=== PATIENT | female | born 1940 | race Caucasian/White ===

== ENCOUNTER 2017-06-08 12:29 | Outpatient (RCR) | payer MEDICARE, OTHER, SELFPAY ==
[2017-06-08 14:36] LABS: International Normalized Ratio 2.4; Prothrombin Time (Protime)PT. 25.3 SECONDS (11.7-14.9)
== END 2017-06-08 12:45 | disposition home or self-care (01) ==
LOC: LAB 12:29
PROVIDERS: Family Provider Family Medicine; PCP Family Medicine; Visit Provider Internal Medicine Cardiovascular Disease
DX: I48.2 Chronic atrial fibrillation (principal)
CPT/HCPCS: 36415; 85610

== ENCOUNTER 2017-07-06 13:35 | Outpatient (RCR) | payer MEDICARE, OTHER, SELFPAY ==
[2017-07-06 15:28] LABS: International Normalized Ratio 2.3; Prothrombin Time (Protime)PT. 24.5 SECONDS (11.7-14.9)
== END 2017-07-06 15:00 | disposition home or self-care (01) ==
LOC: LAB 13:35
PROVIDERS: Family Provider Family Medicine; PCP Family Medicine; Visit Provider Internal Medicine Cardiovascular Disease
DX: I48.2 Chronic atrial fibrillation (principal)
CPT/HCPCS: 36415; 85610

== ENCOUNTER → 2017-07-26 10:51 | Outpatient (CLI) | payer MEDICARE, OTHER, SELFPAY ==
[2017-07-26 12:02] LABS: AST(SGOT) 23 U/L (15-37); Alanine Aminotransfer ALT/SGPT 17 U/L (13-56); Albumin, Serum 3.1 g/dL (3.2-5.0); Alkaline Phosphatase 48 U/L (45-117); Bilirubin, Direct 0.17 mg/dL (0.00-0.30); Cholesterol 115 mg/dL (200); Globulin 3.9 g/dL (2.2-4.2); High Density Lipoprotein 52 mg/dL; Triglycerides 51 mg/dL; Very Low Density Lipoprotein 10 mg/dL (5-40)
== END ==
PROVIDERS: Family Provider Family Medicine; PCP Family Medicine; Visit Provider Nurse Practitioner Family
DX: E78.5 Hyperlipidemia, unspecified (principal); Z79.899 Other long term (current) drug therapy
CPT/HCPCS: 36415; 80061; 80076

== ENCOUNTER 2017-08-07 13:25 | Outpatient (RCR) | payer MEDICARE, OTHER, SELFPAY ==
[2017-08-07 15:07] LABS: International Normalized Ratio 2.9; Prothrombin Time (Protime)PT. 30.6 SECONDS (11.7-14.9)
== END 2017-08-07 14:00 | disposition home or self-care (01) ==
LOC: LAB 13:25
PROVIDERS: Family Provider Family Medicine; PCP Family Medicine; Visit Provider Internal Medicine Cardiovascular Disease
DX: I48.2 Chronic atrial fibrillation (principal)
CPT/HCPCS: 36415; 85610

== ENCOUNTER → 2017-08-15 11:08 | Outpatient (CLI) | payer MEDICARE, OTHER, SELFPAY ==
[2017-08-15 14:49] LABS: Absolute Lymphocyte Count 0.94 X10^3/ul (0.83-4.51); Basophil# 0.01 X10^3/uL; Basophil% 0.1 % (0-1); Eosinophil# 0.02 X10^3/uL; Eosinophils% 0.2 % (0-5); Hematocrit 32.4 % (37-47); Hemoglobin 10.7 g/dl (12.0-15.0); Lymphocyte # 0.94 X10^3/ul (4.0); Lymphocyte % 9.4 % (19-41); Mean Corpuscular Hgb 32.8 pg (27.0-32.0); Mean Corpuscular Volume 99.4 fL (81-99); Mean Platelet Vol. 10.3 fl (6.2-12.0); Monocyte# 1.03 X10^3/uL; Monocyte% 10.3 % (0-10); Neutrophil # 7.98 X10^3/uL (2.7-7.7); Neutrophil % 79.9 % (47-70); Platelet Count 462 K/mm3 (150-450); RBC Distribution Width CV 13.8 % (11.6-14.6); RBC Distribution Width SD 49.2 fl (35.1-43.9); Red Blood Count 3.26 M/mm3 (4.2-5.4)
[2017-08-15 14:50] LABS: POSITIVE COUNT NO; POSITIVE DIFFERENTIAL NO; POSITIVE MORPHOLOGY NO
[2017-08-15 14:59] LABS: ALB/GLOB Ratio 0.6 RATIO (0.9-2.4); AST(SGOT) 16 U/L (15-37); Alanine Aminotransfer ALT/SGPT 16 U/L (13-56); Albumin, Serum 2.6 g/dL (3.2-5.0); Alkaline Phosphatase 53 U/L (45-117); Anion Gap 7 (5-15); BUN 18 mg/dL (7-18); BUN/Creat Ratio 22.1 RATIO (10-20); Calcium,Total 9.5 mg/dL (8.5-10.1); Chloride 102 mmol/L (98-107); Creatinine, Serum 0.81 mg/dL (0.55-1.02); EST Glomerular Filtration Rate 72 mL/min (>60); Est Glom Filt Rate - Afr Amer 87 mL/min (>60); Globulin 4.3 g/dL (2.2-4.2); Glucose 87 mg/dL (74-106); Protein, Total 6.9 g/dL (6.4-8.2); Sodium Level 136 mmol/L (136-145)
== END ==
PROVIDERS: Family Provider Family Medicine; PCP Family Medicine; Visit Provider Internal Medicine Rheumatology
DX: M06.4 Inflammatory polyarthropathy (principal); Z79.899 Other long term (current) drug therapy; M72.2 Plantar fascial fibromatosis; K21.9 Gastro-esophageal reflux disease without esophagitis; I10 Essential (primary) hypertension; I48.2 Chronic atrial fibrillation; I25.10 Atherosclerotic heart disease of native coronary artery without angina pectoris; K57.90 Diverticulosis of intestine, part unspecified, without perforation or abscess without bleeding
CPT/HCPCS: 36415; 80053; 85025

== ENCOUNTER 2017-09-12 11:05 | Outpatient (RCR) | payer MEDICARE, OTHER, SELFPAY ==
[2017-09-12 12:24] LABS: International Normalized Ratio 2.2; Prothrombin Time (Protime)PT. 24.8 SECONDS (11.7-14.9)
== END 2017-09-12 12:00 | disposition home or self-care (01) ==
LOC: LAB 11:05
PROVIDERS: Family Provider Family Medicine; PCP Family Medicine; Visit Provider Internal Medicine Cardiovascular Disease
DX: I48.2 Chronic atrial fibrillation (principal)
CPT/HCPCS: 36415; 85610

== ENCOUNTER → 2017-10-17 15:07 | Outpatient (CLI) | payer MEDICARE, OTHER, SELFPAY ==
--- NOTE | 2017-10-17 15:07 | DT_ITS ---
This patient was seen during an EMR downtime October 15, 2017 - October 22, 2017. This patient may have a combination of paper and electronic documentation or all paper documentation. All documentation is viewable within the e-chart portion of [employer] for each patient visit.
[2017-10-20 10:48] LABS: Prothrombin Time (Protime)PT. 22.5 SECONDS (11.7-14.9)
== END ==
PROVIDERS: Family Provider Family Medicine; PCP Family Medicine; Visit Provider Internal Medicine Cardiovascular Disease
DX: I48.91 Unspecified atrial fibrillation (principal)
CPT/HCPCS: 85610

== ENCOUNTER → 2017-11-01 13:06 | Outpatient (CLI) | payer MEDICARE, OTHER, SELFPAY ==
[2017-11-01 14:37] LABS: Absolute Lymphocyte Count 1.06 X10^3/ul (0.83-4.51); Absolute Neutrophil Count 4.3 X10^3/uL (2.0-7.7); Basophil# 0.02 X10^3/uL; Basophil% 0.3 % (0-1); Eosinophil# 0.07 X10^3/uL; Eosinophils% 1.2 % (0-5); Hematocrit 36.8 % (37-47); Hemoglobin 12.4 g/dl (12.0-15.0); Lymphocyte # 1.06 X10^3/ul (4.0); Mean Corp Hgb Conc 33.7 g/gl (32-36); Mean Corpuscular Volume 100.8 fL (81-99); Mean Platelet Vol. 10.8 fl (6.2-12.0); Monocyte# 0.43 X10^3/uL; Monocyte% 7.3 % (0-10); Neutrophil # 4.31 X10^3/uL (2.7-7.7); Platelet Count 269 K/mm3 (150-450); RBC Distribution Width CV 13.9 % (11.6-14.6); RBC Distribution Width SD 49.6 fl (35.1-43.9); Red Blood Count 3.65 M/mm3 (4.2-5.4); White Blood Count 5.9 K/mm3 (4.4-11.0)
[2017-11-01 14:40] LABS: POSITIVE COUNT NO; POSITIVE DIFFERENTIAL NO; POSITIVE MORPHOLOGY NO
[2017-11-01 14:42] LABS: AST(SGOT) 21 U/L (15-37); Alanine Aminotransfer ALT/SGPT 22 U/L (13-56); Albumin, Serum 3.4 g/dL (3.2-5.0); Alkaline Phosphatase 54 U/L (45-117); Anion Gap 8 (5-15); BUN 18 mg/dL (7-18); BUN/Creat Ratio 22.4 RATIO (10-20); Calcium,Total 9.1 mg/dL (8.5-10.1); Chloride 106 mmol/L (98-107); EST Glomerular Filtration Rate 73 mL/min (>60); Est Glom Filt Rate - Afr Amer 89 mL/min (>60); Globulin 3.5 g/dL (2.2-4.2); Glucose 92 mg/dL (74-106); Protein, Total 6.9 g/dL (6.4-8.2); Sodium Level 140 mmol/L (136-145)
== END ==
PROVIDERS: Family Provider Family Medicine; PCP Family Medicine; Visit Provider Internal Medicine Rheumatology
DX: M06.4 Inflammatory polyarthropathy (principal); Z79.899 Other long term (current) drug therapy; M72.2 Plantar fascial fibromatosis; K21.9 Gastro-esophageal reflux disease without esophagitis; I10 Essential (primary) hypertension; I48.2 Chronic atrial fibrillation; I25.10 Atherosclerotic heart disease of native coronary artery without angina pectoris; K57.90 Diverticulosis of intestine, part unspecified, without perforation or abscess without bleeding
CPT/HCPCS: 36415; 80053; 85025

== ENCOUNTER 2017-12-04 13:38 | Outpatient (RCR) | payer MEDICARE, OTHER, SELFPAY ==
[2017-12-04 16:18] LABS: International Normalized Ratio 2.2; Prothrombin Time (Protime)PT. 24.1 SECONDS (11.7-14.9)
== END 2017-12-04 15:00 | disposition home or self-care (01) ==
LOC: LAB 13:38
PROVIDERS: Family Provider Family Medicine; PCP Family Medicine; Visit Provider Internal Medicine Cardiovascular Disease
DX: I48.2 Chronic atrial fibrillation (principal)
CPT/HCPCS: 36415; 85610

== ENCOUNTER 2018-01-04 12:27 | Outpatient (RCR) | payer MEDICARE, OTHER, SELFPAY ==
[2018-01-04 13:22] LABS: International Normalized Ratio 2.4; Prothrombin Time (Protime)PT. 25.9 SECONDS (11.7-14.9)
== END 2018-01-04 14:00 | disposition home or self-care (01) ==
LOC: LAB 12:27
PROVIDERS: Family Provider Family Medicine; PCP Family Medicine; Visit Provider Internal Medicine Cardiovascular Disease
DX: I48.2 Chronic atrial fibrillation (principal)
CPT/HCPCS: 36415; 85610

== ENCOUNTER → 2018-01-29 13:48 | Outpatient (CLI) | payer MEDICARE, OTHER, SELFPAY ==
[2018-01-29 15:27] LABS: Absolute Lymphocyte Count 1.44 X10^3/ul (0.83-4.51); Absolute Neutrophil Count 3.2 X10^3/uL (2.0-7.7); Basophil# 0.02 X10^3/uL; Basophil% 0.4 % (0-1); Eosinophil# 0.09 X10^3/uL; Eosinophils% 1.7 % (0-5); Hematocrit 37.4 % (37-47); Hemoglobin 12.4 g/dl (12.0-15.0); Lymphocyte # 1.44 X10^3/ul (4.0); Lymphocyte % 27.7 % (19-41); Mean Corp Hgb Conc 33.2 g/gl (32-36); Mean Corpuscular Hgb 33.2 pg (27.0-32.0); Mean Corpuscular Volume 100.3 fL (81-99); Mean Platelet Vol. 10.8 fl (6.2-12.0); Monocyte# 0.41 X10^3/uL; Monocyte% 7.9 % (0-10); Neutrophil # 3.23 X10^3/uL (2.7-7.7); Neutrophil % 62.1 % (47-70); Platelet Count 261 K/mm3 (150-450); RBC Distribution Width CV 13.8 % (11.6-14.6); RBC Distribution Width SD 49.5 fl (35.1-43.9); Red Blood Count 3.73 M/mm3 (4.2-5.4); White Blood Count 5.2 K/mm3 (4.4-11.0)
[2018-01-29 15:36] LABS: POSITIVE COUNT NO; POSITIVE DIFFERENTIAL NO; POSITIVE MORPHOLOGY NO
[2018-01-29 15:38] LABS: AST(SGOT) 17 U/L (15-37); Alanine Aminotransfer ALT/SGPT 20 U/L (13-56); Albumin, Serum 3.4 g/dL (3.2-5.0); Alkaline Phosphatase 65 U/L (45-117); Anion Gap 9 (5-15); BUN 20 mg/dL (7-18); BUN/Creat Ratio 25.7 RATIO (10-20); Calcium,Total 9.5 mg/dL (8.5-10.1); Chloride 108 mmol/L (98-107); Creatinine, Serum 0.78 mg/dL (0.55-1.02); EST Glomerular Filtration Rate 76 mL/min (>60); Est Glom Filt Rate - Afr Amer 92 mL/min (>60); Globulin 3.4 g/dL (2.2-4.2); Glucose 98 mg/dL (74-106); Potassium 3.9 mmol/L (3.5-5.1); Protein, Total 6.8 g/dL (6.4-8.2); Sodium Level 142 mmol/L (136-145)
[2018-01-29 15:53] LABS: International Normalized Ratio 2.1; Prothrombin Time (Protime)PT. 23.2 SECONDS (11.7-14.9)
== END ==
PROVIDERS: Internal Medicine Cardiovascular Disease; Family Provider Family Medicine; PCP Family Medicine; Visit Provider Internal Medicine Rheumatology
DX: M06.4 Inflammatory polyarthropathy (principal); Z79.899 Other long term (current) drug therapy; M72.2 Plantar fascial fibromatosis; K21.9 Gastro-esophageal reflux disease without esophagitis; I10 Essential (primary) hypertension; I48.2 Chronic atrial fibrillation; I25.10 Atherosclerotic heart disease of native coronary artery without angina pectoris; K57.90 Diverticulosis of intestine, part unspecified, without perforation or abscess without bleeding
CPT/HCPCS: 36415; 80053; 85025; 85610

== ENCOUNTER 2018-04-03 11:02 | Outpatient (RCR) | payer MEDICARE, OTHER, SELFPAY ==
[2018-03-14 15:15] LABS: International Normalized Ratio 1.8; Prothrombin Time (Protime)PT. 20.5 SECONDS (11.7-14.9)
[2018-04-03 12:18] LABS: International Normalized Ratio 2.1; Prothrombin Time (Protime)PT. 23.6 SECONDS (11.7-14.9)
== END 2018-04-12 12:29 | disposition home or self-care (01) ==
LOC: LAB 11:02
PROVIDERS: Internal Medicine Cardiovascular Disease; Family Provider Family Medicine; PCP Family Medicine; Visit Provider Internal Medicine Cardiovascular Disease
DX: I48.2 Chronic atrial fibrillation (principal); Z79.01 Long term (current) use of anticoagulants
CPT/HCPCS: 36415; 85610

== ENCOUNTER → 2018-04-17 11:04 | Outpatient (CLI) | payer MEDICARE, OTHER, SELFPAY ==
[2018-04-17 11:59] LABS: Absolute Lymphocyte Count 0.95 X10^3/ul (0.83-4.51); Absolute Neutrophil Count 2.9 X10^3/uL (2.0-7.7); Basophil# 0.04 X10^3/uL; Basophil% 0.9 % (0-1); Eosinophil# 0.06 X10^3/uL; Eosinophils% 1.3 % (0-5); Hematocrit 38.5 % (37-47); Hemoglobin 12.8 g/dl (12.0-15.0); Lymphocyte # 0.95 X10^3/ul (4.0); Lymphocyte % 21.3 % (19-41); Mean Corp Hgb Conc 33.2 g/gl (32-36); Mean Corpuscular Hgb 34.3 pg (27.0-32.0); Mean Corpuscular Volume 103.2 fL (81-99); Monocyte# 0.56 X10^3/uL; Monocyte% 12.6 % (0-10); Neutrophil # 2.85 X10^3/uL (2.7-7.7); Neutrophil % 63.9 % (47-70); Platelet Count 258 K/mm3 (150-450); RBC Distribution Width CV 13.1 % (11.6-14.6); RBC Distribution Width SD 47.4 fl (35.1-43.9); Red Blood Count 3.73 M/mm3 (4.2-5.4); White Blood Count 4.5 K/mm3 (4.4-11.0)
[2018-04-17 12:00] LABS: POSITIVE COUNT NO; POSITIVE DIFFERENTIAL NO; POSITIVE MORPHOLOGY NO
[2018-04-17 12:37] LABS: AST(SGOT) 19 U/L (15-37); Alanine Aminotransfer ALT/SGPT 18 U/L (13-56); Albumin, Serum 3.5 g/dL (3.2-5.0); Alkaline Phosphatase 66 U/L (45-117); Anion Gap 6 (5-15); BUN 15 mg/dL (7-18); BUN/Creat Ratio 16.3 RATIO (10-20); Calcium,Total 9.6 mg/dL (8.5-10.1); Chloride 107 mmol/L (98-107); Creatinine, Serum 0.92 mg/dL (0.55-1.02); EST Glomerular Filtration Rate 63 mL/min (>60); Est Glom Filt Rate - Afr Amer 76 mL/min (>60); Globulin 3.6 g/dL (2.2-4.2); Glucose 79 mg/dL (74-106); Potassium 3.8 mmol/L (3.5-5.1); Protein, Total 7.1 g/dL (6.4-8.2); Sodium Level 140 mmol/L (136-145)
== END ==
PROVIDERS: Family Provider Family Medicine; PCP Family Medicine; Referring Provider Internal Medicine Rheumatology; Visit Provider Internal Medicine Rheumatology
DX: M06.4 Inflammatory polyarthropathy (principal); Z79.899 Other long term (current) drug therapy; M72.2 Plantar fascial fibromatosis; K21.9 Gastro-esophageal reflux disease without esophagitis; I10 Essential (primary) hypertension; I48.2 Chronic atrial fibrillation; I25.10 Atherosclerotic heart disease of native coronary artery without angina pectoris; K57.90 Diverticulosis of intestine, part unspecified, without perforation or abscess without bleeding
CPT/HCPCS: 36415; 80053; 85025

== ENCOUNTER → 2018-04-25 14:20 | Outpatient (CLI) | payer MEDICARE, OTHER, SELFPAY ==
[2018-03-14 14:46] VITALS: BMI 26.3
--- NOTE | 2018-04-25 14:20 | ASPSI_PTH ---
PATIENT: ANGELINA SONI LOC: [facility] U#:[id number] AGE/SX: 84/F ROOM: RE04/25/[address]: Dr. Pato Urbina MD : 1940 BED: DIS: SPEC #: [id number] RECD: 04/25/18 16:19 STATUS: KARSTEN REZeny #: [id number] KRYSTEN: 04/25/18 14:[address]: Pato Urbina DEPT: CYTOLOGY RECD BY: Bradford Bradford ENTERED: 04/26/18 10:10 SP TYPE: ASP ELISSA STEVENSON DR: Dr. 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 Acute inflammation. Fibrinoid material. See Comment. AM:kellie 04/29/18 COMMENT The specimen primarily consists of proteinaceous debris and acute inflammatory cells. Scattered degenerative atypical squamoid cells are present. An atypical squamous lesion or a higher grade lesion cannot be ruled out. Salivary gland tissue is not identified. Clinical correlation and excision of lesion is recommended if indicated. Case has been reviewed in consultation with Dr. Ch who concurs with the above diagnosis. IDC:SJ CYTOLOGY STUDY Slides are reviewed. CYTOLOGY GROSS Received is 60 ml of pink cloudy fluid labeled with the patient's name and and designated per the requisition as left parotid/neck. Submitted for cytology preparation including cell block. 04/26/18 TC:? CPT: 64506, 01970
--- OUTSIDE RECORDS SUMMARY | 2018-06-11 20:57 | XMS RPT_ITS ---
:1940 Author Organization [facility] Support Name Relationship Address Phone ZAIN SHETH Unavailable [address] + [place] [address] R Unavailable Unavailable Unavailable WELTMER, BEYN Unavailable [address] + [place] [address] ZAIN SHETH Unavailable [address] + [place] [address] R Unavailable Unavailable Unavailable WELTMER, BENY Unavailable [address] + [place] [address] MERYLDANIKA GOLDMANA Unavailable [address] + [place] [address] R Unavailable Unavailable Unavailable WELTMER, BENY Unavailable [address] + [place] [address] MERYLDANIKA GOLDMANA Unavailable [address] + [place] [address] R Unavailable Unavailable Unavailable WELTMER, BENY Unavailable [address] + [place] [address] MERYLDANIKA GOLDMANA Unavailable [address] + [place] [address] R Unavailable Unavailable Unavailable WELTMER, BENY Unavailable [address] + [place] [address] MERYLDANIKA GOLDMANA Unavailable [address] + [place] [address] R Unavailable Unavailable Unavailable WELTMER, BENY Unavailable [address] + [place] [address] MERYLDANIKAA Unavailable [address] + [place] [address] R Unavailable Unavailable Unavailable WELTMER, BENY Unavailable [address] + [place] [address] MERYL, ZAIN Unavailable [address] + [place] [address] R Unavailable Unavailable Unavailable WELTMER, BENY Unavailable [address] + [place] [address] MERYL, ZAIN Unavailable [address] + [place] [address] R Unavailable Unavailable Unavailable WELTMER, BENY Unavailable [address] + [place] [address] MERYL, ZAIN Unavailable [address] + [place] [address] R Unavailable Unavailable Unavailable WELTMER, BENY Unavailable [address] + [place] [address] MERYL, ZAIN Unavailable [address] + [place] [address] R Unavailable Unavailable Unavailable WELTMER, BENY Unavailable [address] + [place] [address] MERYL, ZAIN Unavailable [address] + [place] [address] R Unavailable Unavailable Unavailable WELTMER, BENY Unavailable [address] + [place] [address] MERYL, ZAIN Unavailable [address] + [place] [address] R Unavailable Unavailable Unavailable WELTMER, BENY Unavailable [address] + [place] [address] MERYL, ZAIN Unavailable [address] + [place] [address] R Unavailable Unavailable Unavailable WELTMER, BENY Unavailable [address] + [place] [address] MREYL, ZAIN Unavailable [address] + [place] [address] R Unavailable Unavailable Unavailable WELTMER, BENY Unavailable [address] + [place] [address] MERYL, ZAIN Unavailable [address] + [place] [address] R Unavailable Unavailable Unavailable WELTMER, BENY Unavailable [address] + [place] [address] MERYL ZAIN Unavailable [address] + [place] [address] R Unavailable Unavailable Unavailable WELTMER, BENY Unavailable [address] + [place] [address] MERYL, ZAIN Unavailable [address] + [place] [address] R Unavailable Unavailable Unavailable WELTMER, BENY Unavailable [address] + [place] [address] MERYL, ZAIN Unavailable [address] + [place] [address] R Unavailable Unavailable Unavailable WELTMER, BENY Unavailable [address] + [place] [address] MERYLDANIKA GOLDMANA Unavailable [address] + [place] [address] R Unavailable Unavailable Unavailable WELTMER, BENY Unavailable [address] + [place] [address] DANIKA SHETHA Unavailable [address] + [place] [address] R Unavailable Unavailable Unavailable WELTMER, BENY Unavailable [address] + [place] [address] MERYL, ZAIN Unavailable [address] + [place] [address] R Unavailable Unavailable Unavailable WELTMER, BENY Unavailable [address] + [place] [address] Care Team Providers Name Role Phone JOSEPH [...] Unavailable Pari, Joseph Primary Care Unavailable Isis, [place] Consulting Unavailable Vellanki, Iona Consulting Unavailable Urbina, Pato Attending Unavailable Pari, Joseph Primary Care Unavailable Urbina, Pato Attending Unavailable Urbina, Pato Referring Unavailable Pari, Joseph Primary Care Unavailable Urbina, Pato Admitting Unavailable Aldair Abdul Attending Unavailable Pari, Joseph Primary Care Unavailable Isis, [place] Consulting Unavailable GERMAINE ABDUL Referring Unavailable Vellanki, [place] Consulting Unavailable Aldair Abdul Attending Unavailable Aldair Abdul Referring Unavailable Pari, Joseph Primary Care Unavailable Isis, [place] Consulting Unavailable Vellanki, [place] Consulting Unavailable Aldair Abdul Attending Unavailable Aldair Abdul Referring Unavailable Pari, Joseph Primary Care Unavailable Isis, [place] Consulting Unavailable Vellanki, [place] Consulting Unavailable Sammy [...] Consulting Unavailable Vellanki, [place] Consulting Unavailable Isis, [place] Attending Unavailable Pari, Joseph Primary Care Unavailable [...] Unknown 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, 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 / D11.0(ICD-10) Hospital Repository 05/13/2018 Unknown I48.2 - Chronic Aldair Abdul Active [facility] atrial fibrillation / Community I48.2(ICD-10) Hospital Repository 04/09/2018 Active Localized swelling, NA Active [facility] mass and lump, neck / Clinic Main R22.1(ICD-10) [facility] Repository 04/17/2018 Unknown Z79.899 - Other long Vellanki, Iona Active [facility] term (current) drug Community therapy / Hospital Z79.899(ICD-10) Repository 04/17/2018 Unknown M06.4 - Inflammatory Vellanki, 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 / Community M06.4(ICD-10) Hospital Repository 04/17/2018 Unknown 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, 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 Community / M72.2(ICD-10) Hospital Repository 04/17/2018 Unknown K21.9 - Vellanki, Iona Active [facility] Gastro-esophageal Community reflux disease Hospital without esophagitis / Repository K21.9(ICD-10) 04/17/2018 Unknown I10 - Essential Vellanki, Iona Active [facility] (primary) Community hypertension / Hospital I10(ICD-10) Repository 04/17/2018 Unknown I25.10 - Vellanki, Iona Active [facility] 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 without angina pectoris / I25.10(ICD-10) 04/17/2018 Unknown K57.90 - [place]ona Eid Active [facility] Diverticulosis of Community intestine, part Hospital unspecified, without Repository perforation or abscess without bleeding / K57.90(ICD-10) 04/15/2018 Unknown 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 [facility] (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) use of Community anticoagulants / Hospital Z79.01(ICD-10) Repository 03/14/2018 Unknown I25.119 - Isis, Connor Active [facility] Atherosclerotic heart Community disease of [place] [facility] coronary artery with Repository unspecified angina pectoris / I25.119(ICD-10) 03/14/2018 Unknown Z72.0 - Tobacco use / Isis, [place] Active [facility] Z72.0(ICD-10) [facility] Hospital Repository 03/14/2018 Unknown E78.00 - Pure Isis, Connor Active [facility] hypercholesterolemia, Community unspecified / Hospital E78.00(ICD-10) Repository 11/07/2017 Unknown I48.91 - Unspecified Isis, [place] Active [facility] atrial fibrillation / Community I48.91(ICD-10) Hospital Repository 08/13/2017 Unknown I48.0 - Paroxysmal Aldair Abdul Active [facility] atrial fibrillation / Community I48.0(ICD-10) Hospital Repository 07/26/2017 Unknown E78.5 - Sammy Bellamy Active [facility] Hyperlipidemia, Community unspecified / Hospital E78.5(ICD-10) Repository 06/14/2017 Active Other snf NA Active [facility] (current) drug Clinic Main therapy / [place] Z79.899(ICD-10) Repository 02/29/2016 Active Gastro-esophageal NA Active [place] reflux disease Clinic Main without esophagitis / [facility] K21.9(ICD-10) Repository 08/30/2015 Active Essential (primary) NA Active [place] hypertension / Clinic Main I10(ICD-10) [facility] Repository 03/06/2015 Active Mixed hyperlipidemia NA Active [facility] / E78.2(ICD-10) Clinic Main [facility] Repository PROCEDURES PROCEDURES No Procedure Records FoundRESULTS RESULTS DISCHARGE INSTRUCTION Observed: 05/25/2018 Status: F Source: [place] 10:15 AM [facility] REPOSITORY [facility] Medical Records Department [address] [place] [address] [place] [address] Instructions for Home/Discharge Instructions 05/25/18 1014 MR#: [id number] Acct: [id number] Name: MARY CARLTON Rep #: [id number] : 1940 77 From: Pato Urbina MD [...] TIME W/INR Collected: 05/24/2018 Status: F Source: [place] 7:54 AM [facility] REPOSITORY Order Comment: Result obtained is for confirmation testing of Fingerstick PT/INR Specimen #[id number] . 05/24/18 0800 SSTERNER THIS CONFIRMATION SPECIMEN RESULT IS FROM VENOUS BLOOD. TYPE CODE TESTS RESULT OUT OF RANGE REFERENCE UNITS LAB L300.4150 11.7-14.9 SECONDS High PROTIME 23.3 LAB L300.4200 Normal INR 2.1 Performed By: #### L300.3900 #### [facility] [address] [place], [address] PROTIME W/INR Collected: 05/24/2018 Status: F Source: [place] FING[place] 7:48 AM [facility] REPOSITORY TYPE CODE TESTS RESULT OUT OF REFERENCE UNITS RANGE LAB L9200.1001 11.9-14.4 SEC High PROTIME ISTAT 24.3 Result Comment: Reference Range 11.9 - 14.4 LAB L9200.2000 Normal INR ISTAT 2.10 Result Comment: Critical Value > 3.5 Performed By: #### L9200.0000 #### [facility] Point of Care [address] [place] [address] PAROTID GLAND BIOPSY Observed: 05/24/2018 Status: F Source: [place] 12:00 AM [facility] REPOSITORY Patient: MARY CARLTON : 1940 (77/F) Acct Num: [id number] Phys: Pato Urbina MD Unit Num: [id number] Loc: MS3 EU278-4 Specimen: [id number] Received: 05/24/181137 Spec Type: PAROTID [...] and has a similar appearance and consistency. Cable Strander sections from the nodules are submitted for frozen section consultation in two blocks as follows: 1 - larger lesion, 2 - smaller lesion. The remainder of the larger nodule is submitted in its entirety for permanent sections in cassettes 3 AND 4. The remainder of the smaller nodule is submitted in its entirety in cassette 5. Cable Strander sections of the uninvolved parotid parenchyma adjacent to and away from nodules are submitted in cassettes 6-10. 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 MICROSCOPIC DIAGNOSIS Left parotid gland, parotidectomy: Warthin's tumors. See comment. AM:kellie 05/28/18 Signed Pavan Terry, 05/28/18 <signature on file> Performed By: #### PPAR #### [facility] [address] [place], [address] CHEST WITH CONTRAST Observed: 05/10/2018 Status: F Source: [place] 2:48 PM [facility] REPOSITORY [facility] Imaging Services [address] [place] [address] Chest WITH Contrast MR#: [id number] Acct: [id number] Name: MARY CARLTON Rep #: [id number] : 1940 F 77 From: William Jacobs MD PCP: Joseph Yañez MD Status: REG CLI Study: Chest WITH Contrast Date of Exam: 05/10/18 Exam# [id number] Ordering Dr: Pato Urbina MD STUDY: CT [...] William Jacobs MD at 11:49 EST Tel [phone], Service support , CC: Pato Urbina MD; Joseph Yañez MD Weapons Electrical Engineering Officer: Signed PROTHROMBIN TIME W/INR Collected: 05/10/2018 Status: F Source: [place] 12:37 PM [facility] REPOSITORY TYPE CODE TESTS RESULT OUT OF RANGE REFERENCE UNITS LAB L300.4150 11.7-14.9 SECONDS High PROTIME 25.1 LAB L300.4200 Normal INR 2.3 Performed By: #### L300.3900 #### [facility] [address] [place], [address] PROGRESS Observed: 05/03/2018 Status: COMPLETED Source: [place] 9:07 AM [facility] REPOSITORY O ID: [id number] Author: Yaneth Gaitan Service: (none) Author Type: [...] decomp right - COLONOSCOP W/ OR W/O [facility] SPEC 05/11/1995 Colonoscopy - COLONOSCOP W/ OR W/O [facility] SPEC 08/17/2005 few diverticula - COLONOSCOP W/ OR W/O [facility] SPEC 11/29/10 normal, repeat 10 yrs - CYSTOURETH W/FULG 0.5-2CM 02/25/14 stent right ureter for hematuria - EGD W/O [facility] SPECIMEN W/BX 11/29/10 gastritis - EGD W/O [...] DPM PROGRESS Observed: 05/03/2018 Status: COMPLETED Source: [place] 8:58 AM [facility] [place] REPOSITORY [facility] ID: [id number] Author: Negra Garcia RN Service: (none) Author [...] RN CNOV Observed: 05/03/2018 Status: COMPLETED Source: [place] 8:40 AM [facility] REPOSITORY Office Visit (PODIWS) ZACHARIAHMARY ([id number]) 1940 F NFR Date Time Provider Department [...] decomp right - COLONOSCOP W/ OR W/O [facility] SPEC 05/11/1995 Colonoscopy - COLONOSCOP W/ OR W/O [facility] SPEC 08/17/2005 few diverticula - COLONOSCOP W/ OR W/O [facility] SPEC 11/29/10 normal, repeat 10 yrs - CYSTOURETH W/FULG 0.5-2CM 02/25/14 stent right ureter for hematuria - EGD W/O [facility] SPECIMEN W/BX 11/29/10 gastritis - EGD W/O [...] RADIOLOGY (FLUID) Observed: 05/02/2018 Status: F Source: [place] 2:24 PM [facility] REPOSITORY Patient: MARY CARLTON : 1940 (77/F) Acct Num: [id number] Phys: Pato Urbina MD Unit Num: [id number] Loc: LABSPEC Specimen: [id number] Received: 05/03/18 - 1208 Spec Type: ASP OUT TISSUES 1 TISSUES: Parotid gland, NOS COMMENT Correlation with clinical findings and appropriate follow up are necessary. Please make reference to previous specimen ([id number]) fine needle aspiration, left parotid/neck mass with diagnosis of atypical squamoid cells present, acute inflammation and fibroid material. CYTOLOGY GROSS Received is 40 ml of slightly cloudy fluid labeled with the patient's name and and designated per the requisition as right parotid gland. Submitted for cytology preparation including cell block. / 05/03/18 TC:1 CPT: 50861 , 79905 CYTOLOGY STUDY Slides are reviewed. DIAGNOSIS CYTOLOGY Right parotid gland, FNA (cytospin and cell block): Consistent with Warthin's tumor. See comment. SJ:kellie 05/06/18 HEADER OPERATION: FNA right parotid gland PRE-OP DIAGNOSIS: Benign neoplasm right parotid gland TISSUE SUBMITTED: FNA right parotid gland Signed Artemio Ch MD 05/06/18 <signature on file> Performed By: #### PASPIG #### [facility] [place], [address] ASP SEND IN Observed: 04/25/2018 Status: F Source: [place] 2:20 PM [facility] REPOSITORY Patient: MARY CARLTON : 1940 (77/F) Acct Num: [id number] Phys: Pato Urbina MD Unit Num: [id number] Loc: LABSPEC Specimen: [id number] Received: 04/25/18 - [...] including cell block. / 04/26/18 TC:? CPT: 43389, 18675 CYTOLOGY STUDY Slides are reviewed. DIAGNOSIS CYTOLOGY Fine needle aspiration, left parotid/neck mass (cytospin and cell block): Atypical squamoid cells present. Acute inflammation. Fibrinoid material. See Comment. 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, [address] PROTHROMBIN TIME W/INR Collected: 04/23/2018 Status: F Source: [place] 2:16 PM [facility] REPOSITORY TYPE CODE TESTS RESULT OUT OF RANGE REFERENCE UNITS LAB L300.4150 11.7-14.9 SECONDS High PROTIME 24.6 LAB L300.4200 Normal INR 2.2 Performed By: #### L300.3900 #### [facility] [address] [place], [address] CT NECK SOFT TISSUE Observed: 04/22/2018 Status: F Source: [facility] IVCON 2:12 PM [facility] REPOSITORY * * *Final Report* * * DATE OF EXAM: Apr 22 2018 2:12PM [facility] 0013 - CT NECK SOFT TISSUE W [...] Negative for cervical lymphadenopathy by size criteria. Weapons Electrical Engineering Officer: PSCB Transcribe Date/Time: Apr 22 2018 2:26P Dictated by : ALDAIR ZULUAGA MD This examination was interpreted and the report reviewed and electronically signed by: ROCIO MOSCOSO MD on Apr 22 2018 3:52PM EST [id number] PROGRESS Observed: 04/22/2018 Status: COMPLETED Source: [place] 2:09 PM [facility] REPOSITORY HNO ID: [id number] Author: Tanvi Ascencio Ct Service: (none) Author [...] 04/17/2018 Status: F Source: [place] 11:11 AM [facility] REPOSITORY TYPE CODE TESTS RESULT OUT OF [...] Lymph 0.95 Performed By: #### L100.0100 #### [facility] [address] [place], [address] COMPREHENSIVE METABOLIC Collected: 04/17/2018 Status: F Source: [place] 11:11 AM [facility] REPOSITORY TYPE CODE TESTS RESULT OUT OF [...] GAP 6 Performed By: #### L500.4050 #### [facility] [address] [place], [address] CREATININE Collected: 04/09/2018 Status: F Source: [place] 3:22 PM [facility] REPOSITORY TYPE [...] GFR. PROGRESS Observed: 04/09/2018 Status: COMPLETED Source: [place] 2:20 PM [facility] REPOSITORY [facility] ID: [id number] Author: Joseph Yañez Service: (none) Author Type: [...] decomp right - COLONOSCOP W/ OR W/O [facility] SPEC 05/11/1995 Colonoscopy - COLONOSCOP W/ OR W/O [facility] SPEC 08/17/2005 few diverticula - COLONOSCOP W/ OR W/O [facility] SPEC 11/29/10 normal, repeat 10 yrs - CYSTOURETH W/FULG 0.5-2CM 02/25/14 stent right ureter for hematuria - EGD W/O [facility] SPECIMEN W/BX 11/29/10 gastritis - EGD W/O [...] of Onset - Coronary Artery Disease Mother [place] - Coronary Artery Disease Father [place] - Stroke Father - Diabetes Brother - [...] old female who presents here today for [facility]. Patient with Hx of CAD, [...] of Onset - Coronary Artery Disease Mother [place] - Coronary Artery Disease Father [place] - Stroke Father - Diabetes Brother - [...] MD CNOV Observed: 04/09/2018 Status: COMPLETED Source: [place] 2:00 PM [facility] REPOSITORY Office Visit (FAMPWS) MARY CARLTON ([id number]) 1940 F NFR Date Time Provider Department 04/09/18 2:00 PM JOSEPH YAÑEZ FAMPWS During your visit today, we recorded the following information about you: Pulse Respiration Blood pressure Weight 76/minute 16/minute 134/62 56.7 kg Height 1.441 m Ce Henry Ma 04/09/2018 7:56 PM Signed 77 year old female here for INACTIVATED INFLUENZA VACCINE. 4259-1881 Season Patient is identified by name and date of : Yes [] CONTRAINDICATIONS color enhanced section Age less than 6 months? No Allergy to eggs, chicken, chicken feathers, or chicken dander? No Allergy to thimerosal (a preservative) or formaldehyde, gelatin? No History of severe reaction to any vaccine component or a previous dose of influenza vaccination? No History of Guillain-[place] Syndrome within 6 weeks after a previous [...] sheet given? Yes See immunization activity in [facility] for details of immunizations adminstered today. Patient age: [age] year old For The 8003-9858 Flu Season 6-35 months old: Fluzone 0.25 [...] of Onset - Coronary Artery Disease Mother [place] - Coronary Artery Disease Father [place] - Stroke Father - Diabetes Brother - [...] old female who presents here today for [facility]. Patient with Hx of CAD, HTN, Hyperlipidemia, Arthritis, A. Fib as well as those reviewed and addressed below. Has been doing ok. Still seeing Dr. eHnry for her Arthritis and seeing Dr. Campos [...] decomp right - COLONOSCOP W/ OR W/O [facility] SPEC 05/11/1995 Colonoscopy - COLONOSCOP W/ OR W/O [facility] SPEC 08/17/2005 few diverticula - COLONOSCOP W/ OR W/O [facility] SPEC 11/29/10 normal, repeat 10 yrs - [...] of Onset - Coronary Artery Disease Mother [place] - Coronary Artery Disease Father [place] - Stroke Father - Diabetes Brother - [...] to next visit. Referring Provider: JOSEPH YAÑEZ [[id number]] Allergies As of Date: 04/09/2018 Noted Allergy [...] [Z79.899] Order(s):INFLUENZA SEASONAL HIGH DOSE AGE 65+ [[id number]] Order #: [id number] CT NECK SOFT TISSUE W IVCON [[id number]] Order #: [id number] FUTURE iv contrast (will be provided with [...] Rfl: COMP METABOLIC PANEL [SQCMP] Order #: [id number] FUTURE LIPID PANEL, NONFASTING [SQLIPNF] Order #: [id number] FUTURE MAGNESIUM BLD [SQMG1] Order #: [id number] FUTURE URINALYSIS WITH MICROSCOPIC [SQUAWMIC] Order #: [id number] FUTURE [place]ARY[place] CREATININE [SQWCRET] Order #: [id number] FUTURE Prescriptions as of 04/09/2018 Sig: METHOTREXATE [...] 04/09/18 PROGRESS Observed: 04/09/2018 Status: COMPLETED Source: [place] 1:55 PM [facility] REPOSITORY O ID: [id number] Author: Ce Henry Ma Service: (none) Author Type: (none) Type: Progress Notes Filed: 04/09/2018 7:56 PM Note Text: 77 year old female here for INACTIVATED INFLUENZA VACCINE. 2020-0848 Season Patient is identified by name and date of : Yes [] CONTRAINDICATIONS color enhanced section Age less than 6 months? No Allergy to eggs, chicken, chicken feathers, or chicken dander? No Allergy to thimerosal (a preservative) or formaldehyde, gelatin? No History of severe reaction to any vaccine component or a previous dose of influenza vaccination? No History of Guillain-[place]mar[place] Syndrome within 6 weeks after a previous [...] sheet given? Yes See immunization activity in [facility] for details of immunizations adminstered today. Patient age: [age] year old For The 7516-1101 Flu Season 6-35 months old: Fluzone 0.25 [...] TIME W/INR Collected: 04/03/2018 Status: F Source: [place] 11:03 AM [facility] REPOSITORY TYPE CODE TESTS RESULT OUT OF RANGE REFERENCE UNITS LAB L300.4150 11.7-14.9 SECONDS High PROTIME 23.6 LAB L300.4200 Normal INR 2.1 Performed By: #### L300.3900 #### [facility] [address] [place], [address] CARDIOLOGY VISIT Observed: 03/14/2018 Status: F Source: [place] REPORT 3:10 PM [facility] REPOSITORY [facility] [address] [place] [address] OFFICE VISIT Date of Service: 03/14/18 MR#: [id number] Acct: [id number] Name: MARY CARLTON Rep #: [id number] : 1940 Provider: Connor Marinelli MD Age/Sex: 77/F Location: [place] Status: Signed [facility] Chief Complaint: Follow-up visit. 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 Essential hypertension I10 Hypertension type: essential hypertension Chronic atrial fibrillation I48.2 Tobacco abuse Z72.0 Pure hypercholesterolemia E78.00 Hyperlipidemia type: pure hypercholesterolemia Coding Level of Care Code Off vis,est,level 3 Diagnoses Atherosclerotic heart disease [place] coronary artery w/angina pectoris I25.119 Essential hypertension I10 Hypertension type: essential hypertension Chronic atrial fibrillation I48.2 Tobacco abuse Z72.0 Pure hypercholesterolemia E78.00 Hyperlipidemia type: pure hypercholesterolemia 03/14/18 1510 <Electronically signed by Connor Marinelli MD> Date Connor Marinelli MD Cosigner Signature: Date (if applicable) CC: Joseph Yañez MD PROTHROMBIN TIME W/INR Collected: 03/14/2018 Status: F Source: [place] 2:29 PM [facility] REPOSITORY TYPE CODE TESTS RESULT OUT OF RANGE REFERENCE UNITS LAB L300.4150 11.7-14.9 SECONDS High PROTIME 20.5 LAB L300.4200 Normal INR 1.8 Performed By: #### L300.3900 #### [facility] [address] [place], [place], [address] PROGRESS Observed: 03/04/2018 Status: COMPLETED Source: [place] 12:54 PM [facility] REPOSITORY HNO ID: [id number] Author: Yaneth Gaitan Service: (none) Author Type: [...] decomp right - COLONOSCOP W/ OR W/O [facility] SPEC 05/11/1995 Colonoscopy - COLONOSCOP W/ OR W/O [facility] SPEC 08/17/2005 few diverticula - COLONOSCOP W/ OR W/O [facility] SPEC 11/29/10 normal, repeat 10 yrs - CYSTOURETH W/FULG 0.5-2CM 02/25/14 stent right ureter for hematuria - EGD W/O [facility] SPECIMEN W/BX 11/29/10 gastritis - EGD W/O [...] DPM PROGRESS Observed: 03/04/2018 Status: COMPLETED Source: [place] 12:36 PM [facility] REPOSITORY HNO ID: [id number] Author: Marichuy Sams Ma Service: (none) Author [...] Ma CNOV Observed: 03/04/2018 Status: COMPLETED Source: [place] 12:25 PM [facility] REPOSITORY Office Visit (PODIWS) MARY CARLTON ([id number]) 1940 F NFR Date Time Provider Department [...] 05/11/1995 Colonoscopy - COLONOSCOP W/ OR W/O [facility] SPEC 08/17/2005 few diverticula - COLONOSCOP W/ OR W/O [facility] SPEC 11/29/10 normal, repeat 10 yrs - CYSTOURETH W/FULG 0.5-2CM 02/25/14 stent right ureter for hematuria - EGD W/O [facility] SPECIMEN W/BX 11/29/10 gastritis - EGD W/O [...] Yaneth Gaitan DPM Referring Provider: YANETH GAITAN [[id number]] Allergies As of Date: 03/04/2018 Noted Allergy [...] [M79.674] Order(s):XR FOOT GENERAL 3V AP/LAT/OBL RT [[id number]] Order #: [id number] FUTURE Prescriptions as of 03/04/2018 Sig: PANTOPRAZOLE [...] 03/04/18 PROGRESS Observed: 02/21/2018 Status: COMPLETED Source: [place] 8:47 AM [facility] REPOSITORY HNO ID: [id number] Author: Yaneth Gaitan Service: (none) Author Type: [...] decomp right - COLONOSCOP W/ OR W/O [facility] SPEC 05/11/1995 Colonoscopy - COLONOSCOP W/ OR W/O [facility] SPEC 08/17/2005 few diverticula - COLONOSCOP W/ OR W/O [facility] SPEC 11/29/10 normal, repeat 10 yrs - CYSTOURETH W/FULG 0.5-2CM 02/25/14 stent right ureter for hematuria - EGD W/O [facility] SPECIMEN W/BX 11/29/10 gastritis - EGD W/O [...] DPM PROGRESS Observed: 02/21/2018 Status: COMPLETED Source: [place] 8:42 AM [facility] REPOSITORY HNO ID: [id number] Author: Marichuy Sams Ma Service: (none) Author [...] Ma CNOV Observed: 02/21/2018 Status: COMPLETED Source: [place] 8:25 AM [facility] REPOSITORY Office Visit (PODIWS) FRANCISCO JAVIERMARY SARMIENTO ([id number]) 1940 F NFR Date Time Provider Department [...] decomp right - COLONOSCOP W/ OR W/O [facility] SPEC 05/11/1995 Colonoscopy - COLONOSCOP W/ OR W/O [facility] SPEC 08/17/2005 few diverticula - COLONOSCOP W/ OR W/O [facility] SPEC 11/29/10 normal, repeat 10 yrs - CYSTOURETH W/FULG 0.5-2CM 02/25/14 stent right ureter for hematuria - EGD W/O [facility] SPECIMEN W/BX 11/29/10 gastritis - EGD W/O [...] [M79.674] Order(s):PVR ANK PRESS [facility] [[id number]] Order #: [id number] FUTURE doxycycline monohydrate (MONODOX) 100 mg capsuleTake 1 capsule by mouth twice daily for 7 days.Disp: 14 capsuleRfl: 0 CONSULT TO DERMATOLOGY [9006] Order #: [id number]: 1 Prescriptions as of 02/21/2018 Sig: DOXYCYCLINE [...] TIME W/INR Collected: 01/29/2018 Status: F Source: [place] 1:57 PM [facility] REPOSITORY TYPE CODE TESTS RESULT OUT OF RANGE REFERENCE UNITS LAB L300.4150 11.7-14.9 SECONDS High PROTIME 23.2 LAB L300.4200 Normal INR 2.1 Performed By: #### L300.3900 #### [facility] [address] [place], [address] CBC W/DIFF, AUTOMATED Collected: 01/29/2018 Status: F Source: [place] 1:55 PM [facility] REPOSITORY TYPE CODE TESTS RESULT OUT OF [...] Lymph 1.44 Performed By: #### L100.0100 #### [facility] [address] [place] [address]. [place], [address] COMPREHENSIVE METABOLIC Collected: 01/29/2018 Status: F Source: [facility] 1:55 PM [facility] REPOSITORY TYPE CODE TESTS RESULT OUT OF [...] GAP 9 Performed By: #### L500.4050 #### [facility] [address] [place], [place], [address] PROTHROMBIN TIME W/INR Collected: 01/04/2018 Status: F Source: [place] 12:33 PM [facility] REPOSITORY TYPE CODE TESTS RESULT OUT OF RANGE REFERENCE UNITS LAB L300.4150 11.7-14.9 SECONDS High PROTIME 25.9 LAB L300.4200 Normal INR 2.4 Performed By: #### L300.3900 #### [facility] [address] [place], [place], [address] PROTHROMBIN TIME W/INR Collected: 12/04/2017 Status: F Source: [place] 1:43 PM [facility] REPOSITORY TYPE CODE TESTS RESULT OUT OF RANGE REFERENCE UNITS LAB L300.4150 11.7-14.9 SECONDS High PROTIME 24.1 LAB L300.4200 Normal INR 2.2 Performed By: #### L300.3900 #### [facility] [address] [place], [address] DOWNTIME REPORT Observed: 11/01/2017 Status: F Source: [place] 1:19 PM [facility] REPOSITORY [facility] Medical Records Department [address] [place] [address] Downtime Report MR#: [id number] Acct: [id number] Name: MARY CARLTON Rep #: [id number] : 1940 76 From: Soham Pearson PCP: Joseph Yañez MD Status: REG CLI This patient was seen during an EMR downtime October 15, 2017 - October 22, 2017. This patient may have a combination of paper and electronic documentation or all paper documentation. All documentation is viewable within the e-chart portion of [employer] for each patient visit. CBC W/DIFF, AUTOMATED Collected: 11/01/2017 Status: F Source: [place] 1:10 PM [facility] REPOSITORY TYPE CODE TESTS RESULT OUT OF [...] Lymph 1.06 Performed By: #### L100.0100 #### [facility] [address] [place], [place], [address] COMPREHENSIVE METABOLIC Collected: 11/01/2017 Status: F Source: [facility] 1:10 PM [facility] REPOSITORY TYPE CODE TESTS RESULT OUT OF [...] GAP 8 Performed By: #### L500.4050 #### [facility] [address] [place], [place], [address] PROTHROMBIN TIME W/INR Collected: 10/17/2017 Status: F Source: [place] 3:25 PM [facility] REPOSITORY Order Comment: RESULT(S) PREVIOUSLY REPORTED ON MANUAL REQUISITION DURING DOWNTIME. TYPE CODE TESTS RESULT OUT OF RANGE REFERENCE UNITS LAB L300.4150 11.7-14.9 SECONDS High PROTIME 22.5 LAB L300.4200 Normal INR 2.0 Performed By: #### L300.3900 #### [facility] [address] [place], [address] PROTHROMBIN TIME W/INR Collected: 09/12/2017 Status: F Source: [place] 11:09 AM [facility] REPOSITORY TYPE CODE TESTS RESULT OUT OF RANGE REFERENCE UNITS LAB L300.4150 11.7-14.9 SECONDS High PROTIME 24.8 LAB L300.4200 Normal INR 2.2 Performed By: #### L300.3900 #### [facility] [address] [place], [address] CBC W/DIFF, AUTOMATED Collected: 08/15/2017 Status: F Source: [place] 11:12 AM [facility] REPOSITORY TYPE CODE TESTS RESULT OUT OF [...] Lymph 0.94 Performed By: #### L100.0100 #### [facility] [address] [place] [address]. [place], [address] COMPREHENSIVE METABOLIC Collected: 08/15/2017 Status: F Source: [facility] 11:12 AM [facility] REPOSITORY TYPE CODE TESTS RESULT OUT OF [...] GAP 7 Performed By: #### L500.4050 #### [facility] [address] [place], [place], [address] CARDIOLOGY VISIT Observed: 08/07/2017 Status: F Source: [place] RE[place] 2:49 PM [facility] REPOSITORY [facility] 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 Assessment AND Plan 1. Atherosclerosis of [place] coronary artery of [place] heart without angina pectoris I25.10 Plan - [...] prior to saving. 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 transplanted heart: [place] heart Essential hypertension I10 Hypertension type: essential hypertension Chronic atrial fibrillation I48.2 Pure hypercholesterolemia E78.00; E78.0 Hyperlipidemia type: pure hypercholesterolemia Coding Level of Care Code Off vis,est,level 4 Diagnoses Atherosclerosis of [place] coronary artery of [place] heart without angina pectoris I25.10 [place] vs. transplanted heart: [place] heart Essential hypertension I10 Hypertension type: essential hypertension Chronic atrial fibrillation I48.2 Pure hypercholesterolemia E78.00; E78.0 Hyperlipidemia type: pure hypercholesterolemia 08/07/17 1424 <Electronically signed by Crystal Dejesus PA> Date Crystal RIOS 08/07/17 1449<Electronically signed by Connor Marinelli MD> Cosigner Signature: Date (if applicable) Connor Marinelli MD CC: Joseph Yañez MD PROTHROMBIN TIME W/INR Collected: 08/07/2017 Status: F Source: [place] 1:28 PM [facility] REPOSITORY TYPE CODE TESTS RESULT OUT OF RANGE REFERENCE UNITS LAB L300.4150 11.7-14.9 SECONDS High PROTIME 30.6 LAB L300.4200 Normal INR 2.9 Performed By: #### L300.3900 #### [facility] [address] [place], [address] HOSP Observed: 08/07/2017 Status: COMPLETED Source: [place] 12:00 AM [facility] REPOSITORY Patient Update (FAMPWS) MARY CARLTON ([id number]) 1940 F NFR Date Time Provider Department [...] 07/26/2017 Status: F Source: [place] 10:56 AM [facility] REPOSITORY Order Comment: Order Date: 01/18/17 Order Info: 0788-1 - *Hepatic Function Panel Order Info: [id number] - *Lipid Profile CC PCP Comments: 12 [...] BILI 0.17 Performed By: #### L500.3400 #### [facility] [address] [place], [place], [address] LIPID PROFILE Collected: 07/26/2017 Status: F Source: [place] 10:56 AM [facility] REPOSITORY Order Comment: Order Date: 01/18/17 Order Info: 0788-1 - *Hepatic Function Panel Order Info: [id number] - *Lipid Profile CC PCP Comments: 12 [...] VLDL 10 Performed By: #### L500.4100 #### [facility] [address] [place], [address] PROTHROMBIN TIME W/INR Collected: 07/06/2017 Status: F Source: [place] 1:38 PM [facility] REPOSITORY TYPE CODE TESTS RESULT OUT OF RANGE REFERENCE UNITS LAB L300.4150 11.7-14.9 SECONDS High PROTIME 24.5 LAB L300.4200 Normal INR 2.3 Performed By: #### L300.3900 #### [facility] [address] [place], [address] MAGNESIUM Collected: 06/27/2017 Status: F Source: [place] 11:21 AM [facility] REPOSITORY TYPE CODE TESTS RESULT OUT OF REFERENCE UNITS RANGE LAB MG 1.7-2.3 mg/dL Magnesium 1.9 Performed By: #### MG1 #### [facility] [address] [place], [place] [address] COMP METABOLIC PANEL Collected: 06/27/2017 Status: F Source: [place] 11:20 AM [facility] REPOSITORY TYPE CODE TESTS RESULT OUT OF REFERENCE UNITS RANGE LAB TP 6.3-8.0 g/dL Protein, Total 6.8 LAB ALB 3.9-4.9 g/dL Low Albumin 3.7 LAB CA 8.5-10.2 mg/dL Calcium, Total 10.1 LAB TBIL 0.2-1.3 mg/dL Bilirubin, Total 0.6 LAB ALKP 32-117 U/L Alkaline Phosphatase 43 LAB AST 13-35 U/L AST 18 LAB GLU 74-99 mg/dL Glucose 82 Result Comment: The [place] Diabetes Association (ADA) provides guidance for cutoff [...] Standards of Medical Care in Diabetes 2016, [place] Diabetes Association. Diabetes Care. 2016.39(Suppl 1). LAB [...] GFR. Performed By: #### CMP, LIPB #### [facility] [address] [place], [place] [address] LIPID PANEL, BASIC Collected: 06/27/2017 Status: F Source: [place] 11:20 AM [facility] REPOSITORY TYPE CODE TESTS RESULT OUT [...] Desk Reference: National Heart, Lung, and Blood [place]. National Institutes of Health. 2001: NIH Publication No. 01-3305. 2. An International Atherosclerosis Society position paper: global recommendations for the management of dyslipidemia: executive summary, Atherosclerosis. 2014: 232(2):410-413. Performed By: #### CMP, LIPB #### [facility] [email or web address] [address] [place], [place] [address] URINALYSIS WITH Collected: 06/27/2017 Status: F Source: [facility] 11:10 AM [facility] REPOSITORY TYPE CODE TESTS RESULT OUT OF RANGE REFERENCE UNITS LAB UCOL Yellow Color Yellow LAB [facility] Clear Clarity Clear LAB UGLUC Negative mg/dL Glucose, Urine Negative LAB UBIL Negative Bilirubin, Urine Negative LAB UKET Negative Ketones, Urine Negative LAB USPG 1.005-1.[address], Ur 1.013 LAB UHGB Negative Hemoglobin/Blood, Negative [...] Epithelial Cells Performed By: #### UAWMIC #### [facility] [email or web address] [address] [place], [place] [address] PROGRESS Observed: 06/14/2017 Status: COMPLETED Source: [place] 1:51 PM [facility] REPOSITORY HNO ID: [id number] Author: Joseph Yañez Service: (none) Author Type: [...] decomp right - COLONOSCOP W/ OR W/O [facility] SPEC 05/11/1995 Colonoscopy - COLONOSCOP W/ OR W/O [facility] SPEC 08/17/2005 few diverticula - COLONOSCOP W/ OR W/O [facility] SPEC 11/29/10 normal, repeat 10 yrs - CYSTOURETH W/FULG 0.5-2CM 02/25/14 stent right ureter for hematuria - EGD W/O [facility] SPECIMEN W/BX 11/29/10 gastritis - EGD W/O OR W/BRUSH/WASH 08/17/2005 gastritis - FECAL OCCULT BLOOD TEST 04/12/2016 neg - HEART CATHETERIZATION 12/03/2013 Angioplasty, drug eluding stent to LAD in 2 stents RCA - LIGATE FALLOPIAN TUBE Tubal ligation - STRESS TEST 08/13/2015 NL Family History FAMILY HISTORY Problem Relation Age of Onset - Diabetes Brother - Coronary Artery Disease Mother [place] - Cancer Brother lung - Hypertension Sister - Hypertension Brother - Diabetes Sister - Diabetes Sister - Diabetes Sister - Coronary Artery Disease Father [place] - Coronary Artery Disease Brother - Stroke [...] TIME W/INR Collected: 06/08/2017 Status: F Source: [place] 12:44 PM [facility] REPOSITORY TYPE CODE TESTS RESULT OUT OF RANGE REFERENCE UNITS LAB L300.4150 11.7-14.9 SECONDS High PROTIME 25.3 LAB L300.4200 Normal INR 2.4 Performed By: #### L300.3900 #### [facility] [address] [facility] [place], [place], [address] ALLERGIES ALLERGIES DATE TYPE / CODE NAME / CODE REACTION SEVERITY SOURCE Drug ranitidine Unknown Unknown [place] 9 Allergy/662551718( HCl/A950941256(RX Community SNOMED CT) NORM) Hospital Repository Drug ursodiol/C2776133 Unknown Unknown [place] 9 Allergy/939883277( 12(RXNORM) [facility] SNOM[facility]) Hospital Repository Drug phenobarbital/F00 Unknown Unknown [place] 9 Allergy/514886415( 7246609(RXNORM) [facility] SNOMED [facility]) Hospital Repository Drug belladonna Unknown Unknown [place] 9 Allergy/480853191( alkaloids/K243743 Community SNOMED CT) 714(RXNORM) Hospital Repository Drug formaldehyde/F006 Rash Unknown [place] 9 Allergy/887462931( 824121(RXNORM) [facility] SNOMED CT) Hospital Repository Drug latex/V717285712( Itching Unknown [place] 9 Allergy/070138885( RXNORM) [facility] SNOMED CT) Hospital Repository DRUG URSODIOL HIVES [facility] [place] [facility] INGREDI/588778649( Clinic Main SNOMED CT) [place] [facility] DRUG FORMALDEHYDE RASH [facility] [place] [facility] INGREDI/654292616( [facility] SNOMED CT) [place] [facility] DRUG FORMALDEHYDE RASH [place] [facility] INGREDI/441484226( [facility] SNOMED CT) [place] [facility] DRUG LATEX ITCHING [facility] [place] [facility] INGREDI/986944889( [facility] SNOMED CT) [place] [facility]/07[facility]119( [facility] SNOMED CT) [place] [facility] DRUG/864317105(SNO PHENOBARB-BELLADO UNKNOWN [place] [address]) NNA ALKALOIDS Clinic Main [place] [facility] DRUG LATEX ITCHING [place] [facility] INGREDI/309849092( [facility] SNOMED CT) [place] [facility] DRUG/747852716(SNO PHENOBARB-BELLADO [place] [address]) NNA ALKALOIDS [facility] Main [place] [facility] Miscellaneous OTHER RASH [place] 6 Allergy/767435424( [facility] SNOMED CT) [place] [facility] ENCOUNTERS ENCOUNTERS ADMIT/DISCHARGE ACCOUNT ADMITTING ENCOUNTER LOCATION SOURCE NUMBER CLASS 05/24/2018/05/25/19 [id number] Pato Urbina [address] ing:XB4Yzzm: Repository RD723Sku: 1 05/17/2018 [id number] [facility] ing:LAB.FUTUR Repository E 05/14/2018 [id number] [facility] ing:LAB Repository 05/10/2018 [id number] [facility] ing:CT Repository 05/10/2018/05/10/[id number] ing:LAB Repository 05/03/2018/05/06/20 [id number] [facility] Main [place] Rep[facility] 05/02/2018 [id number] [facility] Repository 04/25/2018 [id number] [facility] [place] [facility] ing:LABSPEC Repository 04/22/2018/04/23/20 [id number] Ambulatory [address] Main [place] Repository 04/17/2018 [id number] [facility] ing:MTLAB Repository 04/09/2018/04/09/20 [id number] Ambulatory [address] Main [place] Repository 04/09/2018/04/10/20 [id number] Ambulatory [address] [place] Rep[facility] 04/03/2018/04/12/20 [id number] Ambulatory [place] [facility] ing:LAB Repository 03/14/2018/03/14/20 [id number] Ambulatory BMSBuilding:B [place] 18 [facility] Repository 03/04/2018/03/04/20 [id number] Ambulatory [address] Main [place] Repository 02/28/2018/02/29/20 [id number] Ambulatory [address] [place] Repository 02/21/2018/02/23/20 [id number] Ambulatory [address] [place] Rep[place] 01/29/2018 [id number] [facility] ing:MTLAB Repository 01/04/2018/01/05/20 [id number] Ambulatory Daryl [place] 18 [facility] ing:LAB Repository 12/04/2017/12/05/19 [id number] Ambulatory Daryl [facility] 18 [facility] ing:LAB Repository 11/01/2017 [id number] [facility] [place] [facility] ing:MTLAB Repository 10/17/2017 [id number] Ambulatory [place] Daryl [facility] ing:LAB Repository 09/12/2017/09/13/19 [id number] Ambulatory Daryl Daryl [facility] ing:LAB Repository 08/15/2017 [id number] [facility] ing:MTLAB Repository 08/07/2017/08/08/19 [id number] Ambulatory BMSBuilding:B [place] 18 [facility] Repository 08/07/2017/08/08/19 [id number] Ambulatory [place] [facility] ing:LAB Repository 07/26/2017 [id number] Ambulatory Daryl [place] [facility] ing:LAB Repository 07/06/2017/07/06/19 [id number] Ambulatory Daryl [place] 18 [facility] ing:LAB Repository 06/27/2017/06/27/19 [id number] Ambulatory [address] Repository 06/14/2017/06/14/19 [id number] Ambulatory [address] Repository 06/08/2017/06/08/19 [id number] Ambulatory Daryl [place] [facility] ing:LAB Repository PAYERS PAYERS ENCOUNTER GUARANTOR PAYER SUBSCRIBER SOURCE 05/24/2018 MARY L Primary MARY L Daryl [id number] N Insurance:MEDICARE WELTMERDOB: [facility] PART A [facility] [id number] Number: Repository , [place] [address]Uoy: [id number] Date:2018-05-17 () 05/24/2018 Secondary BENY E [place] [facility] WELERDOB: [facility] Number: [id number] Hospital [id number] Repository Date:7252-59-[address] [place] [address]NP: 05/24/2018 Tertiary NOT GIVENUNK [place] Insurance:SELF PAY [facility] Number: Effective Repository Date:2018-05-17 05/17/2018 MARY L Primary NOT GIVENUNK [place] [id number] N Insurance:SELF PAY [facility] Number: Effective Repository , [place] [address]Ydd: Date:2018-05-17 () 05/14/2018 MARY L Primary MARY L Daryl [id number] N Insurance:MEDICARE WELERDOB: [facility] [id number] Number: Repository , [place] [address]Pui: [id number] Date:2017-06-19 () 05/14/2018 Secondary MARY L Daryl Insurance:CIGNAPolicy WELTMERDOB: Community Number: [id number] Hospital [id number] Repository Date:2651[address]10-[address] [address]ZS: 05/14/2018 Tertiary NOT GIVENUNK [place] Insurance:SELF PAY [facility] Number: Effective Repository Date:2018-05-13 05/10/2018 MARY L Primary MARY L Daryl [id number] N Insurance:MEDICARE WELTMERDOB: Community MILL PART A [facility] [id number] [facility] Med[facility] Number: Repository , [place] [address]Bea: [id number] Date:2018-05-03 () 05/10/2018 Secondary MARY L Daryl Insurance:CIGNAPolicy WELTMERDOB: Community Number: [id number] Hospital [id number] Repository Date:3452-56-[address] [address]LR: 05/10/2018 Tertiary NOT GIVENUNK Daryl Insurance:SELF PAY [facility] Number: Effective Repository Date:2018-05-03 05/10/2018 MARY L Primary MARY L Daryl [id number] N Insurance:MEDICARE WELTMERDOB: Community MILL PART A [facility] [id number] [facility] Med[facility] Number: Repository , [place] [address]Mzn: [id number] Date:2017-06-19 () 05/10/2018 Secondary MARY L Daryl Insurance:CIGNAPolicy WELTMERDOB: Community Number: [id number] Hospital [id number] Repository Date:0305-66-[address], [place] [address]IW: 05/10/2018 Tertiary NOT GIVENUNK Daryl Insurance:SELF PAY [facility] Number: Effective Repository Date:2018-04-15 05/02/2018 MARY L Primary MARY L Daryl [id number] N Insurance:MEDICARE WELTMERDOB: Community MILL PART A [facility] [id number] Number: Repository , [place] [address]Yav: [id number] Date:2018-05-02 () 05/02/2018 Secondary MARY L Daryl Insurance:CIGNAPolicy WELTMERDOB: Community Number: [id number] Hospital [id number] Repository Date:4738-57-18QK [address]TUJZGSZAAGV, [place] [address]NF: 05/02/2018 Tertiary NOT GIVENUNK [place] Insurance:SELF PAY [facility] Number: Effective Repository Date:2018-05-02 04/25/2018 MARY L Primary MARY L Daryl [id number] N Insurance:MEDICARE WELTMERDOB: Community MILL PART A [facility] [id number] Number: Repository , [place] [address]Ohe: [id number] Date:2018-04-25 () 04/25/2018 Secondary MARY L [place] Insurance:CIGNAPolicy WELTMERDOB: Community Number: [id number] Hospital [id number] Repository Date:8879-92-08XG [address]QCIKYCBUOMB, [place] [address]PD: 04/25/2018 Tertiary NOT GIVENUNK [place] Insurance:SELF PAY [facility] Number: Effective Repository Date:2018-04-25 04/17/2018 MARY L Primary MARY L Daryl [id number] N Insurance:MEDICARE WELTMERDOB: Community MILL PART A [facility] [id number] Regional MedCenter Number: Repository , [place] [address]Ntr: [id number] Date:2018-04-17 () 04/17/2018 Secondary MARY L [place] Insurance:CIGNAPolicy WELTMERDOB: Community Number: [id number] Hospital [id number] Repository Date:7802-65-77QW [address]XDWJJUHKCSC, [place] [address]BG: 04/17/2018 Tertiary NOT GIVENUNK [place] Insurance:SELF PAY [facility] Number: Effective Repository Date:2018-04-17 04/03/2018 MARY L Primary MARY L [place] [id number] N Insurance:MEDICARE WELTMERDOB: Community MILL PART A [facility] [id number] Regional MedCenter [facility] [place] [address]Kpz: [id number] Date:2017-06-19 () 04/03/2018 Secondary MARY L [place] Insurance:CIGNAPolicy WELTMERDOB: Community Number: [id number] Hospital [id number] Repository Date:6077-38-86GO [facility] [address]1605RADYFMRSMNC [place] [address]NK: 04/03/2018 Tertiary NOT GIVENUNK [place] Insurance:SELF PAY [facility] Number: Effective Repository Date:2018-01-15 03/14/2018 MARY L Primary MARY L Daryl [id number] N Insurance:MEDICARE WELTMERDOB: Community MILL PART A [facility] [id number] Regional MedCenter Number: Repository , [place] [address]Qgo: [id number] Date:2017-08-07 () 03/14/2018 Secondary MARY L Daryl Insurance:CIGNAPolicy WELTMERDOB: Community Number: [id number] Hospital [id number] Repository Date:7384-77-85NM [address]DRPGFUHLIDP, [place] [address]TI: 03/14/2018 Tertiary NOT GIVENUNK [place] Insurance:SELF PAY [facility] Number: Effective Repository Date:2018-03-14 01/29/2018 MARY L Primary MARY L [place] [id number] N Insurance:MEDICARE WELTMERDOB: Community MILL PART A [facility] [id number] Regional MedCenter Number: Repository , [place] [address]Inx: [id number] Date:2018-01-29 () 01/29/2018 Secondary MARY L Daryl Insurance:CIGNAPolicy WELTMERDOB: Community Number: [id number] Hospital [id number] Repository Date:8841-52-72KV [address]YRHFJIOGCVA, [place] [address]DE: 01/29/2018 Tertiary NOT GIVENUNK [place] Insurance:SELF PAY [facility] Number: Effective Repository Date:2018-01-29 01/04/2018 MARY L Primary MARY L [place] [id number] N Insurance:MEDICARE WELTMERDOB: [facility] MILL PART A [facility] [id number] Regional MedCenter Number: Repository , [place] [address]Onu: [id number] Date:2017-06-19 () 01/04/2018 Secondary MARY L [place] Insurance:CIGNAPolicy WELTMERDOB: Community Number: [id number] Hospital [id number] Repository Date:7196-31-49QF [address]WBTGVGLVRIF, [place] [address]YB: 01/04/2018 Tertiary NOT GIVENUNK [place] Insurance:SELF PAY [facility] Number: Effective Repository Date:2017-12-13 12/04/2017 MARY L Primary MARY L Daryl [id number] N Insurance:MEDICARE WELTMERDOB: [facility] MILL PART A [facility] [id number] Regional MedCenter Number: Repository , [place] [address]Pwy: [id number] Date:2017-06-19 () 12/04/2017 Secondary MARY L [place] Insurance:CIGNAPolicy WELTMERDOB: Community Number: [id number] Hospital [id number] Repository Date:7930-46-02MO [address]RWBCLIXCQKY, [place] [address]RM: 12/04/2017 Tertiary NOT GIVENUNK [place] Insurance:SELF PAY [facility] Number: Effective Repository Date:2017-10-11 11/01/2017 MARY L Primary MARY L [place] [id number] N Insurance:MEDICARE WELERDOB: [facility] MILL PART A [facility] [id number] Regional MedCenter Number: Repository , [place] [address]Lnr: [id number] Date:2017-11-01 () 11/01/2017 Secondary MARY L [place] Insurance:CIGNAPolicy WELTMERDOB: [facility] Number: [id number] Hospital [id number] Repository Date:7886-11-18YI [address]WYMTRSVMZHJ, [place] [address]EQ: 11/01/2017 Tertiary NOT GIVENUNK D[place] Insurance:SELF PAY [facility] Number: Effective Repository Date:2017-11-01 10/17/2017 MARY L Primary MARY L [place] [id number] N Insurance:MEDICARE WELTMERDOB: [facility] MILL PART A [facility] [id number] Regional MedCenter Number: Repository , [place] [address]Wax: [id number] Date:2017-10-17 () 10/17/2017 Secondary MARY L Daryl Insurance:CIGNAPolicy WELTMERDOB: Community Number: [id number] Hospital [id number] Repository Date:2824-04-01WM [address]TAYXDMRMCBXJUNCTION [place], [place] [address]YJ: 10/17/2017 Tertiary NOT GIVENUNK [place] Insurance:SELF PAY [facility] Number: Effective Repository Date:2017-10-17 09/12/2017 MARY L Primary MARY L [place] [id number] N Insurance:MEDICARE WELERDOB: [facility] MILL PART A [facility] [id number] Regional MedCenter Number: Repository , [place] [address]Pig: [id number] Date:2017-06-19 () 09/12/2017 Secondary MARY L Daryl Insurance:CIGNAPolicy WELTMERDOB: Community Number: [id number] Hospital [id number] Repository Date:2632-95-96VB [address]NWIYTUYLCFZ, [place] [address]SI: 09/12/2017 Tertiary NOT GIVENUNK D[place] Insurance:SELF PAY [facility] Number: Effective Repository Date:2017-08-13 08/15/2017 MARY L Primary MARY L Daryl [id number] N Insurance:MEDICARE WELTMERDOB: Community MILL PART A [facility] [id number] Regional MedCenter Number: Repository , [place] [address]Mmz: [id number] Date:2017-08-15 () 08/15/2017 Secondary MARY L [place] Insurance:CIGNAPolicy WELTMERDOB: Community Number: [id number] Hospital [id number] Repository Date:4303-44-68HT [address]VHPXLMKEHNP, [place] [address]SV: 08/15/2017 Tertiary NOT GIVENUNK [place] Insurance:SELF PAY [facility] Number: Effective Repository Date:2017-08-15 08/07/2017 MARY L Primary MARY L Daryl [id number] N Insurance:MEDICARE WELTMERDOB: Community MILL PART A [facility] [id number] Regional MedCenter Number: Repository , [place] [address]Gyk: [id number] Date:2017-04-23 () 08/07/2017 Secondary MARY L Daryl Insurance:CIGNAPolicy WELTMERDOB: Community Number: [id number] Hospital [id number] Repository Date:2092-72-55WO [address]YBZMLIDLBEB, [place] [address]GW: 08/07/2017 Tertiary NOT GIVENUNK [place] Insurance:SELF PAY [facility] Number: Effective Repository Date:2017-08-07 08/07/2017 Mary L Primary Mary L Daryl [id number] N Insurance:MEDICARE WeltmerDOB: Community Mill PART A [facility] [id number] [facility] Number: Repository , [place] [address]Mci: [id number] Date:2017-06-19 () 08/07/2017 Secondary Mary L [place] Insurance:CIGNAPolicy WeltmerDOB: Community Number: [id number] Hospital [id number] Repository Date:4065-11-98RQ [address]QVIVLXRLNTD, [place] [address]GK: 08/07/2017 Tertiary NOT GIVENUNK [place] Insurance:SELF PAY [facility] Number: Effective Repository Date:2017-07-13 07/26/2017 Mary L Primary Mary L [place] [id number] N Insurance:MEDICARE WeltmerDOB: [facility] PART A [facility] [id number] [facility] Rehabilitation [facility] Number: Repository , [place] [address]Lvx: [id number] Date:2017-07-26 () 07/26/2017 Secondary Mary L Daryl Insurance:CIGNAPolicy WeltmerDOB: [facility] Number: [id number] Hospital [id number] Repository Date:1935-94-19OB [address]XZFCWTNDBAQ, [place] [address]TY: 07/26/2017 Tertiary NOT GIVENUNK [place] Insurance:SELF PAY [facility] Number: Effective Repository Date:2017-07-26 07/06/2017 Mary L Primary Mary L Daryl [id number] N Insurance:MEDICARE WeltmerDOB: [facility] Mill PART A [facility] [id number] [facility] Rehabilitation Hospital Number: Repository , [place] [address]Hpl: [id number] [phone] Date:2017-06-19 () 07/06/2017 Secondary Mary L [place] Insurance:CIGNAPolicy WeltmerDOB: Community Number: [id number] Hospital [id number] Repository Date:2987-72-56DR [address]UNIHDIQHDYG, [place] [address]XT: 07/06/2017 Tertiary NOT GIVENUNK [place] Insurance:SELF PAY [facility] Number: Effective Repository Date:2017-06-19 06/08/2017 Mary L Primary Mary L [place] [id number] N Insurance:MEDICARE [facility] PART A BPolicy [id number] [facility] Rehabilitation [facility] Number: Repository , [place] [address]Lrj: [id number] [phone] Date:2003-12-13 () 06/08/2017 Secondary Mary L Daryl Insurance:[facility]IGNAPolicy [facility] Number: [id number] Hospital [id number] Repository Date:6535-79-45IU [address]HPRTLGFVGPX, [place] [address]VZ: 06/08/2017 Tertiary NOT GIVENUNK Daryl Insurance:SELF PAY [facility] Number: Effective Repository Date:2017-05-14
== END ==
PROVIDERS: Family Provider Family Medicine; PCP Family Medicine; Referring Provider Otolaryngology; Visit Provider Otolaryngology
DX: D11.0 Benign neoplasm of parotid gland (principal)
CPT/HCPCS: 88108; 88161; 88305

== ENCOUNTER → 2018-05-02 06:30 | Outpatient (CLI) | payer MEDICARE, OTHER, SELFPAY ==
--- NOTE | 2018-05-02 14:24 | ASPIG_PTH ---
PATIENT: ANGELINA SONI LOC: [facility] U#:[id number] AGE/SX: 84/F ROOM: RE05/02/[address]: Dr. Pato Urbina MD : 1940 BED: DIS: SPEC #: [id number] RECD: 05/03/18 12:08 STATUS: KARSTEN REZeny #: [id number] KRYSTEN: 05/02/18 14:[address]: Pato Urbina DEPT: CYTOLOGY RECD BY: Bradford Bradford ENTERED: 05/03/18 12:09 SP TYPE: ASP OUT OTHR DR: Dr. Paul Mccullough MD Tissues: Parotid gland, NOS Procedures: FNA Specimen Adequacy Special Stain Group II Surgery Specimen Level IV Cytology Other HEADER OPERATION: FNA right parotid gland PRE-OP DIAGNOSIS: Benign neoplasm right parotid gland TISSUE SUBMITTED: FNA right parotid gland DIAGNOSIS CYTOLOGY Right parotid gland, FNA (cytospin and cell block): Consistent with Warthin's tumor. See comment. SJ:rg 05/06/18 COMMENT Correlation with clinical findings and appropriate follow up are necessary. Please make reference to previous specimen ([id number]) fine needle aspiration, left parotid/neck mass with diagnosis of atypical squamoid cells present, acute inflammation and fibroid material. CYTOLOGY STUDY Slides are reviewed. CYTOLOGY GROSS Received is 40 ml of slightly cloudy fluid labeled with the patient's name and and designated per the requisition as right parotid gland. Submitted for cytology preparation including cell block. 05/03/18 TC:1 CPT: 53962 , 51037
== END ==
PROVIDERS: Family Provider Family Medicine; PCP Family Medicine; Referring Provider Otolaryngology; Visit Provider Otolaryngology
DX: D11.0 Benign neoplasm of parotid gland (principal)
CPT/HCPCS: 88161; 88172; 88305; 88313

== ENCOUNTER 2018-05-10 12:25 | Outpatient (RCR) | payer MEDICARE, OTHER, SELFPAY ==
[2018-03-14 14:46] VITALS: BMI 26.3
[2018-04-23 15:17] LABS: International Normalized Ratio 2.2; Prothrombin Time (Protime)PT. 24.6 SECONDS (11.7-14.9)
[2018-05-10 14:46] LABS: International Normalized Ratio 2.3; Prothrombin Time (Protime)PT. 25.1 SECONDS (11.7-14.9)
--- OUTSIDE RECORDS SUMMARY | 2018-06-09 19:03 | XMS RPT_ITS ---
:1940 Author Organization [facility] Support Name Relationship Address Phone ZAIN SHETH Unavailable [address] + [place] [address] R Unavailable Unavailable Unavailable WELTMER, BENY Unavailable [address] + [place] [address] ZAIN SHETH Unavailable [address] + [place] [address] R Unavailable Unavailable Unavailable WELTMER, BENY Unavailable [address] + [place] [address] MERYLDANIKA GOLDMANA Unavailable [address] + [place] [address] R Unavailable Unavailable Unavailable WELTMER, BENY Unavailable [address] + [place] [address] MERYLDANIKA GOLDMANA Unavailable [address] + [place] [address] R Unavailable Unavailable Unavailable WELTMER, BENY Unavailable [address] + [place] [address] MERYLDANIKA GOLDMANA Unavailable [address] + [place] [address] R Unavailable Unavailable Unavailable WELTMER, BENY Unavailable [address] + [place] [address] MERYLDANIKA GOLDMANA Unavailable [address] + [place] [address] R Unavailable Unavailable Unavailable WELTMER, BENY Unavailable [address] + [place] [address] MERYLDANIKAA Unavailable [address] + [place] [address] R Unavailable Unavailable Unavailable WELTMER, BENY Unavailable [address] + [place] [address] MERYL, ZAIN Unavailable [address] + [place] [address] R Unavailable Unavailable Unavailable WELTMER, BENY Unavailable [address] + [place] [address] MERYL, ZAIN Unavailable [address] + [place] [address] R Unavailable Unavailable Unavailable WELTMER, BENY Unavailable [address] + [place] [address] MERYL, ZAIN Unavailable [address] + [place] [address] R Unavailable Unavailable Unavailable WELTMER, BENY Unavailable [address] + [place] [address] MERYL, ZAIN Unavailable [address] + [place] [address] R Unavailable Unavailable Unavailable WELTMER, BENY Unavailable [address] + [place] [address] MERYL, ZAIN Unavailable [address] + [place] [address] R Unavailable Unavailable Unavailable WELTMER, BENY Unavailable [address] + [place] [address] MERYL, ZAIN Unavailable [address] + [place] [address] R Unavailable Unavailable Unavailable WELTMER, BENY Unavailable [address] + [place] [address] MERYL, ZAIN Unavailable [address] + [place] [address] R Unavailable Unavailable Unavailable WELTMER, BENY Unavailable [address] + [place] [address] MERYL, ZAIN Unavailable [address] + [place] [address] R Unavailable Unavailable Unavailable WELTMER, BENY Unavailable [address] + [place] [address] MERYL, ZAIN Unavailable [address] + [place] [address] R Unavailable Unavailable Unavailable WELTMER, BENY Unavailable [address] + [place] [address] MERYL ZAIN Unavailable [address] + [place] [address] R Unavailable Unavailable Unavailable WELTMER, BENY Unavailable [address] + [place] [address] MERYL, ZAIN Unavailable [address] + [place] [address] R Unavailable Unavailable Unavailable WELTMER, BENY Unavailable [address] + [place] [address] MERYL, ZAIN Unavailable [address] + [place] [address] R Unavailable Unavailable Unavailable WELTMER, BENY Unavailable [address] + [place] [address] MERYLDANIKA GOLDMANA Unavailable [address] + [place] [address] R Unavailable Unavailable Unavailable WELTMER, BENY Unavailable [address] + [place] [address] DANIKA SHETHA Unavailable [address] + [place] [address] R Unavailable Unavailable Unavailable WELTMER, BENY Unavailable [address] + [place] [address] MERYL, ZAIN Unavailable [address] + [place] [address] R Unavailable Unavailable Unavailable WELTMER, BENY Unavailable [address] + [place] [address] Care Team Providers Name Role Phone JOSEPH YAÑEZ Attending Unavailable UNIQUE SERVIN Referring Unavailable JOSEPH YAÑEZ Referring Unavailable YANETH GAITAN Attending Unavailable YANETH GAITAN Referring Unavailable YANETH GAITAN Attending Unavailable TESTYANETH NEAL Referring Unavailable PARI, JOSEPH A Attending Unavailable PARI, JOSEPH A Referring Unavailable PARI, JOSEPH A Referring Unavailable PARI, JOSEPH A Referring Unavailable YANETH GAITAN Attending Unavailable Urbina, Pato Attending Unavailable Urbina, Pato Referring Unavailable Pari, Joseph Primary Care Unavailable Urbina, Pato Attending Unavailable Urbina, Pato Referring Unavailable Pari, Joseph Primary Care Unavailable Urbina, Pato Attending Unavailable Urbina, Pato Referring Unavailable Pari, Joseph Primary Care Unavailable Aldair Abdul Attending Unavailable Aldair Abdul Referring Unavailable Pari, Joseph Primary Care Unavailable Isis, Scalf Consulting Unavailable Vellanki, Iona Consulting Unavailable Urbina, Pato Attending Unavailable Pari, Joseph Primary Care Unavailable Urbina, Pato Attending Unavailable Urbina, Pato Referring Unavailable Pari, Joseph Primary Care Unavailable Urbina, Pato Admitting Unavailable Aldair Abdul Attending Unavailable Pari, Joseph Primary Care Unavailable Isis, Scalf Consulting Unavailable GERMAINE ABDUL Referring Unavailable Vellanki, Ioan Consulting Unavailable Aldair Abdul Attending Unavailable Aldair Abdul Referring Unavailable Pari, Joseph Primary Care Unavailable Isis, Scalf Consulting Unavailable Vellanki, Iona Consulting Unavailable Aldair Abdul Attending Unavailable Aldair Abdul Referring Unavailable Pari, Joseph Primary Care Unavailable Isis, Scalf Consulting Unavailable Vellanki, Iona Consulting Unavailable Sammy Bellamy Attending Unavailable Sammy Bellamy Referring Unavailable Pari, Joseph Primary Care Unavailable Crystal Dejesus Attending Unavailable Pari, Joseph Referring Unavailable Pari, Joseph Primary Care Unavailable Aldair Abdul Attending Unavailable Aldair Abdul Referring Unavailable Pari, Joseph Primary Care Unavailable Isis, Connor Consulting Unavailable Vellanki, Iona Consulting Unavailable Vellanki, Iona Attending Unavailable Pari, Joseph Primary Care Unavailable Isis, Connor Consulting Unavailable Aldair Abdul Attending Unavailable Aldair Abdul Referring Unavailable Pari, Joseph Primary Care Unavailable Isis, Connor Consulting Unavailable Vellanki, Iona Consulting Unavailable Isis, Scalf Attending Unavailable Pari, Joseph Primary Care Unavailable Vellanki, Iona Attending Unavailable Vellanki, Iona Referring Unavailable Pari, Joseph Primary Care Unavailable Adlair Abdul Attending Unavailable Aldair Abdul Referring Unavailable Pari, Joseph Primary Care Unavailable Isis, Connor Consulting Unavailable Vellanki, Iona Consulting Unavailable Aldair Abdul Attending Unavailable Abdul, Aldair Referring Unavailable Joseph Yañez Primary Care Unavailable Isis, Connor Consulting Unavailable Vellanki, Iona Consulting Unavailable Vellanki, Iona Attending Unavailable Vellanki, Iona Referring Unavailable Joseph Yañez Primary Care Unavailable Abdul, Aldair Consulting Unavailable Isis, Connor Attending Unavailable Joseph Yañez Referring Unavailable Abdul, Aldair Attending Unavailable Abdul, Aldair Referring Unavailable PariJoseph Primary Care Unavailable Isis, Connor Consulting Unavailable Vellanki, Iona Consulting Unavailable Vellanki, Iona Attending Unavailable Vellanki, Iona Referring Unavailable Joseph Yañez Primary Care Unavailable PROBLEMS PROBLEMS DATE TYPE CONDITION / CODE ATTENDING STATUS SOURCE 05/27/2018 Unknown 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, 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 / D11.0(ICD-10) Hospital Repository 05/13/2018 Unknown I48.2 - Chronic Aldair Abdul Active [facility] atrial fibrillation / Community I48.2(ICD-10) Hospital Repository 04/09/2018 Active Localized swelling, NA Active [facility] mass and lump, neck / Clinic Main R22.1(ICD-10) [facility] Repository 04/17/2018 Unknown Z79.899 - Other long Vellanki, Iona Active [facility] term (current) drug Community therapy / Hospital Z79.899(ICD-10) Repository 04/17/2018 Unknown M06.4 - Inflammatory Vellanki, 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 / Community M06.4(ICD-10) Hospital Repository 04/17/2018 Unknown 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, 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 / M72.2(ICD-10) Hospital Repository 04/17/2018 Unknown K21.9 - Vellanki, Iona Active [facility] Gastro-esophageal Community reflux disease Hospital without esophagitis / Repository K21.9(ICD-10) 04/17/2018 Unknown I10 - Essential Vellanki, Iona Active [facility] (primary) Community hypertension / Hospital I10(ICD-10) Repository 04/17/2018 Unknown I25.10 - Vellanki, Iona Active [facility] Atherosclerotic heart Community disease of [facility] coronary artery Repository without angina pectoris / I25.10(ICD-10) 04/17/2018 Unknown K57.90 - Iona Eid Active [facility] Diverticulosis of Community intestine, part Hospital unspecified, without Repository perforation or abscess without bleeding / K57.90(ICD-10) 04/15/2018 Unknown 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 Abdul Active [facility] (current) use of Community anticoagulants / Hospital Z79.01(ICD-10) Repository 03/14/2018 Unknown I25.119 - Isis, Connor Active [facility] Atherosclerotic heart Community disease of [facility] coronary artery with Repository unspecified angina pectoris / I25.119(ICD-10) 03/14/2018 Unknown Z72.0 - Tobacco use / Isis, Scalf Active [facility] Z72.0(ICD-10) [facility] Repository 03/14/2018 Unknown E78.00 - Pure Isis, Connor Active [facility] hypercholesterolemia, Community unspecified / Hospital E78.00(ICD-10) Repository 11/07/2017 Unknown I48.91 - Unspecified Isis, Scalf Active [facility] atrial fibrillation / Community I48.91(ICD-10) Hospital Repository 08/13/2017 Unknown I48.0 - Paroxysmal Aldair Abdul Active [facility] atrial fibrillation / Community I48.0(ICD-10) Hospital Repository 07/26/2017 Unknown E78.5 - Sammy Bellamy Active [facility] Hyperlipidemia, Community unspecified / Hospital E78.5(ICD-10) Repository 06/14/2017 Active Other [facility] NA Active [facility] (current) drug Clinic Main therapy / [facility] Z79.899(ICD-10) Repository 02/29/2016 Active Gastro-esophageal NA Active [facility] reflux disease Clinic Main without esophagitis / [facility] K21.9(ICD-10) Repository 08/30/2015 Active Essential (primary) NA Active [facility] hypertension / Clinic Main I10(ICD-10) [facility] Repository 03/06/2015 Active Mixed hyperlipidemia NA Active [facility] / E78.2(ICD-10) Clinic Main [facility] Repository PROCEDURES PROCEDURES No Procedure Records FoundRESULTS RESULTS DISCHARGE INSTRUCTION Observed: 05/25/2018 Status: F Source: DARY[place] 10:15 AM [facility] REPOSITORY [facility] Medical Records Department [address] [place] [address] [place] [address] Instructions for Home/Discharge Instructions 05/25/18 1014 MR#: [id number] Acct: [id number] Name: MARY CARLTON Rep #: [id number] : 1940 77 From: Pato Urbina MD PCP: Joseph Yañez MD Status: ADM YADIRA - Discharge Diagnoses Current Active Problems: Current Active and Chronic Problems (Last Reviewed 03/14/18 @ 15:06 by Connor Marinelli MD) Benign neoplasm of parotid gland (Chronic) You will use the following diet at home:: No restrictions, Regular Discharge Activity: Return to Normal Activity Call your doctor if your incision/area has: Increased Pain/ Swelling, Increased Redness, Foul Smelling Discharge, Swelling at the incision site Call your doctor if you observe: Fever of 101 or Higher, Uncontrolled pain Allergies/Adverse Reactions: Allergies latex Allergy (Verified 05/24/18 07:57) Itching ursodiol Allergy (Verified 05/24/18 07:57) Unknown belladonna alkaloids [Belladonna Alkaloids] Adverse Reaction (Verified 05/24/18 07:57) Unknown formaldehyde Adverse Reaction (Verified 05/24/18 07:57) Rash phenobarbital Adverse Reaction (Verified 05/24/18 07:57) Unknown ranitidine HCl [From Zantac] Adverse Reaction (Verified 05/24/18 07:57) Unknown Medications to take at Discharge RX: Aspirin [Aspirin, Baby] 81 mg PO DAILY@0800 02/24/14 Cholecalciferol (VIT D3) [Vitamin D] 1,000 unit PO DAILY 05/28/15 Polyethylene Glycol 3350 [Miralax] 17 gm PO PRN PRN 05/28/15 methotrexate sodium 2.5 mg tablet See Rx Instructions PO QWEEK tab 08/06/17 simvastatin 20 mg tablet 20 mg PO QHS #30 tab 08/07/17 metoprolol succinate ER 50 mg tablet,extended release 24 hr 50 mg PO DAILY #30 tab 11/26/17 isosorbide mononitrate ER 30 mg tablet,extended release 24 hr 30 mg PO QAM #30 tab 01/29/18 warfarin 3 mg tablet 3 mg PO .COMPLEX #30 tab 01/29/18 lisinopril 10 mg tablet 10 mg PO DAILY #30 tab 02/25/18 folic acid 1 mg tablet 1 mg PO DAILY 03/14/18 pantoprazole 40 mg tablet,delayed release 40 mg PO DAILY #90 tab 04/01/18 warfarin 2 mg tablet 2 mg PO .COMPLEX #30 tab 05/06/18 Primary Care Physician: Joseph Yañez MD [Primary Care Provider] - Test Results: Test results from this visit will be discussed in further detail at your follow-up appointment, if applicable. Please Follow Up With: Pato Urbina MD When: 1 week 05/25/18 1015 <Electronically signed by Pato Urbina MD> Date Pato Urbina MD CC: Joseph Yañez MD Signed PROTHROMBIN TIME W/INR Collected: 05/24/2018 Status: F Source: [place] 7:54 AM [facility] REPOSITORY Order Comment: Result obtained is for confirmation testing of Fingerstick PT/INR Specimen #[id number] . 05/24/18 0800 SSTERNER THIS CONFIRMATION SPECIMEN RESULT IS FROM VENOUS BLOOD. TYPE CODE TESTS RESULT OUT OF RANGE REFERENCE UNITS LAB L300.4150 11.7-14.9 SECONDS High PROTIME 23.3 LAB L300.4200 Normal INR 2.1 Performed By: #### L300.3900 #### [facility] [address] [place], [address] PROTIME W/INR Collected: 05/24/2018 Status: F Source: [place] FINGERSTICK 7:48 AM [facility] REPOSITORY TYPE CODE TESTS RESULT OUT OF REFERENCE UNITS RANGE LAB L9200.1001 11.9-14.4 SEC High PROTIME ISTAT 24.3 Result Comment: Reference Range 11.9 - 14.4 LAB L9200.2000 Normal INR ISTAT 2.10 Result Comment: Critical Value > 3.5 Performed By: #### L9200.0000 #### [facility] Point of Care [address] 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 The larger nodule measures 2.5 cm in greatest dimension and the smaller nodule measures 1.5 cm in greatest dimension. Both nodules appear to have been completely excised in the planes examined. Case has been reviewed in consultation with Dr. Ch who concurs with the above diagnosis. IDC:CHARLIE FROZEN SECTION DIAGNOSIS Left parotidectomy: Two separate foci of Warthin's tumor. AM:kellie 05/24/18 Case has been reviewed in consultation with Dr. Ch who concurs with the above diagnosis. IDC:SJ GROSS DESCRIPTION Received fresh for frozen section consultation labeled with the patient's name is a specimen designated left parotid gland. The specimen consists of parotid gland tissue measuring 8 x 4.5 x 1.7 cm and weighing 24.6 gm. The specimen is differentially inked as follows: inferior - yellow, posterior - black, superior - blue, inferior - green, medial - red and lateral - orange. Serial sections reveal two craig lesions. One lesion measures 2.5 x 1.5 x 1.5 cm and is located 0.2 cm from its closest (inferior) margin of resection. A second elongated nodule measuring 1.5 x 0.6 x 0.6 cm is present adjacent to this larger nodule and has a similar appearance and consistency. Tear Down Man sections from the nodules are submitted for frozen section consultation in two blocks as follows: 1 - larger lesion, 2 - smaller lesion. The remainder of the larger nodule is submitted in its entirety for permanent sections in cassettes 3 AND 4. The remainder of the smaller nodule is submitted in its entirety in cassette 5. Tear Down Man sections of the uninvolved parotid parenchyma adjacent to and away from nodules are submitted in cassettes 6-10. / AM:kellie 05/27/18 TC:1 CPT: 89554 HEADER OPERATION: Left parotidectomy with nerve monitoring, frozen section PRE-OP DIAGNOSIS: Benign neoplasm of parotid gland TISSUE SUBMITTED: Left parotid gland for FS at 1131, double long suture - superior, short suture - anterior MICROSCOPIC DESCRIPTION Slides are reviewed. MICROSCOPIC DIAGNOSIS Left parotid gland, parotidectomy: Warthin's tumors. See comment. AM:kellie 05/28/18 Signed Pavan Terry, 05/28/18 <signature on file> Performed By: #### PPAR #### [facility] [address] [place], [address] CHEST WITH CONTRAST Observed: 05/10/2018 Status: F Source: [place] 2:48 PM [facility] REPOSITORY [facility] Imaging Services [address] [place] [address] Chest WITH Contrast MR#: [id number] Acct: [id number] Name: MARY CARLTON Rep #: [id number] : 1940 F 77 From: William Jacobs MD PCP: Joseph Yañez MD Status: REG CLI Study: Chest WITH Contrast Date of Exam: 05/10/18 Exam# [id number] Ordering Dr: Pato Urbina MD STUDY: CT CHEST WITH CONTRAST REASON FOR EXAM: Female, 77 years old. History of lymphadenopathy. RADIATION DOSAGE (If Supplied By Facility): CTDIvol = ( 10.15 ) mGy, DLP = ( 259.36 ) mGycm TECHNIQUE: Transaxial imaging was performed following intravenous administration of 80 ml of Isovue 300 contrast material. Multiplanar coronal and sagittal images were reformatted. Individualized dose optimization techniques were used for this CT. COMPARISON: Comparison is made with prior chest radiograph dated February 11, 2016. FINDINGS: There are small bilateral axillary lymph nodes. Hyperinflation. There is no demonstrated pleural abnormality. Mild degree of posterior pericardial thickening. There are calcifications of the coronary arteries. Normal mediastinum. Normal hilar regions. Normal enhanced pulmonary arteries. There is atherosclerotic calcification of the aortic arch with tortuosity and elongation of the aortic arch and descending thoracic aorta. There are multi-level degenerative changes of the thoracic spine. There is no demonstrated abnormality of the visualized upper abdomen. CT/Chest WITH Contrast IMPRESSION: Hyperinflation. No acute abnormality is seen. Electronically Signed: William Jacobs MD at 11:49 EST Tel [phone], Service support , CC: Pato Urbina MD; Joseph Yañez MD [place]alker: Signed PROTHROMBIN TIME W/INR Collected: 05/10/2018 Status: F Source: [place] 12:37 PM [facility] REPOSITORY TYPE CODE TESTS RESULT OUT OF RANGE REFERENCE UNITS LAB L300.4150 11.7-14.9 SECONDS High PROTIME 25.1 LAB L300.4200 Normal INR 2.3 Performed By: #### L300.3900 #### [facility] [address] [place], [address] PROGRESS Observed: 05/03/2018 Status: COMPLETED Source: [place] 9:07 AM [facility] REPOSITORY O ID: [id number] Author: Yaneth Gaitan Service: (none) Author Type: Physician Type: Progress Notes Filed: 05/03/2018 11:58 AM Note Text: Follow up podiatric office visit for: Chief Complaint: This 77 year old who presents for follow up:right 5th toenail Patient continues to complain of pain to right 5th toenail. She had this filed down in February which did help for a little while. She has been using wider shoes which does help. She is considering removal of the toenail. She did get pvr but did not get the xrays. PAIN EVALUATION 05/03/2018 Pain Score: 0 when she bumps it goes to 5 Pain Location: Toe right great Description: Aching;Sharp Duration Units: Unknown Frequency: Intermittent Intervention: Relaxation No results found for: HBA1C PCP: Joseph Yañez MD PAST MEDICAL HISTORY Diagnosis Date - Atrial fibrillation (HCC) - CAD (coronary artery disease) - DDD (degenerative disc disease), cervical diffuse severe DDD - Diverticulitis 2008 - Gallbladder sludge - Gastritis - Generalized osteoarthrosis, unspecified site - Hyperlipidemia - Hypertension - Osteopenia - Psoriasis 04/09/[address] Campos - Unspecified constipation Current Outpatient Prescriptions: ASPIRIN 81 MG TAB Take one(1) tablet daily. CALCIUM CARBONATE/VITAMIN D3 (VITAMIN D-3 ORAL) Take 1 capsule by mouth once daily. folic acid 1 mg tablet Take 2 mg by mouth once daily. isosorbide mononitrate ER (IMDUR) 30 mg 24 hr tablet Take 1 tablet by mouth once daily. lisinopril (ZESTRIL, PRINIVIL) 10 mg tablet Take 2 tablets by mouth once daily. Dr. Marinelli methotrexate 2.5 mg tablet Take 7 tablets by mouth every Sunday. Per Dr. Henry metoprolol succinate XL, long acting, (TOPROL XL) 50 mg 24 hr tablet Take 50 mg by mouth once daily. pantoprazole DR (PROTONIX) 40 mg tablet Take 1 tablet by mouth once daily. polyethylene glycol 3350 (MIRALAX) 17 gram ORAL packet Take 17 g by mouth as needed. simvastatin (ZOCOR) 20 mg tablet Take 20 mg by mouth daily at bedtime. warfarin (COUMADIN) 2 mg tablet 1.5 tablet MTWTF; 1 tablet SS No current facility-administered medications for this visit. ALLERGIES Allergen Reactions - Formaldehyde Rash - Latex Itching States that makes her itch can't blow up balloons without lips itching/swelling. - Ursodiol Hives - Xantac [Other] Rash Pt states allergy is to Zantac. - Phenobarb-Belladonn* Unknown PAST SURGICAL HISTORY Procedure Laterality Date - CARDIAC CATH 02/18/2016 Dr. Marinelli - CARPAL TUNNEL 7-13 left - CARPAL TUNNEL 03/28/13 Carpal tunnel decomp right - COLONOSCOP W/ OR W/O [facility] SPEC 05/11/1995 Colonoscopy - COLONOSCOP W/ OR W/O [facility] SPEC 08/17/2005 few diverticula - COLONOSCOP W/ OR W/O [facility] SPEC 11/29/10 normal, repeat 10 yrs - CYSTOURETH W/FULG 0.5-2CM 02/25/14 stent right ureter for hematuria - EGD W/O [facility] SPECIMEN W/BX 11/29/10 gastritis - EGD W/O OR W/BRUSH/WASH 08/17/2005 gastritis - FECAL OCCULT BLOOD TEST 04/12/2016 neg - HEART CATHETERIZATION 12/03/2013 Angioplasty, drug eluding stent to LAD in 2 stents RCA - LIGATE FALLOPIAN TUBE Tubal ligation - STRESS TEST 08/13/2015 NL Physical Exam: Constitutional: Pt is a well developed 77 year old female who is alert, oriented, cooperative and in no apparent distress. OBJECTIVE: Vascular: dp and PT pulses are palpable. pvr demonstrates adequate perfusion to b/l lower extremity Dermatological: Nails 1-5 b/l are thick, discolored, painful. Webspaces clean and dry 1-4 b/l. Skin appears well hydrated and supple. good color, texture, turgor. No open lesions present. No callosities present. Musculoskeletal/Orthopaedic: Patient has pain to palpation of right 5th toe ASSESSMENT: (B35.1) Onychomycosis (primary encounter diagnosis) (M79.674) Pain in toe of right foot (M79.675) Pain in toe of left foot PLAN: 1. History and physical examination completed today. 2. Discussed painful 5th toenail of right foot. There is severe thickening. Today, debridement of 1-5 b/l was performed. 3. Discussed removal of toenail via matrixectomy. She may consider. She does have adequate perfusion based on pvr. Informed patient she can expect slower healing due to smoking. 4. Patient to schedule an appointment if she desires matrixectomy. 5. F/u prn. Yaneth Gaitan DPM PROGRESS Observed: 05/03/2018 Status: COMPLETED Source: [place] 8:58 AM [facility] [place] REPOSITORY [facility] ID: [id number] Author: Negra Garcia RN Service: (none) Author Type: (none) Type: Progress Notes Filed: 05/03/2018 11:58 AM Note Text: AMB ROOMING INTAKE FLOWSHEET DATA Risk Screening Do you have concerns about personal safety or safety in the home?: No Pain Pain Score: 0/10 (when she bumps it goes to 5) Pain Location: Toe (right 5th toe) Description: Aching, Sharp Duration Units: Unknown Frequency: Intermittent Intervention: Relaxation Wearing wider shoes AND has helped some, but not a whole lot. Pain mostly when pressure is applied to the right 5th toe. Even putting a sock on it causes pain. Taking shoe off AND elevate helps. Negra Garcia RN CNOV Observed: 05/03/2018 Status: COMPLETED Source: [place] 8:40 AM [facility] [place] REPOSITORY Office Visit (PODIWS) ZACHARIAHMARY ([id number]) 1940 F NFR Date Time Provider Department 05/03/18 8:40 AM YANETH GAITAN PODIWKamala During your visit today, we recorded the following information about you: Negra Garcia RN 05/03/2018 11:58 AM Signed AMB ROOMING INTAKE FLOWSHEET DATA Risk Screening Do you have concerns about personal safety or safety in the home?: No Pain Pain Score: 0/10 (when she bumps it goes to 5) Pain Location: Toe (right 5th toe) Description: Aching, Sharp Duration Units: Unknown Frequency: Intermittent Intervention: Relaxation Wearing wider shoes AND has helped some, but not a whole lot. Pain mostly when pressure is applied to the right 5th toe. Even putting a sock on it causes pain. Taking shoe off AND elevate helps. Negra Gaitan DPM 05/03/2018 11:58 AM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 ICD10: R22.1: NEW ISSUE - Check CT of neck 9. Localized swelling, mass or lump of neck - ICD9: 784.2, ICD10: R22.1 - CT NECK SOFT TISSUE W IVCON 10. Smoker - ICD9: 305.1, ICD10: F17.200 - Cessation encouraged. - Counseling was given focusing on the harmful effects of this addiction especially given the patient's medical condition(s) which will be worsened because of the chemicals in tobacco. 11. Psoriasis - ICD9: 696.1, ICD10: L40.9 - Cont f/u with Dr. Campos 12. Need for vaccination - ICD9: V05.9, ICD10: Z23 - INFLUENZA SEASONAL HIGH DOSE AGE 65+ F/u 6 months routine check CMP, FLP, UA and Mg prior. MD Joseph Hubbard MD 04/09/2018 2:47 PM Signed Please get fasting labs and urine test on or after 09/27/2018 prior to next visit. Referring Provider: JOSEPH YAÑEZ [[id number]] Allergies As of Date: 04/09/2018 Noted Allergy Reaction FORMALDEHYDE 02/06/2013 2 - Rash LATEX 07/27/2005 9 - Itching Comments: States that makes her itch can't blow up balloons without lips itching/swelling. URSODIOL 01/13/2014 4 - Hives xantac [Other] 07/27/2005 2 - Rash Comments: Pt states allergy is to Zantac. PHENOBARB-BELLADONNA ALKALOIDS 07/27/2005 16 - Unknown Date Reviewed: 04/09/2018 Reviewed by: Joseph Yañez - Fully Assessed Reason for Visit: Physical [83] Cmt: 6 months Imm/Inj [58] Cmt: Flu Vaccine Reason For Visit History Recorded Primary Visit Diagnosis:Medicare annual wellness visit, subsequent [Z00.00] Comment:medicare B: 12/13/2003, last done 04/09/2018 Other Visit Diagnoses:Essential hypertension with goal blood pressure less than 140/90 [I10] Mixed hyperlipidemia [E78.2] GERD without esophagitis [K21.9] CAD S/P percutaneous coronary angioplasty [I25.10, Z98.61] Chronic atrial fibrillation (HCC) [I48.2] Osteoarthritis of spine with radiculopathy, lumbar region [M47.26] Localized swelling, mass and lump, neck [R22.1] Comment:left side below ear at the angle of the mandable Localized swelling, mass or lump of neck [R22.1] Smoker [F17.200] Psoriasis [L40.9] Need for vaccination [Z23] Current use of proton pump inhibitor [Z79.899] Order(s):INFLUENZA SEASONAL HIGH DOSE AGE 65+ [28479FMT] Order #: [id number] CT NECK SOFT TISSUE W IVCON [0997634] Order #: [id number] FUTURE iv contrast (will be provided with radiology test)Inject 1 Each intravenously one time only for [address] Neck W IVCON No IV access, insert saline lock prior to the sedation, infusion, injection for imaging exam. Discontinue saline lock post exam. If Pt. has a central line or IVAD, may access for administration according to line specific nursing protocol. Once exam is complete flush line and de-access according to line specific nursing protocol in the CT contrast administration guidelines link.Disp: 1 EachRfl: 0 methotrexate 2.5 mg tabletTake 7 tablets by mouth every Sunday. Per Dr. Chew: Rfl: COMP METABOLIC PANEL [SQCMP] Order #: [id number] FUTURE LIPID PANEL, NONFASTING [SQLIPNF] Order #: [id number] FUTURE MAGNESIUM BLD [SQMG1] Order #: [id number] FUTURE URINALYSIS WITH MICROSCOPIC [SQUAWMIC] Order #: [id number] FUTURE DARYL CREATININE [SQWCRET] Order #: [id number] FUTURE Prescriptions as of 04/09/2018 Sig: METHOTREXATE SODIUM 2.5 MG TA* Take 7 tablets by mouth every* PANTOPRAZOLE 40 MG TABLET,DEL* Take 1 tablet by mouth once d* LISINOPRIL 10 MG TABLET Take 2 tablets by mouth once * ISOSORBIDE MONONITRATE ER 30 * Take 1 tablet by mouth once d* FOLIC ACID 1 MG TABLET Take 2 mg by mouth once daily. SIMVASTATIN 20 MG TABLET Take 20 mg by mouth daily at * WARFARIN 2 MG TABLET 1.5 tablet MTWTF; 1 tablet SS METOPROLOL SUCCINATE ER 50 MG* Take 50 mg by mouth once benoit* VITAMIN D-3 ORAL Take 1 capsule by mouth once * POLYETHYLENE GLYCOL 3350 17 G* Take 17 g by mouth once daily. ASPIRIN 81 MG TABLET Take one(1) tablet daily. IV CONTRAST (RADIOLOGY PROCED* Inject 1 Each intravenously o* Problem List As Of Date 04/09/2018 Noted Resolved Obesity, unspecified [E66.9] INVALID FOR*07/16/2014 Osteopenia [M85.80] INVALID FOR* Priority: M Brachial neuritis or radiculitis NOS [M54.12] INVALID FOR* Priority: M Gastritis [K29.70] INVALID FOR* Priority: B More... Abdominal pain, unspecified site [R10.9] INVALID FOR*07/16/2014 Acute gastritis without mention of hemorrhage [*INVALID FOR*07/16/2014 Carpal tunnel syndrome, left [G56.02] INVALID FOR*07/16/2014 Carpal tunnel syndrome, right [G56.01] INVALID FOR*07/16/2014 CAD S/P percutaneous coronary angioplasty [I25.*INVALID FOR* Priority: A Gallbladder sludge [K82.8] INVALID FOR* Priority: C Atrial fibrillation (HCC) [I48.91] INVALID FOR* Priority: A More... DDD (degenerative disc disease), cervical [M50.* Priority: M More... Mixed hyperlipidemia [E78.2] INVALID FOR* Priority: A Primary generalized (osteo)arthritis [M15.0] Priority: M Constipation [K59.00] Priority: C Smoker [F17.200] INVALID FOR* Priority: C More... Diverticulosis [K57.90] INVALID FOR* Priority: C Well adult exam [Z00.00] INVALID FOR* Priority: E More... 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 Bilateral low back pain with bilateral sciatica*INVALID FOR* Priority: M Current use of proton pump inhibitor [Z79.899] INVALID FOR* Psoriasis [L40.9] INVALID FOR* Priority: D More... Medicare annual wellness visit, subsequent [Z00*INVALID FOR* Priority: E More... Localized swelling, mass and lump, neck [R22.1] INVALID FOR* More... Other instructions from your clinician: Please get fasting labs and urine test on or after 09/27/2018 prior to next visit. Prescriptions ordered this encounter Disp Refills Start End IV CONTRAST (RADIOLOGY PROCEDURE) 1 Ea* 0 04/09/2018 04/09/2018 Class: In Office Route: INTRAVENOUS Sig: Inject 1 Each intravenously one time only for [address] Neck W IVCON No IV access, insert saline lock prior to the sedation, infusion, injection for imaging exam. Discontinue saline lock post exam. If Pt. has a central line or IVAD, may access for administration according to line specific nursing protocol. Once exam is complete flush line and de-access according to line specific nursing protocol in the CT contrast administration guidelines link. METHOTREXATE SODIUM 2.5 MG TABLET 04/09/2018 Class: Med Update Route: ORAL Sig: Take 7 tablets by mouth every Sunday. Per Dr. Henry Medications Discontinued During This Encounter methotrexate 2.5 mg tablet 04/09/2018 Class: Historical Med Route: ORAL Sig: Take 2.5 mg by mouth every Sunday. Disc: Adjust Sig - Block E-Cancel Disposition: Return in about 6 months (around 10/07/2018) for routine. Follow-up and Disposition History Recorded Encounter Status:Closed by JOSEPH YAÑEZ on 04/09/18 PROGRESS Observed: 04/09/2018 Status: COMPLETED Source: [place] 1:55 PM [facility] REPOSITORY O ID: [id number] Author: Ce Henry Ma Service: (none) Author Type: (none) Type: Progress Notes Filed: 04/09/2018 7:56 PM Note Text: 77 year old female here for INACTIVATED INFLUENZA VACCINE. 5307-6732 Season Patient is identified by name and date of : Yes [] CONTRAINDICATIONS color enhanced section Age less than 6 months? No Allergy to eggs, chicken, chicken feathers, or chicken dander? No Allergy to thimerosal (a preservative) or formaldehyde, gelatin? No History of severe reaction to any vaccine component or a previous dose of influenza vaccination? No History of Guillain-North Syndrome within 6 weeks after a previous influenza vaccine? No Patient is not moderately or severely ill? No Current temperature greater or equal to 100.4F? No History of Bone Marrow Transplant prior 6 months or solid organ transplant in the past 3 months ? No History of fainting after a prior injection or medical procedure? No- ? If patient has fainted in the past, the CDC recommends sitting or lying down for 15 minutes after the vaccination. [] VERIFICATION color enhanced section Was the answer Yes for any of the above contraindications? No contraindications present. Acceptable to proceed with vaccine. Patient/guardian agrees the above answers are true to the best of their knowledge? Yes Flu vaccine information sheet given? Yes See immunization activity in [facility] for details of immunizations adminstered today. Patient age: [age] year old For The 4278-6100 Flu Season 6-35 months old: Fluzone 0.25 ml - IM (Preservative Free) 3 years of age: Fluzone 0.5 ml - IM (Preservative Free) 3 years and older: Fluzone 0.5 ml- IM-(with Preservatives) 65+ years old: 2-49 years old Fluzone High-Dose 0.5 ml - IM (Preservative Free) FLUMIST- intranasal REMEMBER: If patient is less than 9 years of age and this is the first vaccine of Influenza to be received in any flu season, they should receive a second dose in one months time. PROTHROMBIN TIME W/INR Collected: 04/03/2018 Status: F Source: [place] 11:03 AM [facility] REPOSITORY TYPE CODE TESTS RESULT OUT OF RANGE REFERENCE UNITS LAB L300.4150 11.7-14.9 SECONDS High PROTIME 23.6 LAB L300.4200 Normal INR 2.1 Performed By: #### L300.3900 #### [facility] [address] [place], [address] CARDIOLOGY VISIT Observed: 03/14/2018 Status: F Source: [place] REPORT 3:10 PM [facility] REPOSITORY [facility] [address] [place] [address] OFFICE VISIT Date of Service: 03/14/18 MR#: [id number] Acct: [id number] Name: MARY CARLTON Rep #: [id number] : 1940 Provider: Connor Marinelli MD Age/Sex: 77/F Location: [facility] [place] Status: Signed [facility] Chief Complaint: Follow-up visit. Details: MARY CARLTON, is a 77 F who presents to the office today for a cardiovascular follow-up. She has a history of coronary artery disease with stenting to her LAD and RCA. She also has a history of atrial fibrillation, hypertension and hyperlipidemia. From a cardiac standpoint, patient is doing well. She does not have any chest discomfort/heaviness/tightness. Her exercise tolerance is stable for her age. She does not have any worsening symptoms of shortness of breath. She does not have any orthopnea. She denies paroxysmal nocturnal dyspnea . She does not have any symptoms of congestive heart failure. She does not have any palpitations that she is aware of. She does not have any near-syncope or syncope. She does not have any lower extremity edema. She does not have any symptoms of claudication. She has been compliant with her medications. Her physical exam today demonstrates clear lung gutierrez regular rate and rhythm and no pedal edema. Intake Vital Signs03/14/18 Height 4 ft 10 in 03/14/18 Weight: 126 lb 03/14/18 Body Mass Index (BMI) 26.3 03/14/18 Blood Pressure 132/84 H 03/14/18 Blood Pressure Location Lt brachial Intake Visit Reasons: 6 M FU Manager Metrology Required: No Accompanied by: None Is patient in pain?: No Allergies ursodiol Allergy (Verified 03/14/18 14:47) Unknown belladonna alkaloids [Belladonna Alkaloids] Adverse Reaction (Verified 03/14/18 14:47) Unknown formaldehyde Adverse Reaction (Verified 03/14/18 14:47) Rash latex Adverse Reaction (Verified 03/14/18 14:47) Itching phenobarbital Adverse Reaction (Verified 03/14/18 14:47) Unknown ranitidine HCl [From Zantac] Adverse Reaction (Verified 03/14/18 14:47) Unknown Medications Aspirin [Aspirin, Baby] 81 mg PO DAILY@0800 02/24/14 [History Confirmed 03/14/18] Pantoprazole Sodium [Protonix] 40 mg PO DAILY 02/24/14 [History Confirmed 03/14/18] Cholecalciferol (VIT D3) [Vitamin D] 1,000 unit PO DAILY 05/28/15 [History Confirmed 08/07/17] Polyethylene Glycol 3350 [Miralax] 17 gm PO PRN PRN 05/28/15 [History Confirmed 03/14/18] warfarin 2 mg tablet 2 mg PO .COMPLEX #30 tab 04/30/17 [Rx Confirmed 03/14/18] methotrexate sodium 2.5 mg tablet See Rx Instructions PO QWEEK tab 08/06/17 [History Confirmed 03/14/18] simvastatin 20 mg tablet 20 mg PO QHS #30 tab 08/07/17 [Rx Confirmed 03/14/18] metoprolol succinate ER 50 mg tablet,extended release 24 hr 50 mg PO DAILY #30 tab 11/26/17 [Rx Confirmed 03/14/18] isosorbide mononitrate ER 30 mg tablet,extended release 24 hr 30 mg PO QAM #30 tab 01/29/18 [Rx Confirmed 03/14/18] warfarin 3 mg tablet 3 mg PO .COMPLEX #30 tab 01/29/18 [Rx Confirmed 03/14/18] lisinopril 10 mg tablet 10 mg PO DAILY #30 tab 02/25/18 [Rx Confirmed 03/14/18] folic acid 1 mg tablet 1 mg PO DAILY 03/14/18 [History Confirmed 03/14/18] [facility] Medical History Hyperlipidemia (Chronic) Atherosclerotic heart disease of [place] coronary artery without angina pectoris (Chronic) 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) Tobacco abuse (Chronic) Hypertension (Chronic) Chronic atrial fibrillation (Chronic) Surgical History History of coronary artery stent placement (Chronic) Family History Father CAD (coronary artery disease) CVA (cerebral vascular accident) Mother CAD (coronary artery disease) Myocardial infarction Social History Smoking Status: Current every day smoker tobacco type: cigarettes ROS Const Const: Negative for fatigue, weakness, night sweats, excessive sweating, frequent falls, headache(s) or daytime sleepiness Eyes Eyes: Negative for loss of peripheral vision, transient loss of vision, blind spots, double vision or blurry vision ENT ENT: Negative for headache(s), dizziness, balance problems, Nosebleed/epistaxis, tongue swelling or lip swelling Cardio Chest Pain: No Palpitations: No Edema: None Muscle aches with walking: None Resp Respiratory: Negative for SOB at rest, SOB orthopnea\SOB lying down, Cough, paroxysmal nocturnal dyspnea or SOB with activity GI GI: Negative nausea, vomiting, heartburn, black,tarry stools or bright, red blood in stools : Negative for hematuria Musc Musc: Negative for balance problems, muscle aches/ myalgia, muscle weakness or joint pain Skin Skin: Negative non-healing lesions, unusual bruising or rash Neuro Neuro: Negative for weakness, frequent falls, headache(s), double vision, dizziness, lightheadedness, orthostatic symptoms, blurry vision or lack of coordination Albino Hematologic/Lymphatic: Negative for easy bruising or easy bleeding Endo Endo: Negative for fatigue, excessive sweating, cold intolerance, heat intolerance, increased thirst/drinking or hair loss Psych Psych: Negative for anxiety or depression Allergy Allergy/Immunology: Negative for throat swelling, Negative for tongue swelling, Negative for hives, Negative for rash, Negative for lip swelling Cardiology Exam Const Appearance: cooperative, healthy appearing, well developed, well groomed and no acute distress Nutritional Appearance: well nourished and average body habitus Orientation: alert, awake and oriented x3 Head Head: normal to inspection, normocephalic and atraumatic Ears: hearing grossly normal bilaterally and external ears normal Nose: external nose normal, nasal mucous membranes and turbinates normal, nares normal, septum normal, no nasal discharge Face and Sinus: face symmetric Mouth: oral mucosae normal, tongue normal, oropharynx normal and moist mucous membranes Teeth and gingiva: dentition normal Throat: posterior oropharynx normal, tonsils normal and uvula midline Eyes General: appearance normal, both eyes and all related structures Eyelids: eyelids normal Conjunctivae: conjunctivae normal Pupils: PERRL, normal by confrontation and accommodation normal EOM: EOM intact bilaterally Neck Neck: normal visual inspection, trachea midline and no JVD JVD: +5 Carotids: normal carotid upstroke and bounding pulses Chest Chest inspection: normal inspection of the chest, symmetric chest movement and normal respiratory effort Auscultation: Bilateral: Clear to Auscultation Cardio Palpation: normal PMI Rate: regular rate Rhythm: irregular rhythm Heart sounds: S1 normal, S2 normal and normal, physiologic split S2; negative rub, gallop or murmur GI GI: normal to inspection, soft, no hepatosplenomegaly and bowel sounds present Neuro General: alert, awake, oriented x3, no focal sensory deficit, gait normal and moves all extremities Skin Skin: no rashes or lesions noted Extremities Pulses: Normal: Right Femoral Pulse, Left Femoral Pulse, Right Dorsalis Pedis Pulse, Left Dorsalis Pedis Pulse, Right Posterior Tibial Pulse, Left Posterior Tibial Pulse, Right Radial Pulse, Left Radial Pulse Lower Extremity Edema: None: Bilateral Musculoskel Musculoskeletal: No joint tenderness Psych Psychological: normal affect Assessment AND Plan 1. Atherosclerotic heart disease [place] coronary artery w/angina pectoris I25.119 Plan She does have a history of atherosclerotic cardiovascular disease. She has not had any evidence of angina. You remember her last catheterization in 2015 demonstrated an angiographically normal left main coronary artery, left anterior descending artery with a previously placed stent which was patent, a large dominant right coronary artery with 50% in-stent stenosis, and the circumflex artery with no high- grade stenosis. In the absence of any symptoms I would not suggest that we make any changes. 2. Essential hypertension I10 Plan Her blood pressure appears to be under much better control now since her hydrochlorothiazide was stopped. 3. Chronic atrial fibrillation I48.2 Plan She does have chronic persistent atrial fibrillation. She remains on anticoagulation with a goal of 2-3. 4. Tobacco abuse Z72.0 Plan She has a history of tobacco abuse and has been counseled about the above. 5. Pure hypercholesterolemia E78.00 Plan She does have a history of hyperlipidemia. She remains on her current dose of low to medium intensity statin. This will be continued without any changes. Her last lipid profile demonstrated a total cholesterol 115, HDL of 52, and LDL of 53. Thank you for allowing me to participate in the care of your patient. Please don't hesitate to call if any issues arise Plan Detail Follow Up 6 Months (mmm) Coding Level of Care Code Off vis,est,level 3 Diagnoses Atherosclerotic heart disease [place] coronary artery w/angina pectoris I25.119 Essential hypertension I10 Hypertension type: essential hypertension Chronic atrial fibrillation I48.2 Tobacco abuse Z72.0 Pure hypercholesterolemia E78.00 Hyperlipidemia type: pure hypercholesterolemia Coding Level of Care Code Off vis,est,level 3 Diagnoses Atherosclerotic heart disease [place] coronary artery w/angina pectoris I25.119 Essential hypertension I10 Hypertension type: essential hypertension Chronic atrial fibrillation I48.2 Tobacco abuse Z72.0 Pure hypercholesterolemia E78.00 Hyperlipidemia type: pure hypercholesterolemia 03/14/18 1510 <Electronically signed by Connor Marinelli MD> Date Connor Marinelli MD Cosigner Signature: Date (if applicable) CC: Joseph Yañez MD PROTHROMBIN TIME W/INR Collected: 03/14/2018 Status: F Source: [place] 2:29 PM [facility] REPOSITORY TYPE CODE TESTS RESULT OUT OF RANGE REFERENCE UNITS LAB L300.4150 11.7-14.9 SECONDS High PROTIME 20.5 LAB L300.4200 Normal INR 1.8 Performed By: #### L300.3900 #### [facility] [address] [place], [place], [address] PROGRESS Observed: 03/04/2018 Status: COMPLETED Source: [place] 12:54 PM [facility] RE[facility] HNO ID: [id number] Author: Yaneth Gaitan Service: (none) Author Type: Physician Type: Progress Notes Filed: 03/04/2018 10:23 PM Note Text: Follow up podiatric office visit for: Chief Complaint: This 77 year old who presents for follow up:painful 5th toe/toenail Patient states the pain has improved but there is still pain with wearing shoes She has completed the antibiotic She had pvr which was confirmed normal. She has no other complaints. PAIN EVALUATION No data found. No results found for: HBA1C PCP: Joseph Yañez MD PAST MEDICAL HISTORY Diagnosis Date - Atrial fibrillation (HCC) - CAD (coronary artery disease) - DDD (degenerative disc disease), cervical diffuse severe DDD - Diverticulitis 2008 - Gallbladder sludge - Gastritis - Generalized osteoarthrosis, unspecified site - Hyperlipidemia - Hypertension - Osteopenia - Unspecified constipation Current Outpatient Prescriptions: pantoprazole DR (PROTONIX) 40 mg tablet Take 1 tablet by mouth once daily. lisinopril (ZESTRIL, PRINIVIL) 10 mg tablet Take 2 tablets by mouth once daily. Dr. Marinelli isosorbide mononitrate ER (IMDUR) 30 mg 24 hr tablet Take 1 tablet by mouth once daily. methotrexate 2.5 mg tablet Take 2.5 mg by mouth every Sunday. folic acid 1 mg tablet Take 2 mg by mouth once daily. simvastatin (ZOCOR) 20 mg tablet Take 20 mg by mouth daily at bedtime. warfarin (COUMADIN) 2 mg tablet 1.5 tablet MTWTF; 1 tablet SS metoprolol succinate XL, long acting, (TOPROL XL) 50 mg 24 hr tablet Take 50 mg by mouth once daily. CALCIUM CARBONATE/VITAMIN D3 (VITAMIN D-3 ORAL) Take 1 capsule by mouth once daily. polyethylene glycol 3350 (MIRALAX) 17 gram ORAL packet Take 17 g by mouth once daily. ASPIRIN 81 MG TAB Take one(1) tablet daily. No current facility-administered medications for this visit. ALLERGIES Allergen Reactions - Ursodiol Hives - Formaldehyde Rash - Latex Itching States that makes her itch can't blow up balloons without lips itching/swelling. - Phenobarb-Belladonn* - Xantac [Other] Rash Pt states allergy is to Zantac. PAST SURGICAL HISTORY Procedure Laterality Date - CARDIAC CATH 02/18/2016 Dr. Marinelli - CARPAL TUNNEL 7 left - CARPAL TUNNEL 03/28/13 Carpal tunnel decomp right - COLONOSCOP W/ OR W/O [facility] SPEC 05/11/1995 Colonoscopy - COLONOSCOP W/ OR W/O [facility] SPEC 08/17/2005 few diverticula - COLONOSCOP W/ OR W/O [facility] SPEC 11/29/10 normal, repeat 10 yrs - CYSTOURETH W/FULG 0.5-2CM 02/25/14 stent right ureter for hematuria - EGD W/O [facility] SPECIMEN W/BX 11/29/10 gastritis - EGD W/O OR W/BRUSH/WASH 08/17/2005 gastritis - FECAL OCCULT BLOOD TEST 04/12/2016 neg - HEART CATHETERIZATION 12/03/2013 Angioplasty, drug eluding stent to LAD in 2 stents RCA - LIGATE FALLOPIAN TUBE Tubal ligation - STRESS TEST 08/13/2015 NL REVIEW OF SYSTEMS: CONSTITUTIONAL: No fevers, chills, nightsweats, unintended weight loss HEENT: Denies frequent or severe heaches, nasal congestion/sinus symptoms, problematic allergy problems. EYES: No diplopia or blurry vision. CARDIOVASCULAR: No chest pain, dyspnea, palpitations, orthopnea, PND, ankle edema. PULM: No dyspnea, unexplained cough. GI: No dysphagia/odynophagia, problematic reflux, constipation, diarrhea, changes in stool habits, hematochezia, melena. : No new urinary complaints, including dysuria, gross hematuria or pyuria. NEURO: No new balance problems, peripheral weakness/paresthesias or numbness of concern. MUSC-SKEL: No new joint pain, swelling, or erythema. PSY: No concerns regarding depression, anxiety or panic. INTEGUMENTARY: painful right 5th toenail Physical Exam: Constitutional: Pt is a well developed 77 year old female who is alert, oriented, cooperative and in no apparent distress. OBJECTIVE: NVSI unchanged from previous visit. Dermatological: Right 5th toenail previously debrided. There is minimal thickening noted. No signs of redness or toe infection present. Webspaces clean and dry 1-4 b/l. Skin appears well hydrated and supple. good color, texture, turgor. No open lesions present. No callosities present. Musculoskeletal/Orthopaedic: Patient has pain to palpation of right 5th toenail ASSESSMENT: (B35.1) Onychomycosis (primary encounter diagnosis (M79.674) Pain in toe of right foot PLAN: 1. History and physical examination completed today. 2. Discussed painful right 5th toe. Suspect component of thickening of right 5th toenail. Since debridement performed, pain has subsided. 3. Gel padding fails to eliminate pain. Continue with wider shoes instead 4. Discussed possible removal of toenail. She is not interested at this time. She may consider in future. 5 . Recommend xrays to assure no other etiology for her pain . 6. F/u prn. Yaneth Gaitan DPM PROGRESS Observed: 03/04/2018 Status: COMPLETED Source: [place] 12:36 PM [facility] HNO ID: [id number] Author: Marichuy Sams Ma Service: (none) Author Type: (none) Type: Progress Notes Filed: 03/04/2018 10:23 PM Note Text: AMB ROOMING INTAKE FLOWSHEET DATA Risk Screening Do you have concerns about personal safety or safety in the home?: No Patient 1 wk, 4 day follow up of R 5th toe pain/irritation. Reports pain and soreness to the touch, only able to wear clog shoes as they do not bother her as bad. She finished course of doxycycline. Marichuy Sams Ma CNOV Observed: 03/04/2018 Status: COMPLETED Source: [place] 12:25 PM [facility] Office Visit (PODIWS) MARY CARLTON ([id number]) 1940 F NFR Date Time Provider Department 03/04/18 12:25 PM YANETH GAITAN During your visit today, we recorded the following information about you: Marichuy Sams Ma 03/04/2018 10:23 PM Signed AMB ROOMING INTAKE FLOWSHEET DATA Risk Screening Do you have concerns about personal safety or safety in the home?: No Patient 1 wk, 4 day follow up of R 5th toe pain/irritation. Reports pain and soreness to the touch, only able to wear clog shoes as they do not bother her as bad. She finished course of doxycycline. Marichuy Gaitan DPM 03/04/2018 10:23 PM Signed Follow up podiatric office visit for: Chief Complaint: This 77 year old who presents for follow up:painful 5th toe/toenail Patient states the pain has improved but there is still pain with wearing shoes She has completed the antibiotic She had pvr which was confirmed normal. She has no other complaints. PAIN EVALUATION No data found. No results found for: HBA1C PCP: Joseph Yañez MD PAST MEDICAL HISTORY Diagnosis Date - Atrial fibrillation (HCC) - CAD (coronary artery disease) - DDD (degenerative disc disease), cervical diffuse severe DDD - Diverticulitis 2008 - Gallbladder sludge - Gastritis - Generalized osteoarthrosis, unspecified site - Hyperlipidemia - Hypertension - Osteopenia - Unspecified constipation Current Outpatient Prescriptions: pantoprazole DR (PROTONIX) 40 mg tablet Take 1 tablet by mouth once daily. lisinopril (ZESTRIL, PRINIVIL) 10 mg tablet Take 2 tablets by mouth once daily. Dr. Marinelli isosorbide mononitrate ER (IMDUR) 30 mg 24 hr tablet Take 1 tablet by mouth once daily. methotrexate 2.5 mg tablet Take 2.5 mg by mouth every Sunday. folic acid 1 mg tablet Take 2 mg by mouth once daily. simvastatin (ZOCOR) 20 mg tablet Take 20 mg by mouth daily at bedtime. warfarin (COUMADIN) 2 mg tablet 1.5 tablet MTWTF; 1 tablet SS metoprolol succinate XL, long acting, (TOPROL XL) 50 mg 24 hr tablet Take 50 mg by mouth once daily. CALCIUM CARBONATE/VITAMIN D3 (VITAMIN D-3 ORAL) Take 1 capsule by mouth once daily. polyethylene glycol 3350 (MIRALAX) 17 gram ORAL packet Take 17 g by mouth once daily. ASPIRIN 81 MG TAB Take one(1) tablet daily. No current facility-administered medications for this visit. ALLERGIES Allergen Reactions - Ursodiol Hives - Formaldehyde Rash - Latex Itching States that makes her itch can't blow up balloons without lips itching/swelling. - Phenobarb-Belladonn* - Xantac [Other] Rash Pt states allergy is to Zantac. PAST SURGICAL HISTORY Procedure Laterality Date - CARDIAC CATH 02/18/2016 Dr. Marinelli - CARPAL TUNNEL 11-23 left - CARPAL TUNNEL 03/28/13 Carpal tunnel decomp right - COLONOSCOP W/ OR W/O [facility] SPEC 05/11/1995 Colonoscopy - COLONOSCOP W/ OR W/O [facility] SPEC 08/17/2005 few diverticula - COLONOSCOP W/ OR W/O [facility] SPEC 11/29/10 normal, repeat 10 yrs - CYSTOURETH W/FULG 0.5-2CM 02/25/14 stent right ureter for hematuria - EGD W/O [facility] SPECIMEN W/BX 11/29/10 gastritis - EGD W/O OR W/BRUSH/WASH 08/17/2005 gastritis - FECAL OCCULT BLOOD TEST 04/12/2016 neg - HEART CATHETERIZATION 12/03/2013 Angioplasty, drug eluding stent to LAD in 2 stents RCA - LIGATE FALLOPIAN TUBE Tubal ligation - STRESS TEST 08/13/2015 NL REVIEW OF SYSTEMS: CONSTITUTIONAL: No fevers, chills, nightsweats, unintended weight loss HEENT: Denies frequent or severe heaches, nasal congestion/sinus symptoms, problematic allergy problems. EYES: No diplopia or blurry vision. CARDIOVASCULAR: No chest pain, dyspnea, palpitations, orthopnea, PND, ankle edema. PULM: No dyspnea, unexplained cough. GI: No dysphagia/odynophagia, problematic reflux, constipation, diarrhea, changes in stool habits, hematochezia, melena. : No new urinary complaints, including dysuria, gross hematuria or pyuria. NEURO: No new balance problems, peripheral weakness/paresthesias or numbness of concern. MUSC-SKEL: No new joint pain, swelling, or erythema. PSY: No concerns regarding depression, anxiety or panic. INTEGUMENTARY: painful right 5th toenail Physical Exam: Constitutional: Pt is a well developed 77 year old female who is alert, oriented, cooperative and in no apparent distress. OBJECTIVE: NVSI unchanged from previous visit. Dermatological: Right 5th toenail previously debrided. There is minimal thickening noted. No signs of redness or toe infection present. Webspaces clean and dry 1-4 b/l. Skin appears well hydrated and supple. good color, texture, turgor. No open lesions present. No callosities present. Musculoskeletal/Orthopaedic: Patient has pain to palpation of right 5th toenail ASSESSMENT: (B35.1) Onychomycosis (primary encounter diagnosis (M79.674) Pain in toe of right foot PLAN: 1. History and physical examination completed today. 2. Discussed painful right 5th toe. Suspect component of thickening of right 5th toenail. Since debridement performed, pain has subsided. 3. Gel padding fails to eliminate pain. Continue with wider shoes instead 4. Discussed possible removal of toenail. She is not interested at this time. She may consider in future. 5 . Recommend xrays to assure no other etiology for her pain . 6. F/u prn. Yaneth Gaitan DPM Referring Provider: YANETH GAITAN [[id number]] Allergies As of Date: 03/04/2018 Noted Allergy Reaction URSODIOL 01/13/2014 4 - Hives FORMALDEHYDE 02/06/2013 2 - Rash LATEX 07/27/2005 9 - Itching Comments: States that makes her itch can't blow up balloons without lips itching/swelling. PHENOBARB-BELLADONNA ALKALOIDS 07/27/2005 xantac [Other] 07/27/2005 2 - Rash Comments: Pt states allergy is to Zantac. Date Reviewed: 03/04/2018 Reviewed by: Marichuy Sams Ma - Fully Assessed Reason for Visit: Follow Up [171] Primary Visit Diagnosis:Onychomycosis [B35.1] Other Visit Diagnosis:Pain in toe of right foot [M79.674] Order(s):XR FOOT GENERAL 3V AP/LAT/OBL RT [[id number]] Order #: [id number] FUTURE Prescriptions as of 03/04/2018 Sig: PANTOPRAZOLE 40 MG TABLET,DEL* Take 1 tablet by mouth once d* LISINOPRIL 10 MG TABLET Take 2 tablets by mouth once * ISOSORBIDE MONONITRATE ER 30 * Take 1 tablet by mouth once d* METHOTREXATE SODIUM 2.5 MG TA* Take 2.5 mg by mouth every Tu* FOLIC ACID 1 MG TABLET Take 2 mg by mouth once daily. SIMVASTATIN 20 MG TABLET Take 20 mg by mouth daily at * WARFARIN 2 MG TABLET 1.5 tablet MTWTF; 1 tablet SS METOPROLOL SUCCINATE ER 50 MG* Take 50 mg by mouth once benoit* VITAMIN D-3 ORAL Take 1 capsule by mouth once * POLYETHYLENE GLYCOL 3350 17 G* Take 17 g by mouth once daily. ASPIRIN 81 MG TABLET Take one(1) tablet daily. Problem List As Of Date 03/04/2018 Noted Resolved Obesity, unspecified [E66.9] INVALID FOR*07/16/2014 Osteopenia [M85.80] INVALID FOR* Priority: M Brachial neuritis or radiculitis NOS [M54.12] INVALID FOR* Priority: M Gastritis [K29.70] INVALID FOR* Priority: B More... Abdominal pain, unspecified site [R10.9] INVALID FOR*07/16/2014 Acute gastritis without mention of hemorrhage [*INVALID FOR*07/16/2014 Carpal tunnel syndrome, left [G56.02] INVALID FOR*07/16/2014 Carpal tunnel syndrome, right [G56.01] INVALID FOR*07/16/2014 CAD S/P percutaneous coronary angioplasty [I25.*INVALID FOR* Priority: A Gallbladder sludge [K82.8] INVALID FOR* Priority: C Atrial fibrillation (HCC) [I48.91] INVALID FOR* Priority: A More... DDD (degenerative disc disease), cervical [M50.* Priority: M More... Mixed hyperlipidemia [E78.2] INVALID FOR* Priority: A Primary generalized (osteo)arthritis [M15.0] Priority: M Constipation [K59.00] Priority: C Smoker [F17.200] INVALID FOR* Priority: C More... Diverticulosis [K57.90] INVALID FOR* Priority: C Well adult exam [Z00.00] INVALID FOR* Priority: E More... 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 Bilateral low back pain with bilateral sciatica*INVALID FOR* Priority: M Current use of proton pump inhibitor [Z79.899] INVALID FOR* Encounter Status:Closed by YANETH GAITAN DPM on 03/04/18 PROGRESS Observed: 02/21/2018 Status: COMPLETED Source: [place] 8:47 AM [facility] HNO ID: [id number] Author: Yaneth Gaitan Service: (none) Author Type: Physician Type: Progress Notes Filed: 02/21/2018 11:34 AM Note Text: Follow up podiatric office visit for: Chief Complaint: This 77 year old who presents for pain of right 5th toe Patient has pain to right 5th toe and toenail. Complains of pain whenever anything is rubbing on the toe Patient states pain has been present for several months. Patient has been applying band aid and lotion but nothing appears to work. She is here to discuss her pain. PAIN EVALUATION No data found. No results found for: HBA1C PCP: Joseph Yañez MD PAST MEDICAL HISTORY Diagnosis Date - Atrial fibrillation (HCC) - CAD (coronary artery disease) - DDD (degenerative disc disease), cervical diffuse severe DDD - Diverticulitis 2008 - Gallbladder sludge - Gastritis - Generalized osteoarthrosis, unspecified site - Hyperlipidemia - Hypertension - Osteopenia - Unspecified constipation Current Outpatient Prescriptions: pantoprazole DR (PROTONIX) 40 mg tablet Take 1 tablet by mouth once daily. lisinopril (ZESTRIL, PRINIVIL) 10 mg tablet Take 2 tablets by mouth once daily. Dr. Marinelli isosorbide mononitrate ER (IMDUR) 30 mg 24 hr tablet Take 1 tablet by mouth once daily. methotrexate 2.5 mg tablet Take 2.5 mg by mouth every Sunday. folic acid 1 mg tablet Take 2 mg by mouth once daily. simvastatin (ZOCOR) 20 mg tablet Take 20 mg by mouth daily at bedtime. warfarin (COUMADIN) 2 mg tablet 1.5 tablet MTWTF; 1 tablet SS metoprolol succinate XL, long acting, (TOPROL XL) 50 mg 24 hr tablet Take 50 mg by mouth once daily. CALCIUM CARBONATE/VITAMIN D3 (VITAMIN D-3 ORAL) Take 1 capsule by mouth once daily. polyethylene glycol 3350 (MIRALAX) 17 gram ORAL packet Take 17 g by mouth once daily. ASPIRIN 81 MG TAB Take one(1) tablet daily. No current facility-administered medications for this visit. ALLERGIES Allergen Reactions - Ursodiol Hives - Formaldehyde Rash - Latex Itching States that makes her itch can't blow up balloons without lips itching/swelling. - Phenobarb-Belladonn* - Xantac [Other] Rash Pt states allergy is to Zantac. PAST SURGICAL HISTORY Procedure Laterality Date - CARDIAC CATH 02/18/2016 Dr. Marinelli - CARPAL TUNNEL 11-23 left - CARPAL TUNNEL 03/28/13 Carpal tunnel decomp right - COLONOSCOP W/ OR W/O [facility] SPEC 05/11/1995 Colonoscopy - COLONOSCOP W/ OR W/O [facility] SPEC 08/17/2005 few diverticula - COLONOSCOP W/ OR W/O [facility] SPEC 11/29/10 normal, repeat 10 yrs - CYSTOURETH W/FULG 0.5-2CM 02/25/14 stent right ureter for hematuria - EGD W/O [facility] SPECIMEN W/BX 11/29/10 gastritis - EGD W/O OR W/BRUSH/WASH 08/17/2005 gastritis - FECAL OCCULT BLOOD TEST 04/12/2016 neg - HEART CATHETERIZATION 12/03/2013 Angioplasty, drug eluding stent to LAD in 2 stents RCA - LIGATE FALLOPIAN TUBE Tubal ligation - STRESS TEST 08/13/2015 NL Physical Exam: Constitutional: Pt is a well developed 77 year old female who is alert, oriented, cooperative and in no apparent distress. OBJECTIVE: Vascular: Posterior tibial pulse is nonpalpable b/l. Dorsalis pedis is faintly palpable b/l. cft is delayed. Skin temperature from proximal to distal is warm to cool Dermatological: Right 5th toenail is thick, dystrophic, painful and has some hyperkeratotic build up. No signs of infection is present. No redness is present. Webspaces clean and dry 1-4 b/l. There is 7 mm x 7 mm hypopigmented lesion of left medial leg, no pain. Musculoskeletal/Orthopaedic: Patient has pain to palpation of right 5th toenail ASSESSMENT: (B35.1) Onychomycosis (primary encounter diagnosis) (R09.89) Diminished pulses in lower extremity (L98.9) Skin lesion (M79.675) Pain in toe of left foot (79.674) Pain in toe of right foot PLAN: 1. History and physical examination completed today. 2. Discussed pain of right 5th toenail. There is thickening of toenail causing inflammation of right proximal nail fold. Toenail debridement was performed 1-5 b/l. Discussed options going forward for pain of right 5th toenail not limited to debridement vs removal of toenail. If she were to elect for removal, would recommend pvr to assure ability to heal toe post-op. 3. There is redness I believe to be more associated with inflammation than infection. Will place her on antibiotic at precaution. 4. Discussed skin lesion of left leg. Recommend dermatology evaluation. Dermatology consult placed Yaneth Gaitan DPM PROGRESS Observed: 02/21/2018 Status: COMPLETED Source: [place] 8:42 AM [facility] HNO ID: [id number] Author: Marichuy Sams Ma Service: (none) Author Type: (none) Type: Progress Notes Filed: 02/21/2018 11:34 AM Note Text: AMB ROOMING INTAKE FLOWSHEET DATA Risk Screening Do you have concerns about personal safety or safety in the home?: No Patient reports R 5th distal toe pain xseveral months. Reports painful with anything rubbing against it. R 5th nail fold visibly red. Patient denies being diabetic. Marichuy Sams Ma CNOV Observed: 02/21/2018 Status: COMPLETED Source: [place] 8:25 AM [facility] Office Visit (PODIWS) FRANCISCO JAVIERMARY SARMIENTO ([id number]) 1940 F NFR Date Time Provider Department 02/21/18 8:25 AM YANETH GAITAN During your visit today, we recorded the following information about you: Marichuy Sams Ma 02/21/2018 11:34 AM Signed AMB ROOMING INTAKE FLOWSHEET DATA Risk Screening Do you have concerns about personal safety or safety in the home?: No Patient reports R 5th distal toe pain xseveral months. Reports painful with anything rubbing against it. R 5th nail fold visibly red. Patient denies being diabetic. Marichuy Gaitan DPM 02/21/2018 11:34 AM Signed Follow up podiatric office visit for: Chief Complaint: This 77 year old who presents for pain of right 5th toe Patient has pain to right 5th toe and toenail. Complains of pain whenever anything is rubbing on the toe Patient states pain has been present for several months. Patient has been applying band aid and lotion but nothing appears to work. She is here to discuss her pain. PAIN EVALUATION No data found. No results found for: HBA1C PCP: Joseph Yañez MD PAST MEDICAL HISTORY Diagnosis Date - Atrial fibrillation (HCC) - CAD (coronary artery disease) - DDD (degenerative disc disease), cervical diffuse severe DDD - Diverticulitis 2008 - Gallbladder sludge - Gastritis - Generalized osteoarthrosis, unspecified site - Hyperlipidemia - Hypertension - Osteopenia - Unspecified constipation Current Outpatient Prescriptions: pantoprazole DR (PROTONIX) 40 mg tablet Take 1 tablet by mouth once daily. lisinopril (ZESTRIL, PRINIVIL) 10 mg tablet Take 2 tablets by mouth once daily. Dr. Marinelli isosorbide mononitrate ER (IMDUR) 30 mg 24 hr tablet Take 1 tablet by mouth once daily. methotrexate 2.5 mg tablet Take 2.5 mg by mouth every Sunday. folic acid 1 mg tablet Take 2 mg by mouth once daily. simvastatin (ZOCOR) 20 mg tablet Take 20 mg by mouth daily at bedtime. warfarin (COUMADIN) 2 mg tablet 1.5 tablet MTWTF; 1 tablet SS metoprolol succinate XL, long acting, (TOPROL XL) 50 mg 24 hr tablet Take 50 mg by mouth once daily. CALCIUM CARBONATE/VITAMIN D3 (VITAMIN D-3 ORAL) Take 1 capsule by mouth once daily. polyethylene glycol 3350 (MIRALAX) 17 gram ORAL packet Take 17 g by mouth once daily. ASPIRIN 81 MG TAB Take one(1) tablet daily. No current facility-administered medications for this visit. ALLERGIES Allergen Reactions - Ursodiol Hives - Formaldehyde Rash - Latex Itching States that makes her itch can't blow up balloons without lips itching/swelling. - Phenobarb-Belladonn* - Xantac [Other] Rash Pt states allergy is to Zantac. PAST SURGICAL HISTORY Procedure Laterality Date - CARDIAC CATH 02/18/2016 Dr. Marinelli - CARPAL TUNNEL - left - CARPAL TUNNEL 03/28/13 Carpal tunnel decomp right - COLONOSCOP W/ OR W/O [facility] SPEC 05/11/1995 Colonoscopy - COLONOSCOP W/ OR W/O [facility] SPEC 08/17/2005 few diverticula - COLONOSCOP W/ OR W/O [facility] SPEC 11/29/10 normal, repeat 10 yrs - CYSTOURETH W/FULG 0.5-2CM 02/25/14 stent right ureter for hematuria - EGD W/O [facility] SPECIMEN W/BX 11/29/10 gastritis - EGD W/O OR W/BRUSH/WASH 08/17/2005 gastritis - FECAL OCCULT BLOOD TEST 04/12/2016 neg - HEART CATHETERIZATION 12/03/2013 Angioplasty, drug eluding stent to LAD in 2 stents RCA - LIGATE FALLOPIAN TUBE Tubal ligation - STRESS TEST 08/13/2015 NL Physical Exam: Constitutional: Pt is a well developed 77 year old female who is alert, oriented, cooperative and in no apparent distress. OBJECTIVE: Vascular: Posterior tibial pulse is nonpalpable b/l. Dorsalis pedis is faintly palpable b/l. cft is delayed. Skin temperature from proximal to distal is warm to cool Dermatological: Right 5th toenail is thick, dystrophic, painful and has some hyperkeratotic build up. No signs of infection is present. No redness is present. Webspaces clean and dry 1-4 b/l. There is 7 mm x 7 mm hypopigmented lesion of left medial leg, no pain. Musculoskeletal/Orthopaedic: Patient has pain to palpation of right 5th toenail ASSESSMENT: (B35.1) Onychomycosis (primary encounter diagnosis) (R09.89) Diminished pulses in lower extremity (L98.9) Skin lesion (M79.675) Pain in toe of left foot (79.674) Pain in toe of right foot PLAN: 1. History and physical examination completed today. 2. Discussed pain of right 5th toenail. There is thickening of toenail causing inflammation of right proximal nail fold. Toenail debridement was performed 1-5 b/l. Discussed options going forward for pain of right 5th toenail not limited to debridement vs removal of toenail. If she were to elect for removal, would recommend pvr to assure ability to heal toe post-op. 3. There is redness I believe to be more associated with inflammation than infection. Will place her on antibiotic at precaution. 4. Discussed skin lesion of left leg. Recommend dermatology evaluation. Dermatology consult placed Yaneth Gaitan DPM Referring Provider: SELF [[id number]] Allergies As of Date: 02/21/2018 Noted Allergy Reaction URSODIOL 01/13/2014 4 - Hives FORMALDEHYDE 02/06/2013 2 - Rash LATEX 07/27/2005 9 - Itching Comments: States that makes her itch can't blow up balloons without lips itching/swelling. PHENOBARB-BELLADONNA ALKALOIDS 07/27/2005 xantac [Other] 07/27/2005 2 - Rash Comments: Pt states allergy is to Zantac. Date Reviewed: 02/21/2018 Reviewed by: Marichuy Sams Ma - Fully Assessed Reason for Visit: Toe Pain (Toe) [761] Primary Visit Diagnosis:Onychomycosis [B35.1] Other Visit Diagnoses:Diminished pulses in lower extremity [R09.89] Skin lesion [L98.9] Pain in toe of left foot [M79.675] Pain in toe of right foot [M79.674] Order(s):PVR [facility]K [facility] [[id number]] Order #: [id number] FUTURE doxycycline monohydrate (MONODOX) 100 mg capsuleTake 1 capsule by mouth twice daily for 7 days.Disp: 14 capsuleRfl: 0 CONSULT TO DERMATOLOGY [9006] Order #: [id number]: 1 Prescriptions as of 02/21/2018 Sig: DOXYCYCLINE MONOHYDRATE 100 M* Take 1 capsule by mouth twice* PANTOPRAZOLE 40 MG TABLET,DEL* Take 1 tablet by mouth once d* LISINOPRIL 10 MG TABLET Take 2 tablets by mouth once * ISOSORBIDE MONONITRATE ER 30 * Take 1 tablet by mouth once d* METHOTREXATE SODIUM 2.5 MG TA* Take 2.5 mg by mouth every Tu* FOLIC ACID 1 MG TABLET Take 2 mg by mouth once daily. SIMVASTATIN 20 MG TABLET Take 20 mg by mouth daily at * WARFARIN 2 MG TABLET 1.5 tablet MTWTF; 1 tablet SS METOPROLOL SUCCINATE ER 50 MG* Take 50 mg by mouth once benoit* VITAMIN D-3 ORAL Take 1 capsule by mouth once * POLYETHYLENE GLYCOL 3350 17 G* Take 17 g by mouth once daily. ASPIRIN 81 MG TABLET Take one(1) tablet daily. Problem List As Of Date 02/21/2018 Noted Resolved Obesity, unspecified [E66.9] INVALID FOR*07/16/2014 Osteopenia [M85.80] INVALID FOR* Priority: M Brachial neuritis or radiculitis NOS [M54.12] INVALID FOR* Priority: M Gastritis [K29.70] INVALID FOR* Priority: B More... Abdominal pain, unspecified site [R10.9] INVALID FOR*07/16/2014 Acute gastritis without mention of hemorrhage [*INVALID FOR*07/16/2014 Carpal tunnel syndrome, left [G56.02] INVALID FOR*07/16/2014 Carpal tunnel syndrome, right [G56.01] INVALID FOR*07/16/2014 CAD S/P percutaneous coronary angioplasty [I25.*INVALID FOR* Priority: A Gallbladder sludge [K82.8] INVALID FOR* Priority: C Atrial fibrillation (HCC) [I48.91] INVALID FOR* Priority: A More... DDD (degenerative disc disease), cervical [M50.* Priority: M More... Mixed hyperlipidemia [E78.2] INVALID FOR* Priority: A Primary generalized (osteo)arthritis [M15.0] Priority: M Constipation [K59.00] Priority: C Smoker [F17.200] INVALID FOR* Priority: C More... Diverticulosis [K57.90] INVALID FOR* Priority: C Well adult exam [Z00.00] INVALID FOR* Priority: E More... 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 Bilateral low back pain with bilateral sciatica*INVALID FOR* Priority: M Current use of proton pump inhibitor [Z79.899] INVALID FOR* Prescriptions ordered this encounter Disp Refills Start End DOXYCYCLINE MONOHYDRATE 100 MG CAPSU* 14 c* 0 02/21/2018 02/21/2018 Route: ORAL Sig: Take 1 capsule by mouth twice daily for 7 days. Disc: Duplicate Entry DOXYCYCLINE MONOHYDRATE 100 MG CAPSU* 14 c* 0 02/21/2018 02/28/2018 Route: ORAL Sig: Take 1 capsule by mouth twice daily for 7 days. Medications Discontinued During This Encounter doxycycline monohydrate (MONODOX) 10* 14 c* 0 02/21/2018 02/21/2018 Route: ORAL Sig: Take 1 capsule by mouth twice daily for 7 days. Disc: Duplicate Entry Encounter Status:Closed by YANETH GAITAN DPM on 02/21/18 PROTHROMBIN TIME W/INR Collected: 01/29/2018 Status: F Source: [place] 1:57 PM [facility] REPOSITORY TYPE CODE TESTS RESULT OUT OF RANGE REFERENCE UNITS LAB L300.4150 11.7-14.9 SECONDS High PROTIME 23.2 LAB L300.4200 Normal INR 2.1 Performed By: #### L300.3900 #### [facility] [address] [place], [address] CBC W/DIFF, AUTOMATED Collected: 01/29/2018 Status: F Source: [place] 1:55 PM [facility] REPOSITORY TYPE CODE TESTS RESULT OUT OF RANGE REFERENCE UNITS LAB L100.1000 4.4-11.0 K/mm3 Normal WBC 5.2 LAB L100.1200 4.2-5.4 M/mm3 Low RBC 3.73 LAB L100.1300 12.0-15.0 g/dl Normal HGB 12.4 LAB L100.1400 37-47 % Normal HCT 37.4 LAB L100.1500 81-99 fL High MCV 100.3 LAB L100.1600 27.0-32.0 pg High MCH 33.2 LAB L100.1700 32-36 g/gl Normal MCHC 33.2 LAB L100.1810 11.6-14.6 % Normal RDW CV 13.8 LAB L100.1820 35.1-43.9 fl High RDW SD 49.5 LAB L100.1900 150-450 K/mm3 Normal PLT 261 LAB L100.2000 6.2-12.0 fl Normal MPV 10.8 LAB L100.2100 47-70 % Normal NEUT% 62.1 LAB L100.2200 19-41 % Normal LY% 27.7 LAB L100.2300 0-10 % Normal MONO% 7.9 LAB L100.2400 0-5 % Normal EO% 1.7 LAB L100.2500 0-1 % Normal BASO% 0.4 LAB L100.2550 0.0-0.9 % Normal IM GRAN % 0.200 Result Comment: IG% - Immature Granulocytes (promyelocytes, myelocytes and metamyelocytes) > 1% indicates that a LEFT SHIFT is Present. LAB L100.2620 2.0-7.7 X10 3/uL Normal Absolute Neut 3.2 LAB L100.2720 0.83-4.51 X10 3/ul Normal Absolute Lymph 1.44 Performed By: #### L100.0100 #### [facility] [address] [place] [address]. [place], [address] COMPREHENSIVE METABOLIC Collected: 01/29/2018 Status: F Source: [facility] 1:55 PM [facility] REPOSITORY TYPE CODE TESTS RESULT OUT OF RANGE REFERENCE UNITS LAB L501.0100 74-106 mg/dL Normal GLU 98 Result Comment: Please note revised GLUCOSE reference range effective 2017. LAB L501.1000 7-18 mg/dL High BUN 20 LAB L501.1100 0.55-1.02 mg/dL Normal CREAT,SERUM 0.78 Result Comment: The validity of the calculated GFR AND GFRAA in patients over 70 years has not been determined. Clinical correlation is essential. LAB L501.1110 >60 mL/min Normal EST GFR 76 Result Comment: Non- GFR Calc LAB L501.1115 >60 mL/min Normal EST GFR - AA 92 Result Comment: GFR Calc LAB L501.1300 10-20 RATIO High BUN/CRE 25.7 LAB L501.1500 6.4-8.2 g/dL T Normal PROT 6.8 LAB L501.1800 3.2-5.0 g/dL Normal ALB 3.4 LAB L501.1950 2.2-4.2 g/dL Normal GLOB 3.4 LAB L501.2000 0.9-2.4 RATIO Normal A/G 1.0 LAB L501.2200 8.5-10.1 mg/dL CA Normal 9.5 LAB L501.4100 15-37 U/L Normal AST 17 LAB L501.4305 45-117 U/L Normal ALK P 65 LAB L501.4405 13-56 U/L Normal ALT 20 LAB L501.4600 0.20-1.00 mg/dL T Normal BILI 0.60 LAB L501.5300 136-145 mmol/L NA Normal 142 LAB L501.5600 3.5-5.1 mmol/L K Normal 3.9 LAB L501.5900 98-107 mmol/L High CL 108 LAB L501.6100 21.0-32.0 mmol/L Normal CO2 25.0 LAB L501.6200 5-15 Normal GAP 9 Performed By: #### L500.4050 #### [facility] [address] [place], [place], [id number] PROTHROMBIN TIME W/INR Collected: 01/04/2018 Status: F Source: [place] 12:33 PM [facility] REPOSITORY TYPE CODE TESTS RESULT OUT OF RANGE REFERENCE UNITS LAB L300.4150 11.7-14.9 SECONDS High PROTIME 25.9 LAB L300.4200 Normal INR 2.4 Performed By: #### L300.3900 #### [facility] [address] [place], [place], [address] PROTHROMBIN TIME W/INR Collected: 12/04/2017 Status: F Source: [place] 1:43 PM [facility] REPOSITORY TYPE CODE TESTS RESULT OUT OF RANGE REFERENCE UNITS LAB L300.4150 11.7-14.9 SECONDS High PROTIME 24.1 LAB L300.4200 Normal INR 2.2 Performed By: #### L300.3900 #### [facility] [address] [place], [address] DOWNTIME REPORT Observed: 11/01/2017 Status: F Source: [place] 1:19 PM [facility] REPOSITORY [facility] Medical Records Department [address] [place] [address] Downtime Report MR#: [id number] Acct: [id number] Name: MARY CARLTON Rep #: [id number] : 1940 76 From: Soham Pearson PCP: Joseph Yañez MD Status: REG CLI This patient was seen during an EMR downtime October 15, 2017 - October 22, 2017. This patient may have a combination of paper and electronic documentation or all paper documentation. All documentation is viewable within the e-chart portion of [employer] for each patient visit. CBC W/DIFF, AUTOMATED Collected: 11/01/2017 Status: F Source: [place] 1:10 PM [facility] REPOSITORY TYPE CODE TESTS RESULT OUT OF RANGE REFERENCE UNITS LAB L100.1000 4.4-11.0 K/mm3 Normal WBC 5.9 LAB L100.1200 4.2-5.4 M/mm3 Low RBC 3.65 LAB L100.1300 12.0-15.0 g/dl Normal HGB 12.4 LAB L100.1400 37-47 % Low HCT 36.8 LAB L100.1500 81-99 fL High MCV 100.8 LAB L100.1600 27.0-32.0 pg High MCH 34.0 LAB L100.1700 32-36 g/gl Normal MCHC 33.7 LAB L100.1810 11.6-14.6 % Normal RDW CV 13.9 LAB L100.1820 35.1-43.9 fl High RDW SD 49.6 LAB L100.1900 150-450 K/mm3 Normal PLT 269 LAB L100.2000 6.2-12.0 fl Normal MPV 10.8 LAB L100.2100 47-70 % High NEUT% 73.0 LAB L100.2200 19-41 % Low LY% 18.0 LAB L100.2300 0-10 % Normal MONO% 7.3 LAB L100.2400 0-5 % Normal EO% 1.2 LAB L100.2500 0-1 % Normal BASO% 0.3 LAB L100.2550 0.0-0.9 % Normal IM GRAN % 0.200 Result Comment: IG% - Immature Granulocytes (promyelocytes, myelocytes and metamyelocytes) > 1% indicates that a LEFT SHIFT is Present. LAB L100.2620 2.0-7.7 X10 3/uL Normal Absolute Neut 4.3 LAB L100.2720 0.83-4.51 X10 3/ul Normal Absolute Lymph 1.06 Performed By: #### L100.0100 #### [facility] [address] [place], [place], [address] COMPREHENSIVE METABOLIC Collected: 11/01/2017 Status: F Source: [facility] 1:10 PM [facility] REPOSITORY TYPE CODE TESTS RESULT OUT OF RANGE REFERENCE UNITS LAB L501.0100 74-106 mg/dL Normal GLU 92 Result Comment: Please note revised GLUCOSE reference range effective 2017. LAB L501.1000 7-18 mg/dL Normal BUN 18 LAB L501.1100 0.55-1.02 mg/dL Normal CREAT,SERUM 0.80 Result Comment: The validity of the calculated GFR AND GFRAA in patients over 70 years has not been determined. Clinical correlation is essential. LAB L501.1110 >60 mL/min Normal EST GFR 73 Result Comment: Non- GFR Calc LAB L501.1115 >60 mL/min Normal EST GFR - AA 89 Result Comment: GFR Calc LAB L501.1300 10-20 RATIO High BUN/CRE 22.4 LAB L501.1500 6.4-8.2 g/dL T Normal PROT 6.9 LAB L501.1800 3.2-5.0 g/dL Normal ALB 3.4 LAB L501.1950 2.2-4.2 g/dL Normal GLOB 3.5 LAB L501.2000 0.9-2.4 RATIO Normal A/G 1.0 LAB L501.2200 8.5-10.1 mg/dL CA Normal 9.1 LAB L501.4100 15-37 U/L Normal AST 21 LAB L501.4305 45-117 U/L Normal ALK P 54 LAB L501.4405 13-56 U/L Normal ALT 22 LAB L501.4600 0.20-1.00 mg/dL T Normal BILI 0.50 LAB L501.5300 136-145 mmol/L NA Normal 140 LAB L501.5600 3.5-5.1 mmol/L K Normal 4.0 LAB L501.5900 98-107 mmol/L CL Normal 106 LAB L501.6100 21.0-32.0 mmol/L Normal CO2 26.0 LAB L501.6200 5-15 Normal GAP 8 Performed By: #### L500.4050 #### [facility] [address] [place], [place], [address] PROTHROMBIN TIME W/INR Collected: 10/17/2017 Status: F Source: [place] 3:25 PM [facility] REPOSITORY Order Comment: RESULT(S) PREVIOUSLY REPORTED ON MANUAL REQUISITION DURING DOWNTIME. TYPE CODE TESTS RESULT OUT OF RANGE REFERENCE UNITS LAB L300.4150 11.7-14.9 SECONDS High PROTIME 22.5 LAB L300.4200 Normal INR 2.0 Performed By: #### L300.3900 #### [facility] [address] [facility] [place], [address] PROTHROMBIN TIME W/INR Collected: 09/12/2017 Status: F Source: [place] 11:09 AM [facility] REPOSITORY TYPE CODE TESTS RESULT OUT OF RANGE REFERENCE UNITS LAB L300.4150 11.7-14.9 SECONDS High PROTIME 24.8 LAB L300.4200 Normal INR 2.2 Performed By: #### L300.3900 #### [facility] [address] [place], [address] CBC W/DIFF, AUTOMATED Collected: 08/15/2017 Status: F Source: [place] 11:12 AM [facility] REPOSITORY TYPE CODE TESTS RESULT OUT OF RANGE REFERENCE UNITS LAB L100.1000 4.4-11.0 K/mm3 Normal WBC 10.0 LAB L100.1200 4.2-5.4 M/mm3 Low RBC 3.26 LAB L100.1300 12.0-15.0 g/dl Low HGB 10.7 LAB L100.1400 37-47 % Low HCT 32.4 LAB L100.1500 81-99 fL High MCV 99.4 LAB L100.1600 27.0-32.0 pg High MCH 32.8 LAB L100.1700 32-36 g/gl Normal MCHC 33.0 LAB L100.1810 11.6-14.6 % Normal RDW CV 13.8 LAB L100.1820 35.1-43.9 fl High RDW SD 49.2 LAB L100.1900 150-450 K/mm3 High PLT 462 LAB L100.2000 6.2-12.0 fl Normal MPV 10.3 LAB L100.2100 47-70 % High NEUT% 79.9 LAB L100.2200 19-41 % Low LY% 9.4 LAB L100.2300 0-10 % High MONO% 10.3 LAB L100.2400 0-5 % Normal EO% 0.2 LAB L100.2500 0-1 % Normal BASO% 0.1 LAB L100.2550 0.0-0.9 % Normal IM GRAN % 0.100 Result Comment: IG% - Immature Granulocytes (promyelocytes, myelocytes and metamyelocytes) > 1% indicates that a LEFT SHIFT is Present. LAB L100.2620 2.0-7.7 X10 3/uL High Absolute Neut 8.0 LAB L100.2720 0.83-4.51 X10 3/ul Normal Absolute Lymph 0.94 Performed By: #### L100.0100 #### [facility] [address] [place] [address]. [place], [address] COMPREHENSIVE METABOLIC Collected: 08/15/2017 Status: F Source: [facility] 11:12 AM [facility] REPOSITORY TYPE CODE TESTS RESULT OUT OF RANGE REFERENCE UNITS LAB L501.0100 74-106 mg/dL Normal GLU 87 Result Comment: Please note revised GLUCOSE reference range effective 2017. LAB L501.1000 7-18 mg/dL Normal BUN 18 LAB L501.1100 0.55-1.02 mg/dL Normal CREAT,SERUM 0.81 Result Comment: The validity of the calculated GFR AND GFRAA in patients over 70 years has not been determined. Clinical correlation is essential. LAB L501.1110 >60 mL/min Normal EST GFR 72 Result Comment: Non- GFR Calc LAB L501.1115 >60 mL/min Normal EST GFR - AA 87 Result Comment: GFR Calc LAB L501.1300 10-20 RATIO High BUN/CRE 22.1 LAB L501.1500 6.4-8.2 g/dL T Normal PROT 6.9 LAB L501.1800 3.2-5.0 g/dL Low ALB 2.6 LAB L501.1950 2.2-4.2 g/dL High GLOB 4.3 LAB L501.2000 0.9-2.4 RATIO Low A/G 0.6 LAB L501.2200 8.5-10.1 mg/dL CA Normal 9.5 LAB L501.4100 15-37 U/L Normal AST 16 LAB L501.4305 45-117 U/L Normal ALK P 53 LAB L501.4405 13-56 U/L Normal ALT 16 Result Comment: Please note revised ALT reference range effective 2017. LAB L501.4600 0.20-1.00 mg/dL Normal T BILI 0.40 LAB L501.5300 136-145 mmol/L Normal NA 136 LAB L501.5600 3.5-5.1 mmol/L Normal K 4.0 LAB L501.5900 98-107 mmol/L Normal CL 102 LAB L501.6100 21.0-32.0 mmol/L Normal CO2 27.0 LAB L501.6200 5-15 Normal GAP 7 Performed By: #### L500.4050 #### [facility] [address] [place], [place], [address] CARDIOLOGY VISIT Observed: 08/07/2017 Status: F Source: [place] REPORT 2:49 PM [facility] REPOSITORY [facility] [address] [place], [place] [address] OFFICE VISIT Date of Service: 08/07/17 MR#: [id number] Acct: [id number] Name: MARY CARLTON Rep #: [id number] : 1940 Provider: Crystal Dejesus Age/Sex: 76/F Location: [facility] Status: Signed HPI HPI Details: MARY CARLTON, is a 76 F who presents to the office today for a cardiovascular follow-up. She has a history of coronary artery disease with stenting to her LAD and RCA. She also has a history of atrial fibrillation, hypertension and hyperlipidemia. From a cardiac standpoint, patient is doing well. She does not have any chest discomfort/heaviness/tightness. Her exercise tolerance is stable for her age. She does not have any worsening symptoms of shortness of breath. She does not have any orthopnea. She denies PND. She does not have any symptoms of congestive heart failure. She does not have any palpitations that she is aware of. She does occasionally have positional dizziness. She does not have any near-syncope or syncope. She does not have any lower extremity edema. She does not have any symptoms of claudication. Intake Vital Signs08/07/17 Height 4 ft 10 in 08/07/17 Weight: 120 lb 08/07/17 Body Mass Index (BMI) 25.0 08/07/17 Blood Pressure 90/44 Intake Visit Reasons: 6 M FU Is patient in pain?: No Allergies ursodiol Allergy (Verified 08/07/17 13:58) Unknown belladonna alkaloids [Belladonna Alkaloids] Adverse Reaction (Verified 08/07/17 13:58) Unknown formaldehyde Adverse Reaction (Verified 08/07/17 13:58) Rash latex Adverse Reaction (Verified 08/07/17 13:58) Itching phenobarbital Adverse Reaction (Verified 08/07/17 13:58) Unknown ranitidine HCl [From Zantac] Adverse Reaction (Verified 08/07/17 13:58) Unknown Medications Aspirin [Aspirin, Baby] 81 mg PO DAILY@0800 02/24/14 [History Confirmed 08/07/17] Pantoprazole Sodium [Protonix] 40 mg PO DAILY 02/24/14 [History Confirmed 08/07/17] Cholecalciferol (VIT D3) [Vitamin D] 1,000 unit PO DAILY 05/28/15 [History Confirmed 08/07/17] Polyethylene Glycol 3350 [Miralax] 17 gm PO PRN PRN 05/28/15 [History Confirmed 08/07/17] Metoprolol(XL)Succ [Toprol Xl (Beta Bry)] 50 mg PO DAILY 02/17/16 [History Confirmed 08/07/17] warfarin 2 mg tablet 2 mg PO .COMPLEX #30 tab 04/30/17 [Rx Confirmed 08/07/17] warfarin 3 mg tablet 3 mg PO .COMPLEX #30 tab 04/30/17 [Rx Confirmed 08/07/17] methotrexate sodium 2.5 mg tablet See Label Instructions PO QWEEK tab 08/06/17 [History Confirmed 08/07/17] isosorbide mononitrate ER 30 mg tablet,extended release 24 hr 30 mg PO QAM 08/07/17 [History Confirmed 08/07/17] lisinopril 10 mg tablet 10 mg PO DAILY tab 08/07/17 [History Confirmed 08/07/17] simvastatin 20 mg tablet 20 mg PO QHS #30 tab 08/07/17 [Rx Confirmed 08/06/17] Ejection fraction %: 65 to 70 (65% per echo 11/20/2013) [facility] Medical History Hyperlipidemia (Chronic) Atherosclerotic heart disease of [place] coronary artery without angina pectoris (Chronic) 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) Tobacco abuse (Chronic) Hypertension (Chronic) Chronic atrial fibrillation (Chronic) Surgical History History of coronary artery stent placement (Chronic) Family History Father CAD (coronary artery disease) CVA (cerebral vascular accident) Mother CAD (coronary artery disease) Myocardial infarction Social History Smoking Status: Current every day smoker tobacco type: cigarettes ROS Const Const: Positive for other (Feels well, just here for a checkup); negative for fatigue, weakness, body ache, fever(s), headache(s), chills, frequent falls, night sweats, daytime sleepiness, difficulty sleeping, excessive sweating, weight gain, weight loss, increased appetite, poor appetite or anorexia Eyes Eyes: Negative for blind spots, loss of peripheral vision, transient loss of vision, blurry vision, change in vision, double vision, floaters, tunnel vision or other ENT ENT: Negative for headache(s), dizziness, hearing loss, tinnitus, Nosebleed/epistaxis, balance problems, post nasal drip, lip swelling, tongue swelling, bleeding gums, hoarseness, neck pain, dry mouth or other Cardio Chest Pain: No Resp Respiratory: Negative for SOB with activity, SOB at rest, SOB orthopnea\SOB lying down, Coughing up blood/hemoptysis, chest congestion, pain on inspiration, snoring, stridor, wheezing, crackles, paroxysmal nocturnal dyspnea or other GI GI: Negative nausea, vomiting, heartburn, constipation, belching, bloating, cramping, vomiting blood/hematemesis, bright, red blood in stools, black,tarry stools, loose stools, Difficulty Swallowing or other : Negative for hematuria, frequent nighttime urination/ nocturia, erectile dysfunction or abnormal vaginal bleeding Musc Musc: Negative for balance problems, muscle aches/ myalgia, muscle weakness or joint pain Skin Skin: Negative redness, non-healing lesions, rash, unusual bruising, skin ulcer, wounds, jaundice or other Neuro Neuro: Negative for weakness, headache(s), frequent falls, blurry vision, double vision, dizziness, lightheadedness, near syncope, syncope, orthostatic symptoms, confusion, memory loss, restless legs, vertigo, seizures, lack of coordination or other [place] Hematologic/Lymphatic: Negative for easy bleeding, easy bruising, enlarged lymph nodes or other Endo Endo: Negative for fatigue, excessive sweating, cold intolerance, heat intolerance, flushing, increased thirst/drinking, increased hunger, hair loss, hair growth or other Psych Psych: Negative for anxiety, depression, thoughts of harming anyone, thoughts of harming yourself, visual hallucinations, panic attacks or audible hallucinations Allergy Allergy/Immunology: Negative for lip swelling, Negative for tongue swelling, Negative for rash, Negative for throat swelling, Negative for hives Cardiology Exam Const Appearance: cooperative, no acute distress and well developed Orientation: alert, awake and oriented x3 Head Head: normocephalic and atraumatic Mouth: moist mucous membranes Eyes General: appearance normal, both eyes and all related structures Conjunctivae: conjunctivae normal Pupils: PERRL EOM: EOM intact bilaterally Neck Neck: normal visual inspection, no lymphadenopathy and no JVD Carotids: Negative bruit Neck Mass: Negative Neck mass Chest Chest inspection: normal inspection of the chest and symmetric chest movement Auscultation: Bilateral: Clear to Auscultation Cardio Palpation: normal PMI Rate: regular rate Rhythm: irregularly irregular Heart sounds: S1 normal and S2 normal; negative rub, gallop or murmur GI GI: normal to inspection, soft, no hepatosplenomegaly and bowel sounds present; negative tender Neuro General: alert, awake, oriented x3, CN's II-XI intact bilaterally and moves all extremities Extremities Pulses: Normal: Right Posterior Tibial Pulse, Left Posterior Tibial Pulse, Right Radial Pulse, Left Radial Pulse Lower Extremity Edema: None: Bilateral Psych Psychological: normal affect Supplemental Info Heart catheterization in 2016 demonstrated angiographically normal LAD, LAD with previously placed stent patent with no high-grade stenosis, circumflex no high-grade stenosis, large dominant RCA previously stented with 50% proximal in-stent stenosis. With a preserved ejection fraction. Assessment AND Plan 1. Atherosclerosis of [place] coronary artery of [place] heart without angina pectoris I25.10 Plan - BLANCA Pérez Stable, from a cardiac standpoint patient does not have any symptoms of angina. We recommend that they continue with current aggressive medical management and risk factor modification. 2. Essential hypertension I10 Plan - BLANCA Pérez BP is on the low side today, will have her stop her HCTZ. She will let us know if her Bp is high. Patient Instructions - BLANCA Pérez Stop you HCTZ. 3. Chronic atrial fibrillation I48.2 Plan - BLANCA Pérez Patient is not symptomatic with their atrial fibrillation. Heart rate is controlled. They have a chads score of 3. They remain on their anti-coagulant with an INR goal of 2-3. 4. Pure hypercholesterolemia E78.00; E78.0 Plan - BLANCA Pérez Recent lipid profile demonstrates total cholesterol 115, HDL 52, LDL 53. Will not make any adjustments. We will continue to monitor. Plan Detail Other Medications New: Refilled: Discontinued: Additional Comments - BLANCA Pérez The above patient was discussed with Dr. Marinelli, he agrees with plan of care. Thank you for allowing us to participate in patient's plan of care, if you have any questions please do not hesitate to call. This note was generated using a voice recognition system and there may be incorrect words, spelling or punctuation errors that were not noted when reviewing the office note prior to saving. 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 transplanted heart: [place] heart Essential hypertension I10 Hypertension type: essential hypertension Chronic atrial fibrillation I48.2 Pure hypercholesterolemia E78.00; E78.0 Hyperlipidemia type: pure hypercholesterolemia Coding Level of Care Code Off vis,est,level 4 Diagnoses Atherosclerosis of [place] coronary artery of [place] heart without angina pectoris I25.10 [place] vs. transplanted heart: [place] heart Essential hypertension I10 Hypertension type: essential hypertension Chronic atrial fibrillation I48.2 Pure hypercholesterolemia E78.00; E78.0 Hyperlipidemia type: pure hypercholesterolemia 08/07/17 1424 <Electronically signed by Crystal Dejesus PA> Date Crystal RIOS 08/07/17 1449<Electronically signed by Connor Marinelli MD> Cosigner Signature: Date (if applicable) Connor Marinelli MD CC: Joseph Yañez MD PROTHROMBIN TIME W/INR Collected: 08/07/2017 Status: F Source: [place] 1:28 PM [facility] REPOSITORY TYPE CODE TESTS RESULT OUT OF RANGE REFERENCE UNITS LAB L300.4150 11.7-14.9 SECONDS High PROTIME 30.6 LAB L300.4200 Normal INR 2.9 Performed By: #### L300.3900 #### [facility] [address] [place], [address] HOSP Observed: 08/07/2017 Status: COMPLETED Source: [place] 12:00 AM [facility] REPOSITORY Patient Update (FAMPWS) MARY CARLTON ([id number]) 1940 F NFR Date Time Provider Department 08/07/17 JOSEPH YAÑEZPWS During your visit today, we recorded the following information about you: Allergies As of Date: 08/07/2017 Noted Allergy Reaction URSODIOL 01/13/2014 4 - Hives FORMALDEHYDE 02/06/2013 2 - Rash LATEX 07/27/2005 9 - Itching Comments: States that makes her itch can't blow up balloons without lips itching/swelling. PHENOBARB-BELLADONNA ALKALOIDS 07/27/2005 xantac [Other] 07/27/2005 2 - Rash Comments: Pt states allergy is to Zantac. Date Reviewed: 06/14/2017 Reviewed by: Joseph Yañez - Fully Assessed Prescriptions as of 08/07/2017 Sig: LISINOPRIL 10 MG TABLET Take 2 tablets by mouth once * ISOSORBIDE MONONITRATE ER 30 * Take 1 tablet by mouth once d* METHOTREXATE SODIUM 2.5 MG TA* Take 2.5 mg by mouth every Tu* FOLIC ACID 1 MG TABLET Take 2 mg by mouth once daily. PANTOPRAZOLE 40 MG TABLET,DEL* Take 1 tablet by mouth once d* SIMVASTATIN 20 MG TABLET Take 20 mg by mouth daily at * WARFARIN 2 MG TABLET 1.5 tablet MTWTF; 1 tablet SS METOPROLOL SUCCINATE ER 50 MG* Take 50 mg by mouth once bneoit* VITAMIN D-3 ORAL Take 1 capsule by mouth once * POLYETHYLENE GLYCOL 3350 17 G* Take 17 g by mouth once daily. ASPIRIN 81 MG TABLET Take one(1) tablet daily. Medication notes this encounter HYDROCHLOROTHIAZIDE 12.5 MG CAPSULE >> Joseph Yañez MD 08/07/2017 4:59 PM Cardio stopped 08/07/2017 due to low BP Problem List As Of Date 08/07/2017 Noted Resolved Obesity, unspecified [E66.9] INVALID FOR*07/16/2014 Osteopenia [M85.80] INVALID FOR* Priority: M Brachial neuritis or radiculitis NOS [M54.12] INVALID FOR* Priority: M Gastritis [K29.70] INVALID FOR* Priority: B More... Abdominal pain, unspecified site [R10.9] INVALID FOR*07/16/2014 Acute gastritis without mention of hemorrhage [*INVALID FOR*07/16/2014 Carpal tunnel syndrome, left [G56.02] INVALID FOR*07/16/2014 Carpal tunnel syndrome, right [G56.01] INVALID FOR*07/16/2014 CAD S/P percutaneous coronary angioplasty [I25.*INVALID FOR* Priority: A Gallbladder sludge [K82.8] INVALID FOR* Priority: C Atrial fibrillation (HCC) [I48.91] INVALID FOR* Priority: A More... DDD (degenerative disc disease), cervical [M50.* Priority: M More... Mixed hyperlipidemia [E78.2] INVALID FOR* Priority: A Primary generalized (osteo)arthritis [M15.0] Priority: M Constipation [K59.00] Priority: C Smoker [F17.200] INVALID FOR* Priority: C More... Diverticulosis [K57.90] INVALID FOR* Priority: C Well adult exam [Z00.00] INVALID FOR* Priority: E More... 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 Bilateral low back pain with bilateral sciatica*INVALID FOR* Priority: M Current use of proton pump inhibitor [Z79.899] INVALID FOR* Medications Discontinued During This Encounter Hydrochlorothiazide 12.5 mg capsule 30 c* 5 08/06/2017 08/07/2017 Route: ORAL Sig: Take 1 capsule by mouth once daily. Disc: Discontinued by another Health Care Provider Encounter Status:Closed by JOSEPH YAÑEZ on 08/07/17 LIVER PROFILE Collected: 07/26/2017 Status: F Source: DARYL 10:56 AM [facility] REPOSITORY Order Comment: Order Date: 01/18/17 Order Info: [id number] - *Hepatic Function Panel Order Info: [id number] - *Lipid Profile CC PCP Comments: 12 hours fasting, may have water. TYPE CODE TESTS RESULT OUT OF RANGE REFERENCE UNITS LAB L501.1500 6.4-8.2 g/dL Normal T PROT 7.0 LAB L501.1800 3.2-5.0 g/dL Low ALB 3.1 LAB L501.1950 2.2-4.2 g/dL Normal GLOB 3.9 LAB L501.4100 15-37 U/L Normal AST 23 LAB L501.4305 45-117 U/L Normal ALK P 48 LAB L501.4405 13-56 U/L Normal ALT 17 Result Comment: Please note revised ALT reference range effective 2017. LAB L501.4600 0.20-1.00 mg/dL Normal T BILI 0.60 LAB L501.4700 0.00-0.30 mg/dL Normal D BILI 0.17 Performed By: #### L500.3400 #### [facility] [address] [place], [place], [address] LIPID PROFILE Collected: 07/26/2017 Status: F Source: DARYL 10:56 AM [facility] REPOSITORY Order Comment: Order Date: 01/18/17 Order Info: [id number] - *Hepatic Function Panel Order Info: [id number] - *Lipid Profile CC PCP Comments: 12 hours fasting, may have water. TYPE CODE TESTS RESULT OUT OF RANGE REFERENCE UNITS LAB L501.4900 200 mg/dL Normal CHOL 115 Result Comment: <200 mg/dL Desirable 200-240 mg/dL Borderline >240 mg/dL High Risk LAB L501.5000 mg/dL Normal TRIG 51 Result Comment: The drugs N-Acetylcysteine and Metamizole may falsely depress this assay. Serum Triglycerides Reference Interval Normal <150 mg/dL Borderline high 150 - 199 mg/dL High 200 - 499 mg/dL Very High > or = 500 mg/dL LAB L501.6400 mg/dL Normal HDL 52 Result Comment: The drugs N-Acetylcysteine and Metamizole may falsely depress this assay. Reference Range HDL <40 mg/dL Low HDL Cholesterol HDL >or= 60 mg/dL High HDL Cholesterol LAB L501.6500 0-130 mg/dL Normal LDL 53 LAB L501.6600 5-40 mg/dL Normal VLDL 10 Performed By: #### L500.4100 #### [facility] [address] [place], [address] PROTHROMBIN TIME W/INR Collected: 07/06/2017 Status: F Source: DARYL 1:38 PM [facility] REPOSITORY TYPE CODE TESTS RESULT OUT OF RANGE REFERENCE UNITS LAB L300.4150 11.7-14.9 SECONDS High PROTIME 24.5 LAB L300.4200 Normal INR 2.3 Performed By: #### L300.3900 #### [facility] [address] [place], [address] MAGNESIUM Collected: 06/27/2017 Status: F Source: TAYLOR 11:21 AM [facility] REPOSITORY TYPE CODE TESTS RESULT OUT OF REFERENCE UNITS RANGE LAB MG 1.7-2.3 mg/dL Magnesium 1.9 Performed By: #### MG1 #### [facility] [address] [place], [place] [address] COMP METABOLIC PANEL Collected: 06/27/2017 Status: F Source: TAYLOR 11:20 AM [facility] REPOSITORY TYPE CODE TESTS RESULT OUT OF REFERENCE UNITS RANGE LAB TP 6.3-8.0 g/dL Protein, Total 6.8 LAB ALB 3.9-4.9 g/dL Low Albumin 3.7 LAB CA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 [id number] Date:2017-06-19 () 09/12/2017 Secondary MARY L Daryl Insurance:CIGNAPolicy WELTMERDOB: Community Number: [id number] Hospital [id number] Repository Date:0260-63-69TI [address]UYXQTHQLUBZ, [place] [address]PD: 09/12/2017 Tertiary NOT GIVENUNK Daryl Insurance:SELF PAY [facility] Repository Date:2017-08-13 08/15/2017 MARY L Primary MARY L Daryl [id number] N Insurance:MEDICARE WELTMERDOB: Community MILL PART A [facility] [id number] Medical Center Number: Repository , [place] [address]Enj: [id number] Date:2017-08-15 () 08/15/2017 Secondary MARY L Matthews Insurance:CIGNAPolicy WELTMERDOB: Community Number: [id number] Hospital [id number] Repository Date:9238-48-34DH [address]QDGQPNXRLOR, [place] [address]ZZ: 08/15/2017 Tertiary NOT GIVENUNK Daryl Insurance:SELF PAY [facility] Number: Effective Repository Date:2017-08-15 08/07/2017 MARY L Primary MARY L Daryl [id number] N Insurance:MEDICARE WELTMERDOB: Community MILL PART A [facility] [id number] Medical Center Number: Repository , [place] [address]Dtr: [id number] Date:2017-04-23 () 08/07/2017 Secondary MARY L Daryl Insurance:CIGNAPolicy WELTMERDOB: Community Number: [id number] Hospital [id number] Repository Date:4863-20-70OB [address]MTZWFJMXYEZ, [place] [address]XL: 08/07/2017 Tertiary NOT GIVENUNK Matthews Insurance:SELF PAY [facility] Number: Effective Repository Date:2017-08-07 08/07/2017 Mary L Primary Mary L Daryl [id number] N Insurance:MEDICARE WeltmerDOB: Community [place] PART A [facility] [id number] Number: Repository , [place] [address]Vjg: [id number] Date:2017-06-19 () 08/07/2017 Secondary Mary L Matthews Insurance:CIGNAPolicy WeltmerDOB: Community Number: [id number] Hospital [id number] Repository Date:2763-60-62[address]KZHLBKYKQWW, [place] [address]RH: 08/07/2017 Tertiary NOT GIVENUNK Matthews Insurance:SELF PAY [facility] Number: Effective Repository Date:2017-07-13 07/26/2017 Mary L Primary Mary L Matthews [id number] N Insurance:MEDICARE WeltmerDOB: [facility] PART A [facility] [id number] Regional Medical [facility] Number: Repository , [place] [address]Hju: [id number] Date:2017-07-26 () 07/26/2017 Secondary Mary L Daryl Insurance:CIGNAPolicy WeltmerDOB: [facility] Number: [id number] Hospital [id number] Repository Date:5331-52-20AG [address]REUAFBWFATT, [place] [address]DX: 07/26/2017 Tertiary NOT GIVENUNK Daryl Insurance:SELF PAY [facility] Number: Effective Repository Date:2017-07-26 07/06/2017 Mary L Primary Mary L Daryl [id number] N Insurance:MEDICARE WeltmerDOB: [facility] [place] PART A [facility] [id number] Regional Medical [facility] Number: Repository , [place] [address]Edh: [id number] [phone] Date:2017-06-19 () 07/06/2017 Secondary Mary L Matthews Insurance:CIGNAPolicy WeltmerDOB: Community Number: [id number] Hospital [id number] Repository Date:5503-80-76BZ [address]JYAJXONONBR, [place] [address]FM: 07/06/2017 Tertiary NOT GIVENUNK Matthews Insurance:SELF PAY [facility] Effective Repository Date:2017-06-19 06/08/2017 Mary L Primary Mary L Matthews [id number] N Insurance:MEDICARE [place] healthB: [facility] PART A BPolicy [id number] [facility] Number: Repository , [place] [address]Imk: [id number] [phone] Date:2003-12-13 () 06/08/2017 Secondary Mary L Daryl Insurance:CIGNAPolicy [facility] Number: [id number] Hospital [id number] Repository Date:2717-13-25AP [address]HRNUHQLSZLX, [place] [address]FW: 06/08/2017 Tertiary NOT GIVENUNK Daryl Insurance:SELF PAY [facility] Number: Effective Repository Date:2017-05-14
== END 2018-05-10 13:00 | disposition home or self-care (01) ==
LOC: LAB 12:25
PROVIDERS: Family Provider Family Medicine; PCP Family Medicine; Referring Provider Internal Medicine Cardiovascular Disease; Visit Provider Internal Medicine Cardiovascular Disease
DX: I48.2 Chronic atrial fibrillation (principal); Z79.01 Long term (current) use of anticoagulants
CPT/HCPCS: 36415; 85610

== ENCOUNTER → 2018-05-10 14:44 | Outpatient (CLI) | payer MEDICARE, OTHER, SELFPAY ==
[2018-03-14 14:46] VITALS: BMI 26.3
--- NOTE | 2018-05-10 14:46 | CT_ITS ---
STUDY: CT CHEST WITH CONTRAST REASON FOR EXAM: Female, 77 years old. History of lymphadenopathy. RADIATION DOSAGE (If Supplied By Facility): CTDIvol = ( 10.15 ) mGy, DLP = ( 259.36 ) mGycm TECHNIQUE: Transaxial imaging was performed following intravenous administration of 80 ml of Isovue 300 contrast material. Multiplanar coronal and sagittal images were reformatted. Individualized dose optimization techniques were used for this CT. COMPARISON: Comparison is made with prior chest radiograph dated February 11, 2016. FINDINGS: There are small bilateral axillary lymph nodes. Hyperinflation. There is no demonstrated pleural abnormality. Mild degree of posterior pericardial thickening. There are calcifications of the coronary arteries. Normal mediastinum. Normal hilar regions. Normal enhanced pulmonary arteries. There is atherosclerotic calcification of the aortic arch with tortuosity and elongation of the aortic arch and descending thoracic aorta. There are multi-level degenerative changes of the thoracic spine. There is no demonstrated abnormality of the visualized upper abdomen. CT/Chest WITH Contrast IMPRESSION: Hyperinflation. No acute abnormality is seen. Electronically Signed: William Jacobs MD at 11:49 EST Tel [phone], Service support ,
== END ==
PROVIDERS: Family Provider Family Medicine; PCP Family Medicine; Referring Provider Otolaryngology; Visit Provider Otolaryngology
DX: R59.0 Localized enlarged lymph nodes (principal)
CPT/HCPCS: 36415; 71260; 85610; Q9967

== ENCOUNTER 2018-05-24 12:11 | Observation (INO) | payer MEDICARE, OTHER, SELFPAY ==
[2018-05-24] VITALS (10 sets, daily range): BP systolic 125–151; BP diastolic 70–92; PULSE 65–87; RESP 16; TEMP 36.1–37; O2SAT 92–99; BMI 25.9
--- NOTE | 2018-05-24 | PAR_PTH ---
PATIENT: ANGELINA SONI LOC: [facility] U#:[id number] AGE/SX: 77/F ROOM: [facility] [place] RE05/24/[address]: Dr. Pato Urbina MD : 1940 BED: 1 DIS: 05/25/2018 SPEC #: [id number] RECD: 05/24/18 11:38 STATUS: KARSTEN REZeny #: [id number] KRYSTEN: 05/24/18 00:[address]: Pato rUbina DEPT: SURGICAL PATHOLOGY RECD BY: Karol Marie ENTERED: 05/24/18 13:32 SP TYPE: PAROTID OTHR DR: Dr. Paul Mccullough MD Tissues: Parotid gland, NOS Procedures: Frozen Section (charge) Frozen Section Add'l ([facility]) Surgery Specimen Level IV Frozen (no charge) HEADER OPERATION: Left parotidectomy with nerve monitoring, frozen section PRE-OP DIAGNOSIS: Benign neoplasm of parotid gland TISSUE SUBMITTED: Left parotid gland for FS at 1131, double long suture - superior, short suture - anterior FROZEN SECTION DIAGNOSIS Left parotidectomy: Two separate foci of Warthin's tumor. AM:kellie 05/24/18 Case has been reviewed in consultation with Dr. Ch who concurs with the above diagnosis. IDC:SJ MICROSCOPIC DIAGNOSIS Left parotid gland, parotidectomy: Warthin's tumors. See comment. AM:kellie 05/28/18 COMMENT The specimen contains two nodules of Warthin's tumor. The larger nodule measures 2.5 cm in greatest dimension and the smaller nodule measures 1.5 cm in greatest dimension. Both nodules appear to have been completely excised in the planes examined. Case has been reviewed in consultation with Dr. Ch who concurs with the above diagnosis. IDC:CHARLIE MICROSCOPIC DESCRIPTION Slides are reviewed. GROSS DESCRIPTION Received fresh for frozen section consultation labeled with the patient's name is a specimen designated left parotid gland. The specimen consists of parotid gland tissue measuring 8 x 4.5 x 1.7 cm and weighing 24.6 gm. The specimen is differentially inked as follows: inferior - yellow, posterior - black, superior - blue, inferior - green, medial - red and lateral - orange. Serial sections reveal two craig lesions. One lesion measures 2.5 x 1.5 x 1.5 cm and is located 0.2 cm from its closest (inferior) margin of resection. A second elongated nodule measuring 1.5 x 0.6 x 0.6 cm is present adjacent to this larger nodule and has a similar appearance and consistency. Rehabilitation Services Aide sections from the nodules are submitted for frozen section consultation in two blocks as follows: 1 - larger lesion, 2 - smaller lesion. The remainder of the larger nodule is submitted in its entirety for permanent sections in cassettes 3 & 4. The remainder of the smaller nodule is submitted in its entirety in cassette 5. Rehabilitation Services Aide sections of the uninvolved parotid parenchyma adjacent to and away from nodules are submitted in cassettes 6-10. / AM:kellie 05/27/18 TC:1 [facility]: [id number]
[2018-05-24 08:01] LABS: Prothrombin Time Fingerstick 24.3 SEC (11.9-14.4)
[2018-05-24 08:19] LABS: International Normalized Ratio 2.1; Prothrombin Time (Protime)PT. 23.3 SECONDS (11.7-14.9)
[2018-05-24] MEDS: Bacitracin 500 UNITS/GM PACKET (12:00)
--- NOTE | 2018-05-24 12:04 | PCM.OPRPT ---
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 Given her history of smoking and there are long duration Warthin's tumor was primarily suspected however fine-needle aspiration biopsy of the right mass revealed degenerative squamous epithelium which concerning for possible underlying malignancy and excision for definitive biopsy and treatment was advised with the right-sided mass confirmed as a Warthin's tumor and no treatment of that side elected given the advanced age and general benign course of these lesions. The risks, alternatives, potential benefits, and complications were discussed at length and any questions answered to the patient and/or caregiver's satisfaction. Witnessed informed consent was obtained in the office, and the patient and/or caregiver was agreeable to proceed. Procedure went as follows: The patient was identified in the preoperative holding in the left parotid lesion site marked in the preoperative holding in accordance with the patient's physical skin exam, office notes, and consent. The patient was then taught to the operating room where he is placed under general anesthesia and intubated. When appropriate anesthesia was obtained, the facial nerve monitoring electrodes then placed in accordance and [employer] directions over the left side of the face. The planned incision was then marked with a marking pen and injected with 1% lidocaine with 100,000 epinephrine for a total of 8 mL. After allowing for vasoconstriction, a standard parotidectomy incision was then made a 15 blade scalpel through the skin and subcutaneous tissues. The subcutaneous was then tissue was then dissected and the greater auricular nerve identified with the branches along the posterior aspect of the incisional flap preserved. Dissection was then carried down along the sternocleidomastoid freeing the parotid attachments to this muscle. Dissection was then carried out along the tragal cartilage and the main trunk of the facial nerve identified. Dissection was then carried out along the facial nerve branches working inferiorly to superiorly and freeing the mass from the parotid gland sacrificing a cuff of normal-appearing parotid tissue. This was then sent for surgical specimen. Frozen section revealed 2 lesions, both consistent with Warthin's tumor. Operative stimulation of the facial nerve branches confirmed preservation of function. The wound bed was then copiously irrigated with saline solution and a #7 flat JOSHUA drain placed and brought out through separate stab incision in the skin. The wound was then closed deeply with interrupted 3-0 Vicryl sutures followed by running 5-0 Monocryl to the skin. Bacitracin and ointment was then applied and the patient returned to anesthesia where the patient was revived and extubated without complication having tolerated the procedure well. Type of Anesthesia:: General Anesthesiologist: Daryl Faust Special Medications: none Specimen's removed: left parotid Drains: #7 flat JOSHUA Estimated Blood Loss (mL): 50 mL Fluids Replaced: 1600 mL Grafts/Implants Used: none - Complications none - Admit VTE Documentation VTE Present on Admission: No VTE Mechan Device Prophylaxis: SCD's VTE Pharm Prophylaxis ordered?: No
[2018-05-24] MEDS: Lactated Ringers 1,000 ML 100 ML IV (14:03)
[2018-05-24] MEDS: Acetaminophen 325 MG Tablet 650 MG PO (16:01)
[2018-05-24] MEDS: Atorvastatin Calcium 10 MG Tablet PO (21:37)
[2018-05-25] MEDS: Acetaminophen 325 MG Tablet 650 MG PO (00:05)
[2018-05-25] MEDS: Lactated Ringers 1,000 ML 100 ML IV (00:05)
[2018-05-25 02:00] VITALS: BP 139/73; PULSE 66; RESP 16; TEMP 36.4; O2SAT 99
[2018-05-25 08:00] VITALS: BP 161/95; PULSE 60; RESP 18; TEMP 36.6; O2SAT 100
[2018-05-25] MEDS: Folic Acid 1 MG Tablet PO (08:16)
[2018-05-25] MEDS: Aspirin 81 MG TAB.CHEW PO (08:16)
[2018-05-25] MEDS: Pantoprazole Sodium 40 MG Tablet PO (08:16)
[2018-05-25 08:17] VITALS: PULSE 60
[2018-05-25] MEDS: Metoprolol(XL)Succ 50 MG Tablet PO (08:17)
[2018-05-25] MEDS: Isosorbide Mononitrate 30 MG Tablet PO (08:17)
[2018-05-25] MEDS: Lisinopril 10 MG Tablet PO (08:17)
--- NOTE | 2018-05-25 10:15 | DCINST_ITS ---
- Discharge Diagnoses Current Active Problems: Current Active and Chronic Problems (Last Reviewed 03/14/18 @ 15:06 by Connor Marinelli MD) Benign neoplasm of parotid gland (Chronic) You will use the following diet at home:: No restrictions, Regular Discharge Activity: Return to Normal Activity Call your doctor if your incision/area has: Increased Pain/ Swelling, Increased Redness, Foul Smelling Discharge, Swelling at the incision site Call your doctor if you observe: Fever of 101 or Higher, Uncontrolled pain Allergies/Adverse Reactions: Allergies latex Allergy (Verified 05/24/18 07:57) Itching ursodiol Allergy (Verified 05/24/18 07:57) Unknown belladonna alkaloids [Belladonna Alkaloids] Adverse Reaction (Verified 05/24/18 07:57) Unknown formaldehyde Adverse Reaction (Verified 05/24/18 07:57) Rash phenobarbital Adverse Reaction (Verified 05/24/18 07:57) Unknown ranitidine HCl [From Zantac] Adverse Reaction (Verified 05/24/18 07:57) Unknown Medications to take at Discharge RX: Aspirin [Aspirin, Baby] 81 mg PO DAILY@0800 02/24/14 Cholecalciferol (VIT D3) [Vitamin D] 1,000 unit PO DAILY 05/28/15 Polyethylene Glycol 3350 [Miralax] 17 gm PO PRN PRN 05/28/15 methotrexate sodium 2.5 mg tablet See Rx Instructions PO QWEEK tab 08/06/17 simvastatin 20 mg tablet 20 mg PO QHS #30 tab 08/07/17 metoprolol succinate ER 50 mg tablet,extended release 24 hr 50 mg PO DAILY #30 t ab 11/26/17 isosorbide mononitrate ER 30 mg tablet,extended release 24 hr 30 mg PO QAM #30 tab 01/29/18 warfarin 3 mg tablet 3 mg PO .COMPLEX #30 tab 01/29/18 lisinopril 10 mg tablet 10 mg PO DAILY #30 tab 02/25/18 folic acid 1 mg tablet 1 mg PO DAILY 03/14/18 pantoprazole 40 mg tablet,delayed release 40 mg PO DAILY #90 tab 04/01/18 warfarin 2 mg tablet 2 mg PO .COMPLEX #30 tab 05/06/18 Primary Care Physician: Paul Mccullough MD [Primary Care Provider] - Test Results: Test results from this visit will be discussed in further detail at your follow- up appointment, if applicable. Please Follow Up With: Pato Urbina MD When: 1 week
--- NOTE | 2018-05-25 10:15 | PCM.PN.SRG ---
Subjective: Doing well, denies incisional pain or facial weakness. Objective: Well appearing, left neck incision intact with full facial movement preserved. Drain output serous, decreasing. - Physical Exam General: Alert, Oriented x3, Cooperative, No apparent distress HEENT: Atraumatic, PERRLA, EOMI, Normocephalic Oral: Moist Mucosa, No Gingival or Mucosal Lesions/ Ulcerations Neck: Supple, - - incision intact Lungs: Normal air movement Cardiovascular: Regular rate, Regular Rhythm Extremities: No clubbing, No cyanosis, No edema Skin: No rashes Neurological: - - facial movement ful Psych/Mental Status: Alert and oriented to time, place, person, mood and affect Vital Signs Temp Pulse Resp BP Pulse Ox 98 F 60 18 161/95 H 100 05/25/18 08:00 05/25/18 08:17 05/25/18 08:00 05/25/18 08:00 05/25/18 08:00 Oxygen Flow Rate (L/min) 2 Oxygen Delivery Method Room Air Weight: 58.3 kg Body Mass Index (BMI) 25.9 Intake and Output for Last 24 Hours 05/23/18 05/24/18 05/25/18 23:59 23:59 23:59 Intake Total 2490 / 2490 1811 / 1811 Output Total 65 / 65 Balance 2425 / 2425 1788 / 1788 Medical Necessity - Tobacco Use Smoking Status: Current every day smoker Assessment/Plan All Active Problems (Last Reviewed 03/14/18 @ 15:06 by Connor Marinelli MD) Abnormal chest x-ray (Acute) Gross hematuria (Resolved) Coumadin toxicity (Resolved) Doing well s/p left parotidectomy for Warthin's tumors. Facial movement preserved. Drain removed. Plan for discharge to home.
== END 2018-05-25 11:30 | disposition home or self-care (01) ==
LOC: MS3 12:20
PROVIDERS: Admitting Provider Otolaryngology; Family Provider Family Medicine; PCP Family Medicine; Referring Provider Otolaryngology; Visit Provider Otolaryngology
PROC: (CPT 42410; principal; 2018-05-24 08:35)
DX: D11.0 Benign neoplasm of parotid gland (principal); Z79.899 Other long term (current) drug therapy; Z79.82 Long term (current) use of aspirin; Z79.01 Long term (current) use of anticoagulants; K21.9 Gastro-esophageal reflux disease without esophagitis; E78.00 Pure hypercholesterolemia, unspecified; I48.91 Unspecified atrial fibrillation; I10 Essential (primary) hypertension; F17.290 Nicotine dependence, other tobacco product, uncomplicated
CPT/HCPCS: 42415; 36416; 85610; 88305; 88331; 88332; 96360; 96361; 99218; J7120; G0378; G0379; J2405

== ENCOUNTER 2018-06-17 15:53 | Outpatient (RCR) | payer MEDICARE, OTHER, SELFPAY ==
[2018-03-14 14:46] VITALS: BMI 26.3
[2018-05-24 14:04] VITALS: BMI 25.9
[2018-06-17 18:04] LABS: International Normalized Ratio 2.8; Prothrombin Time (Protime)PT. 29.7 SECONDS (11.7-14.9)
== END 2018-07-11 16:00 | disposition home or self-care (01) ==
LOC: LAB 15:53
PROVIDERS: Family Provider Family Medicine; PCP Family Medicine; Referring Provider Internal Medicine Cardiovascular Disease; Visit Provider Internal Medicine Cardiovascular Disease
DX: I48.2 Chronic atrial fibrillation (principal); Z79.01 Long term (current) use of anticoagulants
CPT/HCPCS: 36415; 85610

== ENCOUNTER → 2018-07-23 13:43 | Outpatient (CLI) | payer MEDICARE, OTHER, SELFPAY ==
[2018-05-24 14:04] VITALS: BMI 25.9
[2018-07-23 15:29] LABS: Absolute Lymphocyte Count 1.47 X10^3/ul (0.83-4.51); Absolute Neutrophil Count 3.6 X10^3/uL (2.0-7.7); Basophil# 0.04 X10^3/uL; Basophil% 0.7 % (0-1); Eosinophil# 0.11 X10^3/uL; Eosinophils% 1.9 % (0-5); Hematocrit 38.8 % (37-47); Hemoglobin 12.9 g/dl (12.0-15.0); Lymphocyte # 1.47 X10^3/ul (4.0); Lymphocyte % 25.1 % (19-41); Mean Corp Hgb Conc 33.2 g/gl (32-36); Mean Corpuscular Hgb 34.1 pg (27.0-32.0); Mean Corpuscular Volume 102.6 fL (81-99); Mean Platelet Vol. 10.9 fl (6.2-12.0); Monocyte# 0.59 X10^3/uL; Monocyte% 10.1 % (0-10); Neutrophil # 3.63 X10^3/uL (2.7-7.7); Platelet Count 274 K/mm3 (150-450); RBC Distribution Width CV 13.1 % (11.6-14.6); RBC Distribution Width SD 47.9 fl (35.1-43.9); Red Blood Count 3.78 M/mm3 (4.2-5.4); White Blood Count 5.9 K/mm3 (4.4-11.0)
[2018-07-23 15:55] LABS: AST(SGOT) 17 U/L (15-37); Alanine Aminotransfer ALT/SGPT 21 U/L (13-56); Albumin, Serum 3.6 g/dL (3.2-5.0); Alkaline Phosphatase 66 U/L (45-117); Anion Gap 8 (5-15); BUN 20 mg/dL (7-18); BUN/Creat Ratio 22.8 RATIO (10-20); Calcium,Total 9.5 mg/dL (8.5-10.1); Chloride 106 mmol/L (98-107); Creatinine, Serum 0.88 mg/dL (0.55-1.02); EST Glomerular Filtration Rate 66 mL/min (>60); Est Glom Filt Rate - Afr Amer 80 mL/min (>60); Globulin 3.5 g/dL (2.2-4.2); Glucose 94 mg/dL (74-106); Potassium 4.3 mmol/L (3.5-5.1); Protein, Total 7.1 g/dL (6.4-8.2); Sodium Level 141 mmol/L (136-145)
[2018-07-23 16:08] LABS: POSITIVE COUNT NO; POSITIVE DIFFERENTIAL NO; POSITIVE MORPHOLOGY NO
== END ==
PROVIDERS: Family Provider Family Medicine; PCP Family Medicine; Referring Provider Internal Medicine Rheumatology; Visit Provider Internal Medicine Rheumatology
DX: M06.4 Inflammatory polyarthropathy (principal); M72.2 Plantar fascial fibromatosis; Z79.899 Other long term (current) drug therapy
CPT/HCPCS: 36415; 80053; 85025

== ENCOUNTER 2018-08-09 13:25 | Outpatient (RCR) | payer MEDICARE, OTHER, SELFPAY ==
[2018-05-24 14:04] VITALS: BMI 25.9
[2018-08-09 15:07] LABS: International Normalized Ratio 2.5; Prothrombin Time (Protime)PT. 26.7 SECONDS (11.7-14.9)
== END 2018-08-09 14:00 | disposition home or self-care (01) ==
LOC: LAB 13:25
PROVIDERS: Family Provider Family Medicine; PCP Family Medicine; Referring Provider Internal Medicine Cardiovascular Disease; Visit Provider Internal Medicine Cardiovascular Disease
DX: I48.2 Chronic atrial fibrillation (principal); Z79.01 Long term (current) use of anticoagulants
CPT/HCPCS: 36415; 85610

== ENCOUNTER 2018-09-17 13:24 | Outpatient (RCR) | payer MEDICARE, OTHER, SELFPAY ==
[2018-05-24 14:04] VITALS: BMI 25.9
[2018-09-17 14:17] LABS: International Normalized Ratio 2.5; Prothrombin Time (Protime)PT. 26.7 SECONDS (11.7-14.9)
== END 2018-09-17 15:00 | disposition home or self-care (01) ==
LOC: LAB 13:24
PROVIDERS: Family Provider Family Medicine; PCP Family Medicine; Referring Provider Internal Medicine Cardiovascular Disease; Visit Provider Internal Medicine Cardiovascular Disease
DX: I48.2 Chronic atrial fibrillation (principal); Z79.01 Long term (current) use of anticoagulants
CPT/HCPCS: 36415; 85610

== ENCOUNTER 2018-10-14 14:18 | Outpatient (RCR) | payer MEDICARE, OTHER, SELFPAY ==
[2018-05-24 14:04] VITALS: BMI 25.9
[2018-10-14 13:33] VITALS: BMI 25.0
[2018-10-14 14:56] LABS: Absolute Neutrophil Count 4.1 X10^3/uL (2.0-7.7); Basophil# 0.04 X10^3/uL; Basophil% 0.7 % (0-1); Eosinophil# 0.08 X10^3/uL; Eosinophils% 1.3 % (0-5); Hematocrit 37.7 % (37-47); Hemoglobin 12.5 g/dl (12.0-15.0); Mean Corp Hgb Conc 33.2 g/gl (32-36); Mean Corpuscular Hgb 33.5 pg (27.0-32.0); Mean Corpuscular Volume 101.1 fL (81-99); Monocyte# 0.48 X10^3/uL; Monocyte% 7.9 % (0-10); Neutrophil # 4.08 X10^3/uL (2.7-7.7); Neutrophil % 66.9 % (47-70); Platelet Count 263 K/mm3 (150-450); RBC Distribution Width CV 13.4 % (11.6-14.6); Red Blood Count 3.73 M/mm3 (4.2-5.4); White Blood Count 6.1 K/mm3 (4.4-11.0)
[2018-10-14 15:00] LABS: POSITIVE COUNT NO; POSITIVE DIFFERENTIAL NO; POSITIVE MORPHOLOGY NO
[2018-10-14 15:11] LABS: International Normalized Ratio 2.4; Prothrombin Time (Protime)PT. 26.5 SECONDS (11.7-14.9)
[2018-10-14 15:24] LABS: ALB/GLOB Ratio 0.9 RATIO (0.9-2.4); AST(SGOT) 20 U/L (15-37); Alanine Aminotransfer ALT/SGPT 23 U/L (13-56); Albumin, Serum 3.4 g/dL (3.2-5.0); Alkaline Phosphatase 63 U/L (45-117); Anion Gap 8 (5-15); BUN 15 mg/dL (7-18); BUN/Creat Ratio 18.2 RATIO (10-20); Calcium,Total 9.5 mg/dL (8.5-10.1); Chloride 108 mmol/L (98-107); Creatinine, Serum 0.82 mg/dL (0.55-1.02); EST Glomerular Filtration Rate 71 mL/min (>60); Est Glom Filt Rate - Afr Amer 86 mL/min (>60); Globulin 3.7 g/dL (2.2-4.2); Glucose 79 mg/dL (74-106); Potassium 4.3 mmol/L (3.5-5.1); Protein, Total 7.1 g/dL (6.4-8.2); Sodium Level 141 mmol/L (136-145)
== END 2018-11-10 12:00 | disposition home or self-care (01) ==
LOC: LAB 14:18
PROVIDERS: Internal Medicine Cardiovascular Disease; Family Provider Family Medicine; PCP Family Medicine; Referring Provider Internal Medicine Cardiovascular Disease; Visit Provider Internal Medicine Cardiovascular Disease
DX: I48.2 Chronic atrial fibrillation (principal); Z79.01 Long term (current) use of anticoagulants; E78.00 Pure hypercholesterolemia, unspecified; M06.4 Inflammatory polyarthropathy; M72.2 Plantar fascial fibromatosis; K21.9 Gastro-esophageal reflux disease without esophagitis; I10 Essential (primary) hypertension; I25.10 Atherosclerotic heart disease of native coronary artery without angina pectoris; K57.90 Diverticulosis of intestine, part unspecified, without perforation or abscess without bleeding; Z79.899 Other long term (current) drug therapy
CPT/HCPCS: 36415; 80053; 85025; 85610

== ENCOUNTER 2018-11-21 13:48 | Outpatient (RCR) | payer MEDICARE, OTHER, SELFPAY ==
[2018-11-21 15:13] LABS: International Normalized Ratio 2.4; Prothrombin Time (Protime)PT. 26.1 SECONDS (11.7-14.9)
== END 2018-12-11 17:19 | disposition home or self-care (01) ==
LOC: LAB 13:48
PROVIDERS: Family Provider Family Medicine; PCP Family Medicine; Referring Provider Internal Medicine Cardiovascular Disease; Visit Provider Internal Medicine Cardiovascular Disease
DX: I48.2 Chronic atrial fibrillation (principal); Z79.01 Long term (current) use of anticoagulants
CPT/HCPCS: 36415; 85610

== ENCOUNTER 2019-01-01 11:09 | Outpatient (RCR) | payer MEDICARE, OTHER, SELFPAY ==
[2019-01-01 12:44] LABS: International Normalized Ratio 2.2
== END 2019-01-01 12:09 | disposition home or self-care (01) ==
LOC: LAB 11:09
PROVIDERS: Family Provider Family Medicine; PCP Family Medicine; Referring Provider Internal Medicine Cardiovascular Disease; Visit Provider Internal Medicine Cardiovascular Disease
DX: I48.2 Chronic atrial fibrillation (principal); Z79.01 Long term (current) use of anticoagulants
CPT/HCPCS: 36415; 85610

== ENCOUNTER → 2019-01-14 | Outpatient (CLI) | payer MEDICARE, OTHER, SELFPAY ==
[2019-01-14 15:26] LABS: Absolute Lymphocyte Count 1.42 X10^3/uL (0.83-4.51); Absolute Neutrophil Count 3.9 X10^3/uL (2.0-7.7); Basophil# 0.04 X10^3/uL; Basophil% 0.7 % (0-1); Eosinophil# 0.07 X10^3/uL; Eosinophils% 1.2 % (0-5); Hematocrit 37.7 % (37-47); Hemoglobin 12.6 g/dL (12.0-15.0); Lymphocyte # 1.42 X10^3/ul (4.0); Lymphocyte % 23.7 % (19-41); Mean Corp Hgb Conc 33.4 g/dL (32-36); Mean Corpuscular Hgb 34.3 pg (27.0-32.0); Mean Corpuscular Volume 102.7 fL (81-99); Mean Platelet Vol. 11.1 fl (6.2-12.0); Monocyte# 0.52 X10^3/uL; Monocyte% 8.7 % (0-10); NRBC Flagged by Analyzer 0 % (0-5); Neutrophil # 3.91 X10^3/uL (2.7-7.7); Neutrophil % 65.2 % (47-70); Platelet Count 260 K/mm3 (150-450); RBC Distribution Width SD 48.2 fl (35.1-43.9); Red Blood Count 3.67 M/mm3 (4.2-5.4)
[2019-01-14 15:58] LABS: AST(SGOT) 21 U/L (15-37); Alanine Aminotransfer ALT/SGPT 25 U/L (13-56); Albumin, Serum 3.5 g/dL (3.2-5.0); Alkaline Phosphatase 63 U/L (45-117); Anion Gap 5 (5-15); BUN 17 mg/dL (7-18); BUN/Creat Ratio 20.9 RATIO (10-20); Calcium,Total 9.5 mg/dL (8.5-10.1); Chloride 109 mmol/L (98-107); Creatinine, Serum 0.81 mg/dL (0.55-1.02); EST Glomerular Filtration Rate 72 mL/min (>60); Est Glom Filt Rate - Afr Amer 87 mL/min (>60); Globulin 3.4 g/dL (2.2-4.2); Glucose 75 mg/dL (74-106); Potassium 4.2 mmol/L (3.5-5.1); Protein, Total 6.9 g/dL (6.4-8.2); Sodium Level 141 mmol/L (136-145)
== END | disposition home or self-care (01) ==
LOC: MTLAB 13:44
PROVIDERS: Family Provider Family Medicine; PCP Family Medicine; Referring Provider Internal Medicine Rheumatology; Visit Provider Internal Medicine Rheumatology
DX: M06.4 Inflammatory polyarthropathy (principal); Z79.899 Other long term (current) drug therapy; M72.2 Plantar fascial fibromatosis; K21.9 Gastro-esophageal reflux disease without esophagitis; I10 Essential (primary) hypertension; I48.2 Chronic atrial fibrillation; I25.10 Atherosclerotic heart disease of native coronary artery without angina pectoris
CPT/HCPCS: 36415; 80053; 85025

== ENCOUNTER 2019-02-26 13:13 | Outpatient (RCR) | payer MEDICARE, OTHER, SELFPAY ==
[2019-02-26 15:43] LABS: International Normalized Ratio 2.1; Prothrombin Time (Protime)PT. 23.5 SECONDS (11.7-14.9)
== END 2019-02-26 18:00 | disposition home or self-care (01) ==
LOC: LAB 13:13
PROVIDERS: Family Provider Family Medicine; PCP Family Medicine; Referring Provider Internal Medicine Cardiovascular Disease; Visit Provider Internal Medicine Cardiovascular Disease
DX: I48.20 Chronic atrial fibrillation, unspecified (principal); Z79.01 Long term (current) use of anticoagulants
CPT/HCPCS: 36415; 85610

== ENCOUNTER 2019-04-14 15:37 | Outpatient (RCR) | payer MEDICARE, OTHER, SELFPAY ==
[2019-04-14 18:02] LABS: Absolute Lymphocyte Count 1.25 X10^3/uL (0.83-4.51); Absolute Neutrophil Count 4.5 X10^3/uL (2.0-7.7); Basophil# 0.04 X10^3/uL; Basophil% 0.6 % (0-1); Eosinophil# 0.07 X10^3/uL; Eosinophils% 1.1 % (0-5); Hematocrit 38.3 % (37-47); Hemoglobin 12.6 g/dL (12.0-15.0); Lymphocyte # 1.25 X10^3/ul (4.0); Lymphocyte % 19.5 % (19-41); Mean Corp Hgb Conc 32.9 g/dL (32-36); Mean Corpuscular Volume 103.2 fL (81-99); Mean Platelet Vol. 11.4 fl (6.2-12.0); Monocyte# 0.54 X10^3/uL; Monocyte% 8.4 % (0-10); NRBC Flagged by Analyzer 0 % (0-5); Neutrophil # 4.49 X10^3/uL (2.7-7.7); Neutrophil % 69.9 % (47-70); Platelet Count 257 K/mm3 (150-450); RBC Distribution Width CV 13.5 % (11.6-14.6); RBC Distribution Width SD 51.5 fl (35.1-43.9); Red Blood Count 3.71 M/mm3 (4.2-5.4); White Blood Count 6.4 K/mm3 (4.4-11.0)
[2019-04-14 18:07] LABS: International Normalized Ratio 2.7
[2019-04-14 18:22] LABS: AST(SGOT) 18 U/L (15-37); Alanine Aminotransfer ALT/SGPT 20 U/L (13-56); Albumin, Serum 3.6 g/dL (3.2-5.0); Alkaline Phosphatase 64 U/L (45-117); Anion Gap 6 (5-15); BUN 16 mg/dL (7-18); BUN/Creat Ratio 18.2 RATIO (10-20); Calcium,Total 9.6 mg/dL (8.5-10.1); Chloride 106 mmol/L (98-107); Creatinine, Serum 0.88 mg/dL (0.55-1.02); EST Glomerular Filtration Rate 66 mL/min (>60); Est Glom Filt Rate - Afr Amer 80 mL/min (>60); Globulin 3.6 g/dL (2.2-4.2); Glucose 78 mg/dL (74-106); Potassium 3.9 mmol/L (3.5-5.1); Protein, Total 7.2 g/dL (6.4-8.2); Sodium Level 138 mmol/L (136-145)
== END 2019-04-14 18:00 | disposition home or self-care (01) ==
LOC: MTLAB 15:37
PROVIDERS: Internal Medicine Rheumatology; Family Provider Family Medicine; PCP Family Medicine; Referring Provider Internal Medicine Cardiovascular Disease; Visit Provider Internal Medicine Cardiovascular Disease
DX: I48.20 Chronic atrial fibrillation, unspecified (principal); Z79.01 Long term (current) use of anticoagulants; M06.4 Inflammatory polyarthropathy; Z79.899 Other long term (current) drug therapy; M72.2 Plantar fascial fibromatosis; K21.9 Gastro-esophageal reflux disease without esophagitis; I10 Essential (primary) hypertension; I25.10 Atherosclerotic heart disease of native coronary artery without angina pectoris; K57.90 Diverticulosis of intestine, part unspecified, without perforation or abscess without bleeding
CPT/HCPCS: 36415; 80053; 85025; 85610

== ENCOUNTER → 2019-05-16 06:46 | Outpatient (CLI) | payer MEDICARE, OTHER, SELFPAY ==
[2019-05-01 16:23] VITALS: BMI 27.8
--- NOTE | 2019-05-16 12:53 | STRESSREP ---
Stress Test Report Pharmacologic myocardial perfusion stress test. 78-year-old lady with a history of chest pain. Stress protocol: Resting EKG demonstrates atrial fibrillation with a rate of 67 bpm normal intervals are noted resting blood pressure is 122/88 mmHg. 0.4 mg of regadenoson was infused per usual protocol followed up intravenous saline flush injection continuous EKG monitoring was performed. The maximum heart rate was 96 bpm which was 68% of maximal predicted heart rate the maximum workload was 1 metabolic equivalent. At rest there were no ST or T wave changes noted suggest abnormal flow reserve at peak infusion nonspecific ST-T wave changes were noted. No clinical angina was noted. Resting blood pressures 122/88 final blood pressure was 138/78. Myocardial perfusion protocol. 10.9 mCi of technetium 99m sestamibi was injected at rest. 0.4 mg of regadenoson was infused per usual protocol peak infusion 32.1 mCi of technetium 99m sestamibi was injected stress images were obtained stress and rest images were reconstructed and compared in the short axis vertical long horizontal long axis. Gated images were also obtained Perfusion SPECT analysis: Review of the stress images demonstrate normal uptake of tracer noted in all areas of myocardium except for the anterior wall which has reduced perfusion on the stress and resting images to a similar extent. The above is suggestive of either a previous anterior infarct or anterior breast attenuation artifact. No obvious ischemia is noted. Gated SPECT analysis: The gated ejection fraction is noted to be 70%. Conclusion: Pharmacologic myocardial perfusion stress test demonstrating the following: Atrial fibrillation Previous anterior infarct. No obvious ischemia noted.
== END ==
PROVIDERS: Family Provider Family Medicine; PCP Family Medicine; Referring Provider Internal Medicine Cardiovascular Disease; Visit Provider Internal Medicine Cardiovascular Disease
DX: I25.10 Atherosclerotic heart disease of native coronary artery without angina pectoris (principal); Z95.5 Presence of coronary angioplasty implant and graft
CPT/HCPCS: 78452; 93017; A9500; A4216; J2785

== ENCOUNTER 2019-06-03 16:28 | Emergency (ER) | payer MEDICARE, OTHER, SELFPAY ==
[2019-05-01 16:23] VITALS: BMI 27.8
[2019-06-03 16:30] VITALS: BP 101/67; PULSE 63; RESP 15; TEMP 36.3; O2SAT 98; BMI 30.2
[2019-06-03 16:34] VITALS: BP 101/67; PULSE 70; RESP 15; O2SAT 97
--- NOTE | 2019-06-03 16:50 | EKG12_ITS ---
Test Reason : Blood Pressure : / mmHG Vent. Rate : 068 BPM Atrial Rate : 098 BPM P-R Int : 000 ms QRS Dur : 088 ms QT Int : 414 ms P-R-T Axes : 000 014 159 degrees QTc Int : 440 ms Atrial fibrillation with a competing junctional pacemaker Minimal voltage criteria for LVH, may be normal variant ST & T wave abnormality, consider lateral ischemia Abnormal ECG Confirmed by CHANG ABDUL ([id number]), photographic editor ISATU TEE ([id number]) on 06/05/2019 8:27:06 AM Referred By: MARCELA Confirmed By:CHANG ABDUL
--- NOTE | 2019-06-03 16:54 | ED.DCSUM_ITS ---
- ER Visit Summary Date of Service: 06/03/19 Chief Complaint: Transient hypotension post fall History of Present Illness: The patient is a 78 F history of CAD, cardiac stent, A. fib, on Coumadin and hypertension. Patient had a fall today she denies striking her head. She injured her left forearm. Was treated at clinic urgent care. There they placed a splint on her left forearm. After the splint she had episode of hypotension and is here in ER to be evaluated. She denies hitting her head. Currently says she feels fine. Currently her blood pressure is 120/67 on my exam. She denies any headache. She denies any chest pain. She denies any recent illness. No dysuria. No fever. No abdominal pain. No melena. Physical Examination: Older female no acute distress current blood pressure 101/67 on my exam 120/67. Temperature 97. Pulse ox 97% room air no signs hypoxia. She is in no distress. There is family at her side. H EENT exam normal. Atraumatic. Pupils round reactive light. There is no facial trauma. There is no scalp trauma or tenderness. No hematomas. C-spine nontender. Trachea midline. Lungs clear to auscultation bilaterally. Heart regular rhythm rate about 70. No murmur. Chest wall nontender. Abdomen soft nontender. Pelvic girdle intact nontender. No shortening or rotation. Patient is moving all 4 extremities. Neurovascular intact. She has a splint on her left forearm. She is able to wiggle her fingers has normal touch sensation bilaterally. Neurologically she is awake and alert. She knows day, month, year and president 9 states. She is acting appropriately. Test Results: CBC shows a white count 12.7. Normal hemoglobin 12.9 and hematocrit of 38. Electrolytes unremarkable. BUN 17 creatinine 0.9. Normal gap. She is on Coumadin her INR is 2.4. Orthostatic vital signs were negative. And her EKG showed A. fib rate of 68 with no acute abnormality. Repeat exam the patient is doing well at 1818. I went over all test results with family. Emergency Department Course and Treatment: Patient fell and broke her arm. She has no signs of head trauma. She is a transient episode of hypotension either after or during whenever splinting or at the urgent care. This may have been vasovagal. I will check a CBC and chemistry. Also check a PT. She has no signs of head trauma. Has a completely normal neurologic exam I do not think she needs a CAT scan. Treatment Plan: Follow-up with orthopedic physician of her choice. Ice and elevate the left wrist. [place] for pain. Came in with Disposition: Discharge Impression: Transient hypotension resolved Status post fall Status post left wrist fracture with splinting by outside urgent care Anticoagulated on Coumadin This note was generated with [employer] dictation software. It may contain incorrect words, spelling, and punctuation that were not noted in review of the chart prior to signing ED Disposition - Plan for ED Patient: Referrals: Paul Mccullough MD [Primary Care Provider] -
[2019-06-03 17:20] LABS: Absolute Lymphocyte Count 0.79 X10^3/uL (0.83-4.51); Absolute Neutrophil Count 11.2 X10^3/uL (2.0-7.7); Basophil# 0.03 X10^3/uL; Basophil% 0.2 % (0-1); Eosinophil# 0.01 X10^3/uL; Eosinophils% 0.1 % (0-5); Hematocrit 38.8 % (37-47); Hemoglobin 12.9 g/dL (12.0-15.0); Lymphocyte # 0.79 X10^3/ul (4.0); Lymphocyte % 6.2 % (19-41); Mean Corp Hgb Conc 33.2 g/dL (32-36); Mean Corpuscular Hgb 34.6 pg (27.0-32.0); Monocyte# 0.54 X10^3/uL; Monocyte% 4.3 % (0-10); NRBC Flagged by Analyzer 0 % (0-5); Neutrophil # 11.17 X10^3/uL (2.7-7.7); Neutrophil % 88.3 % (47-70); Platelet Count 275 K/mm3 (150-450); RBC Distribution Width CV 12.9 % (11.6-14.6); RBC Distribution Width SD 48.8 fl (35.1-43.9); Red Blood Count 3.73 M/mm3 (4.2-5.4); White Blood Count 12.7 K/mm3 (4.4-11.0)
[2019-06-03 17:32] LABS: International Normalized Ratio 2.4; Prothrombin Time (Protime)PT. 26.3 SECONDS (11.7-14.9)
[2019-06-03 17:35] LABS: Anion Gap 5 (5-15); BUN 17 mg/dL (7-18); Calcium,Total 9.8 mg/dL (8.5-10.1); Chloride 109 mmol/L (98-107); Creatinine, Serum 0.94 mg/dL (0.55-1.02); EST Glomerular Filtration Rate 61 mL/min (>60); Est Glom Filt Rate - Afr Amer 73 mL/min (>60); Estimated Creatinine Clearance 47.77 ml/min; Glucose 133 mg/dL (74-106); Potassium 4.5 mmol/L (3.5-5.1); Sodium Level 139 mmol/L (136-145)
[2019-06-03 18:10] VITALS: BP 120/74; BP 151/75; BP 162/87; PULSE 73; PULSE 76
--- NOTE | 2019-06-03 18:21 | DCINST.ED_ITS ---
ED Disposition - Plan for ED Patient: Disposition: Home or Assisted Living Instructions: HYPOTENSION, All Causes, FRACTURE, Wrist [General] Prescriptions: Hydrocodone/Acetaminophen [[place] 5-325 Tablet] 1 ea PO 4X/DAY PRN PRN #20 tab PRN Reason: Pain Or Fever Prescription Printed Referrals: Nixon Perez DO [STAFF PHYSICIAN] - As soon as possible Juan M Keenan DO [STAFF PHYSICIAN] - As soon as possible Additional Instructions: Elevate left wrist to decrease pain and swelling. Do this for the next 3 days. At least 4 times a day for half an hour each time. [place] for pain. Watch does not constipate you. Watch for falls. Make sure you are drinking plenty of water and stool softener and fiber. On follow-up with an orthopedic surgeon. Keep your splint dry and clean.
[2019-06-03] MEDS: HYDROcodone Bitartrate/Apap 5/325 Tablet PO (18:32)
[2019-06-03 18:35] VITALS: BP 120/77; PULSE 62; RESP 17; O2SAT 96
== END 2019-06-03 18:40 | disposition home or self-care (01) ==
PROVIDERS: Emergency Provider Emergency Medicine; PCP Family Medicine
DX: I95.9 Hypotension, unspecified (principal); S62.102A Fracture of unspecified carpal bone, left wrist, initial encounter for closed fracture; W19.XXXA Unspecified fall, initial encounter; Y93.9 Activity, unspecified; Y92.9 Unspecified place or not applicable; I25.10 Atherosclerotic heart disease of native coronary artery without angina pectoris; I48.91 Unspecified atrial fibrillation; I10 Essential (primary) hypertension; Z95.5 Presence of coronary angioplasty implant and graft; Z79.01 Long term (current) use of anticoagulants; Z79.82 Long term (current) use of aspirin; Z79.899 Other long term (current) drug therapy; Z72.0 Tobacco use
CPT/HCPCS: 80048; 85025; 85610; 93005; 99285; A4216

== ENCOUNTER → 2019-06-04 10:50 | Outpatient (CLI) | payer MEDICARE, OTHER, SELFPAY ==
[2019-06-04 10:48] VITALS: BMI 30.2
--- NOTE | 2019-06-04 10:51 | RAD_ITS ---
STUDY: X-RAY - LEFT RADIUS AND ULNA REASON FOR EXAM: Fracture, fall yesterday. TECHNIQUE: 2 view(s) of the forearm. COMPARISON: None. FINDINGS: There is an overlying cast. There is a mildly impacted fracture of the distal radial metaphysis. There is a nondisplaced avulsion fracture of the ulnar styloid process. RAD/Forearm 2 Views IMPRESSION: Fracture of the distal radius and avulsion fracture of the ulnar styloid process. Electronically Signed: Terry Iniguez MD at 12:12 EST Tel , Service support ,
--- NOTE | 2019-06-04 11:08 | RAD_ITS ---
STUDY: X-RAY - LEFT WRIST REASON FOR EXAM: Pain, injury, cast removed. TECHNIQUE: 3 view(s) of the wrist were obtained. COMPARISON: Radiographs of the left hand 09/21/2011. FINDINGS: There is osteopenia. There is a mildly impacted distal radial metaphyseal fracture. There is a nondisplaced avulsion fracture of the ulnar styloid process. Normal radiocarpal articulation. Normal distal radioulnar articulation. Normal carpal bones. Normal carpal articulations. Normal carpometacarpal articulation of the thumb. Normal second through fifth carpometacarpal articulations. Normal visualized metacarpal bones. There is chondrocalcinosis in the triangular fibrocartilage and lunotriquetral and scapholunate ligaments. RAD/Wrist min 3 Views IMPRESSION: Mildly impacted distal radial fracture and nondisplaced avulsion of the ulnar styloid process. Chondrocalcinosis. Electronically Signed: Terry Iniguez MD at 12:12 EST Tel , Service support ,
== END ==
PROVIDERS: PCP Family Medicine; Referring Provider Orthopaedic Surgery; Visit Provider Orthopaedic Surgery
DX: S52.92XA Unspecified fracture of left forearm, initial encounter for closed fracture (principal); S69.92XA Unspecified injury of left wrist, hand and finger(s), initial encounter
CPT/HCPCS: 73090; 73110

== ENCOUNTER → 2019-06-11 13:30 | Outpatient (CLI) | payer MEDICARE, OTHER, SELFPAY ==
[2019-06-11 09:12] VITALS: BMI 29.4
--- NOTE | 2019-06-11 13:31 | RAD_ITS ---
STUDY: X-RAY - LEFT WRIST REASON FOR EXAM: Female, 78 years old. INJURY TECHNIQUE: 3 view(s) of the wrist were obtained. COMPARISON: Prior study of 06/04/2019 FINDINGS: There is a slightly impacted comminuted fracture of the distal radial metaphysis and epiphysis. There is a nondisplaced ulnar styloid process fracture. The carpals, metacarpals, and visualized phalanges appear intact. RAD/Wrist min 3 Views IMPRESSION: Slightly impacted comminuted fracture of the distal radial metaphysis and epiphysis. Nondisplaced ulnar styloid process fracture. Findings appear similar to the previous study. Electronically Signed: Davis Fuller MD at 21:54 EST , Service support ,
[2019-06-11 15:37] LABS: Absolute Lymphocyte Count 1.19 X10^3/uL (0.83-4.51); Absolute Neutrophil Count 4.8 X10^3/uL (2.0-7.7); Basophil# 0.05 X10^3/uL; Basophil% 0.8 % (0-1); Eosinophil# 0.08 X10^3/uL; Eosinophils% 1.2 % (0-5); Hematocrit 38.7 % (37-47); Hemoglobin 12.7 g/dL (12.0-15.0); Lymphocyte # 1.19 X10^3/ul (4.0); Lymphocyte % 18.1 % (19-41); Mean Corp Hgb Conc 32.8 g/dL (32-36); Mean Corpuscular Hgb 33.8 pg (27.0-32.0); Mean Corpuscular Volume 102.9 fL (81-99); Mean Platelet Vol. 10.8 fl (6.2-12.0); Monocyte# 0.49 X10^3/uL; Monocyte% 7.4 % (0-10); NRBC Flagged by Analyzer 0 % (0-5); Neutrophil # 4.76 X10^3/uL (2.7-7.7); Neutrophil % 72.2 % (47-70); Platelet Count 343 K/mm3 (150-450); RBC Distribution Width SD 48.4 fl (35.1-43.9); Red Blood Count 3.76 M/mm3 (4.2-5.4); White Blood Count 6.6 K/mm3 (4.4-11.0)
[2019-06-11 16:03] LABS: ALB/GLOB Ratio 0.8 RATIO (0.9-2.4); AST(SGOT) 12 U/L (15-37); Alanine Aminotransfer ALT/SGPT 18 U/L (13-56); Albumin, Serum 3.3 g/dL (3.2-5.0); Alkaline Phosphatase 66 U/L (45-117); Anion Gap 5 (5-15); BUN 18 mg/dL (7-18); BUN/Creat Ratio 18.6 RATIO (10-20); Calcium,Total 9.6 mg/dL (8.5-10.1); Chloride 108 mmol/L (98-107); Creatinine, Serum 0.97 mg/dL (0.55-1.02); EST Glomerular Filtration Rate 59 mL/min (>60); Est Glom Filt Rate - Afr Amer 71 mL/min (>60); Glucose 90 mg/dL (74-106); Protein, Total 7.3 g/dL (6.4-8.2); Sodium Level 139 mmol/L (136-145)
== END ==
PROVIDERS: Internal Medicine Rheumatology; PCP Family Medicine; Referring Provider Orthopaedic Surgery; Visit Provider Orthopaedic Surgery
DX: S52.92XA Unspecified fracture of left forearm, initial encounter for closed fracture (principal); M06.4 Inflammatory polyarthropathy; Z79.899 Other long term (current) drug therapy; M72.2 Plantar fascial fibromatosis; K21.9 Gastro-esophageal reflux disease without esophagitis; I10 Essential (primary) hypertension; I48.20 Chronic atrial fibrillation, unspecified; I25.10 Atherosclerotic heart disease of native coronary artery without angina pectoris; Z95.5 Presence of coronary angioplasty implant and graft
CPT/HCPCS: 36415; 73110; 80053; 85025

== ENCOUNTER → 2019-06-16 13:07 | Outpatient (CLI) | payer MEDICARE, OTHER, SELFPAY ==
[2019-06-11 09:12] VITALS: BMI 29.4
--- NOTE | 2019-06-16 13:08 | RAD_ITS ---
STUDY: X-RAY - LEFT WRIST REASON FOR EXAM: 2 week fracture follow-up. TECHNIQUE: 3 view(s) of the wrist were obtained. COMPARISON: Radiographs 06/11/2019. FINDINGS: There is no interval change of the mildly impacted fracture of the distal radius and nondisplaced avulsion fracture of the ulnar styloid process. Normal radiocarpal articulation. Normal distal radioulnar articulation. Normal carpal bones. Normal carpal articulations. Normal carpometacarpal articulation of the thumb. Normal second through fifth carpometacarpal articulations. Normal visualized metacarpal bones. There is an overlying cast. RAD/Wrist min 3 Views IMPRESSION: No interval change of distal radial fracture and avulsion fracture of the ulnar styloid process. Electronically Signed: Terry Iniguez MD at 14:54 EST Tel , Service support ,
== END ==
PROVIDERS: PCP Family Medicine; Referring Provider Orthopaedic Surgery; Visit Provider Orthopaedic Surgery
DX: S52.502A Unspecified fracture of the lower end of left radius, initial encounter for closed fracture (principal)
CPT/HCPCS: 73110

== ENCOUNTER → 2019-06-23 13:04 | Outpatient (CLI) | payer MEDICARE, OTHER, SELFPAY ==
[2019-06-23 08:02] VITALS: BMI 29.4
--- NOTE | 2019-06-23 13:04 | RAD_ITS ---
STUDY: X-RAY - LEFT WRIST REASON FOR EXAM: Follow-up wrist fracture. TECHNIQUE: 3 view(s) of the wrist were obtained. COMPARISON: Radiographs 06/16/2019 and 06/11/2019. FINDINGS: There is no interval change of the mildly impacted fracture of the distal radius and nondisplaced avulsion fracture of the ulnar styloid process. Normal radiocarpal articulation. Normal distal radioulnar articulation. Normal carpal bones. There is interval development of widening of the scapholunate interval. Normal carpometacarpal articulation of the thumb. Normal second through fifth carpometacarpal articulations. Normal visualized metacarpal bones. There is overlying cast. RAD/Wrist min 3 Views IMPRESSION: No interval change of distal radial fracture and ulnar styloid process avulsion. Interval development of widening of the scapholunate interval. Electronically Signed: Terry Iniguez MD at 14:33 EST Tel , Service support ,
== END ==
PROVIDERS: PCP Family Medicine; Referring Provider Orthopaedic Surgery; Visit Provider Orthopaedic Surgery
DX: S52.502A Unspecified fracture of the lower end of left radius, initial encounter for closed fracture (principal)
CPT/HCPCS: 73110

== ENCOUNTER → 2019-06-30 14:32 | Outpatient (CLI) | payer MEDICARE, OTHER, SELFPAY ==
[2019-06-30 14:12] VITALS: BMI 29.4
--- NOTE | 2019-06-30 14:33 | RAD_ITS ---
STUDY: X-RAY - LEFT WRIST REASON FOR EXAM: Female, 78 years old. FRACTURE TECHNIQUE: 3 view(s) of the wrist were obtained. COMPARISON: FINDINGS: Healing fracture the distal radius. Normal radiocarpal articulation. Normal distal radioulnar articulation. Normal carpal bones. Normal carpal articulations. Normal carpometacarpal articulation of the thumb. Normal second through fifth carpometacarpal articulations. Normal visualized metacarpal bones. Fiberglas cast a posterior soft tissue and bony detail. RAD/Wrist min 3 Views IMPRESSION: Healing fracture the distal radius. Electronically Signed: Loy Howe MD at 15:26 EST Tel , Service support ,
== END ==
PROVIDERS: PCP Family Medicine; Referring Provider Orthopaedic Surgery; Visit Provider Orthopaedic Surgery
DX: S52.502A Unspecified fracture of the lower end of left radius, initial encounter for closed fracture (principal)
CPT/HCPCS: 73110

== ENCOUNTER → 2019-07-14 13:58 | Outpatient (CLI) | payer MEDICARE, OTHER, SELFPAY ==
[2019-06-30 14:12] VITALS: BMI 29.4
--- NOTE | 2019-07-14 13:59 | RAD_ITS ---
STUDY: X-RAY - LEFT WRIST REASON FOR EXAM: Female, 78 years old. FRACTURE TECHNIQUE: 3 view(s) of the wrist were obtained. COMPARISON: Numerous prior studies were reviewed including status post resection, of 06/30/2019. FINDINGS: Cast has been removed. Mildly impacted fracture seen of the distal radial metaphysis. Although there has probably been some healing, fracture lines are still clearly evident. There is mild shortening. Mild dorsal relation of the articular surface. Ununited fracture of the tip of the ulnar styloid. Diffuse demineralization. Diffuse soft tissue swelling. RAD/Wrist min 3 Views IMPRESSION: Stable mildly impacted fracture of the distal radial metaphysis. Fracture line still faintly visible. Electronically Signed: Afshin Morse MD at 16:49 EST , Service support ,
== END ==
PROVIDERS: PCP Family Medicine; Referring Provider Orthopaedic Surgery; Visit Provider Orthopaedic Surgery
DX: S52.502D Unspecified fracture of the lower end of left radius, subsequent encounter for closed fracture with routine healing (principal)
CPT/HCPCS: 73110

== ENCOUNTER 2019-07-24 15:54 | Outpatient (RCR) | payer MEDICARE, OTHER, SELFPAY ==
[2019-05-01 16:23] VITALS: BMI 27.8
[2019-07-14 14:36] VITALS: BMI 29.4
[2019-07-24 18:08] LABS: International Normalized Ratio 2.4
== END 2019-07-24 18:00 | disposition home or self-care (01) ==
LOC: MTLAB 15:54
PROVIDERS: Family Provider Family Medicine; PCP Family Medicine; Referring Provider Internal Medicine Cardiovascular Disease; Visit Provider Internal Medicine Cardiovascular Disease
DX: I48.20 Chronic atrial fibrillation, unspecified (principal); Z79.01 Long term (current) use of anticoagulants
CPT/HCPCS: 36415; 85610

== ENCOUNTER 2019-07-28 15:00 | Outpatient (RCR) | payer MEDICARE, OTHER, SELFPAY ==
[2019-07-14 14:36] VITALS: BMI 29.4
--- NOTE | 2019-07-17 09:23 | HP.OTEVAL ---
Patient's Visit Information ANGELINA SONI is a 78 year old F, referred to Occupational Therapy by Nixon Perez DO, with a diagnosis of L distal radial fracture. Date of Evaluation: 07/16/19 Occupational Therapist: Stephenie Tadeo, FRANCISCO/Olivia - Subjective Subjective: Arrived and noted fell down last step of basement stairs and broke left wrist in May. She noted that she was casted on for 6 weeks. She noted splint on for about week. She arrived at appointment post Dr. Eid appointment and arrived 30 mins late for evaluation. Dorsal skin is shiny, and she noted she just had cortisone injection to wrist at Dr. Baires office due to concerns of psoriatic arthritis flare. She guards L wrist consistently. - ADLs Dressing: Bra, Pants, Socks, Shoes Fasteners: Tie shoes, Buttons, Zippers, Snaps, [place] Eating: Use silverware, Cut food Bathing: Handle washcloth & soap, Wash hair, Squeeze shampoo bottle Toileting: Manage clothing Grooming: Comb hair, Squeeze toothpaste on, [place] teeth Kitchen: Chop with knife, Peel fruits & vegetables, Open jars, Open bottle caps, Ziplock bags, Lift gallon of milk, Pour from pitcher, Lift saucepan, Take dish out of oven, Place dish in microwave Household: Vacuum, Sweep/mop, Laundry - Pain Left wrist 0 - Objective Objective/Observation: Skin appears shiny; edema noted; protection techniques to L wrist and hand. - ROM Forearm: sup R WFL, L 0-80, pro R WFL, L 0-74 Wrist: flexion R 0-68, L 0-32; ext R 0-45, L 0-36 MP: R wfl: L 2nd 0-68, 3rd 0-76, 4th 0-77, 5th 0-78 PIP: R WFL; L 2nd 0-87, 3rd 0-79, 4th 0-84, 5th 0-87 DIP: R WFL; L 2nd 0-45, 3rd 0-37, 4th 0-42, 5th 0-56 ROM Comments: ABout 1.5 inches from full composite fist from palm to MF of L hand. - Edema Wrist: circumference R 5.5 ,L 7.0 inches ; finger 8 R 14, L 15 inches - Sensation Sensation Comments: Denies numbess or tingling. - In-Hand Manipulation Finger to Palm Translation: Normal - Right, Severe - Left Palm to Finger Translation: Normal - Right, Severe - Left Shift: Normal - Right, Severe - Left Rotation: Normal - Right, Severe - Left - Quick DASH-Disab of Arm,Shoulder& Hand Quick DASH Score: 52.2725 - Goals Goal:: Angelina to increased L hand herb counselor strength by 15- 20 lbs to promote return to PLOF for ADL/IADLs by d/c. Goal:: Angelina to increase l wrist ROM by 10- 15 degrees to promote progression of increased mobility to that similar of R wrist 4/5 trials 80% of the time by d/c. Goal:: Angelina to have no more than 1-2/10 pain in L wrist with ADL/IADL tasks 4/5 trials 80% of the time by d/c. Goal:: Angelina to be mod I to effectively manage edema in L hand and wrist 4/5 trials 80% of the time with use of techniques and management tools to promote returning to PLOF by d/c. Goal:: Angelina to be mod I to complete correct wrist ergonomics and joint protection techniques 4/5 trials 80% of the time to decrease risk of further injury of L wrist and hand by d/c. Goal:: Angelina to be (i) to retrun to all ADL/IADls including opening jars, completing buttons and self care fasteners,and general ADL/IADLs 4/5 trials 80% of the time by d/c. Goal:: Angelina to be mod I to complete HEP to promote increased ROM, strength, and edema management 4/5 trials 80% of the time by d/c. - Rehabilitation General Assessment: Angelina arrived to OT evaluation on this date of 07/16/2019. She presents with L distal radius fracture and is currently about 8 weeks out. She noted cast was removed Sunday and she had cortisone injection directly prior to OT session by Dr. Eid due to potential arthritis flare in left wrist. Her skins presents as shiny, red, and puffy. She has limited ROM and strength of L hand and wrist. Increased pain observed with movement. She is unable to make full composite fist and skilled OT warranted for ROM, strength with PRE, edema management, and returning to all ADL/IADls by d/c. Rehabilitation Potential: Good - Anticipated Interventions Anticipated Interventions: A/AAROM/PROM, Strengthening, Edema Control, Massage, Wound Care, Modalities, Orthoses, Joint Protection/Energy Conservation, Ergonomic Education, Fine Motor Coord/Gabriel, Cognitive Skills, ADL Training, Caregiver Training, Home Program - Visit Plan Frequency: 2x /Week Duration: 4 Weeks General Plan: Angelina to complete skilled OT treatment for ROM, strength with PRE, edema management, pain management, and return to ADL/IADls at [facility]. TEXT: Thank you for the opportunity to evaluate your patient. For Medicare and Medicare HMO plans, please review the plan of care and approve it. It will need to be FAXED BACK to us at [phone] for Medicare purposes. Please let me know if there are questions or concerns regarding this plan of care. Physician Signature: Date:
--- NOTE | 2019-07-28 15:50 | HP.OTDCSUM ---
It has been my pleasure to treat ANGELINA SONI under orders from Nixon Perez DO for the diagnosis of L distal radial fracture for a total of 4 visit(s). Please see the following information for a summary of their discharge status. % Improvement: 90 Objective/Function: wrist 65/30. forearm sup/pron WNL. left binder stripper hand strength 25# pt instructed to cont with PRE at home to increase her strength Patient Goals: Regain Mobility, Regain Strength, Decrease Pain, Decrease Swelling/Stiffness, Improve Fine Motor Skills, Use Hand/Wrist/Arm Normally Again, Sleep Better, Decrease Tingling/Numbness, Increase ROM, Be More Independent in ADLS, Decrease Muscle Tone, Resume Former Household Responsibilities (Cooking,Cleaning,Yard, etc.), Resume Hobbies Goal:: Angelina to increased L hand binder stripper hand strength by 15- 20 lbs to promote return to PLOF for ADL/IADLs by d/c. Goal:: Angelina to increase l wrist ROM by 10- 15 degrees to promote progression of increased mobility to that similar of R wrist 4/5 trials 80% of the time by d/c. Goal:: Angelina to have no more than 1-2/10 pain in L wrist with ADL/IADL tasks 4/5 trials 80% of the time by d/c. Goal:: Angelina to be mod I to effectively manage edema in L hand and wrist 4/5 trials 80% of the time with use of techniques and management tools to promote returning to PLOF by d/c. Goal:: Angelina to be mod I to complete correct wrist ergonomics and joint protection techniques 4/5 trials 80% of the time to decrease risk of further injury of L wrist and hand by d/c. Goal:: Angelina to be (i) to retrun to all ADL/IADls including opening jars, completing buttons and self care fasteners,and general ADL/IADLs 4/5 trials 80% of the time by d/c. Goal:: Angelina to be mod I to complete HEP to promote increased ROM, strength, and edema management 4/5 trials 80% of the time by d/c. Plan: D/C with HEP Discharge Comments: pt was seen for 4 OT sessions- pt returned for her 4th visit reporting she was 90% better than initial OT eval- pt reports she is MURIEL with ADLS states she does get left thumb pain from time to time. With pt report and objective measurments pt can be D/C with HEP to cont. with strengthening. pt agree to POC If there are questions or concerns regarding this patient's occupational therapy, please fell free to call me at [phone]. Thank you for the referral of this patient. Sincerely, Crystal Bush, OTR/L, CHT
== END 2019-07-28 19:00 | disposition home or self-care (01) ==
LOC: OT 15:00
PROVIDERS: PCP Family Medicine; Referring Provider Orthopaedic Surgery; Visit Provider Orthopaedic Surgery
DX: S52.502D Unspecified fracture of the lower end of left radius, subsequent encounter for closed fracture with routine healing (principal)
CPT/HCPCS: 97110; 97166; 97530

== ENCOUNTER 2019-09-15 15:42 | Outpatient (RCR) | payer MEDICARE, OTHER, SELFPAY ==
[2019-07-14 14:36] VITALS: BMI 29.4
[2019-08-18 10:25] VITALS: BMI 29.4
[2019-09-15 17:49] LABS: Absolute Lymphocyte Count 1.56 X10^3/uL (0.83-4.51); Absolute Neutrophil Count 4.7 X10^3/uL (2.0-7.7); Basophil# 0.04 X10^3/uL; Basophil% 0.6 % (0-1); Eosinophil# 0.09 X10^3/uL; Eosinophils% 1.3 % (0-5); Hematocrit 36.6 % (37-47); Hemoglobin 12.1 g/dL (12.0-15.0); Lymphocyte # 1.56 X10^3/ul (4.0); Lymphocyte % 23.2 % (19-41); Mean Corp Hgb Conc 33.1 g/dL (32-36); Mean Corpuscular Volume 102.8 fL (81-99); Mean Platelet Vol. 11.3 fl (6.2-12.0); Monocyte# 0.26 X10^3/uL; Monocyte% 3.9 % (0-10); NRBC Flagged by Analyzer 0 % (0-5); Neutrophil # 4.74 X10^3/uL (2.7-7.7); Neutrophil % 70.7 % (47-70); Platelet Count 272 K/mm3 (150-450); RBC Distribution Width CV 14.3 % (11.6-14.6); RBC Distribution Width SD 53.9 fl (35.1-43.9); Red Blood Count 3.56 M/mm3 (4.2-5.4); White Blood Count 6.7 K/mm3 (4.4-11.0)
[2019-09-15 17:55] LABS: International Normalized Ratio 2.2; Prothrombin Time (Protime)PT. 24.3 SECONDS (11.7-14.9)
[2019-09-15 18:05] LABS: AST(SGOT) 39 U/L (15-37); Alanine Aminotransfer ALT/SGPT 35 U/L (13-56); Albumin, Serum 3.3 g/dL (3.2-5.0); Alkaline Phosphatase 54 U/L (45-117); Anion Gap 5 (5-15); BUN 17 mg/dL (7-18); Calcium,Total 9.5 mg/dL (8.5-10.1); Chloride 107 mmol/L (98-107); Creatinine, Serum 0.81 mg/dL (0.55-1.02); EST Glomerular Filtration Rate 72 mL/min (>60); Est Glom Filt Rate - Afr Amer 87 mL/min (>60); Globulin 3.4 g/dL (2.2-4.2); Glucose 85 mg/dL (74-106); Potassium 4.1 mmol/L (3.5-5.1); Protein, Total 6.7 g/dL (6.4-8.2); Sodium Level 137 mmol/L (136-145)
== END 2019-09-15 18:00 | disposition home or self-care (01) ==
LOC: MTLAB 15:42
PROVIDERS: Family Provider Family Medicine; PCP Family Medicine; Referring Provider Internal Medicine Cardiovascular Disease; Visit Provider Internal Medicine Cardiovascular Disease
DX: I48.20 Chronic atrial fibrillation, unspecified (principal); Z79.01 Long term (current) use of anticoagulants
CPT/HCPCS: 36415; 80053; 85025; 85610

== ENCOUNTER 2019-10-02 08:33 | Day surgery (SDC) | payer MEDICARE, OTHER, SELFPAY ==
[2019-09-26 11:18] VITALS: BMI 30.2
--- NOTE | 2019-09-30 10:00 | CT_ITS ---
STUDY: CT LEFT ELBOW WITHOUT CONTRAST REASON FOR EXAM: Female, 78 years old. LEFT ELBOW FRACTURE RADIATION DOSAGE (If Supplied By Facility): CTDIvol = ( 25.68 ) mGy, DLP = ( 559.96 ) mGycm TECHNIQUE: Transaxial CT imaging of the elbow was performed. Sagittal and coronal images were reconstructed. Individualized dose optimization techniques were used for this CT. COMPARISON: None. FINDINGS: There is a comminuted displaced fracture of the proximal end of the ulna at the base of the olecranon. Normal visualized humerus, radius . Normal radiocapitellar and ulnotrochlear articulations. There is moderate-sized joint effusion. CT/Extremity Upper without Contra IMPRESSION: There is a comminuted displaced fracture of the proximal end of the ulna at the base of the olecranon. Electronically Signed: Carola Hanson, at 15:41 EDT Tel , Service support ,
[2019-10-01 10:59] VITALS: BMI 30.2
[2019-10-02] VITALS (17 sets, daily range): BP systolic 119–149; BP diastolic 64–94; PULSE 70–92; RESP 14–18; TEMP 35.9–36.9; O2SAT 92–99; BMI 28.3
[2019-10-02] MEDS: Lactated Ringers 1,000 ML 100 ML IV (09:31)
[2019-10-02 09:44] LABS: International Normalized Ratio 1.8; Prothrombin Time (Protime)PT. 20.5 SECONDS (11.7-14.9)
--- NOTE | 2019-10-02 10:00 | RAD_ITS ---
STUDY: X-RAY - LEFT ELBOW REASON FOR EXAM: Female, 78 years old. ORIF olecranon TECHNIQUE: 3 intraoperative fluoroscopic view(s) of the elbow. COMPARISON: 09/30/2019. FINDINGS: Operative fluoroscopic views of the olecranon ORIF demonstrate hardware in place. Alignment is anatomic. The remainder of the osseous structures are intact. RAD/Elbow 2 Views IMPRESSION: Intraoperative fluoroscopic images ORIF left elbow. Fluoroscopy time not provided. Electronically Signed: Brad Scanlon, at 18:41 EDT Tel , Service support ,
--- NOTE | 2019-10-02 11:41 | SUR.PREOP ---
pt. reporting itching. ffp stopped, nacl infusing. rn spoke to dr. massey, new orders received for benadryl and then to resume ffp and monitor pt.
[2019-10-02] MEDS: DiphenhydrAMINE 50 MG/ML Syringe 25 MG IV (11:50)
[2019-10-02] MEDS: Cefazolin 2 GM in 0.9% Normal Saline 100 ML IV (13:55)
--- NOTE | 2019-10-02 15:59 | PCM.DC.ORTHO ---
Discharge Diet: No Restrictions Call your doctor if you observe: Shortness of breath, Chest pain Additional Instructions: Encourage finger and wrist range of motion. Keep elevated above heart hand higher than elbow 1 week when not ambulating. Sling is for comfort may remove. Keep dressing on clean and dry do not get dressing wet. Follow-up in 1 week for wound check with Dr. Perez. Call with any questions or concerns. Do not lift push or pull with operative extremity. Do not let animals near operative extremity. Allergies/Adverse Reactions: Allergies latex Allergy (Verified 09/30/19 13:03) Itching ursodiol Allergy (Verified 09/30/19 13:03) Unknown belladonna alkaloids [Belladonna Alkaloids] Adverse Reaction (Verified 09/30/19 13:03) Unknown formaldehyde Adverse Reaction (Verified 09/30/19 13:03) Rash phenobarbital Adverse Reaction (Verified 09/30/19 13:03) Unknown ranitidine HCl [From Zantac] Adverse Reaction (Verified 09/30/19 13:03) Unknown Medications to take at Discharge Aspirin [Aspirin, Baby] 81 mg PO DAILY@0800 02/24/14 Cholecalciferol (VIT D3) [Vitamin D3] 1,000 unit PO DAILY 05/28/15 Polyethylene Glycol 3350 [Miralax] 17 gm PO PRN PRN 05/28/15 folic acid 1 mg tablet 1 mg PO DAILY 03/14/18 Acetaminophen [Tylenol Tablet] 650 mg PO Q4H PRN PRN tab 05/25/18 warfarin 3 mg tablet 3 mg PO .COMPLEX #30 tab 03/31/19 isosorbide mononitrate 30 mg tablet,extended release 24 hr 30 mg PO QAM #30 tab 05/01/19 lisinopril 20 mg tablet 20 mg PO DAILY #90 tab 05/01/19 pantoprazole 40 mg tablet,delayed release 40 mg PO DAILY #30 tab 05/01/19 Hydrocodone/Acetaminophen [[place] 5-325 Tablet] 1 ea PO 4X/DAY PRN PRN #20 tab 06/03/19 hydrocodone 5 mg-acetaminophen 325 mg tablet 1 tab PO Q6H PRN #28 tab 06/11/19 hydrocodone 5 mg-acetaminophen 325 mg tablet 1 tab PO Q8H PRN #40 tab 06/18/19 warfarin 2 mg tablet 2 mg PO .COMPLEX #30 tab 07/14/19 simvastatin 20 mg tablet 20 mg PO QHS #90 tab 09/02/19 metoprolol succinate 50 mg tablet,extended release 24 hr 50 mg PO DAILY #30 tab 09/22/19 Methotrexate 15 mg PO Q7D 09/30/19 Acetaminophen [Tylenol Extra Strength] 1,000 mg PO Q6H PRN #100 tab 10/02/19 Cephalexin [Keflex] 1,000 mg PO Q8 #4 cap 10/02/19 Oxycodone [Oxyir] 5 mg PO Q4H PRN PRN #30 tablet 10/02/19 The following prescriptions were given: Cephalexin [Keflex] 1,000 mg PO Q8 #4 cap Transmission Status: Pending to [facility] Oxycodone [Oxyir] 5 mg PO Q4H PRN PRN #30 tablet PRN Reason: Pain Score 6-10/10 Transmission Status: Sent to [facility] Acetaminophen [Tylenol Extra Strength] 1,000 mg PO Q6H PRN #100 tab Transmission Status: Pending to [facility] Orders to be completed after discharge: CORONAVIRUS 19, CHUCK Time Frame: 10/01/19, Facility: [facility], Location: Laboratory Primary Care Physician: Paul Mccullough MD [Primary Care Provider] - Test Results: Test results from this visit will be discussed in further detail at your follow-up appointment, if applicable. Please Follow Up With: Nixon Perez DO - 1 week
[2019-10-02] MEDS: Cefazolin 1 GM/50 ML BAG IV ×2 (16:00→21:32)
--- NOTE | 2019-10-02 16:02 | OP.PCM_ITS ---
Report of Operation Date of Procedure: 10/02/19 Description of Surgical Findings:: Preoperative diagnosis: Left comminuted proximal olecranon fracture and displaced intra-articular Postoperative diagnosis: Same Procedure: ORIF left olecranon Anesthesia: General with supraclavicular block EBL: 30 cc Complications: None Condition: Stable to PACU Indication for procedure: Pleasant 56-icik-nsg-year-old female status post fall with comminuted olecranon fracture on Coumadin surgery was postponed secondary to swelling and Coumadin use. Managed by PCP patient arrived with INR of 1.7 to the hospital 1 unit of FFP was transfused INR repeated at 1.4. Thorough discussion was had with the patient in the office in regards to fracture and benefit of open reduction internal fixation risk benefits and alternatives were reviewed including risk of bleeding infection nerve, artery, bone, tissue damage, blood clot need for further surgery and continued pain. [In addition to standard risk risk of COVID-19 exposure and potential consequences including respiratory failure ventilation and patient wishes to assume this risk secondary to ongoing progressive worsening symptoms that are limiting activities of daily living.] Procedure: Patient was met in the preoperative holding area once again the operative extremity was identified by both patient and physician was marked patient was brought back to the operative anesthesia was started she was positioned in the lateral decubitus position with all her bony prominences well- padded she was prepped and draped in the usual sterile fashion a timeout was called into the proper patient procedure extremity being contemplated. Well- padded tourniquet was placed on left upper extremity prior to draping. A standard posterior incision that was curvilinear around the olecranon was performed dissection was carried down as full-thickness flaps to the bone and tr iceps fascia the fracture was visualized cleaned of hematoma and was reduced and pinned with a K wire a spanning locking plate was applied compression screws were placed in the shaft and proximal fragment the proximal compression screw was replaced with a locking screw and subsequent locking screws were placed along the plate secondary to her bone quality the wound was thoroughly irrigated prior to reduction and post reduction with plate a 2-0 FiberWire was Krak?w stitched along the triceps tendon and then was secured distally through bone tunnel under the plate in the shaft wound was closed with #1 Vicryl followed by 2-0 Vicryl and raj in the skin dressing was applied in the form of Xeroform 4 x 4 web roll and posterior plaster splint followed by an Jonnathan wrap tolerated the procedure all counts were correct no intraoperative complications
[2019-10-02] MEDS: Dext 5%-0.45% NS 1,000 ML 80 ML IV (20:15)
[2019-10-02] MEDS: 0.9% Saline Lock 10 ML Syringe IV ×2 (20:52→21:36)
[2019-10-02] MEDS: Acetaminophen 500 MG Tablet 1000 MG PO (21:32)
[2019-10-02] MEDS: Atorvastatin Calcium 10 MG Tablet PO (21:32)
[2019-10-03] MEDS: oxyCODONE 5 MG Tablet PO ×4 (00:19→12:26)
[2019-10-03 03:37] VITALS: BP 105/51; PULSE 67; RESP 16; TEMP 36.7; O2SAT 92
[2019-10-03] MEDS: Acetaminophen 500 MG Tablet 1000 MG PO (06:01)
[2019-10-03] MEDS: Cefazolin 1 GM/50 ML BAG IV (06:02)
[2019-10-03 08:36] VITALS: PULSE 78
[2019-10-03] MEDS: Isosorbide Mononitrate 30 MG Tablet PO (08:36)
[2019-10-03] MEDS: Lisinopril 20 MG Tablet PO (08:36)
[2019-10-03] MEDS: Pantoprazole Sodium 40 MG Tablet PO (08:36)
[2019-10-03] MEDS: Metoprolol(XL)Succ 50 MG Tablet PO (08:36)
[2019-10-03 08:38] VITALS: BP 134/64; PULSE 78; RESP 19; TEMP 36.7; O2SAT 97
--- NOTE | 2019-10-03 12:17 | PN.ORTHO_ITS ---
Subjective: Patient seen and examined. Doing okay. Had some issues urinating yesterday postoperatively she was straight cath and kept overnight she has been able to void her urine since denies other complaints of short chest pain shortness of breath - Physical Exam Vitals/I&O's: Vital Signs Temp Pulse Resp BP Pulse Ox 98.1 F 78 19 H 134/64 H 97 10/03/19 08:38 10/03/19 08:38 10/03/19 08:38 10/03/19 08:38 10/03/19 08:38 Oxygen Flow Rate (L/min) 2 Oxygen Delivery Method Room Air Weight: 130 lb 15.273 oz Body Mass Index (BMI) 28.3 Intake and Output for Last 24 Hours 10/01/19 10/02/19 10/03/19 23:59 23:59 23:59 Intake Total 1539.34 / 1639.34 1130.66 / 1130.66 Output Total 600 / 700 250 / 250 Balance 939.34 / 939.34 880.66 / 880.66 General: Alert, Oriented x3, Cooperative, No apparent distress Extremities: - - Left upper extremity and posterior slab splint splint with soft dressing around hand with mild swelling and ecchymosis neurovascular intact compartments soft Microbiology Past 72 Hours 10/01/19 11:55 Mucosa - Nasopharyngeal Coronavirus COVID-19 PCR - Final Current Medications Acetaminophen (Tylenol) 1,000 mg PO Q8 [facility] Last Admin: 10/03/19 06:01 Dose: 1,000 mg Documented by: Atorvastatin Calcium (Lipitor) 10 mg PO QHS [facility] Last Admin: 10/02/19 21:32 Dose: 10 mg Documented by: Dextrose/Sodium Chloride () 1,000 mls @ 80 mls/hr IV .[id number] [facility] Last Infusion: 10/03/19 10:21 Dose: Infused Documented by: Isosorbide Mononitrate (Imdur) 30 mg PO QAM [facility] Last Admin: 10/03/19 08:36 Dose: 30 mg Documented by: Lisinopril (Zestril) 20 mg PO DAILY [facility] Last Admin: 10/03/19 08:36 Dose: 20 mg Documented by: Metoprolol Succinate (Toprol Xl (Beta Bry)) 50 mg PO DAILY [facility] Last Admin: 10/03/19 08:36 Dose: 50 mg Documented by: Ondansetron HCl (Zofran) 4 mg IV Q6H PRN PRN PRN Reason: NAUSEA Oxycodone HCl (Oxyir) 5 mg PO Q4H PRN PRN PRN Reason: Pain Score 6-10/10 Last Admin: 10/03/19 08:35 Dose: 5 mg Documented by: Pantoprazole Sodium (Protonix) 40 mg PO DAILY [facility] Last Admin: 10/03/19 08:36 Dose: 40 mg Documented by: Polyethylene Glycol (Miralax) 17 gm PO DAILY PRN PRN PRN Reason: CONSTIPATION Sodium Chloride () 10 - 40 ml IV UD PRN PRN Reason: SALINE FLUSH Last Admin: 10/02/19 21:36 Dose: 10 ml Documented by: Warfarin Sodium (Coumadin (Pbkc)) 3 mg PO WeThFr@1700 [facility]; Protocol Warfarin Sodium (Coumadin (Pbkc)) 2 mg PO SuMoTuSa@1700 [facility]; Protocol Medical Necessity - Tobacco Use Smoking Status: Current every day smoker Tobacco Use: Cigarettes Assessment/Plan All Active Problems (Last Updated 05/16/19 @ 13:02 by Leida Arechiga) Abnormal chest x-ray (Resolved) Chest pressure (Resolved) Coumadin toxicity (Resolved) Gross hematuria (Resolved) Hypotension (Resolved) Postop day 1 left olecranon ORIF. Doing okay will discharge home with oxycodone okay to resume Coumadin. Ice and elevate left upper extremity encourage finger range of motion no lifting pushing or pulling with the left upper extremity follow-up in the office in 1 week for wound check and start physical therapy that time.
[2019-10-03 16:47] LABS: Prothrombin Time Fingerstick 17.5 SEC (11.9-14.4)
--- NOTE | 2019-10-04 12:20 | HP.PCM_ITS ---
History and Physical Date of Admission: 10/02/19 Intake Intake Visit Reasons: LEFT ELBOW Is patient in pain?: Yes Pain scale (1-10): 1 Allergies latex Allergy (Verified 09/30/19 13:03) Itching ursodiol Allergy (Verified 09/30/19 13:03) Unknown belladonna alkaloids belladonna Alkaloids adverse Reaction (Verified 09/30/19 13:03) Unknown formaldehyde Adverse Reaction (Verified 09/30/19 13:03) Rash phenobarbital Adverse Reaction (Verified 09/30/19 13:03) Unknown ranitidine HCl from Zantac adverse Reaction (Verified 09/30/19 13:03) Unknown [facility] Medical History (Updated 05/16/19 @ 13:02 by Leida Arechiga) Atherosclerotic heart disease of [place] coronary artery without angina pectoris (Chronic) Chronic atrial fibrillation (Chronic) Essential (primary) hypertension (Chronic) Hyperlipidemia (Chronic) Nicotine dependence (Chronic) residential (current) use of anticoagulants (Chronic) Benign neoplasm of parotid gland (Chronic) Vitamin D deficiency (Chronic) Gross hematuria (Resolved) Atherosclerotic heart disease [place] coronary artery w/angina pectoris (Inactive) Surgical History History of coronary artery stent placement (Chronic) Social History (Updated 10/01/19 @ 12:[address] Nixon Perez DO) Smoking Status: Current every day smoker tobacco type: cigarettes HPI LEFT ELBOW: Details: Parts of this documentation were recorded by a scribe, this documentation accurately reflects the service provided and the decisions made by me, Dr. Nixon Perez DO 10/01/19 [id number]. ANGELINA SONI is a 78 year old F here today for a swelling check and CT review on a fracture left elbow. Her swelling is improving in the hand, there is increased discoloration noted today. Denies numbness, tingling or other associated symptoms. She has stopped her warfarin and methotrexate. Ortho Exam Left Elbow Skin/Wound: Yes eccymosis, No erythema, Yes Swelling ROM: Yes TTP Fracture Site ELBOW: Limited range of motion there is swelling but compartments are compressible and wrinkle sign is present posterior elbow Supplemental Info CT scan 09/30/2019 left elbow: Comminuted olecranon fracture X-ray on disc 09/24/2019 comminuted and displaced olecranon fracture Assessment & Plan Problems 1. Other fracture of upper end of left ulna, initial encounter for closed fracture S52.092A Plan Explained that she has we will need her INR down tomorrow before surgery. Her ct scan showed a fracture that may lead to a tricep advancement procedure due the fracture type, will determine Versus ORIFduring surgery. Instructed to continue to elevate and reviewed post op restrictions with pushing and pulling and begin gentle rom soon after surgery. Follow up in 2 weeks postop or sooner if pain, swelling, numbness or associated symptoms, or concerns develop. All questions answered. Patient in agreement of plan. Coding Level of Care Code Off vis,est,level 3 Diagnoses Other fracture of upper end of left ulna, initial encounter for closed fracture S52.092A I have re-examined the patient. There are no clinical changes since date of exam In addition to standard risk risk of COVID-19 exposure and potential consequences including respiratory failure ventilation and patient wishes to assume this risk secondary to ongoing progressive worsening symptoms that are limiting activities of daily living.
== END 2019-10-03 12:29 | disposition home or self-care (01) ==
LOC: SDC 08:35 → MS3 21:06
PROVIDERS: PCP Family Medicine; Referring Provider Orthopaedic Surgery; Visit Provider Orthopaedic Surgery
PROC: (CPT 24685; principal; 2019-10-02 09:45)
DX: S52.032A Displaced fracture of olecranon process with intraarticular extension of left ulna, initial encounter for closed fracture (principal); W19.XXXA Unspecified fall, initial encounter; I25.10 Atherosclerotic heart disease of native coronary artery without angina pectoris; I48.20 Chronic atrial fibrillation, unspecified; I10 Essential (primary) hypertension; E78.5 Hyperlipidemia, unspecified; Z79.01 Long term (current) use of anticoagulants; Z79.899 Other long term (current) drug therapy; E55.9 Vitamin D deficiency, unspecified; Z95.5 Presence of coronary angioplasty implant and graft; F17.210 Nicotine dependence, cigarettes, uncomplicated; K21.9 Gastro-esophageal reflux disease without esophagitis; Z11.59 Encounter for screening for other viral diseases
CPT/HCPCS: 24685; 64418; 36415; 36416; 73070; 73200; 76000; 85610; 86900; 86901; 87635; C1713; G2023; J7040; J7120; P9017; A4216; J2405; J7799; U0004

== ENCOUNTER → 2019-10-20 | Outpatient (CLI) | payer MEDICARE, OTHER, SELFPAY ==
[2019-10-20 13:07] VITALS: BMI 28.3
--- NOTE | 2019-10-20 13:07 | RAD_ITS ---
STUDY: X-RAY - LEFT ELBOW REASON FOR EXAM: Female, 78 years old. POST OP TECHNIQUE: 4 view(s) of the elbow. COMPARISON: October 02, 2019. FINDINGS: Status post olecranon ORIF. Surgical hardware intact/well aligned. Healing fracture fragments in near-anatomic alignment. Moderate ulnar trochlear joint arthrosis. Mild radiocapitellar joint arthrosis. No new fracture line. No dislocation. No bone destruction. Mild swelling. Small joint effusion. RAD/Elbow min 3 Views IMPRESSION: Uncomplicated olecranon ORIF Mild/moderate osteoarthritis Mild swelling with small joint effusion Electronically Signed: Pato Ayon DO at 9:54 EDT Tel , Service support ,
== END | disposition home or self-care (01) ==
LOC: HPRAD 13:07
PROVIDERS: PCP Family Medicine; Referring Provider Orthopaedic Surgery; Visit Provider Orthopaedic Surgery
DX: S52.092A Other fracture of upper end of left ulna, initial encounter for closed fracture (principal); Z47.89 Encounter for other orthopedic aftercare
CPT/HCPCS: 73080

== ENCOUNTER 2019-10-21 14:55 | Outpatient (RCR) | payer MEDICARE, OTHER, SELFPAY ==
[2019-10-02 20:19] VITALS: BMI 28.3
[2019-10-20 13:07] VITALS: BMI 28.3
== END 2019-10-21 18:00 | disposition home or self-care (01) ==
LOC: MTLAB 14:55
PROVIDERS: Internal Medicine Cardiovascular Disease; Family Provider Family Medicine; PCP Family Medicine; Referring Provider Internal Medicine Cardiovascular Disease; Visit Provider Internal Medicine Cardiovascular Disease
DX: I48.20 Chronic atrial fibrillation, unspecified (principal); Z79.01 Long term (current) use of anticoagulants; Z47.89 Encounter for other orthopedic aftercare
CPT/HCPCS: 36415; 85610; 97110; 97140

== ENCOUNTER → 2019-11-04 13:46 | Outpatient (CLI) | payer MEDICARE, OTHER, SELFPAY ==
[2019-10-20 13:07] VITALS: BMI 28.3
[2019-11-04 15:27] LABS: Absolute Lymphocyte Count 1.34 X10^3/uL (0.83-4.51); Absolute Neutrophil Count 4.1 X10^3/uL (2.0-7.7); Basophil# 0.04 X10^3/uL; Basophil% 0.7 % (0-1); Eosinophil# 0.07 X10^3/uL; Eosinophils% 1.2 % (0-5); Hematocrit 36.1 % (37-47); Hemoglobin 11.8 g/dL (12.0-15.0); Lymphocyte # 1.34 X10^3/ul (4.0); Lymphocyte % 22.7 % (19-41); Mean Corp Hgb Conc 32.7 g/dL (32-36); Mean Corpuscular Hgb 35.1 pg (27.0-32.0); Mean Corpuscular Volume 107.4 fL (81-99); Mean Platelet Vol. 11.3 fl (6.2-12.0); Monocyte# 0.39 X10^3/uL; Monocyte% 6.6 % (0-10); NRBC Flagged by Analyzer 0 % (0-5); Neutrophil # 4.06 X10^3/uL (2.7-7.7); Neutrophil % 68.6 % (47-70); Platelet Count 279 K/mm3 (150-450); RBC Distribution Width CV 13.2 % (11.6-14.6); RBC Distribution Width SD 52.4 fl (35.1-43.9); Red Blood Count 3.36 M/mm3 (4.2-5.4); White Blood Count 5.9 K/mm3 (4.4-11.0)
[2019-11-04 16:09] LABS: ALB/GLOB Ratio 0.9 RATIO (0.9-2.4); AST(SGOT) 18 U/L (15-37); Alanine Aminotransfer ALT/SGPT 20 U/L (13-56); Albumin, Serum 3.5 g/dL (3.2-5.0); Alkaline Phosphatase 62 U/L (45-117); Anion Gap 7 (5-15); BUN 16 mg/dL (7-18); BUN/Creat Ratio 19.5 RATIO (10-20); Chloride 106 mmol/L (98-107); Creatinine, Serum 0.82 mg/dL (0.55-1.02); EST Glomerular Filtration Rate 71 mL/min (>60); Est Glom Filt Rate - Afr Amer 86 mL/min (>60); Globulin 3.9 g/dL (2.2-4.2); Glucose 77 mg/dL (74-106); Potassium 3.8 mmol/L (3.5-5.1); Protein, Total 7.4 g/dL (6.4-8.2); Sodium Level 139 mmol/L (136-145)
== END ==
PROVIDERS: PCP Family Medicine; Referring Provider Internal Medicine Rheumatology; Visit Provider Internal Medicine Rheumatology
DX: M06.4 Inflammatory polyarthropathy (principal); Z79.899 Other long term (current) drug therapy; M72.2 Plantar fascial fibromatosis; K21.9 Gastro-esophageal reflux disease without esophagitis; I10 Essential (primary) hypertension; I48.20 Chronic atrial fibrillation, unspecified; I25.10 Atherosclerotic heart disease of native coronary artery without angina pectoris; K57.90 Diverticulosis of intestine, part unspecified, without perforation or abscess without bleeding; K21.0 Gastro-esophageal reflux disease with esophagitis; M47.897 Other spondylosis, lumbosacral region
CPT/HCPCS: 36415; 80053; 85025

== ENCOUNTER 2019-12-03 13:30 | Outpatient (RCR) | payer MEDICARE, OTHER, SELFPAY ==
[2019-10-02 20:19] VITALS: BMI 28.3
[2019-10-13 11:54] VITALS: BMI 28.3
--- NOTE | 2019-10-13 19:16 | HP.OTEVAL ---
Patient's Visit Information ANGELINA SONI is a 78 year old F, referred to Occupational Therapy by Dr. Nixon Perez DO, with a diagnosis of Olecranon fx. Date of Evaluation: 10/13/19 Occupational Therapist: Crystal Bush, FRANCISCO/Olivia, CHT - Subjective This 78 year old female was seen for OT eval with dx of left olecranon fx- S/P ORIF left Olecranon fx on 10/02/19. Pt arrives today with sx splint off raj intact. Jordan from Dr. Ana field tx ROM at this time and edema control. pt states she is limited to use of her left hand with ADLs and IADLs. States family is helping her at this time. denies pain and numbness. Per pt has approved lifting of coffee cup only at this time. pt to return next sunday for staple removal - ADLs Dressing: Bra, Pants, Socks, Shoes Fasteners: Tie shoes Bathing: Handle washcloth & soap, Wash hair Toileting: Manage clothing Household: Vacuum, Sweep/mop, Laundry - Objective pt amb with straight can with good ability- holds left UE up and guarded position. Brusing and edema in left UE - ROM Elbow: right 0/150 left -25/110 Forearm: right WNL left 20/80 - Strength Strength Comments: will test later date - Edema Elbow: right 22cm left 24cm - Sensation Sensation Comments: denies - Quick DASH-Disab of Arm,Shoulder& Hand Quick DASH Score: 61.3625 - Goals Goal:: Following 6 weeks pt will demo increase in left maintenance mechanic millwright strength to 25# or greater to return pt to performing IADLs and ADLs at PLOF by d/c Goal:: pt will demo a increase in left elbow ROM to 0/140 to return pt to PLOF with ADLs and IADLs by d/c. pt will demo a increase in left forarm supination to 75* or greater to return pt to PLOF with ADLS and IADLs by d/c Goal:: pt will demo circum. measurment of left elbow equal to right demo a reduction in edema by d/c - Rehabilitation General Assessment: Pt currently 1 week and 4 day S/P ORIF of left UE. PT demo with edema, newly healing structures, limited ROM and a decrease in her ind. with performing her ADLS and IADLS. Pt would benefit from skilled OT services 2x week for 6 weeks to return pt to PLOF. Today therapsit ed. pt on use of ice for 10 min 2x a day to mtg edema, initiate foream supination/pronation and elbow flex/ext ex. pt was instructed to perform ex slowly and not push on UE to gain ROM - pt demo understanding family present demo understanding and agree to POC. pt was given handout on ex. Rehabilitation Potential: Good - Anticipated Interventions A/AAROM/PROM, Strengthening, Edema Control, Triggerpoint Release, Desensitization, Sensory Retraining, Wound Care, Modalities, Joint Protection/Energy Conservation, Ergonomic Education - Visit Plan Frequency: 1-2x /Week Duration: 6 Weeks General Plan: cont with AROM of shoulder/elbow and forearm only at this time. edema mtg as needed and MEM to stimulate circlation and healing TEXT: Thank you for the opportunity to evaluate your patient. For Medicare and Medicare HMO plans, please review the plan of care and approve it. It will need to be FAXED BACK to us at [phone] for Medicare purposes. Please let me know if there are questions or concerns regarding this plan of care. Physician Signature: Date:
--- NOTE | 2020-01-29 09:26 | HP.OTDCSUM_ITS ---
It has been my pleasure to treat ANGELINA SONI under orders from Dr. Nixon Perez DO, for the diagnosis of Olecranon fx for a total of 10 visit(s). Please see the following information for a summary of their discharge status. % Improvement: 90 Objective/Function: pt demo with a left vertical punch operator strength of 10# and a right vertical punch operator strength 30#. left elbow -10/145 Patient Goals: Regain Mobility, Decrease Swelling/Stiffness, Use Hand/Wrist/Arm Normally Again Goal:: Following 6 weeks pt will demo increase in left vertical punch operator strength to 25# or greater to return pt to performing IADLs and ADLs at PLOF by d/c Goal:: pt will demo a increase in left elbow ROM to 0/140 to return pt to PLOF with ADLs and IADLs by d/c. pt will demo a increase in left forarm supination to 75* or greater to return pt to PLOF with ADLS and IADLs by d/c Goal:: pt will demo circum. measurment of left elbow equal to right demo a reduction in edema by d/c Plan: pt has no restriction. will see dr again in 6 weeks If there are questions or concerns regarding this patient's occupational therapy, please fell free to call me at [phone]. Thank you for the referral of this patient. Sincerely, Crystal Bush OTR/L, CHT
== END 2019-12-03 19:00 | disposition home or self-care (01) ==
LOC: OT 13:30
PROVIDERS: PCP Family Medicine; Referring Provider Orthopaedic Surgery; Visit Provider Orthopaedic Surgery
DX: Z47.89 Encounter for other orthopedic aftercare (principal)
CPT/HCPCS: 97110; 97140; 97166; 97530

== ENCOUNTER 2019-12-09 15:09 | Outpatient (RCR) | payer MEDICARE, OTHER, SELFPAY ==
[2019-10-20 13:07] VITALS: BMI 28.3
[2019-11-19 13:09] VITALS: BMI 28.3
[2019-12-09 16:00] LABS: International Normalized Ratio 1.6; Prothrombin Time (Protime)PT. 18.4 SECONDS (11.7-14.9)
== END 2019-12-09 18:00 | disposition home or self-care (01) ==
LOC: LAB 15:09
PROVIDERS: Family Provider Family Medicine; PCP Family Medicine; Referring Provider Internal Medicine Cardiovascular Disease; Visit Provider Internal Medicine Cardiovascular Disease
DX: I48.20 Chronic atrial fibrillation, unspecified (principal); Z79.01 Long term (current) use of anticoagulants
CPT/HCPCS: 36415; 85610

== ENCOUNTER → 2019-12-16 08:08 | Outpatient (CLI) | payer MEDICARE, OTHER, SELFPAY ==
[2019-11-19 13:09] VITALS: BMI 28.3
[2019-12-16 11:32] LABS: Prothrombin Time (Protime)PT. 22.3 SECONDS (11.7-14.9)
== END ==
PROVIDERS: PCP Family Medicine; Referring Provider Internal Medicine Cardiovascular Disease; Visit Provider Internal Medicine Cardiovascular Disease
DX: I48.20 Chronic atrial fibrillation, unspecified (principal); Z79.01 Long term (current) use of anticoagulants
CPT/HCPCS: 36415; 85610

== ENCOUNTER → 2019-12-30 05:14 | Outpatient (CLI) | payer MEDICARE, OTHER, SELFPAY ==
[2019-11-19 13:09] VITALS: BMI 28.3
[2019-12-30 09:21] LABS: International Normalized Ratio 2.4
[2019-12-30 09:27] LABS: AST(SGOT) 23 U/L (15-37); Alanine Aminotransfer ALT/SGPT 22 U/L (13-56); Albumin, Serum 3.6 g/dL (3.2-5.0); Alkaline Phosphatase 60 U/L (45-117); Bilirubin, Direct 0.28 mg/dL (0.00-0.30); Cholesterol 142 mg/dL (200); Globulin 3.6 g/dL (2.2-4.2); High Density Lipoprotein 51 mg/dL; Protein, Total 7.2 g/dL (6.4-8.2); Triglycerides 72 mg/dL; Very Low Density Lipoprotein 14 mg/dL (5-40)
== END ==
PROVIDERS: Physician Assistant Medical; PCP Family Medicine; Visit Provider Internal Medicine Cardiovascular Disease
DX: I48.20 Chronic atrial fibrillation, unspecified (principal); Z79.01 Long term (current) use of anticoagulants; I25.10 Atherosclerotic heart disease of native coronary artery without angina pectoris
CPT/HCPCS: 36415; 80061; 80076; 85610

== ENCOUNTER → 2019-12-31 13:11 | Outpatient (CLI) | payer MEDICARE, OTHER, SELFPAY ==
[2019-12-31 07:56] VITALS: BMI 28.3
--- NOTE | 2019-12-31 13:12 | RAD_ITS ---
STUDY: X-RAY - LEFT ELBOW REASON FOR EXAM: Female, 79 years old. POST OP FOLLOW UP VISIT TECHNIQUE: 3 view(s) of the elbow. COMPARISON: 10/20/2019 FINDINGS: Healed fracture of the olecranon the ulna after open reduction internal fixation with a posterior plate and screws. Normal radiocapitellar and ulnotrochlear articulations. The soft tissue structures are unremarkable. RAD/Elbow min 3 Views IMPRESSION: Healed fracture of the olecranon the ulna after open reduction and internal fixation. Electronically Signed: Loy Howe MD at 13:53 EDT Tel , Service support ,
== END ==
PROVIDERS: PCP Family Medicine; Referring Provider Orthopaedic Surgery; Visit Provider Orthopaedic Surgery
DX: M25.552 Pain in left hip (principal)
CPT/HCPCS: 73080

== ENCOUNTER → 2020-01-20 08:47 | Outpatient (CLI) | payer MEDICARE, OTHER, SELFPAY ==
[2019-12-31 07:56] VITALS: BMI 28.3
[2020-01-20 10:35] LABS: Absolute Lymphocyte Count 1.97 X10^3/uL (0.83-4.51); Basophil# 0.06 X10^3/uL; Basophil% 1.1 % (0-1); Eosinophil# 0.14 X10^3/uL; Eosinophils% 2.6 % (0-5); Hemoglobin 14.3 g/dL (12.0-15.0); Lymphocyte # 1.97 X10^3/ul (4.0); Lymphocyte % 36.2 % (19-41); Mean Corp Hgb Conc 32.5 g/dL (32-36); Mean Corpuscular Hgb 33.3 pg (27.0-32.0); Mean Corpuscular Volume 102.3 fL (81-99); Mean Platelet Vol. 11.4 fl (6.2-12.0); Monocyte# 0.29 X10^3/uL; Monocyte% 5.3 % (0-10); NRBC Flagged by Analyzer 0 % (0-5); Neutrophil # 2.95 X10^3/uL (2.7-7.7); Neutrophil % 54.2 % (47-70); Platelet Count 265 K/mm3 (150-450); RBC Distribution Width CV 13.7 % (11.6-14.6); RBC Distribution Width SD 51.2 fl (35.1-43.9); White Blood Count 5.4 K/mm3 (4.4-11.0)
[2020-01-20 10:49] LABS: AST(SGOT) 30 U/L (15-37); Alanine Aminotransfer ALT/SGPT 24 U/L (13-56); Albumin, Serum 3.8 g/dL (3.2-5.0); Alkaline Phosphatase 67 U/L (45-117); Anion Gap 5 (5-15); BUN 18 mg/dL (7-18); BUN/Creat Ratio 22.6 RATIO (10-20); Chloride 113 mmol/L (98-107); EST Glomerular Filtration Rate 74 mL/min (>60); Est Glom Filt Rate - Afr Amer 89 mL/min (>60); Globulin 3.8 g/dL (2.2-4.2); Glucose 104 mg/dL (74-106); Potassium 3.7 mmol/L (3.5-5.1); Protein, Total 7.6 g/dL (6.4-8.2); Sodium Level 141 mmol/L (136-145)
[2020-01-20 10:53] LABS: International Normalized Ratio 2.2; Prothrombin Time (Protime)PT. 23.7 SECONDS (11.7-14.9)
== END ==
PROVIDERS: PCP Family Medicine; Referring Provider Internal Medicine Rheumatology; Visit Provider Internal Medicine Cardiovascular Disease
DX: M06.4 Inflammatory polyarthropathy (principal); Z79.899 Other long term (current) drug therapy; M72.2 Plantar fascial fibromatosis; I10 Essential (primary) hypertension; I48.20 Chronic atrial fibrillation, unspecified; I25.10 Atherosclerotic heart disease of native coronary artery without angina pectoris; K57.90 Diverticulosis of intestine, part unspecified, without perforation or abscess without bleeding; K21.0 Gastro-esophageal reflux disease with esophagitis; M47.897 Other spondylosis, lumbosacral region; Z79.01 Long term (current) use of anticoagulants
CPT/HCPCS: 36415; 80053; 85025; 85610

== ENCOUNTER → 2020-02-17 09:40 | Outpatient (CLI) | payer MEDICARE, OTHER, SELFPAY ==
[2019-12-31 07:56] VITALS: BMI 28.3
[2020-02-17 10:51] LABS: Prothrombin Time Fingerstick 29.1 SEC (11.9-14.4)
== END ==
PROVIDERS: PCP Family Medicine; Referring Provider Internal Medicine Cardiovascular Disease; Visit Provider Internal Medicine Cardiovascular Disease
DX: I48.20 Chronic atrial fibrillation, unspecified (principal); Z79.01 Long term (current) use of anticoagulants
CPT/HCPCS: 36416; 85610

== ENCOUNTER → 2020-03-19 08:00 | Outpatient (CLI) | payer MEDICARE, OTHER, SELFPAY ==
[2019-12-31 07:56] VITALS: BMI 28.3
[2020-03-19 11:36] LABS: Prothrombin Time Fingerstick 31.7 SEC (11.9-14.4)
== END ==
PROVIDERS: PCP Family Medicine; Visit Provider Internal Medicine Cardiovascular Disease
DX: I48.20 Chronic atrial fibrillation, unspecified (principal); Z79.01 Long term (current) use of anticoagulants
CPT/HCPCS: 36416; 85610

== ENCOUNTER → 2020-04-07 11:12 | Outpatient (CLI) | payer MEDICARE, OTHER, SELFPAY ==
[2019-12-31 07:56] VITALS: BMI 28.3
[2020-04-07 12:33] LABS: Absolute Lymphocyte Count 1.12 X10^3/uL (0.83-4.51); Absolute Neutrophil Count 4.3 X10^3/uL (2.0-7.7); Basophil# 0.05 X10^3/uL; Basophil% 0.8 % (0-1); Eosinophil# 0.07 X10^3/uL; Eosinophils% 1.2 % (0-5); Hemoglobin 12.8 g/dL (12.0-15.0); Lymphocyte # 1.12 X10^3/ul (4.0); Lymphocyte % 18.7 % (19-41); Mean Corp Hgb Conc 32.8 g/dL (32-36); Mean Corpuscular Hgb 34.8 pg (27.0-32.0); Mean Platelet Vol. 11.2 fl (6.2-12.0); Monocyte# 0.47 X10^3/uL; Monocyte% 7.8 % (0-10); NRBC Flagged by Analyzer 0 % (0-5); Neutrophil # 4.25 X10^3/uL (2.7-7.7); Platelet Count 304 K/mm3 (150-450); RBC Distribution Width CV 13.4 % (11.6-14.6); RBC Distribution Width SD 52.4 fl (35.1-43.9); Red Blood Count 3.68 M/mm3 (4.2-5.4)
[2020-04-07 12:55] LABS: AST(SGOT) 19 U/L (15-37); Alanine Aminotransfer ALT/SGPT 21 U/L (13-56); Albumin, Serum 3.5 g/dL (3.2-5.0); Alkaline Phosphatase 68 U/L (45-117); Anion Gap 4 (5-15); BUN 16 mg/dL (7-18); Calcium,Total 9.7 mg/dL (8.5-10.1); Chloride 109 mmol/L (98-107); Creatinine, Serum 0.84 mg/dL (0.55-1.02); EST Glomerular Filtration Rate 69 mL/min (>60); Est Glom Filt Rate - Afr Amer 84 mL/min (>60); Globulin 3.6 g/dL (2.2-4.2); Glucose 73 mg/dL (74-106); Potassium 3.9 mmol/L (3.5-5.1); Protein, Total 7.1 g/dL (6.4-8.2); Sodium Level 140 mmol/L (136-145)
== END ==
PROVIDERS: PCP Family Medicine; Referring Provider Internal Medicine Rheumatology; Visit Provider Internal Medicine Rheumatology
DX: M06.4 Inflammatory polyarthropathy (principal); Z79.899 Other long term (current) drug therapy; M72.2 Plantar fascial fibromatosis; K21.9 Gastro-esophageal reflux disease without esophagitis; I10 Essential (primary) hypertension; I48.20 Chronic atrial fibrillation, unspecified; I25.10 Atherosclerotic heart disease of native coronary artery without angina pectoris; K57.90 Diverticulosis of intestine, part unspecified, without perforation or abscess without bleeding; K21.00 Gastro-esophageal reflux disease with esophagitis, without bleeding; M47.897 Other spondylosis, lumbosacral region
CPT/HCPCS: 36415; 80053; 85025

== ENCOUNTER → 2020-04-16 06:34 | Outpatient (CLI) | payer MEDICARE, OTHER, SELFPAY ==
[2019-12-31 07:56] VITALS: BMI 28.3
== END ==
PROVIDERS: PCP Family Medicine; Visit Provider Internal Medicine Cardiovascular Disease
DX: I48.20 Chronic atrial fibrillation, unspecified (principal); Z79.01 Long term (current) use of anticoagulants
CPT/HCPCS: 36416; 85610

== ENCOUNTER → 2020-05-17 09:02 | Outpatient (CLI) | payer MEDICARE, OTHER, SELFPAY ==
[2019-12-31 07:56] VITALS: BMI 28.3
[2020-05-17 10:46] LABS: Prothrombin Time Fingerstick 29.7 SEC (11.9-14.4)
--- NOTE | 2020-05-24 06:00 | HP_ITS ---
Intake Vital Signs 05/10/20 Height 5 ft 10 in 05/10/20 Weight: 219 lb 05/10/20 BP 121/80 H 05/10/20 Blood Pressure Location Rt brachial 05/10/20 Position Sitting 05/10/20 Respiration 16 05/10/20 Pulse 65 05/10/20 Pulse Source Monitor 05/10/20 Temp 97.2 F L 05/10/20 Temp Source Temporal 05/10/20 Pulse Oximetry (%) 97 05/10/20 Oxygen Delivery Method room air Intake Visit Reasons: POST OP CSCOPE 04/30. DISCUSS RESULTS Spray Technician Required: No Accompanied by: Is patient in pain?: No Allergies No Known Allergies Allergy (Verified 05/10/20 08:53) Medications aspirin 81 mg tablet,delayed release 81 mg PO QDAY 04/20/17 [History Confirmed 05/10/20] clonazepam 0.5 mg tablet 0.5 mg PO QHS PRN #30 tab 10/29/18 [History Confirmed 05/10/20] atorvastatin 80 mg tablet 80 mg PO QHS #90 tab 09/18/19 [Rx Confirmed 05/10/20] metoprolol tartrate 25 mg tablet 25 mg PO BID #180 tab 09/18/19 [Rx Confirmed 05/10/20] aripiprazole 5 mg tablet 5 mg PO DAILY 10/28/19 [History Confirmed 05/10/20] meclizine 25 mg tablet 25 mg PO DAILY PRN tab 10/28/19 [History Confirmed 05/10/20] nitroglycerin 0.4 mg sublingual tablet 0.4 mg SUBLINGUAL .COMPLEX PRN #30 tab 10/28/19 [Rx Confirmed 05/10/20] sertraline 50 mg tablet 150 mg PO QHS tab 10/28/19 [History Confirmed 05/10/20] fenofibrate nanocrystallized 145 mg tablet 145 mg PO QDAY #90 tab 01/02/20 [Rx Confirmed 05/10/20] clopidogrel 75 mg tablet 75 mg PO QDAY #90 tab 01/15/20 [Rx Confirmed 05/10/20] Metformin HCl 500 mg PO DAILY 04/27/20 [History Confirmed 05/10/20] metronidazole 500 mg tablet 500 mg PO .COMPLEX #6 tab 05/11/20 [Rx Confirmed 05/11/20] neomycin 500 mg tablet 500 mg PO .COMPLEX #6 tab 05/11/20 [Rx Confirmed 05/11/20] [facility] Medical History (Updated 05/11/20 @ 12:55 by Leida Arechiga) Atherosclerotic heart disease of [place] coronary artery without angina pectoris (Chronic) History of ST elevation myocardial infarction (STEMI) (Resolved 09/01/12) Essential (primary) hypertension (Chronic) HLD (hyperlipidemia) (Chronic) Nicotine dependence (Chronic) Alcohol abuse (Chronic) Anxiety and depression (Chronic) Marijuana smoker (Chronic) Obesity (Chronic) Surgical History History of coronary artery stent placement (Resolved 09/01/12) Family History Father CAD (coronary artery disease) Myocardial infarction, Onset Age: 73 Mother Cancer Social History (Updated 05/11/20 @ 15:[address] Jeremy Vera MD) Smoking Status: Current every day smoker alcohol intake: current alcohol intake frequency: 3 or more drinks per day Alcohol type: beer substance use type: marijuana caffeine: Yes Type: coffee Number of servings: 1 what type of physical activity do you participate in: none seatbelt use: always do you feel safe at home: Yes HPI HPI HPI: RAMÓN QUINN, is a 57 M who presents to the office today for HPI HPI Surgical H&P: Yes HPI: RAMÓN QUINN, is a 57 M who presents to the office today for Follow-up after colonoscopy. The patient was found to have a very large polyp in the hepatic flexure. Biopsies were taken and the patient had several other polyps. He is not having any issues since the colonoscopy. ROS General General: No weight change, appetite, fatigue, colon cancer, breast cancer or weakness HEENT HEENT: No difficulty swallowing, eye injury, eye surgery, swollen glands or hoarseness Endo Endocrine: Yes diabetes mellitus; no thyroid disease, thyroid cancer, Hair loss, heat intolerance or cold intolerance Skin Skin: No rash or changing moles Breast Breast: No left breast lump, right breast lump, nipple discharge, breast pain, abnormal mammogram, abnormal US or breast enlargement Musc Musculoskeletal: No back problems, arthritis, rheumatoid arthritis, gout or joint pain Cardio Cardiovascular: Yes heart disease, high blood pressure, heart attack and heart stent; no murmur, pacemaker, atrial fibrillation, palpitations, shortness of breat with exertion or chest pain Psych Psychiatric: Yes depression; no anxiety or hearing voices Resp Respiratory: No shortness of breath, No sleep apnea, Yes cough, No COPD, No asthma, No emphysema, No wheezing Gastro Gastrointestinal: No abdominal pain, Yes nausea or vomiting, No diarrhea, No constipation, No blood in stool, Yes acid reflux, No hemorrhoids, No ulcers, No gallbladder problem, No black,tarry stools Albino Hematologic: Yes blood thinners, No blood disorders, No bleeding, No anemia, No blood clots Neuro Neurologic: No system reviewed and no additional complaints, except as docu, No as per HPI, No abnormal walking, No abnormal hearing, No abnormal movements, No abnormal speech, No behavioral changes, No burning sensations, No confusion, No seizure-like activity, No unsteadiness, No dizziness, No localized weakness, No frequent falls, No headache(s), No lack of coordination, No loss of vision, No memory loss, No numbness, No other visual disturbances, No radiating pain, No restless legs, No sensory deficit, No fainting, No tingling, No tremor(s), No weakness, No other Exam Const General: cooperative Orientation: alert, oriented x3 HENMT Head: normal to inspection Ears: hearing grossly normal bilaterally Eyes General: appearance normal, both eyes and all related structures Visual Garrido: normal visual garrido by confrontation Neck Neck: normal visual inspection Chest Chest palpation & inspection: normal inspection of the chest Breast Palpation: No nipple discharge Resp Effort & Inspection: normal respiratory effort Auscultation: clear to auscultation bilaterally Cardio Rate: regular rate Rhythm: regular rhythm Heart Sounds: no murmurs GI Inspection: non-distended Palpation: soft, nontender Musc Cervical Spine: normal cervical lordosis, cervical ROM normal Skin General: no rashes or lesions noted Neuro General: alert, oriented x3 Cranial Nerves: CN's II-XI intact bilaterally Cognition: normal cognition Extrem General: normal to inspection, full ROM Psych Appearance: grossly normal Affect: normal affect Assessment & Plan Problems 1. Tubular adenoma of colon D12.6 Plan The patient had a very large tubular adenoma at the hepatic flexure found on colonoscopy. The polyp was sessile and occupying more than one third of the circumference of the bowel. It was unable to be removed endoscopically. I believe that there were to be a large chance of perforation of the colon if that were to be attempted. The biopsies of this polyp came back as a tubular adenoma. The patient had several of the polyps including a tubovillous adenoma of the rectum. All these polyps were removed completely. I discussed his options with him. I recommended extended right hemicolectomy. I did offer the patient referral to a GI doctor if they would be more comfortable endoscopically removing a large polyp. The patient would rather have this removed completely. I discussed laparoscopic right hemicolectomy with the patient in detail. I discussed the risks including but not limited to bleeding, infection, anastomotic leak, injury to bowel or bladder or ureter. The patient understands the risks and is when to proceed with extended right hemicolectomy. We discussed the current risks associated with COVID-19. While it is understood that there is a community spread of COVID-19, the risk of marii COVID-19 while at [facility] ([facility]) is very low; however, the risk cannot be completely mitigated because of the community spread of the disease. We discussed in detail the risk of exposure to and/or potential harm posed by the COVID-19 virus with having a surgery/procedure at this time versus the risk of delaying the surgery/procedure. It is not possible to know either the risk of delaying the surgery or procedure or chance of getting an infection with perfect accuracy, but a joint decision was made to proceed at this time with the scheduled surgery/procedure as indicated on the consent form. Patient was notified that we will need to comply with any screening or testing [facility] wishes to perform or that surgery may be delayed for any positive results. Jeremy Vera MD Pager: [facility] [address] [place] [address], [address] [place] [address] Office: Medications New: metronidazole (Flagyl) 500 mg PO; 2 tabs at 1300, 2100, 2200 the evening prior to surgery 6 tabs 0RF neomycin 500 mg PO; 2 tabs at 1300, 2100, 2200 the evening prior to surgery 6 tabs 0RF Coding Level of Care Code Off vis,est,level 4 Diagnoses Tubular adenoma of colon D12.6 Time Spent (min) 45
== END ==
PROVIDERS: PCP Family Medicine; Referring Provider Internal Medicine Cardiovascular Disease; Visit Provider Internal Medicine Cardiovascular Disease
DX: I48.20 Chronic atrial fibrillation, unspecified (principal); Z79.01 Long term (current) use of anticoagulants
CPT/HCPCS: 36416; 85610

== ENCOUNTER → 2020-06-14 09:13 | Outpatient (CLI) | payer MEDICARE, OTHER, SELFPAY ==
[2019-12-31 07:56] VITALS: BMI 28.3
[2020-06-14 10:40] LABS: Absolute Lymphocyte Count 1.23 X10^3/uL (0.83-4.51); Absolute Neutrophil Count 3.2 X10^3/uL (2.0-7.7); Basophil# 0.04 X10^3/uL; Basophil% 0.8 % (0-1); Eosinophil# 0.11 X10^3/uL; Eosinophils% 2.3 % (0-5); Hematocrit 40.6 % (37-47); Hemoglobin 13.6 g/dL (12.0-15.0); Lymphocyte # 1.23 X10^3/ul (4.0); Lymphocyte % 25.4 % (19-41); Mean Corp Hgb Conc 33.5 g/dL (32-36); Mean Corpuscular Hgb 35.2 pg (27.0-32.0); Mean Corpuscular Volume 105.2 fL (81-99); Mean Platelet Vol. 11.2 fl (6.2-12.0); Monocyte# 0.25 X10^3/uL; Monocyte% 5.2 % (0-10); NRBC Flagged by Analyzer 0 % (0-5); Neutrophil # 3.21 X10^3/uL (2.7-7.7); Neutrophil % 66.1 % (47-70); Platelet Count 273 K/mm3 (150-450); RBC Distribution Width CV 13.4 % (11.6-14.6); RBC Distribution Width SD 51.3 fl (35.1-43.9); Red Blood Count 3.86 M/mm3 (4.2-5.4); White Blood Count 4.9 K/mm3 (4.4-11.0)
[2020-06-14 10:50] LABS: International Normalized Ratio 2.5; Prothrombin Time (Protime)PT. 26.3 SECONDS (11.7-14.9)
[2020-06-14 10:53] LABS: AST(SGOT) 32 U/L (15-37); Alanine Aminotransfer ALT/SGPT 29 U/L (13-56); Albumin, Serum 3.6 g/dL (3.2-5.0); Alkaline Phosphatase 71 U/L (45-117); Anion Gap 9 (5-15); BUN 18 mg/dL (7-18); BUN/Creat Ratio 19.9 RATIO (10-20); Calcium,Total 9.9 mg/dL (8.5-10.1); Chloride 107 mmol/L (98-107); EST Glomerular Filtration Rate 64 mL/min (>60); Est Glom Filt Rate - Afr Amer 77 mL/min (>60); Globulin 3.7 g/dL (2.2-4.2); Glucose 106 mg/dL (74-106); Potassium 3.9 mmol/L (3.5-5.1); Protein, Total 7.3 g/dL (6.4-8.2); Sodium Level 140 mmol/L (136-145)
== END ==
PROVIDERS: PCP Family Medicine; Visit Provider Internal Medicine Cardiovascular Disease
DX: M06.4 Inflammatory polyarthropathy (principal); Z79.899 Other long term (current) drug therapy; M72.2 Plantar fascial fibromatosis; K21.9 Gastro-esophageal reflux disease without esophagitis; I10 Essential (primary) hypertension; I48.20 Chronic atrial fibrillation, unspecified
CPT/HCPCS: 36415; 80053; 85025; 85610

== ENCOUNTER → 2020-07-13 04:32 | Outpatient (REF) | payer MEDICARE, OTHER, SELFPAY ==
[2019-12-31 07:56] VITALS: BMI 28.3
[2020-07-13 11:19] LABS: International Normalized Ratio 2.3; Prothrombin Time (Protime)PT. 25.1 SECONDS (11.7-14.9)
[2020-07-13 11:49] LABS: AST(SGOT) 28 U/L (15-37); Alanine Aminotransfer ALT/SGPT 30 U/L (13-56); Albumin, Serum 3.4 g/dL (3.2-5.0); Alkaline Phosphatase 64 U/L (45-117); Bilirubin, Direct 0.29 mg/dL (0.00-0.30); Cholesterol 139 mg/dL (200); Globulin 3.5 g/dL (2.2-4.2); High Density Lipoprotein 57 mg/dL; Protein, Total 6.9 g/dL (6.4-8.2); Triglycerides 56 mg/dL; Very Low Density Lipoprotein 11 mg/dL (5-40)
== END ==
LOC: LAB 04:32
PROVIDERS: PCP Family Medicine; Referring Provider Internal Medicine Cardiovascular Disease; Visit Provider Internal Medicine Cardiovascular Disease
DX: I48.20 Chronic atrial fibrillation, unspecified (principal); Z79.01 Long term (current) use of anticoagulants; E78.00 Pure hypercholesterolemia, unspecified; E78.5 Hyperlipidemia, unspecified
CPT/HCPCS: 36415; 80061; 80076; 85610

== ENCOUNTER → 2020-08-16 09:04 | Outpatient (CLI) | payer MEDICARE, OTHER, SELFPAY ==
[2020-08-03 12:53] VITALS: BMI 30.4
[2020-08-16 10:25] LABS: INR Fingerstick 2.7; Prothrombin Time Fingerstick 30.1 SEC (11.9-14.4)
== END ==
PROVIDERS: PCP Family Medicine; Visit Provider Internal Medicine Cardiovascular Disease
DX: I48.20 Chronic atrial fibrillation, unspecified (principal); Z79.01 Long term (current) use of anticoagulants
CPT/HCPCS: 36416; 85610

== ENCOUNTER → 2020-09-07 14:55 | Outpatient (CLI) | payer MEDICARE, OTHER, SELFPAY ==
[2019-12-31 07:56] VITALS: BMI 28.3
[2020-08-03 12:53] VITALS: BMI 30.4
[2020-09-07 15:30] LABS: Absolute Lymphocyte Count 1.44 X10^3/uL (0.83-4.51); Absolute Neutrophil Count 3.8 X10^3/uL (2.0-7.7); Basophil# 0.05 X10^3/uL; Basophil% 0.9 % (0-1); Eosinophil# 0.11 X10^3/uL; Eosinophils% 1.9 % (0-5); Hematocrit 40.3 % (37-47); Hemoglobin 13.1 g/dL (12.0-15.0); Lymphocyte # 1.44 X10^3/ul (0.83-4.51); Lymphocyte % 24.7 % (19-41); Mean Corp Hgb Conc 32.5 g/dL (32-36); Mean Corpuscular Hgb 33.3 pg (27.0-32.0); Mean Corpuscular Volume 102.5 fL (81-99); Monocyte# 0.38 X10^3/uL; Monocyte% 6.5 % (0-10); NRBC Flagged by Analyzer 0 % (0-5); Neutrophil # 3.82 X10^3/uL (2.7-7.7); Neutrophil % 65.7 % (47-70); Platelet Count 276 K/mm3 (150-450); RBC Distribution Width SD 48.7 fl (35.1-43.9); Red Blood Count 3.93 M/mm3 (4.2-5.4); White Blood Count 5.8 K/mm3 (4.4-11.0)
[2020-09-07 16:02] LABS: AST(SGOT) 21 U/L (15-37); Alanine Aminotransfer ALT/SGPT 21 U/L (13-56); Albumin, Serum 3.6 g/dL (3.2-5.0); Alkaline Phosphatase 65 U/L (45-117); Anion Gap 4 (5-15); BUN 17 mg/dL (7-18); BUN/Creat Ratio 19.6 RATIO (10-20); Calcium,Total 9.7 mg/dL (8.5-10.1); Chloride 107 mmol/L (98-107); Creatinine, Serum 0.87 mg/dL (0.55-1.02); EST Glomerular Filtration Rate 67 mL/min (>60); Est Glom Filt Rate - Afr Amer 81 mL/min (>60); Globulin 3.5 g/dL (2.2-4.2); Glucose 89 mg/dL (74-106); Potassium 4.2 mmol/L (3.5-5.1); Protein, Total 7.1 g/dL (6.4-8.2); Sodium Level 137 mmol/L (136-145)
== END ==
PROVIDERS: PCP Family Medicine; Referring Provider Internal Medicine Rheumatology; Visit Provider Internal Medicine Rheumatology
DX: M06.4 Inflammatory polyarthropathy (principal); Z79.899 Other long term (current) drug therapy; M72.2 Plantar fascial fibromatosis; K21.9 Gastro-esophageal reflux disease without esophagitis; I10 Essential (primary) hypertension; I48.20 Chronic atrial fibrillation, unspecified; I25.10 Atherosclerotic heart disease of native coronary artery without angina pectoris; K57.90 Diverticulosis of intestine, part unspecified, without perforation or abscess without bleeding; K21.00 Gastro-esophageal reflux disease with esophagitis, without bleeding; M47.897 Other spondylosis, lumbosacral region
CPT/HCPCS: 36415; 80053; 85025

== ENCOUNTER → 2020-09-13 04:05 | Outpatient (CLI) | payer MEDICARE, OTHER, SELFPAY ==
[2020-08-03 12:53] VITALS: BMI 30.4
[2020-09-13 11:51] LABS: INR Fingerstick 2.7; Prothrombin Time Fingerstick 30.3 SEC (11.9-14.4)
== END ==
PROVIDERS: PCP Family Medicine; Referring Provider Internal Medicine Cardiovascular Disease; Visit Provider Internal Medicine Cardiovascular Disease
DX: I48.20 Chronic atrial fibrillation, unspecified (principal); Z79.01 Long term (current) use of anticoagulants
CPT/HCPCS: 36416; 85610

== ENCOUNTER → 2020-10-08 08:10 | Outpatient (CLI) | payer MEDICARE, OTHER, SELFPAY ==
[2020-08-03 12:53] VITALS: BMI 30.4
[2020-10-08 10:36] LABS: INR Fingerstick 2.3; Prothrombin Time Fingerstick 25.7 SEC (11.9-14.4)
== END ==
PROVIDERS: PCP Family Medicine; Visit Provider Internal Medicine Cardiovascular Disease
DX: I48.20 Chronic atrial fibrillation, unspecified (principal); Z79.01 Long term (current) use of anticoagulants
CPT/HCPCS: 36416; 85610

== ENCOUNTER → 2020-11-05 08:16 | Outpatient (CLI) | payer MEDICARE, OTHER, SELFPAY ==
[2020-08-03 12:53] VITALS: BMI 30.4
[2020-11-05 10:10] LABS: INR Fingerstick 1.8; Prothrombin Time Fingerstick 20.8 SEC (11.9-14.4)
== END ==
PROVIDERS: PCP Family Medicine; Referring Provider Internal Medicine Cardiovascular Disease; Visit Provider Internal Medicine Cardiovascular Disease
DX: I48.20 Chronic atrial fibrillation, unspecified (principal); Z79.01 Long term (current) use of anticoagulants
CPT/HCPCS: 36416; 85610

== ENCOUNTER → 2020-11-19 08:29 | Outpatient (CLI) | payer MEDICARE, OTHER, SELFPAY ==
[2020-08-03 12:53] VITALS: BMI 30.4
[2020-11-19 10:41] LABS: INR Fingerstick 2.4; Prothrombin Time Fingerstick 27.5 SEC (11.9-14.4)
== END ==
PROVIDERS: PCP Family Medicine; Visit Provider Internal Medicine Cardiovascular Disease
DX: I48.20 Chronic atrial fibrillation, unspecified (principal); Z79.01 Long term (current) use of anticoagulants
CPT/HCPCS: 36416; 85610

== ENCOUNTER → 2020-12-07 14:31 | Outpatient (CLI) | payer MEDICARE, OTHER, SELFPAY ==
[2020-08-03 12:53] VITALS: BMI 30.4
[2020-12-07 17:45] LABS: Absolute Lymphocyte Count 1.55 X10^3/uL (0.83-4.51); Absolute Neutrophil Count 4.7 X10^3/uL (2.0-7.7); Basophil# 0.04 X10^3/uL; Basophil% 0.6 % (0-1); Eosinophil# 0.08 X10^3/uL; Eosinophils% 1.2 % (0-5); Hematocrit 39.5 % (37-47); Hemoglobin 13.2 g/dL (12.0-15.0); Lymphocyte # 1.55 X10^3/ul (0.83-4.51); Lymphocyte % 22.8 % (19-41); Mean Corp Hgb Conc 33.4 g/dL (32-36); Mean Corpuscular Hgb 34.4 pg (27.0-32.0); Mean Corpuscular Volume 102.9 fL (81-99); Mean Platelet Vol. 11.6 fl (6.2-12.0); Monocyte# 0.37 X10^3/uL; Monocyte% 5.4 % (0-10); NRBC Flagged by Analyzer 0 % (0-5); Neutrophil # 4.73 X10^3/uL (2.7-7.7); Neutrophil % 69.6 % (47-70); POSITIVE MORPHOLOGY YES; Platelet Count 291 K/mm3 (150-450); RBC Distribution Width CV 13.2 % (11.6-14.6); RBC Distribution Width SD 49.7 fl (35.1-43.9); Red Blood Count 3.84 M/mm3 (4.2-5.4); White Blood Count 6.8 K/mm3 (4.4-11.0)
[2020-12-07 18:10] LABS: ALB/GLOB Ratio 0.9 RATIO (0.9-2.4); AST(SGOT) 27 U/L (15-37); Alanine Aminotransfer ALT/SGPT 31 U/L (13-56); Albumin, Serum 3.6 g/dL (3.2-5.0); Alkaline Phosphatase 65 U/L (45-117); Anion Gap 5 (5-15); BUN 17 mg/dL (7-18); BUN/Creat Ratio 19.3 RATIO (10-20); Calcium,Total 9.4 mg/dL (8.5-10.1); Chloride 107 mmol/L (98-107); Creatinine, Serum 0.88 mg/dL (0.55-1.02); EST Glomerular Filtration Rate 65 mL/min (>60); Est Glom Filt Rate - Afr Amer 79 mL/min (>60); Globulin 3.8 g/dL (2.2-4.2); Glucose 89 mg/dL (74-106); Protein, Total 7.4 g/dL (6.4-8.2); Sodium Level 137 mmol/L (136-145)
[2020-12-07 18:28] LABS: Differential Indicated SCAN CRITERIA MET
[2020-12-07 18:29] LABS: Differential Comment SCANNED
== END ==
PROVIDERS: PCP Family Medicine; Referring Provider Internal Medicine Rheumatology; Visit Provider Internal Medicine Rheumatology
DX: M06.4 Inflammatory polyarthropathy (principal); Z79.899 Other long term (current) drug therapy; M72.2 Plantar fascial fibromatosis; K21.9 Gastro-esophageal reflux disease without esophagitis; I10 Essential (primary) hypertension; I48.20 Chronic atrial fibrillation, unspecified; I25.10 Atherosclerotic heart disease of native coronary artery without angina pectoris; K57.90 Diverticulosis of intestine, part unspecified, without perforation or abscess without bleeding; K21.00 Gastro-esophageal reflux disease with esophagitis, without bleeding; M47.897 Other spondylosis, lumbosacral region
CPT/HCPCS: 36415; 80053; 85025

== ENCOUNTER → 2020-12-17 08:05 | Outpatient (CLI) | payer MEDICARE, OTHER, SELFPAY ==
[2020-08-03 12:53] VITALS: BMI 30.4
[2020-12-17 10:05] LABS: INR Fingerstick 2.4; Prothrombin Time Fingerstick 26.9 SEC (11.9-14.4)
== END ==
PROVIDERS: PCP Family Medicine; Referring Provider Internal Medicine Cardiovascular Disease; Visit Provider Internal Medicine Cardiovascular Disease
DX: I48.20 Chronic atrial fibrillation, unspecified (principal); Z79.01 Long term (current) use of anticoagulants
CPT/HCPCS: 36416; 85610

== ENCOUNTER → 2021-01-18 10:30 | Outpatient (CLI) | payer MEDICARE, OTHER, SELFPAY ==
[2021-01-18 11:36] LABS: INR Fingerstick 3.1; Prothrombin Time Fingerstick 34.6 SEC (11.9-14.4)
== END ==
PROVIDERS: PCP Family Medicine; Visit Provider Internal Medicine Cardiovascular Disease
DX: I48.20 Chronic atrial fibrillation, unspecified (principal); Z79.01 Long term (current) use of anticoagulants
CPT/HCPCS: 36416; 85610

== ENCOUNTER → 2021-02-22 08:44 | Outpatient (CLI) | payer MEDICARE, OTHER, SELFPAY ==
[2021-02-22 12:00] LABS: INR Fingerstick 2.7; Prothrombin Time Fingerstick 30.2 SEC (11.9-14.4)
== END ==
PROVIDERS: PCP Family Medicine; Visit Provider Internal Medicine Cardiovascular Disease
DX: I48.20 Chronic atrial fibrillation, unspecified (principal); Z79.01 Long term (current) use of anticoagulants
CPT/HCPCS: 36416; 85610

== ENCOUNTER → 2021-03-01 16:19 | Outpatient (CLI) | payer MEDICARE, OTHER, SELFPAY ==
[2021-03-01 18:09] LABS: Absolute Lymphocyte Count 1.34 X10^3/uL (0.83-4.51); Absolute Neutrophil Count 4.1 X10^3/uL (2.0-7.7); Basophil# 0.05 X10^3/uL; Basophil% 0.8 % (0-1); Eosinophils% 1.7 % (0-5); Hematocrit 35.1 % (37-47); Hemoglobin 11.8 g/dL (12.0-15.0); Lymphocyte # 1.34 X10^3/ul (0.83-4.51); Lymphocyte % 22.6 % (19-41); Mean Corp Hgb Conc 33.6 g/dL (32-36); Mean Corpuscular Volume 104.2 fL (81-99); Mean Platelet Vol. 11.1 fl (6.2-12.0); Monocyte# 0.28 X10^3/uL; Monocyte% 4.7 % (0-10); NRBC Flagged by Analyzer 0 % (0-5); Neutrophil # 4.14 X10^3/uL (2.7-7.7); Platelet Count 286 K/mm3 (150-450); RBC Distribution Width SD 52.9 fl (35.1-43.9); Red Blood Count 3.37 M/mm3 (4.2-5.4); White Blood Count 5.9 K/mm3 (4.4-11.0)
[2021-03-01 18:21] LABS: BUN 22 mg/dL (7-18); Creatinine, Serum 1.05 mg/dL (0.55-1.02); Glucose 102 mg/dL (74-106)
[2021-03-01 18:22] LABS: ALB/GLOB Ratio 0.9 RATIO (0.9-2.4); AST(SGOT) 30 U/L (15-37); Alanine Aminotransfer ALT/SGPT 25 U/L (13-56); Albumin, Serum 3.4 g/dL (3.2-5.0); Alkaline Phosphatase 57 U/L (45-117); Anion Gap 7 (5-15); Calcium,Total 9.7 mg/dL (8.5-10.1); Chloride 108 mmol/L (98-107); EST Glomerular Filtration Rate 53 mL/min (>60); Est Glom Filt Rate - Afr Amer 65 mL/min (>60); Globulin 3.8 g/dL (2.2-4.2); Potassium 4.2 mmol/L (3.5-5.1); Protein, Total 7.2 g/dL (6.4-8.2); Sodium Level 140 mmol/L (136-145)
== END ==
PROVIDERS: PCP Family Medicine; Referring Provider Internal Medicine Rheumatology; Visit Provider Internal Medicine Rheumatology
DX: M06.4 Inflammatory polyarthropathy (principal); Z79.899 Other long term (current) drug therapy; M72.2 Plantar fascial fibromatosis; K21.9 Gastro-esophageal reflux disease without esophagitis; I10 Essential (primary) hypertension; I48.20 Chronic atrial fibrillation, unspecified; I25.10 Atherosclerotic heart disease of native coronary artery without angina pectoris; K57.90 Diverticulosis of intestine, part unspecified, without perforation or abscess without bleeding; K21.00 Gastro-esophageal reflux disease with esophagitis, without bleeding; M47.897 Other spondylosis, lumbosacral region
CPT/HCPCS: 36415; 80053; 85025

== ENCOUNTER → 2021-03-22 04:46 | Outpatient (CLI) | payer MEDICARE, OTHER, SELFPAY ==
[2021-03-22 12:20] LABS: INR Fingerstick 2.5; Prothrombin Time Fingerstick 27.7 SEC (11.9-14.4)
== END ==
PROVIDERS: PCP Family Medicine; Visit Provider Internal Medicine Cardiovascular Disease
DX: I48.20 Chronic atrial fibrillation, unspecified (principal); Z79.01 Long term (current) use of anticoagulants
CPT/HCPCS: 36416; 85610

== ENCOUNTER → 2021-04-20 09:02 | Outpatient (CLI) | payer MEDICARE, OTHER, SELFPAY ==
[2021-04-20 10:26] LABS: INR Fingerstick 2.4; Prothrombin Time Fingerstick 26.9 SEC (11.9-14.4)
== END ==
PROVIDERS: PCP Family Medicine; Visit Provider Internal Medicine Cardiovascular Disease
DX: I48.11 Longstanding persistent atrial fibrillation (principal); Z79.01 Long term (current) use of anticoagulants
CPT/HCPCS: 36416; 85610

== ENCOUNTER 2021-05-17 14:33 | Outpatient (CLI) | payer MEDICARE, OTHER, SELFPAY ==
[2021-05-17 18:04] LABS: Absolute Lymphocyte Count 1.33 X10^3/uL (0.83-4.51); Absolute Neutrophil Count 4.6 X10^3/uL (2.0-7.7); Basophil# 0.06 X10^3/uL; Basophil% 0.9 % (0-1); Eosinophil# 0.06 X10^3/uL; Eosinophils% 0.9 % (0-5); Hematocrit 39.2 % (37-47); Hemoglobin 13.2 g/dL (12.0-15.0); Lymphocyte # 1.33 X10^3/ul (0.83-4.51); Lymphocyte % 20.8 % (19-41); Mean Corp Hgb Conc 33.7 g/dL (32-36); Monocyte# 0.31 X10^3/uL; Monocyte% 4.8 % (0-10); NRBC Flagged by Analyzer 0 % (0-5); Neutrophil # 4.61 X10^3/uL (2.7-7.7); Neutrophil % 72.1 % (47-70); Platelet Count 336 K/mm3 (150-450); RBC Distribution Width CV 13.5 % (11.6-14.6); RBC Distribution Width SD 51.4 fl (35.1-43.9); Red Blood Count 3.77 M/mm3 (4.2-5.4); White Blood Count 6.4 K/mm3 (4.4-11.0)
[2021-05-17 18:31] LABS: ALB/GLOB Ratio 0.9 RATIO (0.9-2.4); AST(SGOT) 24 U/L (15-37); Alanine Aminotransfer ALT/SGPT 21 U/L (13-56); Albumin, Serum 3.6 g/dL (3.2-5.0); Alkaline Phosphatase 60 U/L (45-117); Anion Gap 7 (5-15); BUN 22 mg/dL (7-18); BUN/Creat Ratio 19.8 RATIO (10-20); Calcium,Total 10.3 mg/dL (8.5-10.1); Chloride 102 mmol/L (98-107); Creatinine, Serum 1.11 mg/dL (0.55-1.02); EST Glomerular Filtration Rate 50 mL/min (>60); Est Glom Filt Rate - Afr Amer 61 mL/min (>60); Globulin 4.1 g/dL (2.2-4.2); Glucose 121 mg/dL (74-106); Potassium 3.6 mmol/L (3.5-5.1); Protein, Total 7.7 g/dL (6.4-8.2); Sodium Level 138 mmol/L (136-145)
== END 2021-05-17 23:59 | disposition short-term general hospital (02) ==
LOC: MTLAB 14:35
PROVIDERS: PCP Family Medicine; Referring Provider Internal Medicine Rheumatology; Visit Provider Internal Medicine Rheumatology
DX: M06.4 Inflammatory polyarthropathy (principal); I48.20 Chronic atrial fibrillation, unspecified; Z79.899 Other long term (current) drug therapy; M72.2 Plantar fascial fibromatosis; I10 Essential (primary) hypertension; I25.10 Atherosclerotic heart disease of native coronary artery without angina pectoris; K57.90 Diverticulosis of intestine, part unspecified, without perforation or abscess without bleeding; K21.00 Gastro-esophageal reflux disease with esophagitis, without bleeding; M47.897 Other spondylosis, lumbosacral region
CPT/HCPCS: 36415; 80053; 85025

== ENCOUNTER 2021-05-18 09:56 | Outpatient (CLI) | payer MEDICARE, OTHER, SELFPAY ==
[2021-05-18 11:30] LABS: INR Fingerstick 2.3; Prothrombin Time Fingerstick 25.6 SEC (11.9-14.4)
== END 2021-05-18 23:59 | disposition short-term general hospital (02) ==
LOC: LAB 09:58
PROVIDERS: PCP Family Medicine; Referring Provider Internal Medicine Cardiovascular Disease; Visit Provider Internal Medicine Cardiovascular Disease
DX: I48.20 Chronic atrial fibrillation, unspecified (principal); Z79.01 Long term (current) use of anticoagulants
CPT/HCPCS: 36416; 85610

== ENCOUNTER 2021-06-13 20:44 | Observation (INO) | payer MEDICARE, OTHER, SELFPAY ==
[2021-06-13 20:46] VITALS: BP 138/73; PULSE 71; RESP 28; TEMP 36.8; O2SAT 96; BMI 31.9
--- NOTE | 2021-06-13 21:05 | EKG12_ITS ---
Test Reason : WEAKNESS Blood Pressure : / mmHG Vent. Rate : 063 BPM Atrial Rate : 468 BPM P-R Int : 000 ms QRS Dur : 082 ms QT Int : 410 ms P-R-T Axes : 000 021 184 degrees QTc Int : [address] & T wave abnormality, consider lateral ischemia Abnormal ECG Confirmed by MYRNA WORTHINGTON, HUBER ([id number]), index editor JOHN BURKETT ([id number]) on 06/14/2021 8:41:35 AM Referred By: JOVANA Confirmed By:HUBER NORRIS MD
[2021-06-13 21:18] LABS: Absolute Lymphocyte Count 0.36 X10^3/uL (0.83-4.51); Absolute Neutrophil Count 4.6 X10^3/uL (2.0-7.7); Basophil# 0.03 X10^3/uL; Basophil% 0.6 % (0-1); Eosinophil# 0.02 X10^3/uL; Eosinophils% 0.4 % (0-5); Hematocrit 32.8 % (37-47); Hemoglobin 11.3 g/dL (12.0-15.0); Lymphocyte # 0.36 X10^3/ul (0.83-4.51); Lymphocyte % 6.9 % (19-41); Mean Corp Hgb Conc 34.5 g/dL (32-36); Mean Corpuscular Hgb 35.2 pg (27.0-32.0); Mean Corpuscular Volume 102.2 fL (81-99); Mean Platelet Vol. 10.9 fl (6.2-12.0); Monocyte% 3.9 % (0-10); NRBC Flagged by Analyzer 0 % (0-5); Neutrophil # 4.55 X10^3/uL (2.7-7.7); Neutrophil % 87.8 % (47-70); POSITIVE DIFFERENTIAL YES; Platelet Count 237 K/mm3 (150-450); RBC Distribution Width CV 13.9 % (11.6-14.6); RBC Distribution Width SD 52.2 fl (35.1-43.9); Red Blood Count 3.21 M/mm3 (4.2-5.4); White Blood Count 5.2 K/mm3 (4.4-11.0)
--- NOTE | 2021-06-13 21:18 | ED.VIS.FALL ---
HPI HPI - Fall History of Present Illness Chief Complaint: Weakness Narrative Narrative: 80-year-old female presenting with weakness and confusion. Apparently this started about 7 PM this evening. Patient is a poor informant and cannot answer many questions. She does appear to be confused. Her family in the room states that she has some chronic knee pain secondary to arthritis and was ambulating and felt weak and had to go to the ground. There is no reported chest pain or shortness of breath. She has not had any fever or chills. She lives with her family and nobody is ill. She is not had nausea or vomiting. Her family states that she has not had any urinary tract infection problems recently. 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 Essential (primary) hypertension Gross hematuria Hyperlipidemia Hypertension Longstanding persistent atrial fibrillation Nicotine dependence Vitamin D deficiency Home Medications aspirin 81 mg PO DAILY@0800 02/24/14 [History Last Taken 02/18/16] cholecalciferol (vitamin D3) 1,000 unit PO DAILY 05/28/15 [History Last Taken Unknown] folic acid 1 mg tablet 1 mg PO DAILY 03/14/18 [History Last Taken Unknown] methotrexate sodium 15 mg PO Q7D 09/30/19 [History Last Taken 09/26/19] acetaminophen 1,000 mg PO Q6H PRN #100 tab 10/02/19 [Rx Last Taken Unknown] warfarin 3 mg tablet 3 mg PO .COMPLEX #30 tab 05/31/20 [Rx Last Taken Unknown] lisinopril 40 mg tablet 40 mg PO DAILY #90 tablet 08/03/20 [Rx Last Taken Unknown] warfarin 2 mg tablet 2 mg PO .COMPLEX #30 tab 09/02/20 [Rx Last Taken Unknown] simvastatin 20 mg tablet 20 mg PO QHS #90 tab 09/13/20 [Rx Last Taken Unknown] metoprolol succinate 50 mg tablet,extended release 24 hr See Rx Instructions .ROUTE .COMPLEX #90 tab 09/14/20 [Rx Last Taken Unknown] isosorbide mononitrate 30 mg tablet,extended release 24 hr 30 mg PO QAM #30 tab 02/21/21 [Rx Last Taken Unknown] pantoprazole 40 mg tablet,delayed release 40 mg PO DAILY #30 tab 05/23/21 [Rx Last Taken Unknown] Allergy/AdvReac Type Severity Reaction Status Date / Time latex Allergy Itching Verified 06/13/21 20:46 ursodiol Allergy Unknown Verified 06/13/21 20:46 belladonna alkaloids AdvReac Unknown Verified 06/13/21 20:46 [Belladonna Alkaloids] formaldehyde AdvReac Rash Verified 06/13/21 20:46 phenobarbital AdvReac Unknown Verified 06/13/21 20:46 ranitidine HCl [From Zantac] AdvReac Unknown Verified 06/13/21 20:46 Family History Father CAD (coronary artery disease) CVA (cerebral vascular accident) Mother CAD (coronary artery disease) Myocardial infarction Surgical History History of coronary artery stent placement (12/02/13) History of left heart catheterization (02/18/16) History of open reduction and internal fixation (ORIF) procedure (09/2019) Social History (Updated 08/03/20 @ 14:[address] Connor Marinelli MD) Smoking Status: Current every day smoker tobacco type: cigarettes ROS ROS ED Review of Systems ROS Unobtainable: due to mental status EXAM Physical Exam Const Vital Signs: 06/13/21 20:46 06/13/21 20:51 06/13/21 23:17 Temperature 98.2 F Temperature Source Temporal Pulse Rate 71 62 Respiratory Rate 28 H 18 Respiratory Effort Normal Respiratory Pattern Normal Blood Pressure 138/73 H 138/60 H Blood Pressure Mean 94 86 Pulse Ox 96 95 Oxygen Delivery Method High Flow Room Air Positive well nourished General Appearance ED: NAD HEENT Reports normocephalic atraumatic Eyes PERRL and EOMs intact bilaterally General Eye ED: Negative for pale conjunctiva or scleral icterus Resp normal respiratory effort and clear to auscultation bilaterally Cardio regular rate and regular rhythm GI non-tender and non-distended Palpation: soft Neuro CN's II-XII intact bilaterally, moves all extremities, no focal motor deficits and no sensory deficits noted Sensorium / Orientation: alert Psych Psych Narrative: Confused Skin Lesions: no lesions Rashes: no rashes MDM MDM MDM Narrative Medical decision making narrative: 80-year-old female presenting with confusion and inability to ambulate. She is unable to give me much history. Most of the history is given by her family. They state that at 7 PM this evening she was walking and had to be lowered to the floor due to weakness. She did not fall or injure herself. Patient is on Coumadin due to A. fib. She is not had any changes. She does not have any black or bloody stools. Hemoglobin is to be in normal range at 11.3. INR is therapeutic at 2.4. Creatinine is slightly elevated 1.07, but this appears to be near her recent baseline. AST is slightly low at 61 however the rest of LFTs are normal. EKG on my interpretation shows atrial fibrillation with controlled ventricular response at 63 bpm without sign of ischemic change. Chest x-ray my interpretation shows cardiomegaly. There are no infiltrates or pulmonary vascular congestion. Urinalysis is negative. Rapid Covid test is also negative. I did not find a source for patient's weakness but she is unable to ambulate and I spoke with the hospitalist about admission. Impression: 1. Debility 2. Likely Lab Data Attestation: I reviewed the patient's lab results. Labs: Laboratory Results - last 24 hr 06/13/21 06/13/21 06/13/21 20:59 20:59 20:59 WBC 5.2 RBC 3.21 L Hgb 11.3 L Hct 32.8 L MCV 102.2 H MCH 35.2 H MCHC 34.5 RDW Std Deviation 52.2 H RDW Coeff of Doris 13.9 Plt Count 237 MPV 10.9 Immature Gran % (Auto) 0.400 Neut % (Auto) 87.8 H Lymph % (Auto) 6.9 L [place] % (Auto) 3.9 Eos % (Auto) 0.4 Baso % (Auto) 0.6 Absolute Neuts (auto) 4.6 Absolute Lymphs (auto) 0.36 L Nucleated RBC % 0 Differential Comment SEE COMMENT Platelet Estimate ADEQUATE Anisocytosis 1+ Macrocytosis 1+ Ovalocytes RARE PT 25.7 H INR 2.4 Sodium 134 L Potassium 3.8 Chloride 105 Carbon Dioxide 23.0 Anion Gap 6 BUN 16 Creatinine 1.07 H Estim Creat Clear Calc 41.34 Est GFR (MDRD) Af Amer 63 Est GFR (MDRD) Non-Af 52 L BUN/Creatinine Ratio 15.0 Glucose 153 H Calcium 9.0 Total Bilirubin 0.90 AST 61 H ALT 42 Alkaline Phosphatase 51 Troponin I High Sens 28 Total Protein 6.6 Albumin 3.3 Globulin 3.3 Albumin/Globulin Ratio 1.0 Urine Color Urine Clarity Urine pH Ur Specific [place] Urine Protein Urine Glucose (UA) Urine Ketones Urine Occult Blood Urine Nitrite Urine Bilirubin Urine Urobilinogen Ur Leukocyte Esterase Urine RBC Urine WBC Ur Squamous Epith Cells Urine Bacteria Urine Mucus 06/13/21 22:38 WBC RBC Hgb Hct MCV MCH MCHC RDW Std Deviation RDW Coeff of Doris Plt Count MPV Immature Gran % (Auto) Neut % (Auto) Lymph % (Auto) [place] % (Auto) Eos % (Auto) Baso % (Auto) Absolute Neuts (auto) Absolute Lymphs (auto) Nucleated RBC % Differential Comment Platelet Estimate Anisocytosis Macrocytosis Ovalocytes PT INR Sodium Potassium Chloride Carbon Dioxide Anion Gap BUN Creatinine Estim Creat Clear Calc Est GFR (MDRD) Af Amer Est GFR (MDRD) Non-Af BUN/Creatinine Ratio Glucose Calcium Total Bilirubin AST ALT Alkaline Phosphatase Troponin I High Sens Total Protein Albumin Globulin Albumin/Globulin Ratio Urine Color Yellow Urine Clarity Clear Urine pH 5.0 Ur Specific [place] 1.020 Urine Protein 30 H Urine Glucose (UA) Normal Urine Ketones Negative Urine Occult Blood 10 H Urine Nitrite Negative Urine Bilirubin Negative Urine Urobilinogen 1 H Ur Leukocyte Esterase Negative Urine RBC 0 SEEN Urine WBC 0-5 SEEN Ur Squamous Epith Cells 0 SEEN Urine Bacteria 0 SEEN Urine Mucus 0 SEEN Radiography Diagnostic Testing: Clinical Impression(s) from Imaging Studies Chest X-Ray 06/13/21 21:30 IMPRESSION: 1. Enlarged heart shadow may represent cardiomegaly or pericardial effusion. Electronically Signed: Juan M Gayle DO at 22:32 EST , Discharge Plan Triage Chief Complaint: Weakness ED Provider: Mahesh Patel Dx/Rx/DC Orders Prescriptions: No Action folic acid 1 mg tablet 1 mg PO DAILY RF: 0 lisinopril 40 mg tablet 40 mg PO DAILY Qty: 90 RF: 3 aspirin 81 MG tablet,chewable 81 mg PO DAILY@0800 RF: 0 cholecalciferol (vitamin D3) 1,000 UNIT tablet 1,000 unit PO DAILY RF: 0 methotrexate sodium 2.5 MG tablet 15 mg PO Q7D RF: 0 acetaminophen 500 MG tablet 1,000 mg PO Q6H PRN Qty: 100 RF: 0 warfarin 3 mg tablet 3 mg PO .COMPLEX Qty: 30 RF: 12 warfarin 2 mg tablet 2 mg PO .COMPLEX Qty: 30 RF: 11 simvastatin 20 mg tablet 20 mg PO QHS Qty: 90 RF: 3 metoprolol succinate 50 mg tablet extended release 24 hr See Rx Instructions .ROUTE .COMPLEX Qty: 90 RF: 3 isosorbide mononitrate 30 mg tablet extended release 24 hr 30 mg PO QAM Qty: 30 RF: 11 pantoprazole 40 mg tablet,delayed release (DR/EC) 40 mg PO DAILY Qty: 30 RF: 11 Primary Care Provider: Paul Mccullough
[2021-06-13 21:24] LABS: International Normalized Ratio 2.4; Prothrombin Time (Protime)PT. 25.7 SECONDS (11.7-14.9)
--- NOTE | 2021-06-13 21:30 | RAD_ITS ---
INDICATION: weakness EXAMINATION/TECHNIQUE: X-RAY - XR Chest 1 View COMPARISON: Prior chest x-ray 02/11/[address] chest 05/10/2018 FINDINGS: LINES/DEVICES: None. Overlying heart monitoring wires are present. LUNGS: Symmetric normal lung volumes. No airspace opacity or abnormal interstitial pattern. No nodule or mass. No pleural effusion or pneumothorax. MEDIASTINUM AND CARDIOVASCULAR STRUCTURES: Significantly enlarged heart shadow. This is new compared to prior comparison images listed above. Consider pericardial effusion as well as cardiomegaly. There is no pulmonary vascular congestion. BONES AND SOFT TISSUES: No abnormality within limits of the exam. RAD/Chest 1 View (Portable) IMPRESSION: 1. Enlarged heart shadow may represent cardiomegaly or pericardial effusion. Electronically Signed: Juan M Gayle DO at 22:32 EST ,
[2021-06-13 21:41] LABS: AST(SGOT) 61 U/L (15-37); Alanine Aminotransfer ALT/SGPT 42 U/L (13-56); Albumin, Serum 3.3 g/dL (3.2-5.0); Alkaline Phosphatase 51 U/L (45-117); Anion Gap 6 (5-15); BUN 16 mg/dL (7-18); Chloride 105 mmol/L (98-107); Creatinine, Serum 1.07 mg/dL (0.55-1.02); EST Glomerular Filtration Rate 52 mL/min (>60); Est Glom Filt Rate - Afr Amer 63 mL/min (>60); Estimated Creatinine Clearance 41.34 ml/min; Globulin 3.3 g/dL (2.2-4.2); Glucose 153 mg/dL (74-106); Potassium 3.8 mmol/L (3.5-5.1); Protein, Total 6.6 g/dL (6.4-8.2); Sodium Level 134 mmol/L (136-145); Troponin-I HS 28 pg/mL (3.0-54.0)
[2021-06-13 21:44] LABS: Differential Indicated SCAN CRITERIA MET
[2021-06-13 21:45] LABS: Anisocytosis 1+; Macrocytosis 1+; Ovalocyte RARE; Platelet Estimate ADEQUATE (ADEQ)
[2021-06-13 22:43] LABS: Bacteria 0 SEEN /hpf (None Seen); Mucous, Urine 0 SEEN /hpf (<or=2+); Red Blood Cells-Urine 0 SEEN /hpf (0-5); Squamous Epithelial Cells - UA 0 SEEN /hpf (5-10)
[2021-06-13 22:46] LABS: Color, Urine Yellow (Yellow); Glucose, Dipstick Normal (Normal); Ketone-Dipstick Negative (Negative); Leukocyte Esterase-Dipstick Negative /ul (Negative); Nitrite-Dipstick Negative (Negative); Occult Blood-Urine 10 /ul (Negative); Protein-Dipstick 30 mg/dl (Negative); Urine Bilirubin Dipstick Negative (Negative); Urine Clarity Clear (Clear); Urine Urobilinogen 1 mg/dl (Normal)
[2021-06-13 22:52] LABS: White Blood Cells 0-5 SEEN /hpf (0-5)
[2021-06-13 23:17] VITALS: BP 138/60; PULSE 62; RESP 18; O2SAT 95
[2021-06-14] VITALS (10 sets, daily range): BP systolic 120–177; BP diastolic 68–104; PULSE 60–79; RESP 18–20; TEMP 36.8–38.8; O2SAT 96–98; BMI 29.2
--- NOTE | 2021-06-14 00:06 | HP.PCM_ITS ---
Documented by User: TJ Kaba 06/14/21 00:23 HPI - General General Date of Admission: 06/14/21 Date of Service: 06/14/21 Chief Complaint: Debility, weakness HPI Narrative ANGELINA SONI, is a 80 F who presents with reports that patient began feeling weak and lethargic earlier today. Patient denies being sick however she does have a coarse nonproductive cough. Patient is sleepy and unable to contribute much to her health history however her daughter was able to provide medical history. Patient denies fever chills shortness of breath, chest pain, syncope. Patient reports a medical history includes hypertension, atrial fibrillation, CAD, RA. 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 Essential (primary) hypertension Gross hematuria Hyperlipidemia Hypertension Longstanding persistent atrial fibrillation Nicotine dependence Vitamin D deficiency Home Medications aspirin 81 mg PO DAILY@0800 02/24/14 [History Last Taken 02/18/16] cholecalciferol (vitamin D3) 1,000 unit PO DAILY 05/28/15 [History Last Taken Unknown] folic acid 1 mg tablet 2 mg PO DAILY 03/14/18 [History Last Taken Unknown] methotrexate sodium 15 mg PO Q7D 09/30/19 [History Last Taken 09/26/19] acetaminophen 1,000 mg PO Q6H PRN #100 tab 10/02/19 [Rx Last Taken Unknown] warfarin 3 mg tablet 3 mg PO .COMPLEX #30 tab 05/31/20 [Rx Last Taken Unknown] warfarin 2 mg tablet 2 mg PO .COMPLEX #30 tab 09/02/20 [Rx Last Taken Unknown] simvastatin 20 mg tablet 20 mg PO QHS #90 tab 09/13/20 [Rx Last Taken Unknown] isosorbide mononitrate 30 mg tablet,extended release 24 hr 30 mg PO QAM #30 tab 02/21/21 [Rx Last Taken Unknown] pantoprazole 40 mg tablet,delayed release 40 mg PO DAILY #30 tab 05/23/21 [Rx Last Taken Unknown] lisinopril 20 mg PO DAILY 06/14/21 [History Last Taken Unknown] metoprolol succinate 50 mg PO DAILY 06/14/21 [History Last Taken Unknown] Allergy/AdvReac Type Severity Reaction Status Date / Time latex Allergy Itching Verified 06/13/21 20:46 ursodiol Allergy Unknown Verified 06/13/21 20:46 belladonna alkaloids AdvReac Unknown Verified 06/13/21 20:46 [Belladonna Alkaloids] formaldehyde AdvReac Rash Verified 06/13/21 20:46 phenobarbital AdvReac Unknown Verified 06/13/21 20:46 ranitidine HCl [From Zantac] AdvReac Unknown Verified 06/13/21 20:46 Family History Father CAD (coronary artery disease) CVA (cerebral vascular accident) Mother CAD (coronary artery disease) Myocardial infarction Surgical History History of coronary artery stent placement (12/02/13) History of left heart catheterization (02/18/16) History of open reduction and internal fixation (ORIF) procedure (09/2019) Social History Smoking Status: Current every day smoker tobacco type: cigarettes ROS Review of Systems ROS Unobtainable: due to mental status Vital Signs Vital Signs Vital Signs: 06/13/21 20:46 06/13/21 20:51 06/13/21 23:17 Temperature 98.2 F Temperature Source Temporal Pulse Rate 71 62 Respiratory Rate 28 H 18 Respiratory Effort Normal Respiratory Pattern Normal Blood Pressure 138/73 H 138/60 H Blood Pressure Mean 94 86 Pulse Ox 96 95 Oxygen Delivery Method High Flow Room Air Weight Weight: 142 lb 6.698 oz Body Mass Index (BMI) 31.9 Physical Exam Const General Appearance: lethargic HEENT normocephalic and head/scalp atraumatic Eyes conjunctivae normal and no scleral icterus Neck no lymphadenopathy and supple General: trachea midline Resp normal respiratory effort, normal air movement and clear to auscultation bilaterally Cardio regular rate, regular rhythm, S1 normal heart sound, S2 normal heart sound and peripheral pulses 2+ throughout GI normal to inspection, nondistended, normoactive bowel sounds, soft to palpation and non-tender Extremity normal capillary refill and no clubbing, cyanosis or edema General Extremity: no tenderness to palpation of joints or extremities Skin General Skin Exam: no breakdown Lesions: no lesions Rashes: no rashes Neuro no focal motor deficits and no sensory deficits noted Speech: Negative for speech normal Motor Exam: general weakness Psych Activity / Motor Behavior: avoids eye contact Results Lab / Micro Data Result Diagrams: 06/13/21 20:59 06/13/21 20:59 Labs: Laboratory Results - last 24 hr 06/13/21 20:59: WBC 5.2, RBC 3.21 L, Hgb 11.3 L, Hct 32.8 L, MCV 102.2 H, MCH 35.2 H, MCHC 34.5, RDW Std Deviation 52.2 H, RDW Coeff of Doris 13.9, Plt Count 237, MPV 10.9, Immature Gran % (Auto) 0.400, Neut % (Auto) 87.8 H, Lymph % (Auto) 6.9 L, Ross % (Auto) 3.9, Eos % (Auto) 0.4, Baso % (Auto) 0.6, Absolute Neuts (auto) 4.6, Absolute Lymphs (auto) 0.36 L, Nucleated RBC % 0, Differential Comment SEE COMMENT, Platelet Estimate ADEQUATE, Anisocytosis 1+, Macrocytosis 1+, Ovalocytes RARE 06/13/21 20:59: Sodium 134 L, Potassium 3.8, Chloride 105, Carbon Dioxide 23.0, Anion Gap 6, BUN 16, Creatinine 1.07 H, Estim Creat Clear Calc 41.34, Est GFR (M DRD) Af Amer 63, Est GFR (MDRD) Non-Af 52 L, BUN/Creatinine Ratio 15.0, Glucose 153 H, Calcium 9.0, Total Bilirubin 0.90, AST 61 H, ALT 42, Alkaline Phosphatase 51, Troponin I High Sens 28, Total Protein 6.6, Albumin 3.3, Globulin 3.3, Albumin/Globulin Ratio 1.0 06/13/21 20:59: PT 25.7 H, INR 2.4 06/13/21 22:38: Urine Color Yellow, Urine Clarity Clear, Urine pH 5.0, Ur Specific Sycam[place] 1.020, Urine Protein 30 H, Urine Glucose (UA) Normal, Urine Ketones Negative, Urine Occult Blood 10 H, Urine Nitrite Negative, Urine Bilirubin Negative, Urine Urobilinogen 1 H, Ur Leukocyte Esterase Negative, Urine RBC 0 SEEN, Urine WBC 0-5 SEEN, Ur Squamous Epith Cells 0 SEEN, Urine Bacteria 0 SEEN, Urine Mucus 0 SEEN Micro: Microbiology 06/13/21 22:48 Nasal Secretion SARS-CoV-2 Antigen (Rapid) - Final Radiology Impression Chest X-Ray 06/13/21 21:30 IMPRESSION: 1. Enlarged heart shadow may represent cardiomegaly or pericardial effusion. Electronically Signed: Juan M Gayle, DO at 22:32 EST , Assessment & Plan Assessment/Plan (1) Debility: (2) Suspected COVID-19 virus infection: PLAN: 1. Debility and weakness -Admit to [facility] for observation -PT and OT eval and treat -Oxygen per protocol -Vital signs per protocol, currently stable -CBC, BMP, mag, Phos, TSH ordered for a.m. -Case management consult for discharge planning 2. Suspected COVID-19 infection -Patient has known exposure as she has multiple people in the household that have tested positive, rapid antigen negative PCR pending. Patient has been va ccinated x2 but patient has yet to receive to booster. -Patient currently stable on room air 97% -Encourage incentive spirometry -As needed albuterol nebulizer treatments 3. Hypertension -Cardiac heart healthy diet ordered -Continue home medication regimen including isosorbide, metoprolol, lisinopril -Vital signs per protocol, currently stable 4. Atrial fibrillation -Continue warfarin -PT and INR daily 5. CAD -Patient has stent x2 that was placed 12/02/2013 to the mid and proximal RCA DVT prophylaxis-SCDs, chronically anticoagulated This patient was seen by Bhavya Heard NP-C under the supervision of Dr. Ramon. 33 minutes spent in clinical coordination of patient's plan of care. Documented by User: Dr. 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 Essential (primary) hypertension Gross hematuria Hyperlipidemia Hypertension Longstanding persistent atrial fibrillation Nicotine dependence Vitamin D deficiency Home Medications aspirin 81 mg PO DAILY@0800 02/24/14 [History Last Taken 02/18/16] cholecalciferol (vitamin D3) 1,000 unit PO DAILY 05/28/15 [History Last Taken Unknown] folic acid 1 mg tablet 2 mg PO DAILY 03/14/18 [History Last Taken Unknown] methotrexate sodium 15 mg PO Q7D 09/30/19 [History Last Taken 09/26/19] acetaminophen 1,000 mg PO Q6H PRN #100 tab 10/02/19 [Rx Last Taken Unknown] warfarin 3 mg tablet 3 mg PO .COMPLEX #30 tab 05/31/20 [Rx Last Taken Unknown] warfarin 2 mg tablet 2 mg PO .COMPLEX #30 tab 09/02/20 [Rx Last Taken Unknown] simvastatin 20 mg tablet 20 mg PO QHS #90 tab 09/13/20 [Rx Last Taken Unknown] isosorbide mononitrate 30 mg tablet,extended release 24 hr 30 mg PO QAM #30 tab 02/21/21 [Rx Last Taken Unknown] pantoprazole 40 mg tablet,delayed release 40 mg PO DAILY #30 tab 05/23/21 [Rx Last Taken Unknown] lisinopril 20 mg PO DAILY 06/14/21 [History Last Taken Unknown] metoprolol succinate 50 mg PO DAILY 06/14/21 [History Last Taken Unknown] Allergy/AdvReac Type Severity Reaction Status Date / Time latex Allergy Itching Verified 06/13/21 20:46 ursodiol Allergy Unknown Verified 06/13/21 20:46 belladonna alkaloids AdvReac Unknown Verified 06/13/21 20:46 [Belladonna Alkaloids] formaldehyde AdvReac Rash Verified 06/13/21 20:46 phenobarbital AdvReac Unknown Verified 06/13/21 20:46 ranitidine HCl [From Zantac] AdvReac Unknown Verified 06/13/21 20:46 Family History Father CAD (coronary artery disease) CVA (cerebral vascular accident) Mother CAD (coronary artery disease) Myocardial infarction Surgical History History of coronary artery stent placement (12/02/13) History of left heart catheterization (02/18/16) History of open reduction and internal fixation (ORIF) procedure (09/2019) Social History Smoking Status: Current every day smoker tobacco type: cigarettes Results Lab / Micro Data Result Diagrams: 06/13/21 20:59 06/13/21 20:59 Charges/Coding Addendum Addendum: Patient is a 80-year-old female with a significant history of hypertension, CAD status post stents who presents emergency department with weakness. Of note patient was so weak that her daughter and her lowered patient to the floor. Also reportedly patient has been exposed to Covid. Her daughter denies patient having any shortness of breath. Occasionally patient has a chronic cough that her daughter attributes to smoking. History was obtained from patient daughter because patient was not answering questions at the time of history taking. Debility and acute encephalopathy. Etiology of acute encephalopathy unclear at this point. Urinalysis was reviewed. Urinalysis is unremarkable. CBC reviewed showed normal white count but with neutrophilia and lymphopenia. Also patient with mild anemia. BMP reviewed showed normal BUN and creatinine is within baseline. CMP showed elevated AST. Sodium is mildly low at 134. Glucose mild elevated at 153. Trend CMP. Actual chest x-ray image was independently visualized and interpreted. Chest x-ray with enlarged cardiac silhouette. I agree radiologist interpretation. PT and OT to work with patient. Check TSH. Initial Covid screen was negative. PCR COVID ordered from the ED, follow-up flu patient is not hypoxic. Multi Select Codes Visit Charges Observation E&M Codin Initial observation care L2
[2021-06-14] MEDS: hydrALAZINE 20 MG/ML Vial 5 MG IV (02:43)
[2021-06-14 07:11] LABS: Absolute Lymphocyte Count 0.18 X10^3/uL (0.83-4.51); Absolute Neutrophil Count 3.5 X10^3/uL (2.0-7.7); Basophil# 0.01 X10^3/uL; Basophil% 0.3 % (0-1); Hematocrit 31.6 % (37-47); Hemoglobin 11.1 g/dL (12.0-15.0); Lymphocyte # 0.18 X10^3/ul (0.83-4.51); Lymphocyte % 4.6 % (19-41); Mean Corp Hgb Conc 35.1 g/dL (32-36); Mean Corpuscular Hgb 35.1 pg (27.0-32.0); Mean Platelet Vol. 10.8 fl (6.2-12.0); Monocyte# 0.21 X10^3/uL; Monocyte% 5.4 % (0-10); NRBC Flagged by Analyzer 0 % (0-5); Neutrophil # 3.49 X10^3/uL (2.7-7.7); Neutrophil % 89.2 % (47-70); POSITIVE DIFFERENTIAL YES; Platelet Count 210 K/mm3 (150-450); RBC Distribution Width CV 13.9 % (11.6-14.6); RBC Distribution Width SD 50.5 fl (35.1-43.9); Red Blood Count 3.16 M/mm3 (4.2-5.4); White Blood Count 3.9 K/mm3 (4.4-11.0)
[2021-06-14 07:16] LABS: Differential Indicated SCAN CRITERIA MET
[2021-06-14 07:22] LABS: International Normalized Ratio 2.2; Prothrombin Time (Protime)PT. 24.1 SECONDS (11.7-14.9)
[2021-06-14 07:41] LABS: Phosphorus 1.9 mg/dL (2.5-4.9)
[2021-06-14 07:52] LABS: ALB/GLOB Ratio 0.9 RATIO (0.9-2.4); AST(SGOT) 55 U/L (15-37); Alanine Aminotransfer ALT/SGPT 40 U/L (13-56); Albumin, Serum 3.1 g/dL (3.2-5.0); Alkaline Phosphatase 51 U/L (45-117); Anion Gap 7 (5-15); BUN 13 mg/dL (7-18); BUN/Creat Ratio 16.1 RATIO (10-20); Calcium,Total 8.8 mg/dL (8.5-10.1); Chloride 105 mmol/L (98-107); Creatinine, Serum 0.81 mg/dL (0.55-1.02); EST Glomerular Filtration Rate 72 mL/min (>60); Est Glom Filt Rate - Afr Amer 87 mL/min (>60); Estimated Creatinine Clearance 50.13 ml/min; Globulin 3.5 g/dL (2.2-4.2); Glucose 96 mg/dL (74-106); Magnesium 1.7 mg/dL (1.6-2.6); Potassium 3.6 mmol/L (3.5-5.1); Protein, Total 6.6 g/dL (6.4-8.2); Sodium Level 133 mmol/L (136-145); Thyroid Stim Hormone (TSH) 0.72 uIU/mL (0.358-3.74)
[2021-06-14] MEDS: Aspirin 81 MG TAB.CHEW PO (08:35)
[2021-06-14] MEDS: Metoprolol(XL)Succ 50 MG Tablet PO (08:35)
[2021-06-14] MEDS: Pantoprazole Sodium 40 MG Tablet PO (08:35)
[2021-06-14] MEDS: Acetaminophen 325 MG Tablet 650 MG PO ×2 (08:35→17:16)
[2021-06-14] MEDS: Lisinopril 20 MG Tablet PO (08:36)
[2021-06-14] MEDS: Isosorbide Mononitrate 30 MG Tablet PO (08:36)
[2021-06-14] MEDS: Folic Acid 1 MG Tablet 2 MG PO (08:36)
[2021-06-14] MEDS: Cholecalciferol (VIT D3) 25 MCG TABLET (1,000 UNITS) PO (08:36)
[2021-06-14 08:41] LABS: Macrocytosis 1+; Ovalocyte 1+; Poikilocytosis 1+
--- NOTE | 2021-06-14 14:25 | PCM.HOSP.N ---
Hospitalist Note 80-year-old white female who presented to the emergency department with general malaise that started the day prior to presentation. She was admitted early this morning with the symptoms. She appeared slightly dehydrated on baseline labs and had mild LFT elevations. Her EKG shows rate controlled atrial fibrillation that is chronic and a chest x-ray was negative. An initial rapid Covid was negative but A Covid PCR was positive. She has had some fevers during her hospital course and has had intermittent confusion however on my evaluation on 06/14/2021 she was alert and oriented x3 and sitting up eating with assistance. She will need evaluated for placement possibly prior to discharge depending on how she does with therapy services.Apparently the patient was not much communicative upon admission but this seems to have improved dramatically.
--- NOTE | 2021-06-14 14:43 | CASEMGMT ---
RN CM called for initial transition planning/care coordination assessment as patient is confused at this time. RN CM introduced self and role at [facility]. Patient lying in bed, alert and oriented. Patient willing to participate in assessment and is able to answer all questions appropriately. Care providers, pharmacy, and demographics verified. wishes for patient to discharge home. Will monitor progress with therapy for discharge needs, HHC vs SNF. , Sven, states he has no further needs or concerns at this time. CM to follow for discharge planning needs that may arise. PCP: [facility] Specialists: unsure of names of specialist [facility]erred [facility]acy: [facility] Insurance: Nydia PECK Prescription Benefit: yes Living Will/HPOA: was not sure LNOK: , daughter Living Arrangements: Patient lives with and daughter in a 2 story home with bed and bath on first floor. Per patient was independent at home for self-care. Transportation: , daughter DME/HHC: Patient has cane and walker. No previous HHC or SNF. Disposition Plan: Patient to discharge home with family support and follow-up plans in place. Will monitor progress with therapy for additional needs. Homa DOWNS, RN, CM
--- NOTE | 2021-06-14 16:25 | CASEMGMT ---
RN CM in to discuss FORREST form with patient. Pt A&Ox3. RN ALLISON explained FORREST form, patient voiced understanding. Pt signed form slowly, filed in chart. Will provide pt copy of FORREST form. Patient had no further questions or concerns at this time.
[2021-06-14] MEDS: Jantoven 2 MG Tablet PO (17:16)
[2021-06-14] MEDS: Atorvastatin Calcium 10 MG Tablet PO (22:31)
[2021-06-15] VITALS (7 sets, daily range): BP systolic 110–162; BP diastolic 60–80; PULSE 70–73; RESP 18; TEMP 36.5–37.7; O2SAT 92–97
[2021-06-15] MEDS: Acetaminophen 325 MG Tablet 650 MG PO (05:20)
[2021-06-15 06:08] LABS: Absolute Lymphocyte Count 0.69 X10^3/uL (0.83-4.51); Absolute Neutrophil Count 1.9 X10^3/uL (2.0-7.7); Basophil# 0.03 X10^3/uL; Eosinophil# 0.01 X10^3/uL; Eosinophils% 0.3 % (0-5); Hematocrit 33.9 % (37-47); Hemoglobin 11.8 g/dL (12.0-15.0); Lymphocyte # 0.69 X10^3/ul (0.83-4.51); Lymphocyte % 23.4 % (19-41); Mean Corp Hgb Conc 34.8 g/dL (32-36); Mean Corpuscular Volume 100.6 fL (81-99); Mean Platelet Vol. 11.5 fl (6.2-12.0); Monocyte# 0.35 X10^3/uL; Monocyte% 11.9 % (0-10); NRBC Flagged by Analyzer 0 % (0-5); Neutrophil # 1.85 X10^3/uL (2.7-7.7); Neutrophil % 62.7 % (47-70); Platelet Count 208 K/mm3 (150-450); RBC Distribution Width CV 13.9 % (11.6-14.6); RBC Distribution Width SD 50.6 fl (35.1-43.9); Red Blood Count 3.37 M/mm3 (4.2-5.4)
[2021-06-15 06:45] LABS: ALB/GLOB Ratio 0.9 RATIO (0.9-2.4); AST(SGOT) 48 U/L (15-37); Alanine Aminotransfer ALT/SGPT 37 U/L (13-56); Albumin, Serum 2.9 g/dL (3.2-5.0); Alkaline Phosphatase 47 U/L (45-117); Anion Gap 7 (5-15); BUN 17 mg/dL (7-18); BUN/Creat Ratio 18.8 RATIO (10-20); Calcium,Total 8.7 mg/dL (8.5-10.1); Chloride 105 mmol/L (98-107); EST Glomerular Filtration Rate 63 mL/min (>60); Est Glom Filt Rate - Afr Amer 77 mL/min (>60); Estimated Creatinine Clearance 45.12 ml/min; Globulin 3.4 g/dL (2.2-4.2); Glucose 69 mg/dL (74-106); Potassium 3.5 mmol/L (3.5-5.1); Protein, Total 6.3 g/dL (6.4-8.2); Sodium Level 134 mmol/L (136-145)
[2021-06-15] MEDS: Folic Acid 1 MG Tablet 2 MG PO (08:54)
[2021-06-15] MEDS: Lisinopril 20 MG Tablet PO (08:54)
[2021-06-15] MEDS: Metoprolol(XL)Succ 50 MG Tablet PO (08:54)
[2021-06-15] MEDS: Isosorbide Mononitrate 30 MG Tablet PO (08:54)
[2021-06-15] MEDS: Pantoprazole Sodium 40 MG Tablet PO (08:55)
[2021-06-15] MEDS: Cholecalciferol (VIT D3) 25 MCG TABLET (1,000 UNITS) PO (08:55)
[2021-06-15] MEDS: Aspirin 81 MG TAB.CHEW PO (08:55)
[2021-06-15 10:27] LABS: Pathologist Review Reviewed
--- NOTE | 2021-06-15 11:00 | CASEMGMT ---
Spoke with therapy this morning. At this time they are recommending HHC at home. LEONCIO CM in to pt room to obtain pt preference of HHC as list was provided yesterday. Pt states the physician was in this morning and stated pt was going to a nursing facility. Pt has not worked with therapy yet today. Will follow therapy today. Should pt go home, she prefers [facility]. Pt very slow to respond and at this time could not pick a second choice of HHC.
--- NOTE | 2021-06-15 13:20 | CASEMGMT ---
Social Work Note GABRIEL received call from pt's granddaughter Nichole Steen to discuss discharge plans. GABRIEL spoke with Nichole about SNF vs Home with HHC and PT/OT evaluations. GABRIEL informed Nichole that PT/OT will work with pt again today and make recommendations. GABRIEL educated Nichole on HHC. Nichole asked if pt would be able to go to [facility]. GABRIEL informed Nichole that [facility] is not an option as they do not accept COVID+ pt's. GABRIEL informed Nichole that the only two SNF in [facility] that accepts COVID+ pt's are [facility] and [facility]. Nichole states that she works part time during the day but is able to assist in the evenings. Nichole states pt lives with her and Nichole's Aunt who are able to assist some but not a lot. GABRIEL informed Nichole that PT/OT will work with pt today and then see how pt does and can update Nichole. Nichole states understanding, states the preference would be for pt to return home with HHC. GABRIEL updated RN CM. Plan: Home with HHC Homa Sharma PSYCHIATRIC NURSING AIDE, CUTTING AND BONING SUPERVISOR
--- NOTE | 2021-06-15 14:45 | CASEMGMT ---
Social Work Note SW updated by PT that pt could go home or could go to a SNF, whichever. If pt goes home she will need someone to assist her as pt did lose balance once in the bathroom. Pt could also benefit from SNF though, again could just go whichever way. GABRIEL updated RN CM. Homa Sharma TUBE TRAILER FILLER, BROKERAGE PURCHASE AND SALE CLERK
--- NOTE | 2021-06-15 15:17 | CASEMGMT ---
Per therapy pt able to go home with HHC. TC to pt and dtr, no answer. TC to pt granddtr, Nichole, she states that someone is always with the patient. RN CM in to pt room, pt states she prefers to go home rather than SNF. TC to [facility], unable to accept pt until next Sunday. Made pt aware, she chose [facility] next. TC to [facility], pt accepted. Referral faxed at this time. Pt did not qualify for home O2.
--- NOTE | 2021-06-15 16:47 | PCM.DC ---
Discharge Instructions Diet Discharge Diet: Low fat / Low cholesterol Activity Discharge Activity: Return to Normal Activity Dressing / Incision Call your doctor if you observe: Fever of 101 or Higher, Shortness of breath, Dizziness, Fainting spells, Swelling in the ankles, Chest pain and Increased palpitations (irregular heartbeat) Follow Up Care Test Results: Test results from this visit will be discussed in further detail at your follow-up appointment, if applicable. Discharge Plan Admission Admit Date/Time: 06/14/21 00:00 Attending Provider: Brent Hughes Primary Care Provider: Paul Mccullough Discharge Orders/Prescriptions Prescriptions: Continued folic acid 1 mg tablet 2 mg PO DAILY RF: 0 aspirin 81 MG tablet,chewable 81 mg PO DAILY@0800 RF: 0 cholecalciferol (vitamin D3) 1,000 UNIT tablet 1,000 unit PO DAILY RF: 0 methotrexate sodium 2.5 MG tablet 15 mg PO FR RF: 0 acetaminophen 500 MG tablet 1,000 mg PO Q6H PRN Qty: 100 RF: 0 metoprolol succinate 50 mg tablet extended release 24 hr 50 mg PO DAILY RF: 0 lisinopril 40 mg tablet 20 mg PO DAILY RF: 0 warfarin 3 mg tablet 3 mg PO .COMPLEX Qty: 30 RF: 12 warfarin 2 mg tablet 2 mg PO .COMPLEX Qty: 30 RF: 11 simvastatin 20 mg tablet 20 mg PO QHS Qty: 90 RF: 3 isosorbide mononitrate 30 mg tablet extended release 24 hr 30 mg PO QAM Qty: 30 RF: 11 pantoprazole 40 mg tablet,delayed release (DR/EC) 40 mg PO DAILY Qty: 30 RF: 11 Referrals / Follow Up: Paul Mccullough MD [Primary Care Provider] - Within 1 Week Disposition Disposition (needs filled in before D/C Order can be placed): Home Health Service
--- NOTE | 2021-06-15 16:52 | DS.PCM_ITS ---
Providers Date of Admission: 06/14/21 Primary Care Physician: Dr. Paul Mccullough MD Reason For Visit: DEBILITY, WEAKNESS Diagnosis Discharge Diagnosis (1) Debility: Status: Acute Code(s): R53.81 - Other malaise (2) Suspected COVID-19 virus infection: Status: Acute Code(s): Z20.822 - Contact with and (suspected) exposure to COVID-19 Medications at Discharge Home Medications aspirin 81 mg PO DAILY@0800 02/24/14 cholecalciferol (vitamin D3) 1,000 unit PO DAILY 05/28/15 folic acid 1 mg tablet 2 mg PO DAILY 03/14/18 methotrexate sodium 15 mg PO FR 09/30/19 acetaminophen 1,000 mg PO Q6H PRN #100 tab 10/02/19 warfarin 3 mg tablet 3 mg PO .COMPLEX #30 tab 05/31/20 warfarin 2 mg tablet 2 mg PO .COMPLEX #30 tab 09/02/20 simvastatin 20 mg tablet 20 mg PO QHS #90 tab 09/13/20 isosorbide mononitrate 30 mg tablet,extended release 24 hr 30 mg PO QAM #30 tab 02/21/21 pantoprazole 40 mg tablet,delayed release 40 mg PO DAILY #30 tab 05/23/21 lisinopril 20 mg PO DAILY 06/14/21 metoprolol succinate 50 mg PO DAILY 06/14/21 Hospital Course Operations None Procedures None Summary of Care Provided Minutes Spent on Discharge: 40 Hospital Course: Per HPI: ANGELINA SONI, is a 80 F who presents with reports that patient began feeling weak and lethargic earlier today. Patient denies being sick however she does have a coarse nonproductive cough. Patient is sleepy and unable to contribute much to her health history however her daughter was able to provide medical history. Patient denies fever chills shortness of breath, chest pain, syncope. Patient reports a medical history includes hypertension, atrial fibrillation, CAD, RA. Hospital Course: 1. Debility and weakness secondary to VYRVN-15-89-year-old female with a history of hypertension, A. fib, CAD status post stents present to the hospital with debility and weakness. Family said that she was struggling to get out of the bed and out of the chair. Initially on presentation chest x-ray was unremarkable and UA was negative for UTI. She did come back positive for Covid initially she had a negative rapid but then a positive PCR. She was as ymptomatic with no significant shortness of breath or cough. She has had normal temps for about the last 24 hours, and she did not require any oxygen with ambulation. I discussed the case with her daughter, and the daughter states that she lives at home with 5 other people who would be able to help her if necessary. I did discuss with her that there is concern that she would not be able to be discharged tomorrow secondary to the snow and also the risk of further debility by staying in the hospital bed. I discussed with her that physical therapy has recommended home with home health care and they were agreeable and would be able to take her home today. I discussed with the patient and her daughter the plan for discharge today and expressed understanding of the risk benefits of going home and would like to go home today with home health care. I discussed with her that she should remain quarantined for about 10 days from symptom onset which I would attribute to the weakness that started on 06/12/2021. I also discussed with the daughter that it is possible that she will need to come back if she has worsening shortness of breath and oxygen requirements at home. 2. Hypertension, A. fib, CAD post stents, GERD oral medical conditions which complicate her care. Her home medications were continued where appropriate Physical Exam Const alert, oriented x3 and no apparent distress General Appearance: cooperative HEENT normocephalic and moist oral mucous membranes Eyes PERRL, EOMs intact bilaterally and conjunctivae normal Neck supple and no JVD Resp normal respiratory effort, no retractions and no use of accessory muscles Auscultation: diminished lung sounds; Negative for crackles, rales, rhonchi or wheezes Cardio regular rate, regular rhythm, S1 normal heart sound, S2 normal heart sound and no murmurs GI soft to palpation, non-tender and non-distended; Negative for hepatosplenomegaly Extremity no clubbing, cyanosis or edema Skin no rashes or lesions noted Neuro no focal motor deficits and no sensory deficits noted Psych affect normal Appearance: appropriate Weight / BMI Weight Weight: 130 lb 11.746 oz Body Mass Index (BMI) 29.2 ABG / Lab / Microbiology Data Result Diagrams: 06/15/21 04:56 06/15/21 04:56 Laboratory: Laboratory Results - last 24 hr 06/14/21 06:54: Diff Path Review Reviewed 06/15/21 04:56: WBC 3.0 L, RBC 3.37 L, Hgb 11.8 L, Hct 33.9 L, MCV 100.6 H, MCH 35.0 H, MCHC 34.8, RDW Std Deviation 50.6 H, RDW Coeff of Doris 13.9, Plt Count 208, MPV 11.5, Immature Gran % (Auto) 0.700, Neut % (Auto) 62.7, Lymph % (Auto) 23.4, [place] % (Auto) 11.9 H, Eos % (Auto) 0.3, Baso % (Auto) 1.0, Absolute Neuts (auto) 1.9 L, Absolute Lymphs (auto) 0.69 L, Nucleated RBC % 0 06/15/21 04:56: Sodium 134 L, Potassium 3.5, Chloride 105, Carbon Dioxide 22.0, Anion Gap 7, BUN 17, Creatinine 0.90, Estim Creat Clear Calc 45.12, Est GFR ( MDRD) Af Amer 77, Est GFR (MDRD) Non-Af 63, BUN/Creatinine Ratio 18.8, Glucose 69 L, Calcium 8.7, Total Bilirubin 0.50, AST 48 H, ALT 37, Alkaline Phosphatase 47, Total Protein 6.3 L, Albumin 2.9 L, Globulin 3.4, Albumin/Globulin Ratio 0.9 Microbiology: Microbiology 06/13/21 22:48 Nasal Secretion SARS-CoV-2 Antigen (Rapid) - Final D/C Instructions Discharge Diet: Low fat / Low cholesterol Call your doctor if you observe: Fever of 101 or Higher, Shortness of breath, Dizziness, Fainting spells, Swelling in the ankles, Chest pain and Increased palpitations (irregular heartbeat) Meaningful Use Info Meaningful Use Diagnoses (Choose all that apply): None applicable Discharge Plan Admission Admit Date/Time: 06/14/21 00:00 Attending Provider: Brent Hughes Primary Care Provider: Paul Mccullough Discharge Orders/Prescriptions Prescriptions: Continued folic acid 1 mg tablet 2 mg PO DAILY RF: 0 aspirin 81 MG tablet,chewable 81 mg PO DAILY@0800 RF: 0 cholecalciferol (vitamin D3) 1,000 UNIT tablet 1,000 unit PO DAILY RF: 0 methotrexate sodium 2.5 MG tablet 15 mg PO FR RF: 0 acetaminophen 500 MG tablet 1,000 mg PO Q6H PRN Qty: 100 RF: 0 metoprolol succinate 50 mg tablet extended release 24 hr 50 mg PO DAILY RF: 0 lisinopril 40 mg tablet 20 mg PO DAILY RF: 0 warfarin 3 mg tablet 3 mg PO .COMPLEX Qty: 30 RF: 12 warfarin 2 mg tablet 2 mg PO .COMPLEX Qty: 30 RF: 11 simvastatin 20 mg tablet 20 mg PO QHS Qty: 90 RF: 3 isosorbide mononitrate 30 mg tablet extended release 24 hr 30 mg PO QAM Qty: 30 RF: 11 pantoprazole 40 mg tablet,delayed release (DR/EC) 40 mg PO DAILY Qty: 30 RF: 11 Referrals / Follow Up: Paul Mcculluogh MD [Primary Care Provider] - Within 1 Week Disposition Disposition (needs filled in before D/C Order can be placed): Home Health Servi ce Charges/Coding Visit Charges OBSV E&M: 27661 Observation care discharge
--- NOTE | 2021-06-23 13:25 | CASEMGMT ---
Received tc from pt hiro Varela who states that pt is not doing well at home. She states her memory is worse and she is not getting as strong as they had hoped. She is inquiring about getting SN added to the [facility]. Made her aware that the [facility] could attempt to reach pt PCP to add SN or pt/family could do so. She states pt has an appt this upcoming Sunday and she will discuss at that time. She denies further needs at this time.
== END 2021-06-15 18:30 | disposition home health service (06) ==
LOC: ED 23:46 → MS3 06-14 01:00
PROVIDERS: Internal Medicine; Nurse Practitioner Family; Admitting Provider Hospitalist; Emergency Provider Student in an Organized Health Care Education/Training Program; PCP Family Medicine; Visit Provider Family Medicine
DX: U07.1 COVID-19 (principal); I48.11 Longstanding persistent atrial fibrillation; D55.3 Anemia due to disorders of nucleotide metabolism; Z79.82 Long term (current) use of aspirin; I10 Essential (primary) hypertension; R73.9 Hyperglycemia, unspecified; I25.10 Atherosclerotic heart disease of native coronary artery without angina pectoris; D64.9 Anemia, unspecified; E78.5 Hyperlipidemia, unspecified; M17.10 Unilateral primary osteoarthritis, unspecified knee; F17.210 Nicotine dependence, cigarettes, uncomplicated; G93.40 Encephalopathy, unspecified; Z79.01 Long term (current) use of anticoagulants; Z79.899 Other long term (current) drug therapy
CPT/HCPCS: 36415; 71045; 80053; 81001; 83735; 84100; 84443; 84484; 85025; 85610; 87426; 87635; 93005; 94762; 96374; 97110; 97162; 97166; 97530; 97535; 99218; 99251; 99285; G0378; G0463; U0003; U0005

== ENCOUNTER 2021-06-24 16:24 | Inpatient (IN) | payer MEDICARE, OTHER, SELFPAY ==
[2021-06-24] VITALS (10 sets, daily range): BP systolic 116–165; BP diastolic 63–78; PULSE 61–75; RESP 16–28; TEMP 36.1–36.8; O2SAT 89–99; BMI 27.6; BMI 27.8
--- NOTE | 2021-06-24 16:28 | EKG12_ITS ---
Test Reason : STROKE Blood Pressure : / mmHG Vent. Rate : 071 BPM Atrial Rate : 092 BPM P-R Int : 000 ms QRS Dur : 080 ms QT Int : 426 ms P-R-T Axes : 000 015 211 degrees QTc Int : [address] & T wave abnormality, consider anterolateral ischemia Abnormal ECG Confirmed by JOSSE WORTHINGTON, FRANKLIN ([id number]), editorial director JOHN BURKETT ([id number]) on 06/28/2021 6:57:51 AM Referred By: DEX Confirmed By:FRANKLIN LOAIZA MD
--- NOTE | 2021-06-24 16:28 | CT_ITS ---
EXAM: CT HEAD WITHOUT INTRAVENOUS CONTRAST : 1940 CLINICAL INDICATION: Neuro deficit, acute, stroke suspected TECHNIQUE: Multiple axial images were obtained of the head without intravenous contrast. This CT exam was performed using one or more of the following dose reduction techniques: automated exposure control, adjustment of the mA and/or kV according to patient size, and/or use of iterative reconstruction technique. This report was created using [employer] report generation technology. COMPARISON: None. FINDINGS: BRAIN AND EXTRA-AXIAL SPACES: Diminished white matter density cosistent with chronic microvascular disese. No intra- or extra-axial hemorrhage. No evidence of acute infarct. No intracranial mass or mass effect. There is preservation of the price/white matter interface. Posterior fossa structures are unremarkable. Ventricles are appropriate for age. No hydrocephalus. Basal cisterns are patent. BONES/JOINTS: Unremarkable. No discrete lytic or blastic abnormalities. SINUSES: Unremarkable as visualized. Clear. MASTOID AIR CELLS: Unremarkable. Clear. ORBITS: Visualized globes, extraocular muscles, optic nerves and retrobulbar fat appear unremarkable. CT/STROKE Brain/Head without Cont IMPRESSION: 1. No acute abnormality. 2. Chronic microvascular changes. 3. Aspect score 10 Individualized dose optimization techniques were used for this CT. at 1644 Reported and signed by: Jose Luis Venegas MD N.B. : The above Results were Read Back by Jose Luis Venegas MD to Mahesh Patel and understanding confirmed on 06/24/2021 16:43:35 (ET). Electronically Signed: Jose Luis Venegas MD at 16:43 EST ,
--- NOTE | 2021-06-24 16:28 | CT_ITS ---
We are attempting to reach an attending provider to discuss findings. An addendum with communication details will be sent when the communication is complete. EXAM: CT ANGIOGRAPHY HEAD AND NECK WITH INTRAVENOUS CONTRAST CLINICAL INDICATION: Neuro deficit, acute, stroke suspected TECHNIQUE: Tillman of Deng/head and neck CT angiography protocol performed with intravenous contrast. This CT exam was performed using one or more of the following dose reduction techniques: automated exposure control, adjustment of the mA and/or kV according to patient size, and/or use of iterative reconstruction technique. This report was created using [employer] report [employer] technology. MIP reconstructed images were created and reviewed. CONTRAST: IV 100mL [id number] COMPARISON: CT head of the same day FINDINGS: HEAD: RIGHT ANTERIOR CEREBRAL ARTERY: Unremarkable. No significant stenosis at the visualized segments. Anterior communicating artery is present. No aneurysm. RIGHT MIDDLE CEREBRAL ARTERY: Unremarkable. No significant stenosis at the visualized segments. No aneurysm. RIGHT POSTERIOR CEREBRAL ARTERY: Unremarkable. No occlusion or significant stenosis. No aneurysm. LEFT ANTERIOR CEREBRAL ARTERY: Unremarkable. No significant stenosis at the visualized segments. No aneurysm. LEFT MIDDLE CEREBRAL ARTERY: Unremarkable. No significant stenosis at the visualized segments. No aneurysm. LEFT POSTERIOR CEREBRAL ARTERY: Unremarkable. No occlusion or significant stenosis. No aneurysm. BASILAR ARTERY: Unremarkable. No significant stenosis. No aneurysm. GREAT VESSELS OF AORTIC ARCH: Unremarkable. Normal anatomy, patent. OTHER VASCULATURE: No vascular malformation. NECK: RIGHT COMMON CAROTID ARTERY: Unremarkable. No significant stenosis. No dissection or occlusion. RIGHT INTERNAL CAROTID ARTERY: There is calcified plaque formation of the right cavernous carotid artery, with a mild stenosis (less than 50%). There is calcified plaque formation of the left cavernous carotid artery, with a mild stenosis (less than 50%). ALL ABOVE CRITERIA BY NASCET. No dissection or occlusion. RIGHT EXTERNAL CAROTID ARTERY: Unremarkable. No occlusion. RIGHT VERTEBRAL ARTERY: Unremarkable. No significant stenosis. No dissection or occlusion. LEFT COMMON CAROTID ARTERY: Unremarkable. No significant stenosis. No dissection or occlusion. LEFT INTERNAL CAROTID ARTERY: There is mild atherosclerotic plaque formation of the origin of the right and left internal carotid artery with less than 50% cross sectional diameter stenosis. ALL ABOVE CRITERIA BY NASCET. LEFT EXTERNAL CAROTID ARTERY: Unremarkable. No occlusion. LEFT VERTEBRAL ARTERY: Unremarkable. No significant stenosis. No dissection or occlusion. LUNG APICES: Right upper lobe pneumonia. HEART: There are coronary arterial calcifications. . SOFT TISSUES: Unremarkable. OTHER FINDINGS: There are degenerative findings of the cervical spine. CAROTID STENOSIS REFERENCE USING NASCET CRITERIA: % ICA stenosis = (1 - narrowest ICA diameter/diameter of distal cervical ICA) x 100. Mild - <50% stenosis. Moderate - 50-69% stenosis. Severe - 70-94% stenosis. Near occlusion - 95-99% stenosis. Occluded - 100% stenosis. CT/STROKE CTA Head AND Neck W/Con IMPRESSION: 1. Right upper lobe pneumonia. 2. There is mild atherosclerotic plaque formation of the origin of the right and left internal carotid artery with less than 50% cross sectional diameter stenosis. ALL ABOVE CRITERIA BY NASCET. 3. There is calcified plaque formation of the right cavernous carotid artery, with a mild stenosis (less than 50%). There is calcified plaque formation of the left cavernous carotid artery, with a mild stenosis (less than 50%). ALL ABOVE CRITERIA BY NASCET. Electronically Signed: Rafael Rooney MD at 16:58 EST ,
--- NOTE | 2021-06-24 16:29 | CM.ED ---
Social Work Responding to stroke alert. Patient alert and speaking with physician. No family present at this time. Will continue to follow as needed. Hortensia Taylor MSW, JAELYNS
[2021-06-24 17:21] LABS: Mucous, Urine 0 SEEN /hpf (<or=2+); White Blood Cells 0 SEEN /hpf (0-5)
[2021-06-24 17:24] LABS: Absolute Lymphocyte Count 0.49 X10^3/uL (0.83-4.51); Absolute Neutrophil Count 2.1 X10^3/uL (2.0-7.7); Color, Urine Yellow (Yellow); Glucose, Dipstick Normal (Normal); Hematocrit 35.9 % (37-47); Hemoglobin 12.2 g/dL (12.0-15.0); Ketone-Dipstick 5 mg/dl (Negative); Leukocyte Esterase-Dipstick Negative /ul (Negative); Lymphocyte # 0.49 X10^3/ul (0.83-4.51); Lymphocyte % 15.3 % (19-41); Mean Platelet Vol. 11.1 fl (6.2-12.0); Monocyte# 0.57 X10^3/uL; Monocyte% 17.8 % (0-10); NRBC Flagged by Analyzer 0 % (0-5); Neutrophil # 2.11 X10^3/uL (2.7-7.7); Nitrite-Dipstick Negative (Negative); Occult Blood-Urine 50 /ul (Negative); POSITIVE DIFFERENTIAL YES; POSITIVE MORPHOLOGY YES; Platelet Count 144 K/mm3 (150-450); Protein-Dipstick 500 mg/dl (Negative); RBC Distribution Width CV 14.1 % (11.6-14.6); RBC Distribution Width SD 51.1 fl (35.1-43.9); Red Blood Count 3.59 M/mm3 (4.2-5.4); Urine Bilirubin Dipstick Negative (Negative); Urine Clarity Sl. Cloudy (Clear); Urine Urobilinogen 1 mg/dl (Normal); White Blood Count 3.2 K/mm3 (4.4-11.0)
[2021-06-24 17:30] LABS: Differential Indicated SCAN CRITERIA MET
[2021-06-24 17:40] LABS: International Normalized Ratio 3.2; Prothrombin Time (Protime)PT. 32.2 SECONDS (11.7-14.9)
--- NOTE | 2021-06-24 17:40 | RAD_ITS ---
STUDY: X-RAY CHEST REASON FOR EXAM: Female, 80 years old. CHEST PAIN Neuro deficit, acute, stroke suspected TECHNIQUE: XR Chest 1 View COMPARISON: 06.13.21 FINDINGS: There is no demonstrated pleural abnormality. Right upper lobe and left lower lobe infiltrate. There is moderate cardiac enlargement. Normal mediastinum and jonn. Normal visualized pulmonary arteries. There is atherosclerotic calcification of the aortic arch with tortuosity. There are diffuse degenerative changes of the visualized thoracic spine. There is degenerative osteoarthritis of the bilateral shoulders. There is no demonstrated abnormality of the visualized soft tissue structures of the upper abdomen. RAD/Chest 1 View IMPRESSION: Right upper lobe and left lower lobe infiltrate. Electronically Signed: Rafael Rooney MD at 17:52 EST ,
[2021-06-24 17:41] LABS: Anion Gap 6 (5-15); BUN 20 mg/dL (7-18); BUN/Creat Ratio 19.6 RATIO (10-20); Calcium,Total 8.2 mg/dL (8.5-10.1); Chloride 105 mmol/L (98-107); Creatinine, Serum 1.02 mg/dL (0.55-1.02); EST Glomerular Filtration Rate 55 mL/min (>60); Est Glom Filt Rate - Afr Amer 67 mL/min (>60); Estimated Creatinine Clearance 40.28 ml/min; Glucose 113 mg/dL (74-106); Partial Thromboplast Time 54.7 Seconds (24.1-36.2); Potassium 4.6 mmol/L (3.5-5.1); Sodium Level 133 mmol/L (136-145); Troponin-I HS 64 pg/mL (3.0-54.0)
--- NOTE | 2021-06-24 18:01 | ED.VIS.STROK ---
HPI History of Present Illness Chief Complaint: Neuro S/Sx Narrative Narrative: 80-year-old female coming in for altered mental status and strokelike symptoms. Patient is on Coumadin for history of atrial fibrillation. Apparently her daughter who is here stated that she spoke to her at about 4:56 PM last evening and she sounded normal. At about 9:00 at night the rest of her family noted that she was trying to eat napkins and had trouble moving especially her left foot and seemed confused. She was taken into bed and lay down. Patient has had a facial droop on the right today. She does continue to be confused. There is no history of any trauma. She has met at the [facility] and she is answering questions although she is slow to respond. There is a mild facial droop on the right at the corner of the mouth. She is able to move all 4 extremities and is able to tell me that she has equal symmetric sensation. Her lower extremities are weak and can only be minimally held off of the bed for a couple of seconds. 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 Essential (primary) hypertension Gross hematuria Hyperlipidemia Hypertension Longstanding persistent atrial fibrillation Nicotine dependence Vitamin D deficiency Home Medications aspirin 81 mg PO DAILY@0800 02/24/14 [History Last Taken 02/18/16] cholecalciferol (vitamin D3) 1,000 unit PO DAILY 05/28/15 [History Last Taken Unknown] folic acid 1 mg tablet 2 mg PO DAILY 03/14/18 [History Last Taken Unknown] methotrexate sodium 15 mg PO FR 09/30/19 [History Last Taken 09/26/19] acetaminophen 1,000 mg PO Q6H PRN #100 tab 10/02/19 [Rx Last Taken Unknown] warfarin 3 mg tablet 3 mg PO .COMPLEX #30 tab 05/31/20 [Rx Last Taken Unknown] warfarin 2 mg tablet 2 mg PO .COMPLEX #30 tab 09/02/20 [Rx Last Taken Unknown] simvastatin 20 mg tablet 20 mg PO QHS #90 tab 09/13/20 [Rx Last Taken Unknown] isosorbide mononitrate 30 mg tablet,extended release 24 hr 30 mg PO QAM #30 tab 02/21/21 [Rx Last Taken Unknown] pantoprazole 40 mg tablet,delayed release 40 mg PO DAILY #30 tab 05/23/21 [Rx Last Taken Unknown] lisinopril 20 mg PO DAILY 06/14/21 [History Last Taken Unknown] metoprolol succinate 50 mg PO DAILY 06/14/21 [History Last Taken Unknown] Allergy/AdvReac Type Severity Reaction Status Date / Time latex Allergy Itching Verified 06/24/21 17:08 ursodiol Allergy Unknown Verified 06/24/21 17:08 belladonna alkaloids AdvReac Unknown Verified 06/24/21 17:08 [Belladonna Alkaloids] formaldehyde AdvReac Rash Verified 06/24/21 17:08 phenobarbital AdvReac Unknown Verified 06/24/21 17:08 ranitidine HCl [From Zantac] AdvReac Unknown Verified 06/24/21 17:08 Family History Father CAD (coronary artery disease) CVA (cerebral vascular accident) Mother CAD (coronary artery disease) Myocardial infarction Surgical History History of coronary artery stent placement (12/02/13) History of left heart catheterization (02/18/16) History of open reduction and internal fixation (ORIF) procedure (09/2019) Social History (Updated 06/24/21 @ 19:[address] La Parish MD) household members: family Smoking Status: Current every day smoker tobacco type: cigarettes Smoking packs per day: 0.5 Smoking cigarettes per day: 10.0 alcohol intake: never substance use type: does not use ROS ROS ED Review of Systems ROS Unobtainable: due to mental status EXAM Physical Exam Const Vital Signs: 06/24/21 16:48 06/24/21 17:14 06/24/21 17:18 Temperature 98.2 F 98.2 F Temperature Source Oral Oral Pulse Rate 73 69 68 Respiratory Rate 28 H 19 H 28 H Blood Pressure 139/73 H 124/74 H 124/74 H Blood Pressure Mean 95 90 90 Pulse Ox 93 93 95 Oxygen Delivery Method Nasal Cannula Room Air Nasal Cannula Oxygen Flow Rate (L/min) 2 2 06/24/21 18:05 Temperature Temperature Source Pulse Rate 69 Respiratory Rate 27 H Blood Pressure 128/69 H Blood Pressure Mean 88 Pulse Ox 95 Oxygen Delivery Method Nasal Cannula Oxygen Flow Rate (L/min) 2 Positive well nourished General Appearance ED: NAD HEENT Reports moist mucous membranes atraumatic Eyes PERRL and EOMs intact bilaterally Resp normal respiratory effort and clear to auscultation bilaterally Cardio Rate: regular rate GI normal to inspection, nondistended, normoactive bowel sounds Extremity General Extremety ED: Negative for deformity or tenderness General Extremity: Negative for deformity Neuro Neuro Narrative: NIH stroke scale of 5 Psych Psych Narrative: Confused Skin Lesions: no lesions Rashes: no rashes STROKE Vital Signs/Narrative: Vital Signs Pulse Resp BP Pulse Ox 06/24/21 18:05 69 27 H 128/69 H 95 MDM MDM MDM Narrative Medical decision making narrative: Patient met at the [facility] on arrival and has an [place] scale of 5. She cannot lift her legs off the bed significantly. She does follow commands. She is slow to respond and has a right facial droop. Sensation is intact. Her speech is slurred. Patient taken to CT had a CT of the brain and CTA which were both negative. After speaking with her daughter at the bedside more she was diagnosed with COVID-19 on the . She has been hospitalized for this previously and went home without oxygen. It was noted while she was here that she was dropping to about 88% and was placed on 2 L of oxygen. Chest x-ray my interpretation shows right upper lobe and left lower lobe infiltrates. The radiologist does agree. These were not present on her chest x-ray on 06/13/2021. It is unclear if this is progression from her previous COVID-19. Her CBC shows that she is leukopenic and lymphopenic. Her hemoglobin hematocrit are stable. Platelets are low at 144. Renal function is normal. High-sensitivity troponin returned at 64. EKG on my interpretation shows atrial fibrillation with a controlled ventricular response of 71 bpm. INR is therapeutic at 3.2. Patient consistently has an ages of 5 and has not changed to either improved or been worse. Urinalysis was negative for infection. Given the patient slight hypoxia and pneumonia readings on chest x-ray which not present previously I discussed with the hospitalist will treat her for pneumonia. She will be admitted for stroke as well. Discussed patient at length with the patient's daughter. She is admitted in stable condition. Impression: 1. Stroke 2. Confusion 3. Pneumonia Lab Data Attestation: I reviewed the patient's lab results. Labs: Laboratory Results - last 24 hr 06/24/21 06/24/21 06/24/21 17:10 17:10 17:10 WBC 3.2 L RBC 3.59 L Hgb 12.2 Hct 35.9 L MCV 100.0 H MCH 34.0 H MCHC 34.0 RDW Std Deviation 51.1 H RDW Coeff of Doris 14.1 Plt Count 144 L MPV 11.1 Immature Gran % (Auto) 0.900 Neut % (Auto) 66.0 Lymph % (Auto) 15.3 L [place] % (Auto) 17.8 H Eos % (Auto) 0.0 Baso % (Auto) 0.0 Absolute Neuts (auto) 2.1 Absolute Lymphs (auto) 0.49 L Nucleated RBC % 0 Differential Comment SCANNED PT 32.2 H INR 3.2 APTT 54.7 H D-Dimer Quant (PE/DVT) Sodium 133 L Potassium 4.6 Chloride 105 Carbon Dioxide 22.0 Anion Gap 6 BUN 20 H Creatinine 1.02 Estim Creat Clear Calc 40.28 Est GFR (MDRD) Af Amer 67 Est GFR (MDRD) Non-Af 55 L BUN/Creatinine Ratio 19.6 Glucose 113 H Calcium 8.2 L Ferritin Lactate Dehydrogenase Troponin I High Sens 64 H C-React Prot Ext Range B-Natriuretic Peptide Procalcitonin Urine Color Urine Clarity Urine pH Ur Specific [place] Urine Protein Urine Glucose (UA) Urine Ketones Urine Occult Blood Urine Nitrite Urine Bilirubin Urine Urobilinogen Ur Leukocyte Esterase Urine RBC Urine WBC Ur Squamous Epith Cells Amorphous Sediment Urine Bacteria Hyaline Casts Urine Mucus 06/24/21 06/24/21 06/24/21 17:10 17:10 17:10 WBC RBC Hgb Hct MCV MCH MCHC RDW Std Deviation RDW Coeff of Doris Plt Count MPV Immature Gran % (Auto) Neut % (Auto) Lymph % (Auto) [place] % (Auto) Eos % (Auto) Baso % (Auto) Absolute Neuts (auto) Absolute Lymphs (auto) Nucleated RBC % Differential Comment PT INR APTT D-Dimer Quant (PE/DVT) 0.31 Sodium Potassium Chloride Carbon Dioxide Anion Gap BUN Creatinine Estim Creat Clear Calc Est GFR (MDRD) Af Amer Est GFR (MDRD) Non-Af BUN/Creatinine Ratio Glucose Calcium Ferritin Lactate Dehydrogenase Troponin I High Sens C-React Prot Ext Range B-Natriuretic Peptide Procalcitonin 0.12 H Urine Color Yellow Urine Clarity Sl. Cloudy Urine pH 5.0 Ur Specific [place] 1.020 Urine Protein 500 H Urine Glucose (UA) Normal Urine Ketones 5 H Urine Occult Blood 50 H Urine Nitrite Negative Urine Bilirubin Negative Urine Urobilinogen 1 H Ur Leukocyte Esterase Negative Urine RBC 5-10 SEEN Urine WBC 0 SEEN Ur Squamous Epith Cells 0-5 SEEN Amorphous Sediment 2+ URATE Urine Bacteria RARE Hyaline Casts 0-5 SEEN Urine Mucus 0 SEEN 06/24/21 06/24/21 17:10 17:10 WBC RBC Hgb Hct MCV MCH MCHC RDW Std Deviation RDW Coeff of Doris Plt Count MPV Immature Gran % (Auto) Neut % (Auto) Lymph % (Auto) [place] % (Auto) Eos % (Auto) Baso % (Auto) Absolute Neuts (auto) Absolute Lymphs (auto) Nucleated RBC % Differential Comment PT INR APTT D-Dimer Quant (PE/DVT) Sodium Potassium Chloride Carbon Dioxide Anion Gap BUN Creatinine Estim Creat Clear Calc Est GFR (MDRD) Af Amer Est GFR (MDRD) Non-Af BUN/Creatinine Ratio Glucose Calcium Ferritin 2386 H Lactate Dehydrogenase 447 H Troponin I High Sens C-React Prot Ext Range 32.10 H B-Natriuretic Peptide 644.6 H Procalcitonin Urine Color Urine Clarity Urine pH Ur Specific [place] Urine Protein Urine Glucose (UA) Urine Ketones Urine Occult Blood Urine Nitrite Urine Bilirubin Urine Urobilinogen Ur Leukocyte Esterase Urine RBC Urine WBC Ur Squamous Epith Cells Amorphous Sediment Urine Bacteria Hyaline Casts Urine Mucus Radiography Diagnostic Testing: Clinical Impression(s) from Imaging Studies Brain CT 06/24/21 16:28 IMPRESSION: 1. No acute abnormality. 2. Chronic microvascular changes. 3. Aspect score 10 Individualized dose optimization techniques were used for this CT. at 1644 Reported and signed by: Jose Luis Venegas MD N.B. : The above Results were Read Back by Jose Luis Venegas MD to Mahesh Patel and understanding confirmed on 06/24/2021 16:43:35 (ET). Electronically Signed: Jose Luis Venegas MD at 16:43 EST , ADDENDUM: 06/24/21 1651 IMPRESSION: 1. No acute abnormality. 2. Chronic microvascular changes. 3. Aspect score 10 Individualized dose optimization techniques were used for this CT. at 1644 Reported and signed by: Jose Luis Venegas MD N.B. : The above Results were Read Back by Jose Luis Venegas MD to Mahesh Patel and understanding confirmed on 06/24/2021 16:43:35 (ET). Electronically Signed: Jose Luis Venegas MD at 16:43 EST , Head/Neck CTA 06/24/21 16:28 IMPRESSION: 1. Right upper lobe pneumonia. 2. There is mild atherosclerotic plaque formation of the origin of the right and left internal carotid artery with less than 50% cross sectional diameter stenosis. ALL ABOVE CRITERIA BY NASCET. 3. There is calcified plaque formation of the right cavernous carotid artery, with a mild stenosis (less than 50%). There is calcified plaque formation of the left cavernous carotid artery, with a mild stenosis (less than 50%). ALL ABOVE CRITERIA BY NASCET. Electronically Signed: Rafael Rooney MD at 16:58 EST , ADDENDUM: 06/24/21 1723 IMPRESSION: 1. Right upper lobe pneumonia. 2. There is mild atherosclerotic plaque formation of the origin of the right and left internal carotid artery with less than 50% cross sectional diameter stenosis. ALL ABOVE CRITERIA BY NASCET. 3. There is calcified plaque formation of the right cavernous carotid artery, with a mild stenosis (less than 50%). There is calcified plaque formation of the left cavernous carotid artery, with a mild stenosis (less than 50%). ALL ABOVE CRITERIA BY NASCET. N.B. : The above Results were Read Back by Rafael Rooney MD to Mahesh Stover MD, and understanding confirmed on 06/24/2021 17:16:09 (ET). Electronically Signed: Rafael Rooney MD at 16:58 EST , Chest X-Ray 06/24/21 17:40 IMPRESSION: Right upper lobe and left lower lobe infiltrate. Electronically Signed: Rafael Rooney MD at 17:52 EST , Discharge Plan Disposition Disposition: Acute Care Hospital [facility] Discharge Date/Time: 06/24/21 19:50
[2021-06-24 18:05] LABS: Differential Comment SCANNED
[2021-06-24 18:11] LABS: Amorphous Sediment 2+ URATE; Bacteria RARE /hpf (None Seen); Hyaline Cast 0-5 SEEN /lpf (0-5); Red Blood Cells-Urine 5-10 SEEN /hpf (0-5); Squamous Epithelial Cells - UA 0-5 SEEN /hpf (5-10)
--- NOTE | 2021-06-24 19:14 | PCM.HP.STD ---
HPI - General General Date of Admission: 06/24/21 Date of Service: 06/24/21 Chief Complaint: Confusion, focal deficits HPI Narrative The patient is an 80 y/o F w/ PMHx: Rheumatoid arthritis on MTX, CAD, HTN, HLD, Tobacco use, PAF who presents to the [facility] ED on 06/24/21 with history of last known normal at approximately 4:56 PM the evening prior with onset approximately 9 PM significant for confusion, found attempting to eat napkins with focal deficits including difficulty moving her left foot with significant confusion as well as onset mild right facial droop on day of presentation with continued worsening encephalopathy prompting family to bring her to the ED for evaluation. Of note patient was recently admiteted 06/14/21-06/15/21 with suspected COVID and discharged not requiring oxygen at that time with onset of fatigue, weakness, malaise, dysnea, cough starting 06/13/21 with COVID exposure from the family with whom she lives. She has had a 2 dose pfizer vaccination series but no booster. Work-up in the ED included T 98.2, heart rate 73, BP 139/73, respiratory rate 18, initially 89% on room air with improvement to 95% on 2 L nasal cannula, CBC with WC 3.2, hemoglobin 12.2, platelet 144 with lymphopenia, coags with PT 32.2, INR 3.2, PTT 54.7, BMP with sodium 133, BUN/creatinine 20/1.02, troponin high-sensitivity initial 64, urinalysis with elevated specific graphity 1.020, protein 500, ketones 5, occult blood 50, negative nitrite, negative leukocyte esterase, CT brain with no acute intracranial abnormality with chronic microvascular changes, CTA head neck with evidence of right upper lobe pneumonia, mild atherosclerotic plaque formation at the origin of the right and left ICA with less than 50% cross-sectional diameter stenosis, calcified plaque formation right cavernous carotid artery with mild stenosis less than 50%, calcified plaque formation left cavernous carotid artery with mild stenosis less than 50%, chest x-ray with evidence of right upper lobe and left lower lobe pneumonia, EKG w/ rate controlled atrial fibrillation. NIHSS 5 for BL LE drift to bed, mild R sided facial droop and slurred speech. [facility] Medical History Arthritis Atherosclerotic heart disease [place] coronary artery w/angina pectoris Atherosclerotic heart disease of [place] coronary artery without angina pectoris Benign neoplasm of parotid gland Essential (primary) hypertension Gross hematuria Hyperlipidemia Hypertension Longstanding persistent atrial fibrillation Nicotine dependence Vitamin D deficiency Home Medications aspirin 81 mg PO DAILY@0800 02/24/14 [History Last Taken 02/18/16] cholecalciferol (vitamin D3) 1,000 unit PO DAILY 05/28/15 [History Last Taken Unknown] folic acid 1 mg tablet 2 mg PO DAILY 03/14/18 [History Last Taken Unknown] methotrexate sodium 15 mg PO FR 09/30/19 [History Last Taken 09/26/19] acetaminophen 1,000 mg PO Q6H PRN #100 tab 10/02/19 [Rx Last Taken Unknown] warfarin 3 mg tablet 3 mg PO .COMPLEX #30 tab 05/31/20 [Rx Last Taken Unknown] warfarin 2 mg tablet 2 mg PO .COMPLEX #30 tab 09/02/20 [Rx Last Taken Unknown] simvastatin 20 mg tablet 20 mg PO QHS #90 tab 09/13/20 [Rx Last Taken Unknown] isosorbide mononitrate 30 mg tablet,extended release 24 hr 30 mg PO QAM #30 tab 02/21/21 [Rx Last Taken Unknown] pantoprazole 40 mg tablet,delayed release 40 mg PO DAILY #30 tab 05/23/21 [Rx Last Taken Unknown] lisinopril 20 mg PO DAILY 06/14/21 [History Last Taken Unknown] metoprolol succinate 50 mg PO DAILY 06/14/21 [History Last Taken Unknown] Allergy/AdvReac Type Severity Reaction Status Date / Time latex Allergy Itching Verified 06/24/21 17:08 ursodiol Allergy Unknown Verified 06/24/21 17:08 belladonna alkaloids AdvReac Unknown Verified 06/24/21 17:08 [Belladonna Alkaloids] formaldehyde AdvReac Rash Verified 06/24/21 17:08 phenobarbital AdvReac Unknown Verified 06/24/21 17:08 ranitidine HCl [From Zantac] AdvReac Unknown Verified 06/24/21 17:08 Family History Father CAD (coronary artery disease) CVA (cerebral vascular accident) Mother CAD (coronary artery disease) Myocardial infarction Surgical History History of coronary artery stent placement (12/02/13) History of left heart catheterization (02/18/16) History of open reduction and internal fixation (ORIF) procedure (09/2019) Social History (Updated 06/24/21 @ 19:[address] La Parish MD) household members: family Smoking Status: Current every day smoker tobacco type: cigarettes Smoking packs per day: 0.5 Smoking cigarettes per day: 10.0 alcohol intake: never substance use type: does not use ROS ROS Narrative Admission Review of Systems: CONSTITUTIONAL: No weight loss, fever, chills, + weakness or fatigue. HEENT: Eyes: No visual loss, blurred vision, double vision or yellow sclerae. Ears, Nose, Throat: No hearing loss, sneezing. SKIN: No rash or itching, lesions, wounds. CARDIOVASCULAR: No chest pain, chest pressure or chest discomfort, palpitations, edema, orthopnea, syncopal events. RESPIRATORY: + shortness of breath, cough, No marked sputum, wheezing, hemoptysis. GASTROINTESTINAL: + anorexia, nausea, vomiting, diarrhea, No abdominal pain, melena, BRBPR. GENITOURINARY: No dysuria, frequency, urgency or retention. NEUROLOGICAL: + R sided facial droop, generalized weakness, No dizziness, syncope, paralysis, ataxia, change in bowel or bladder control, seizure. MUSCULOSKELETAL: + muscle, back pain, joint pain or stiffness. HEMATOLOGIC: No anemia, bleeding or bruising. LYMPHATICS: No enlarged nodes. No history of splenectomy. PSYCHIATRIC: No history of depression or anxiety. ENDOCRINOLOGIC: No reports of sweating, cold or heat intolerance. No polyuria or polydipsia. ALLERGIES: No history of asthma, hives, eczema or rhinitis. Vital Signs Vital Signs Vital Signs: 06/24/21 16:48 06/24/21 17:14 06/24/21 17:18 Temperature 98.2 F 98.2 F Temperature Source Oral Oral Pulse Rate 73 69 68 Respiratory Rate 28 H 19 H 28 H Blood Pressure 139/73 H 124/74 H 124/74 H Blood Pressure Mean 95 90 90 Pulse Ox 93 93 95 Oxygen Delivery Method Nasal Cannula Room Air Nasal Cannula Oxygen Flow Rate (L/min) 2 2 06/24/21 18:05 Temperature Temperature Source Pulse Rate 69 Respiratory Rate 27 H Blood Pressure 128/69 H Blood Pressure Mean 88 Pulse Ox 95 Oxygen Delivery Method Nasal Cannula Oxygen Flow Rate (L/min) 2 Weight Weight: 132 lb 4.438 oz Body Mass Index (BMI) 27.6 Physical Exam Narrative Physical Examination: General: Awake, alert, oriented to self, place, year and president, improved from initial presentation, less confused, remains cooperative, seated upright in the ED bed, fatigued. Skin: Normal color, normal turgor, no icterus, no cyanosis. HEENT: AT/NC, EOMI, PERRLA, moderately dry MM, mild discharge L eye, no carotid bruits or JVD noted. Lungs: Diffusely diminished, greater bases, no rales, ronchi or wheezing. Heart: Irregular, rate controlled; no gallop, rub audible. Abdomen: Soft, NTTP, ND, distant normal bowel sounds, on HSM. Extremities: No cyanosis, no clubbing, mild BL LE ankle edema, non-pitting. Neurological: Patient awake, alert, oriented as noted, cognitive function improving, less confused, nearing intact; pupils equally reactive to light and accommodation, cranial nerves grossly normal except mild R facial droop, moving all 4 extremities, sensation intact, generalized upper and lower extremity weakness, negative babinski, slow FTN/HTS. Psychiatric: Affect appears fatigued, no acute evidence of depressive or anxiety feelings. Results Lab / Micro Data Result Diagrams: 06/24/21 17:10 06/24/21 17:10 Labs: Laboratory Results - last 24 hr 06/24/21 17:10: WBC 3.2 L, RBC 3.59 L, Hgb 12.2, Hct 35.9 L, MCV 100.0 H, MCH 34.0 H, MCHC 34.0, RDW Std Deviation 51.1 H, RDW Coeff of Doris 14.1, Plt Count 144 L, MPV 11.1, Immature Gran % (Auto) 0.900, Neut % (Auto) 66.0, Lymph % (Auto) 15.3 L, [place] % (Auto) 17.8 H, Eos % (Auto) 0.0, Baso % (Auto) 0.0, Absolute Neuts (auto) 2.1, Absolute Lymphs (auto) 0.49 L, Nucleated RBC % 0, Differential Comment SCANNED 06/24/21 17:10: PT 32.2 H, INR 3.2, APTT 54.7 H 06/24/21 17:10: Sodium 133 L, Potassium 4.6, Chloride 105, Carbon Dioxide 22.0, Anion Gap 6, BUN 20 H, Creatinine 1.02, Estim Creat Clear Calc 40.28, Est GFR (MDRD) Af Amer 67, Est GFR (MDRD) Non-Af 55 L, BUN/Creatinine Ratio 19.6, Glucose 113 H, Calcium 8.2 L, Troponin I High Sens 64 H 06/24/21 17:10: Urine Color Yellow, Urine Clarity Sl. Cloudy, Urine pH 5.0, Ur Specific [place] 1.020, Urine Protein 500 H, Urine Glucose (UA) Normal, Urine Ketones 5 H, Urine Occult Blood 50 H, Urine Nitrite Negative, Urine Bilirubin Negative, Urine Urobilinogen 1 H, Ur Leukocyte Esterase Negative, Urine RBC 5-10 SEEN, Urine WBC 0 SEEN, Ur Squamous Epith Cells 0-5 SEEN, Amorphous Sediment 2+ URATE, Urine Bacteria RARE, Hyaline Casts 0-5 SEEN, Urine Mucus 0 SEEN Radiology Impression Brain CT 06/24/21 16:28 IMPRESSION: 1. No acute abnormality. 2. Chronic microvascular changes. 3. Aspect score 10 Individualized dose optimization techniques were used for this CT. at 5439 Reported and signed by: Jose Luis Venegas MD N.B. : The above Results were Read Back by Jose Luis Venegas MD to Mahesh Patel and understanding confirmed on 06/24/2021 16:43:35 (ET). Electronically Signed: Jose Luis Venegas MD at 16:43 EST , ADDENDUM: 06/24/21 3969 IMPRESSION: 1. No acute abnormality. 2. Chronic microvascular changes. 3. Aspect score 10 Individualized dose optimization techniques were used for this CT. at 1647 Reported and signed by: Jose Luis Venegas MD N.B. : The above Results were Read Back by Jose Luis Venegas MD to Mahesh Patel and understanding confirmed on 06/24/2021 16:43:35 (ET). Electronically Signed: Jose Luis Venegas MD at 16:43 EST , Head/Neck CTA 06/24/21 16:28 IMPRESSION: 1. Right upper lobe pneumonia. 2. There is mild atherosclerotic plaque formation of the origin of the right and left internal carotid artery with less than 50% cross sectional diameter stenosis. ALL ABOVE CRITERIA BY NASCET. 3. There is calcified plaque formation of the right cavernous carotid artery, with a mild stenosis (less than 50%). There is calcified plaque formation of the left cavernous carotid artery, with a mild stenosis (less than 50%). ALL ABOVE CRITERIA BY NASCET. Electronically Signed: Rafael Rooney MD at 16:58 EST , ADDENDUM: 06/24/21 1723 IMPRESSION: 1. Right upper lobe pneumonia. 2. There is mild atherosclerotic plaque formation of the origin of the right and left internal carotid artery with less than 50% cross sectional diameter stenosis. ALL ABOVE CRITERIA BY NASCET. 3. There is calcified plaque formation of the right cavernous carotid artery, with a mild stenosis (less than 50%). There is calcified plaque formation of the left cavernous carotid artery, with a mild stenosis (less than 50%). ALL ABOVE CRITERIA BY NASCET. N.B. : The above Results were Read Back by Rafael Rooney MD to Mahesh Stover MD, and understanding confirmed on 06/24/2021 17:16:09 (ET). Electronically Signed: Rafael Rooney MD at 16:58 EST , Chest X-Ray 06/24/21 17:40 IMPRESSION: Right upper lobe and left lower lobe infiltrate. Electronically Signed: Rafael Rooney MD at 17:52 EST Reading Location ID and State: [facility] / [place] , Service support , Assessment & Plan Assessment/Plan (1) CVA (cerebral vascular accident): QUALIFIERS: CVA mechanism: unspecified Qualified Code(s): I63.9 - Cerebral infarction, unspecified (2) Pneumonia: QUALIFIERS: Laterality: bilateral Lung location: unspecified part of lung Pneumonia type: due to unspecified organism Qualified Code(s): J18.9 - Pneumonia, unspecified organism PLAN: The patient is an 80 y/o F w/ PMHx: Rheumatoid arthritis on MTX, CAD, HTN, HLD, Tobacco use, PAF who presents to the [facility] ED on 06/24/21 with history of last known normal at approximately 4:56 PM the evening prior with onset approximately 9 PM significant for confusion, found attempting to eat napkins with focal deficits including difficulty moving her left foot with significant confusion as well as onset mild right facial droop on day of presentation with continued worsening encephalopathy prompting family to bring her to the ED for evaluation. #1. Confusion, abnormal behavior with potentially focal weakness to the left lower extremity as well as right mild facial droop concerning for CVA, complicated by #2 with likely overlapping Encephalopathy: Will admit to PCU, will obtain MRI Brain, will obtain ECHO, PT/OT/Speech/Nutrition evaluation per protocol. Will consult Neurology for evaluation once further evaluation and work-up is obtained. Will allow permissive HTN, maintain on asa, Coumadin with INR trending, statin, maintain on aspiration and fall precautions, obtain FLP, TSH, hemoglobin A1c. Unfortunately unable to obtain magnesium level at this time. #2. Suspected Acute Encephalopathy secondary to Acute Hypoxia secondary to Acute Viral Syndrome, COVID-19 versus possible CAP: Prior admission with suspected COVID but not confirmed, will obtain COVID PCR and will in the interim maintain on COVID precautions, CXR now with BL PNA and requiring oxygen, will maintain on oxygen with wean as tolerated to room air, PRN albuterol, HOB, IS parameters, sputum cultures, urine antigens, will obtain D-dimer, procalcitonin, CRP, CPK, Ferritin, LDH, trop and BNP, continue supportive care including q 2 hour turning including prone given no prone bed availability and judicious hydration, will initiate and continue IV decadron x 10 doses, will continue azithromycin and rocephin pending COVID testing, if negative would opt to obtain respiratory panel. Given timeline not candidate for remdesivir. #3. Indeterminate cardiac enzymes likely secondary to demand ischemia: EKG in ED with rate controlled atrial fibrillation, CXR w/ bilateral pneumonia, initial trop 64. Will place on a monitored bed to assure no acute myocardial infarction with serial cardiac enzymes and EKGs. Continued on coumadin with INR trending. #4. PAF: We will continue patient home Coumadin regimen with INR trending, temporally holding metoprolol for permissive hypertension, add back once appropriate. #5. CAD: Status post PCI, continue aspirin, Coumadin with INR trending, statin therapy, holding metoprolol as well as lisinopril given permissive hypertension, add back once able. #6. Hypertension: Given initial concerns for stroke will pursue permissive hypertension however do suspect presentation more likely secondary to pneumonia, add back regimen once MRI obtained, as needed agents per stroke protocol. #7. Hyperlipidemia: Continue home statin regimen. AM FLP. #8. Rheumatoid arthritis: We will continue patient home folic acid and methotrexate regimen. #9. GERD: We will continue patient on PPI. #10. Tobacco Abuse: Encouraged cessation, inpatient consultation per RT, NR if desired. #11. DVT prophylaxis: SCDs, continue Coumadin with INR trending. #12. CODE status: Patient HANSA is his her son and living will is currently in place. Discussed CODE status at length including difference between FULL code, DNR-CCA and DNR-CC status. Following discussions about the differences in these status, requested Full Code status. Granddaughter present and notes she will check with her uncle to assure this is correct. Advanced Care Planning Face to Face Time: 16 minutes. Charges/Coding Visit Charges Inpatient E&M: 21805 Init Hosp L3 Procedures Hospitalists Procedures: 57496 Advncd Care Plan 30 Min
--- NOTE | 2021-06-24 19:50 | CASEMGMT ---
LEONCIO COOPER note: Per documentation, patient presented to ER with report of confusion, observed attempting to eat napkins, trouble moving left foot and right facial droop. RN CM to room. Patient appears restful on ER cart with oxygen per NC and eyes closed. Respirations even and nonlabored. Patient's granddaughter Nichole present at bedside. Nichole reports patient was scheduled for PCP appointment tomorrow and she planned to discuss need for SN to be added to C services. Nichole tearful when speaking with LEONCIO COOPER, support provided. Nichole states [facility], if appropriate at time of discharge, stating if patient unable to be placed at one of these two facilities, I will figure out a way to get her to my house. CM/SW to follow for any discharge planning/needs. Advised patient's granddaughter to ask for CM/SW if any questions, concerns, needs arise. Voices understanding. LEONCIO Post CM
[2021-06-24 20:01] LABS: Procalcitonin 0.12 ng/mL (0.00-0.09)
[2021-06-24 20:19] LABS: D-Dimer Quantitative (DVT/PE) 0.31 FEU/ug/m (0.27-0.49)
[2021-06-24 20:27] LABS: BNP,B-Type NATRIURETIC PEPTIDE 644.6 pg/mL (0-100)
[2021-06-24 20:47] LABS: Ferritin 2386 ng/mL (8-252); LDH 447 U/L (84-246)
[2021-06-24] MEDS: 0.9% Normal Saline 1,000 ML 100 ML IV (21:18)
[2021-06-24] MEDS: Ceftriaxone 1 GM/50 ML BAG IV (21:19)
[2021-06-24 21:49] LABS: Troponin-I HS 67 pg/mL (3.0-54.0)
[2021-06-24] MEDS: dexAMETHasone 10 MG/ML Vial 6 MG IV (22:50)
[2021-06-24] MEDS: Atorvastatin Calcium 10 MG Tablet PO (22:56)
[2021-06-24 23:26] LABS: Troponin-I HS 70 pg/mL (3.0-54.0)
[2021-06-25] VITALS (14 sets, daily range): BP systolic 107–134; BP diastolic 53–83; PULSE 60–80; RESP 16–18; TEMP 35.6–36.7; O2SAT 88–95; BMI 27.8
[2021-06-25] MEDS: Methotrexate 2.5 MG Tablet 15 MG PO (00:06)
[2021-06-25 07:20] LABS: Absolute Lymphocyte Count 0.44 X10^3/uL (0.83-4.51); Basophil# 0.01 X10^3/uL; Basophil% 0.4 % (0-1); Hematocrit 38.1 % (37-47); Hemoglobin 13.4 g/dL (12.0-15.0); Lymphocyte # 0.44 X10^3/ul (0.83-4.51); Lymphocyte % 16.2 % (19-41); Mean Corp Hgb Conc 35.2 g/dL (32-36); Mean Corpuscular Hgb 35.4 pg (27.0-32.0); Mean Corpuscular Volume 100.8 fL (81-99); Mean Platelet Vol. 11.7 fl (6.2-12.0); Monocyte# 0.19 X10^3/uL; NRBC Flagged by Analyzer 1.1 % (0-5); Neutrophil # 2.04 X10^3/uL (2.7-7.7); Neutrophil % 75.3 % (47-70); POSITIVE DIFFERENTIAL YES; POSITIVE MORPHOLOGY YES; Platelet Count 181 K/mm3 (150-450); RBC Distribution Width CV 14.1 % (11.6-14.6); Red Blood Count 3.78 M/mm3 (4.2-5.4); White Blood Count 2.7 K/mm3 (4.4-11.0)
[2021-06-25 07:23] LABS: Differential Indicated SCAN CRITERIA MET
--- NOTE | 2021-06-25 07:41 | NURSING ---
bladder scanned due to low urine output overnight, scanned for 274 ml. Assisted pt to bathroom. Pt had very small stool, did not void at this time.
[2021-06-25 07:52] LABS: ALB/GLOB Ratio 0.7 RATIO (0.9-2.4); AST(SGOT) 49 U/L (15-37); Alanine Aminotransfer ALT/SGPT 22 U/L (13-56); Albumin, Serum 2.8 g/dL (3.2-5.0); Alkaline Phosphatase 41 U/L (45-117); Anion Gap 9 (5-15); BUN 19 mg/dL (7-18); BUN/Creat Ratio 18.3 RATIO (10-20); Calcium,Total 8.1 mg/dL (8.5-10.1); Chloride 103 mmol/L (98-107); Cholesterol 112 mg/dL (200); Creatinine, Serum 1.04 mg/dL (0.55-1.02); EST Glomerular Filtration Rate 54 mL/min (>60); Est Glom Filt Rate - Afr Amer 65 mL/min (>60); Estimated Creatinine Clearance 38.78 ml/min; Globulin 3.9 g/dL (2.2-4.2); Glucose 140 mg/dL (74-106); High Density Lipoprotein 43 mg/dL; Potassium 3.8 mmol/L (3.5-5.1); Protein, Total 6.7 g/dL (6.4-8.2); Sodium Level 134 mmol/L (136-145); Thyroid Stim Hormone (TSH) 0.84 uIU/mL (0.358-3.74); Triglycerides 87 mg/dL; Very Low Density Lipoprotein 17 mg/dL (5-40)
--- NOTE | 2021-06-25 08:00 | MRI_ITS ---
HISTORY: CVA. TECHNIQUE: Multiplanar and multisequence MR images of the brain were obtained without gadolinium. # of images incl. paperwork: 276. COMPARISON: CT prior day. FINDINGS: BRAIN PARENCHYMA: Moderate T2 FLAIR hyperintense signal in the bilateral cerebral white matter as well as in the obey. No abnormal focus of restricted diffusion. INTRACRANIAL HEMORRHAGE: No acute intracranial hemorrhage. CSF SPACES: Mild generalized volume loss. No midline shift or other significant mass effect. No extra-axial fluid collection. VASCULAR SYSTEM: Major intracranial flow-voids maintained. ORBITS: Bilateral lens resections. PARANASAL SINUSES AND MASTOID AIR CELLS: Clear. MRI/Brain without Contrast IMPRESSION: No evidence for acute infarct. Chronic small vessel ischemic gliosis. at 1113 Reported and signed by: Claire Webb MD Electronically Signed: Claire Webb MD at 11:12 EST ,
[2021-06-25 08:02] LABS: Macrocytosis 1+; Platelet Estimate ADEQUATE (ADEQ)
[2021-06-25 08:14] LABS: Prothrombin Time (Protime)PT. 38.3 SECONDS (11.7-14.9)
[2021-06-25 08:37] LABS: Hemoglobin A1c 5.9 % (3.8-5.6)
--- NOTE | 2021-06-25 09:53 | PCM.PN.HOSP ---
Subjective Subjective Patient is an 80-year-old lady with history of paroxysmal A. fib on Coumadin who presented with some confusion with suspicion for possible CVA. Head CT was unremarkable. Patient had apparently tested positive for COVID on 06/13/2021. Repeat Covid assay came back positive. Chest x-ray obtained demonstrated Right upper lobe and left lower lobe infiltrate. Objective Data Objective Data Vital Signs: Vital Signs Temp Pulse Resp BP Pulse Ox 96.0 F L 73 16 119/77 94 06/25/21 06:00 06/25/21 06:54 06/25/21 06:00 06/25/21 06:00 06/25/21 06:00 Oxygen Flow Rate (L/min) 2 Oxygen Delivery Method Nasal Cannula Weight: 58.9 kg Body Mass Index (BMI) 27.8 Intake & Output: Intake and Output for Last 24 Hours 06/23/21 06/24/21 06/25/21 23:59 23:59 23:59 Intake Total 50 / 290 1595 / 1595 Output Total 0 / 0 Balance 50 / 290 1595 / 1595 Lab / Micro Data Result Diagrams: 06/25/21 06:56 06/25/21 06:56 Labs: Laboratory Results - last 24 hr 06/24/21 17:10: WBC 3.2 L, RBC 3.59 L, Hgb 12.2, Hct 35.9 L, MCV 100.0 H, MCH 34.0 H, MCHC 34.0, RDW Std Deviation 51.1 H, RDW Coeff of Doris 14.1, Plt Count 144 L, MPV 11.1, Immature Gran % (Auto) 0.900, Neut % (Auto) 66.0, Lymph % (Auto) 15.3 L, [place] % (Auto) 17.8 H, Eos % (Auto) 0.0, Baso % (Auto) 0.0, Absolute Neuts (auto) 2.1, Absolute Lymphs (auto) 0.49 L, Nucleated RBC % 0, Differential Comment SCANNED 06/24/21 17:10: PT 32.2 H, INR 3.2, APTT 54.7 H 06/24/21 17:10: Sodium 133 L, Potassium 4.6, Chloride 105, Carbon Dioxide 22.0, Anion Gap 6, BUN 20 H, Creatinine 1.02, Estim Creat Clear Calc 40.28, Est GFR (MDRD) Af Amer 67, Est GFR (MDRD) Non-Af 55 L, BUN/Creatinine Ratio 19.6, Glucose 113 H, Calcium 8.2 L, Troponin I High Sens 64 H 06/24/21 17:10: Urine Color Yellow, Urine Clarity Sl. Cloudy, Urine pH 5.0, Ur Specific [place] 1.020, Urine Protein 500 H, Urine Glucose (UA) Normal, Urine Ketones 5 H, Urine Occult Blood 50 H, Urine Nitrite Negative, Urine Bilirubin Negative, Urine Urobilinogen 1 H, Ur Leukocyte Esterase Negative, Urine RBC 5-10 SEEN, Urine WBC 0 SEEN, Ur Squamous Epith Cells 0-5 SEEN, Amorphous Sediment 2+ URATE, Urine Bacteria RARE, Hyaline Casts 0-5 SEEN, Urine Mucus 0 SEEN 06/24/21 17:10: Procalcitonin 0.12 H 06/24/21 17:10: D-Dimer Quant (PE/DVT) 0.31 06/24/21 17:10: Ferritin 2386 H, Lactate Dehydrogenase 447 H, C-React Prot Ext Range 32.10 H 06/24/21 17:10: B-Natriuretic Peptide 644.6 H 06/24/21 21:10: Troponin I High Sens 67 H 06/24/21 23:00: Troponin I High Sens 70 H 06/24/21 23:18: COVID-19 (CHUCK) Detected 06/25/21 06:56: WBC 2.7 L, RBC 3.78 L, Hgb 13.4, Hct 38.1, MCV 100.8 H, MCH 35.4 H, MCHC 35.2, RDW Std Deviation 51.0 H, RDW Coeff of Doris 14.1, Plt Count 181, MPV 11.7, Immature Gran % (Auto) 1.100 H, Neut % (Auto) 75.3 H, Lymph % (Auto) 16.2 L, [place] % (Auto) 7.0, Eos % (Auto) 0.0, Baso % (Auto) 0.4, Absolute Neuts (auto) 2.0, Absolute Lymphs (auto) 0.44 L, Nucleated RBC % 1.1, Diff Path Review September, Platelet Estimate ADEQUATE, Macrocytosis 1+ 06/25/21 06:56: PT 38.3 H, INR 4.0 H* 06/25/21 06:56: Sodium 134 L, Potassium 3.8, Chloride 103, Carbon Dioxide 22.0, Anion Gap 9, BUN 19 H, Creatinine 1.04 H, Estim Creat Clear Calc 38.78, Est GFR (MDRD) Af Amer 65, Est GFR (MDRD) Non-Af 54 L, BUN/Creatinine Ratio 18.3, Glucose 140 H, Calcium 8.1 L, Total Bilirubin 0.50, AST 49 H, ALT 22, Alkaline Phosphatase 41 L, Total Protein 6.7, Albumin 2.8 L, Globulin 3.9, Albumin/Globulin Ratio 0.7 L, Triglycerides 87, Cholesterol 112, LDL Cholesterol 52, VLDL Cholesterol 17, HDL Cholesterol 43, TSH 0.84 06/25/21 06:56: Hemoglobin A1c 5.9 H Micro: Microbiology 06/24/21 17:12 Urine, Clean Catch Legionella Antigen - Final 06/24/21 17:12 Urine, Clean Catch Streptococcus pneumoniae Antigen (M - Final Radiography Diagnostic Testing: Radiology Impression Brain CT 06/24/21 16:28 IMPRESSION: 1. No acute abnormality. 2. Chronic microvascular changes. 3. Aspect score 10 Individualized dose optimization techniques were used for this CT. at 1644 Reported and signed by: Jose Luis Venegas MD N.B. : The above Results were Read Back by Jose Luis Venegas MD to Mahesh Patel and understanding confirmed on 06/24/2021 16:43:35 (ET). Electronically Signed: Jose Luis Venegas MD at 16:43 EST , ADDENDUM: 06/24/21 1651 IMPRESSION: 1. No acute abnormality. 2. Chronic microvascular changes. 3. Aspect score 10 Individualized dose optimization techniques were used for this CT. at 1644 Reported and signed by: Jose Luis Venegas MD N.B. : The above Results were Read Back by Jose Luis Venegas MD to Mahesh Patel and understanding confirmed on 06/24/2021 16:43:35 (ET). Electronically Signed: Jose Luis Venegas MD at 16:43 EST , Head/Neck CTA 06/24/21 16:28 IMPRESSION: 1. Right upper lobe pneumonia. 2. There is mild atherosclerotic plaque formation of the origin of the right and left internal carotid artery with less than 50% cross sectional diameter stenosis. ALL ABOVE CRITERIA BY NASCET. 3. There is calcified plaque formation of the right cavernous carotid artery, with a mild stenosis (less than 50%). There is calcified plaque formation of the left cavernous carotid artery, with a mild stenosis (less than 50%). ALL ABOVE CRITERIA BY NASCET. Electronically Signed: Rafael Rooney MD at 16:58 EST , ADDENDUM: 06/24/21 1723 IMPRESSION: 1. Right upper lobe pneumonia. 2. There is mild atherosclerotic plaque formation of the origin of the right and left internal carotid artery with less than 50% cross sectional diameter stenosis. ALL ABOVE CRITERIA BY NASCET. 3. There is calcified plaque formation of the right cavernous carotid artery, with a mild stenosis (less than 50%). There is calcified plaque formation of the left cavernous carotid artery, with a mild stenosis (less than 50%). ALL ABOVE CRITERIA BY NASCET. N.B. : The above Results were Read Back by Rafael Rooney MD to Mahesh Stover MD, and understanding confirmed on 06/24/2021 17:16:09 (ET). Electronically Signed: Rafael Rooney MD at 16:58 EST , Chest X-Ray 06/24/21 17:40 IMPRESSION: Right upper lobe and left lower lobe infiltrate. Electronically Signed: Rafael Rooney MD at 17:52 EST Reading Location ID and State: [facility] / [place] , Service support , Physical Exam Narrative GENERAL: cooperative HEENT: Atraumatic; EYES; Anicteric, Normal Conjunctiva NECK; supple, normal thyroid, RESPIRATORY: Diminished to auscultation CARDIOVASCULAR: Regular S1 S2, GI: soft, normoactive bowel sounds, : No Renal angle tenderness; EXTREMITIES: No edema, no clubbing, MUSCULOSKELETAL: no muscle wasting NEURO: Awake; no lateralizing signs. SKIN: No Rash PSYCH; Flat affect Assessment & Plan Assessment/Plan (1) CVA (cerebral vascular accident): QUALIFIERS: CVA mechanism: unspecified Qualified Code(s): I63.9 - Cerebral infarction, unspecified (2) Pneumonia: QUALIFIERS: Pneumonia type: due to unspecified organism Laterality: bilateral Lung location: unspecified part of lung Qualified Code(s): J18.9 - Pneumonia, unspecified organism PLAN: Patient is an 80-year-old lady with history of paroxysmal A. fib on Coumadin who presented with some confusion with suspicion for possible CVA. Head CT was unremarkable. Patient had apparently tested positive for COVID on 06/13/2021. Repeat Covid assay came back positive. Chest x-ray obtained demonstrated Right upper lobe and left lower lobe infiltrate. 1. Acute encephalopathy Differential diagnosis include infectious encephalopathy from patient's Covid as well as possible CVA. Patient was noted to have right mild facial droop on admission. Initial head CT obtained came back unremarkable. Admitted to monitored bed MRI ordered for subsequent evaluation 2. Acute Covid pneumonia ?Patient had apparently tested positive for COVID on 06/13/2021. Repeat Covid assay came back positive. Chest x-ray obtained demonstrated Right upper lobe and left lower lobe infiltrate. Admitted to monitored bed. Started on Decadron as well as azithromycin and Rocephin for suspected superimposed bacterial pneumonia in addition to supplemental oxygen. Patient progress being monitored with measurement of serial markers of inflammation 3. Elevated troponin ?Suspected to be secondary to NSTEMI type II as a result of demand ischemia. Patient currently not experiencing any chest pain. Monitoring with serial cardiac enzymes 4. Paroxysmal A. fib ?Rate controlled on systemic anticoagulation with Coumadin held in view of elevated INR on admission, Coumadin held repeat INR ordered for a.m. 5. Coronary artery disease ?With previous PCI 6. Essential hypertension ?Patient blood pressure stable given her suspected CVA current blood pressure levels acceptable 7. Dyslipidemia -Patient is on statin therapy, continued at home dose 8. Rheumatoid arthritis ?Patient is on methotrexate as well as folic acid at home did continue 9. GERD ?Patient is on PPI 10. DVT prophylaxis -patient is on Coumadin no additional measures warranted Charges/Coding Visit Charges Inpatient E&M: 99128 Subs Hosp L3
[2021-06-25] MEDS: Folic Acid 1 MG Tablet 2 MG PO (11:14)
[2021-06-25] MEDS: Pantoprazole Sodium 40 MG Tablet PO (11:14)
[2021-06-25] MEDS: Cholecalciferol (VIT D3) 25 MCG TABLET (1,000 UNITS) PO (11:14)
[2021-06-25] MEDS: 0.9% Saline Lock 10 ML Syringe IV (11:14)
[2021-06-25] MEDS: Aspirin 81 MG TAB.CHEW PO (11:14)
[2021-06-25] MEDS: dexAMETHasone 10 MG/ML Vial 6 MG IV (11:15)
--- NOTE | 2021-06-25 11:30 | NURSING ---
NIH & VS late d/t pt being off unit for MRI
[2021-06-25] MEDS: Ceftriaxone 1 GM/50 ML BAG IV (14:37)
--- NOTE | 2021-06-25 14:39 | NURSING ---
Patient's home health nurse phoned stating that family requests patient transfer to another facility. Instructed home health nurse that family must call in to request transfer.
--- NOTE | 2021-06-25 14:47 | NURSING ---
Nichole phoned in with Shayne WORTHINGTON on phone also. Requests transfer to [facility] in [place]. Upset that antibiotics were not ordered for patient when having a diagnosis of pneumonia. Assured family that antibiotic are now ordered and are being given. Educated on the transfer process. Verbalizes understanding.
--- NOTE | 2021-06-25 15:17 | NURSING ---
Nichole Grand daughter phoned in and spoke to this nurse now considering wanting her to stay at [facility]. Updated on condition. Updated on process. Will make final decision if/when a bed is available at [facility].
--- NOTE | 2021-06-25 16:35 | NURSING ---
Dr. Edwards spoke to this nurse and stated that [facility] will not accept the patient. Nichole notified and offered a phone number to call [phone] for questions, Nichole declined to take the phone number and is satisfied with the care being provided at [facility] at this time. Nichole encouraged to call and check on patient at anytime and to voice concerns to staff as they arise in order to accommodate needs. Verbalizes understanding.
--- NOTE | 2021-06-25 19:39 | CM.ED ---
SW Note GABRIEL was advised by RN ALLISON that family voiced TCU or WVM at discharge. GABRIEL sent email to Lakesha ( and EREN'nilay Childs) regarding placement in TCU. However of note, patient's covid positive test was 06/13/21. Plan: To be determined Jennie GOLDBERG
[2021-06-25] MEDS: Atorvastatin Calcium 10 MG Tablet PO (20:19)
[2021-06-26] VITALS (13 sets, daily range): BP systolic 120–158; BP diastolic 61–84; PULSE 71–89; RESP 16–18; TEMP 36.6–37.1; O2SAT 87–95; BMI 27.8
[2021-06-26 07:20] LABS: Absolute Lymphocyte Count 0.38 X10^3/uL (0.83-4.51); Basophil# 0.01 X10^3/uL; Basophil% 0.2 % (0-1); Hematocrit 34.7 % (37-47); Hemoglobin 12.6 g/dL (12.0-15.0); Lymphocyte # 0.38 X10^3/ul (0.83-4.51); Lymphocyte % 6.5 % (19-41); Mean Corp Hgb Conc 36.3 g/dL (32-36); Mean Corpuscular Hgb 35.2 pg (27.0-32.0); Mean Corpuscular Volume 96.9 fL (81-99); Mean Platelet Vol. 11.6 fl (6.2-12.0); Monocyte# 0.35 X10^3/uL; NRBC Flagged by Analyzer 0 % (0-5); Neutrophil # 5.04 X10^3/uL (2.7-7.7); Neutrophil % 86.6 % (47-70); POSITIVE DIFFERENTIAL YES; Platelet Count 172 K/mm3 (150-450); RBC Distribution Width CV 13.8 % (11.6-14.6); RBC Distribution Width SD 48.9 fl (35.1-43.9); Red Blood Count 3.58 M/mm3 (4.2-5.4); White Blood Count 5.8 K/mm3 (4.4-11.0)
[2021-06-26 07:26] LABS: Differential Indicated SCAN CRITERIA MET
[2021-06-26 07:34] LABS: Prothrombin Time (Protime)PT. 48.8 SECONDS (11.7-14.9)
[2021-06-26 07:38] LABS: International Normalized Ratio 5.4
[2021-06-26 07:40] LABS: AST(SGOT) 49 U/L (15-37); Alanine Aminotransfer ALT/SGPT 23 U/L (13-56); Albumin, Serum 2.5 g/dL (3.2-5.0); Alkaline Phosphatase 37 U/L (45-117); Anion Gap 6 (5-15); BUN 20 mg/dL (7-18); BUN/Creat Ratio 22.9 RATIO (10-20); Bilirubin, Direct 0.19 mg/dL (0.00-0.30); Calcium,Total 8.4 mg/dL (8.5-10.1); Chloride 108 mmol/L (98-107); Creatinine, Serum 0.87 mg/dL (0.55-1.02); EST Glomerular Filtration Rate 66 mL/min (>60); Est Glom Filt Rate - Afr Amer 80 mL/min (>60); Estimated Creatinine Clearance 45.73 ml/min; Globulin 3.3 g/dL (2.2-4.2); Glucose 154 mg/dL (74-106); Potassium 3.7 mmol/L (3.5-5.1); Protein, Total 5.8 g/dL (6.4-8.2); Sodium Level 135 mmol/L (136-145)
[2021-06-26 07:53] LABS: Ovalocyte RARE; Platelet Estimate ADEQUATE (ADEQ)
--- NOTE | 2021-06-26 08:03 | PCM.PN.HOSP ---
Subjective Subjective Patient seen currently saturating 94% on 2 L. WBC count within normal limits. Patient to be assessed for home oxygen needs with ambulation prior to decision to be made about possible discharge Objective Data Objective Data Vital Signs: Vital Signs Temp Pulse Resp BP Pulse Ox 97.9 F 89 18 139/84 H 94 06/26/21 05:55 06/26/21 07:30 06/26/21 05:55 06/26/21 05:55 06/26/21 05:55 Oxygen Flow Rate (L/min) 2 Oxygen Delivery Method Nasal Cannula Weight: 58.1 kg Body Mass Index (BMI) 27.8 Intake & Output: Intake and Output for Last 24 Hours 06/24/21 06/25/21 06/26/21 23:59 23:59 23:59 Intake Total 50 / 290 2260 / 2260 480 / 480 Output Total 150 / 150 300 / 300 Balance 50 / 290 2110 / 2110 180 / 180 Lab / Micro Data Result Diagrams: 06/26/21 07:04 06/26/21 07:04 Labs: Laboratory Results - last 24 hr 06/25/21 06:56: PT 38.3 H, INR 4.0 H* 06/25/21 06:56: Hemoglobin A1c 5.9 H 06/26/21 07:04: WBC 5.8, RBC 3.58 L, Hgb 12.6, Hct 34.7 L, MCV 96.9, MCH 35.2 H, MCHC 36.3 H, RDW Std Deviation 48.9 H, RDW Coeff of Doris 13.8, Plt Count 172, MPV 11.6, Immature Gran % (Auto) 0.700, Neut % (Auto) 86.6 H, Lymph % (Auto) 6.5 L, [place] % (Auto) 6.0, Eos % (Auto) 0.0, Baso % (Auto) 0.2, Absolute Neuts (auto) 5.0, Absolute Lymphs (auto) 0.38 L, Nucleated RBC % 0, Platelet Estimate ADEQUATE, Ovalocytes RARE 06/26/21 07:04: PT 48.8 H, INR 5.4 H* 06/26/21 07:04: Sodium 135 L, Potassium 3.7, Chloride 108 H, Carbon Dioxide 21.0, Anion Gap 6, BUN 20 H, Creatinine 0.87, Estim Creat Clear Calc 45.73, Est GFR (MDRD) Af Amer 80, Est GFR (MDRD) Non-Af 66, BUN/Creatinine Ratio 22.9 H, Glucose 154 H, Calcium 8.4 L, Total Bilirubin 0.50, Direct Bilirubin 0.19, AST 49 H, ALT 23, Alkaline Phosphatase 37 L, Total Protein 5.8 L, Albumin 2.5 L, Globulin 3.3 Micro: Microbiology 06/24/21 17:12 Urine, Clean Catch Legionella Antigen - Final 06/24/21 17:12 Urine, Clean Catch Streptococcus pneumoniae Antigen (M - Final Radiography Diagnostic Testing: Radiology Impression Brain MRI 06/25/21 08:00 IMPRESSION: No evidence for acute infarct. Chronic small vessel ischemic gliosis. at 1113 Reported and signed by: Claire Webb MD Electronically Signed: Claire Webb MD at 11:12 EST , Physical Exam Narrative GENERAL: cooperative HEENT: Atraumatic; EYES; Anicteric, Normal Conjunctiva NECK; supple, normal thyroid, RESPIRATORY: Diminished to auscultation CARDIOVASCULAR: Regular S1 S2, GI: soft, normoactive bowel sounds, : No Renal angle tenderness; EXTREMITIES: No edema, no clubbing, MUSCULOSKELETAL: no muscle wasting NEURO: Awake; no lateralizing signs. SKIN: No Rash PSYCH; Flat affect Assessment & Plan Assessment/Plan (1) CVA (cerebral vascular accident): QUALIFIERS: CVA mechanism: unspecified Qualified Code(s): I63.9 - Cerebral infarction, unspecified (2) Pneumonia: QUALIFIERS: Laterality: bilateral Lung location: unspecified part of lung Pneumonia type: due to unspecified organism Qualified Code(s): J18.9 - Pneumonia, unspecified organism PLAN: Patient is an 80-year-old lady with history of paroxysmal A. fib on Coumadin who presented with some confusion with suspicion for possible CVA. Head CT was unremarkable. Patient had apparently tested positive for COVID on 06/13/2021. Repeat Covid assay came back positive. Chest x-ray obtained demonstrated Right upper lobe and left lower lobe infiltrate. 1. Acute encephalopathy Differential diagnosis include infectious encephalopathy from patient's Covid as well as possible CVA. Patient was noted to have right mild facial droop on admission. Initial head CT obtained came back unremarkable. Admitted to monitored bed MRI ordered for subsequent evaluation 2. Acute Covid pneumonia ?Patient had apparently tested positive for COVID on 06/13/2021. Repeat Covid assay came back positive. Chest x-ray obtained demonstrated Right upper lobe and left lower lobe infiltrate. Admitted to monitored bed. Started on Decadron as well as azithromycin and Rocephin for suspected superimposed bacterial pneumonia in addition to supplemental oxygen. Patient progress being monitored with measurement of serial markers of inflammation -06/26/2021;Patient seen currently saturating 94% on 2 L. WBC count within normal limits. Patient to be assessed for home oxygen needs with ambulation prior to decision to be made about possible discharge 3. Elevated troponin ?Suspected to be secondary to NSTEMI type II as a result of demand ischemia. Patient currently not experiencing any chest pain. Monitoring with serial cardiac enzymes 4. Paroxysmal A. fib ?Rate controlled on systemic anticoagulation with Coumadin held in view of elevated INR on admission, Coumadin held repeat INR ordered for a.m. 5. Coronary artery disease ?With previous PCI 6. Essential hypertension ?Patient blood pressure stable given her suspected CVA current blood pressure levels acceptable 7. Dyslipidemia -Patient is on statin therapy, continued at home dose 8. Rheumatoid arthritis ?Patient is on methotrexate as well as folic acid at home did continue 9. GERD ?Patient is on PPI 10. DVT prophylaxis -patient is on Coumadin no additional measures warranted Charges/Coding Visit Charges Inpatient E&M: 34075 Subs Hosp L2
[2021-06-26] MEDS: Aspirin 81 MG TAB.CHEW PO (10:31)
[2021-06-26] MEDS: Pantoprazole Sodium 40 MG Tablet PO (10:31)
[2021-06-26] MEDS: Cholecalciferol (VIT D3) 25 MCG TABLET (1,000 UNITS) PO (10:31)
[2021-06-26] MEDS: dexAMETHasone 10 MG/ML Vial 6 MG IV (10:31)
[2021-06-26] MEDS: Folic Acid 1 MG Tablet 2 MG PO (10:31)
[2021-06-26] MEDS: Ceftriaxone 1 GM/50 ML BAG IV (10:38)
[2021-06-26] MEDS: Atorvastatin Calcium 10 MG Tablet PO (23:00)
[2021-06-26] MEDS: 0.9% Saline Lock 10 ML Syringe IV (23:00)
[2021-06-27] VITALS (13 sets, daily range): BP systolic 143–162; BP diastolic 73–90; PULSE 67–91; RESP 16; TEMP 35.8–37; O2SAT 83–98; BMI 27.8
[2021-06-27 06:38] LABS: Absolute Lymphocyte Count 0.33 X10^3/uL (0.83-4.51); Absolute Neutrophil Count 5.1 X10^3/uL (2.0-7.7); Hematocrit 34.3 % (37-47); Hemoglobin 12.5 g/dL (12.0-15.0); Lymphocyte # 0.33 X10^3/ul (0.83-4.51); Lymphocyte % 5.9 % (19-41); Mean Corp Hgb Conc 36.4 g/dL (32-36); Mean Corpuscular Hgb 35.2 pg (27.0-32.0); Mean Corpuscular Volume 96.6 fL (81-99); Mean Platelet Vol. 11.4 fl (6.2-12.0); Monocyte% 1.8 % (0-10); NRBC Flagged by Analyzer 0 % (0-5); Neutrophil # 5.11 X10^3/uL (2.7-7.7); Neutrophil % 91.8 % (47-70); POSITIVE DIFFERENTIAL YES; Platelet Count 209 K/mm3 (150-450); RBC Distribution Width CV 13.7 % (11.6-14.6); RBC Distribution Width SD 48.3 fl (35.1-43.9); Red Blood Count 3.55 M/mm3 (4.2-5.4); White Blood Count 5.6 K/mm3 (4.4-11.0)
[2021-06-27 06:39] LABS: Differential Indicated SCAN CRITERIA MET
[2021-06-27 06:47] LABS: International Normalized Ratio 4.7; Prothrombin Time (Protime)PT. 43.2 SECONDS (11.7-14.9)
[2021-06-27 07:02] LABS: Differential Comment SCANNED
[2021-06-27 07:08] LABS: AST(SGOT) 69 U/L (15-37); Alanine Aminotransfer ALT/SGPT 35 U/L (13-56); Albumin, Serum 2.7 g/dL (3.2-5.0); Alkaline Phosphatase 38 U/L (45-117); Anion Gap 8 (5-15); BUN 17 mg/dL (7-18); Bilirubin, Direct 0.22 mg/dL (0.00-0.30); Calcium,Total 8.5 mg/dL (8.5-10.1); Chloride 108 mmol/L (98-107); Creatinine, Serum 0.74 mg/dL (0.55-1.02); EST Glomerular Filtration Rate 80 mL/min (>60); Est Glom Filt Rate - Afr Amer 97 mL/min (>60); Estimated Creatinine Clearance 39.92 ml/min; Globulin 3.4 g/dL (2.2-4.2); Glucose 112 mg/dL (74-106); Potassium 3.9 mmol/L (3.5-5.1); Protein, Total 6.1 g/dL (6.4-8.2); Sodium Level 139 mmol/L (136-145)
[2021-06-27] MEDS: Folic Acid 1 MG Tablet 2 MG PO (09:50)
[2021-06-27] MEDS: Aspirin 81 MG TAB.CHEW PO (09:50)
[2021-06-27] MEDS: Cholecalciferol (VIT D3) 25 MCG TABLET (1,000 UNITS) PO (09:50)
[2021-06-27] MEDS: Pantoprazole Sodium 40 MG Tablet PO (09:50)
[2021-06-27] MEDS: dexAMETHasone 10 MG/ML Vial 6 MG IV (09:51)
[2021-06-27] MEDS: Ceftriaxone 1 GM/50 ML BAG IV (10:05)
--- NOTE | 2021-06-27 11:36 | CASEMGMT ---
Per Mora FANG, pt's daughter is interested in knowing how soon pt could go to TCU with COVID. According to charting, pt tested COVID + on 06/13/21 but per [facility] chart, pt does have a test on 06/13/21 but it's negative. Call to Dr. Mccullough's office to see if pt was tested there and per Akiko, pt has not had any COVID testing there. Kady RIOS updated on all, voices understanding. Orion FANG CM
--- NOTE | 2021-06-27 12:10 | CASEMGMT ---
GABRIEL was not able to find patient's positive COVID test from 06-13-21. GABRIEL called patient's granddaughter, Nichole and let her know SW has not been able to find the positive test from the . GABRIEL explained the positive test SW did find is from 06-24. [facility] will accept patients that are 15 days out and TCU is 22 days out. Nichole was upset as she knows patient was positive during that visit. Nichole said they will just take patient home. GABRIEL and LEONCIO COOPER continued to search for the positive test and finally found it. GABRIEL called Nichole back and let her know SW did fine the test. GABRIEL told her [facility] is an option, but not TCU. Nichole asked GABRIEL to hold off on making the referral to [facility]. Nichole wants to talk with patient to see what she wants to do. Nichole said she is a nurse and she could take patient home with her. She will need home health and equipment. GABRIEL let her know LE[facility] COOPER will be the one to set up home health and equipment. Naz BLEVINS
[2021-06-27 13:55] LABS: Pathologist Review Reviewed
[2021-06-27] MEDS: Nystatin Powder 15gm Bottle 1 APPLIC TOPICAL ×2 (14:28→23:03)
--- NOTE | 2021-06-27 17:24 | PCM.PN.HOSP ---
Subjective Subjective Doing well, feels much better than when she came in. She is only requiring around 2 L nasal cannula at rest however today with ambulation she required 7 L to get up to 90% Objective Data Objective Data Vital Signs: Vital Signs Temp Pulse Resp BP Pulse Ox 98.6 F 87 16 143/86 H 98 06/27/21 15:30 06/27/21 15:30 06/27/21 15:30 06/27/21 15:30 06/27/21 15:30 Oxygen Flow Rate (L/min) [ 6 AMBULATING with Oxygen #3] Oxygen Flow Rate (L/min) [ 4 AMBULATING with Oxygen #2] Oxygen Flow Rate (L/min) [ 2 AMBULATING with Oxygen #1] Oxygen Flow Rate (L/min) [At 2 REST with Oxygen] Oxygen Flow Rate (L/min) [At 0 REST on Room Air] Oxygen Flow Rate (L/min) 2 Oxygen Delivery Method Nasal Cannula Weight: 128 lb 8.472 oz Body Mass Index (BMI) 27.8 Intake & Output: Intake and Output for Last 24 Hours 06/26/21 06/27/21 06/28/21 03:59 03:59 03:59 Intake Total 2004 1265 / 1265 665 / 665 Output Total 350 / 350 800 / 800 300 / 300 Balance 1655 / 1655 465 / 465 365 / 365 Lab / Micro Data Result Diagrams: 06/27/21 06:25 06/27/21 06:25 Labs: Laboratory Results - last 24 hr 06/25/21 06:56: Diff Path Review Reviewed 06/27/21 06:25: WBC 5.6, RBC 3.55 L, Hgb 12.5, Hct 34.3 L, MCV 96.6, MCH 35.2 H, MCHC 36.4 H, RDW Std Deviation 48.3 H, RDW Coeff of Doris 13.7, Plt Count 209, MPV 11.4, Immature Gran % (Auto) 0.500, Neut % (Auto) 91.8 H, Lymph % (Auto) 5.9 L, [place] % (Auto) 1.8, Eos % (Auto) 0.0, Baso % (Auto) 0.0, Absolute Neuts (auto) 5.1, Absolute Lymphs (auto) 0.33 L, Nucleated RBC % 0, Differential Comment SCANNED 06/27/21 06:25: PT 43.2 H, INR 4.7 H* 06/27/21 06:25: Sodium 139, Potassium 3.9, Chloride 108 H, Carbon Dioxide 23.0, Anion Gap 8, BUN 17, Creatinine 0.74, Estim Creat Clear Calc 39.92, Est GFR (MDRD) Af Amer 97, Est GFR (MDRD) Non-Af 80, BUN/Creatinine Ratio 23.0 H, Glucose 112 H, Calcium 8.5, Total Bilirubin 0.60, Direct Bilirubin 0.22, AST 69 H, ALT 35, Alkaline Phosphatase 38 L, Total Protein 6.1 L, Albumin 2.7 L, Globulin 3.4 Micro: Microbiology 06/24/21 17:12 Urine, Clean Catch Legionella Antigen - Final 06/24/21 17:12 Urine, Clean Catch Streptococcus pneumoniae Antigen (M - Final Physical Exam Const alert, oriented x3 and no apparent distress General Appearance: cooperative HEENT normocephalic and moist oral mucous membranes Eyes PERRL, EOMs intact bilaterally and conjunctivae normal Neck supple and no JVD Resp normal respiratory effort, no retractions and no use of accessory muscles Auscultation: diminished lung sounds; Negative for crackles, rales, rhonchi or wheezes Cardio regular rate, regular rhythm, S1 normal heart sound, S2 normal heart sound and no murmurs GI soft to palpation, non-tender and non-distended; Negative for hepatosplenomegaly Extremity no clubbing, cyanosis or edema Skin no rashes or lesions noted Neuro no focal motor deficits and no sensory deficits noted Psych affect normal Appearance: appropriate Assessment & Plan Assessment/Plan (1) CVA (cerebral vascular accident): QUALIFIERS: CVA mechanism: unspecified Qualified Code(s): I63.9 - Cerebral infarction, unspecified (2) Pneumonia: QUALIFIERS: Pneumonia type: due to unspecified organism Laterality: bilateral Lung location: unspecified part of lung Qualified Code(s): J18.9 - Pneumonia, unspecified organism PLAN: 1. Acute encephalopathy Differential diagnosis include infectious encephalopathy from patient's Covid as well as possible CVA. Patient was noted to have right mild facial droop on admission. Initial head CT obtained came back unremarkable. Admitted to monitored bed MRI ordered for subsequent evaluation ?Encephalopathy has resolved, MRI was unremarkable. 2. Acute Covid pneumonia ?Patient had apparently tested positive for COVID on 06/13/2021. Repeat Covid assay came back positive. Chest x-ray obtained demonstrated Right upper lobe and left lower lobe infiltrate. Admitted to monitored bed. Started on Decadron as well as azithromycin and Rocephin for suspected superimposed bacterial pneumonia in addition to supplemental oxygen. Patient progress being monitored with measurement of serial markers of inflammation -06/26/2021;Patient seen currently saturating 94% on 2 L. WBC count within normal limits. Patient to be assessed for home oxygen needs with ambulation prior to decision to be made about possible discharge ?06/27/2021: Require 7 L on ambulation therefore she is not ready for discharge today. Will attempt placement at SNF however if we cannot get her into the nursing homes that her family prefers they would like to take her home 3. Elevated troponin/Essential hypertension/ Paroxysmal A. fib/CAD status post PCI/HLD ?Suspected to be secondary to NSTEMI type II as a result of demand ischemia. Patient currently not experiencing any chest pain. Monitoring with serial cardiac enzymes ?Rate controlled on systemic anticoagulation with Coumadin held in view of elevated INR on admission, Coumadin held repeat INR ordered for a.m. ?With previous PCI ?Patient blood pressure stable given her suspected CVA current blood pressure levels acceptable -Patient is on statin therapy, continued at home dose 4. Rheumatoid arthritis ?Patient is on methotrexate as well as folic acid at home did continue 5. GERD ?Patient is on PPI DVT: Supratherapeutic INR Charges/Coding Visit Charges Inpatient E&M: 83118 Subs Hosp L2
[2021-06-27] MEDS: Atorvastatin Calcium 10 MG Tablet PO (23:03)
[2021-06-28] VITALS (12 sets, daily range): BP systolic 146–174; BP diastolic 70–97; PULSE 58–88; RESP 16–18; TEMP 35.7–36.2; O2SAT 87–98; BMI 27.8
[2021-06-28] MEDS: Nystatin Powder 15gm Bottle 1 APPLIC TOPICAL ×3 (05:31→20:44)
[2021-06-28 06:19] LABS: Absolute Neutrophil Count 4.6 X10^3/uL (2.0-7.7); Hematocrit 34.8 % (37-47); Hemoglobin 12.2 g/dL (12.0-15.0); Mean Corp Hgb Conc 35.1 g/dL (32-36); Mean Corpuscular Hgb 33.7 pg (27.0-32.0); Mean Corpuscular Volume 96.1 fL (81-99); Monocyte# 0.14 X10^3/uL; Monocyte% 2.8 % (0-10); NRBC Flagged by Analyzer 0 % (0-5); Neutrophil # 4.57 X10^3/uL (2.7-7.7); Neutrophil % 90.8 % (47-70); POSITIVE DIFFERENTIAL YES; Platelet Count 220 K/mm3 (150-450); RBC Distribution Width CV 13.6 % (11.6-14.6); Red Blood Count 3.62 M/mm3 (4.2-5.4)
[2021-06-28 06:29] LABS: Prothrombin Time (Protime)PT. 38.2 SECONDS (11.7-14.9)
[2021-06-28 06:30] LABS: Differential Indicated SCAN CRITERIA MET
[2021-06-28 06:43] LABS: AST(SGOT) 57 U/L (15-37); Alanine Aminotransfer ALT/SGPT 37 U/L (13-56); Albumin, Serum 2.9 g/dL (3.2-5.0); Alkaline Phosphatase 40 U/L (45-117); Anion Gap 5 (5-15); BUN 17 mg/dL (7-18); BUN/Creat Ratio 20.5 RATIO (10-20); Bilirubin, Direct 0.21 mg/dL (0.00-0.30); Calcium,Total 8.8 mg/dL (8.5-10.1); Chloride 110 mmol/L (98-107); Creatinine, Serum 0.83 mg/dL (0.55-1.02); EST Glomerular Filtration Rate 70 mL/min (>60); Est Glom Filt Rate - Afr Amer 84 mL/min (>60); Estimated Creatinine Clearance 47.02 ml/min; Globulin 3.3 g/dL (2.2-4.2); Glucose 112 mg/dL (74-106); Potassium 3.7 mmol/L (3.5-5.1); Protein, Total 6.2 g/dL (6.4-8.2); Sodium Level 139 mmol/L (136-145)
[2021-06-28 06:48] LABS: Differential Comment SCANNED; Ovalocyte RARE
[2021-06-28] MEDS: Acetaminophen 325 MG Tablet 650 MG PO (08:42)
[2021-06-28] MEDS: Cholecalciferol (VIT D3) 25 MCG TABLET (1,000 UNITS) PO (08:43)
[2021-06-28] MEDS: Folic Acid 1 MG Tablet 2 MG PO (08:43)
[2021-06-28] MEDS: Pantoprazole Sodium 40 MG Tablet PO (08:43)
[2021-06-28] MEDS: Aspirin 81 MG TAB.CHEW PO (08:43)
[2021-06-28] MEDS: 0.9% Saline Lock 10 ML Syringe IV (08:44)
[2021-06-28] MEDS: Ceftriaxone 1 GM/50 ML BAG IV (08:44)
[2021-06-28] MEDS: dexAMETHasone 10 MG/ML Vial 6 MG IV (08:44)
--- NOTE | 2021-06-28 10:05 | PN.HOSP_ITS ---
Subjective Subjective Doing well, she is maintaining her oxygen saturations on 2 L nasal cannula and today she needed 4 L of oxygen to get her oxygen to 90% with ambulation. Discussed with the family about the possibility of discharge today or evaluating whether or not they are able to take her home versus having her go to a halfway. Objective Data Objective Data Vital Signs: Vital Signs Temp Pulse Resp BP Pulse Ox 96.5 F L 78 18 174/70 H 87 06/28/21 08:40 06/28/21 08:40 06/28/21 08:40 06/28/21 08:40 06/28/21 08:59 Oxygen Flow Rate (L/min) [ 6 AMBULATING with Oxygen #3] Oxygen Flow Rate (L/min) [ 4 AMBULATING with Oxygen #2] Oxygen Flow Rate (L/min) [ 3 AMBULATING with Oxygen #1] Oxygen Flow Rate (L/min) [At 2 REST with Oxygen] Oxygen Flow Rate (L/min) [At 0 REST on Room Air] Oxygen Flow Rate (L/min) 2 Oxygen Delivery Method Room Air Weight: 125 lb 10.616 oz Body Mass Index (BMI) 27.8 Intake & Output: Intake and Output for Last 24 Hours 06/27/21 06/28/21 06/29/21 03:59 03:59 03:59 Intake Total 1265 / 1265 1145 / 1145 250 / 250 Output Total 800 / 800 850 / 850 640 / 640 Balance 465 / 465 295 / 295 -390 / -390 Lab / Micro Data Result Diagrams: 06/28/21 06:05 06/28/21 06:05 Labs: Laboratory Results - last 24 hr 06/25/21 06:56: Diff Path Review Reviewed 06/28/21 06:05: WBC 5.0, RBC 3.62 L, Hgb 12.2, Hct 34.8 L, MCV 96.1, MCH 33.7 H, MCHC 35.1, RDW Std Deviation 48.0 H, RDW Coeff of Doris 13.6, Plt Count 220, MPV 11.0, Immature Gran % (Auto) 0.400, Neut % (Auto) 90.8 H, Lymph % (Auto) 6.0 L, Guthrie % (Auto) 2.8, Eos % (Auto) 0.0, Baso % (Auto) 0.0, Absolute Neuts (auto) 4.6, Absolute Lymphs (auto) 0.30 L, Nucleated RBC % 0, Differential Comment SCANNED, Ovalocytes RARE 06/28/21 06:05: PT 38.2 H, INR 4.0 H* 06/28/21 06:05: Sodium 139, Potassium 3.7, Chloride 110 H, Carbon Dioxide 24.0, Anion Gap 5, BUN 17, Creatinine 0.83, Estim Creat Clear Calc 47.02, Est GFR (MDRD) Af Amer 84, Est GFR (MDRD) Non-Af 70, BUN/Creatinine Ratio 20.5 H, Glucose 112 H, Calcium 8.8, Total Bilirubin 0.80, Direct Bilirubin 0.21, AST 57 H, ALT 37, Alkaline Phosphatase 40 L, Total Protein 6.2 L, Albumin 2.9 L, Globulin 3.3 Micro: Microbiology 06/24/21 17:12 Urine, Clean Catch Legionella Antigen - Final 06/24/21 17:12 Urine, Clean Catch Streptococcus pneumoniae Antigen (M - Final Physical Exam Narrative Const alert, oriented x3 and no apparent distress General Appearance: cooperative HEENT normocephalic and moist oral mucous membranes Eyes PERRL, EOMs intact bilaterally and conjunctivae normal Neck supple and no JVD Resp normal respiratory effort, no retractions and no use of accessory muscles Auscultation: diminished lung sounds; Negative for crackles, rales, rhonchi or wheezes Cardio regular rate, regular rhythm, S1 normal heart sound, S2 normal heart sound and no murmurs GI soft to palpation, non-tender and non-distended; Negative for hepatosplenomegaly Extremity no clubbing, cyanosis or edema Skin no rashes or lesions noted Neuro no focal motor deficits and no sensory deficits noted Psych affect normal Appearance: appropriate Assessment & Plan Assessment/Plan (1) CVA (cerebral vascular accident): QUALIFIERS: CVA mechanism: unspecified Qualified Code(s): I63.9 - Cerebral infarction, unspecified (2) Pneumonia: QUALIFIERS: Pneumonia type: due to unspecified organism Laterality: bilateral Lung location: unspecified part of lung Qualified Code(s): J18.9 - Pneumonia, unspecified organism PLAN: 1. Acute encephalopathy Differential diagnosis include infectious encephalopathy from patient's Covid as well as possible CVA. Patient was noted to have right mild facial droop on admission. Initial head CT obtained came back unremarkable. Admitted to monitored bed MRI ordered for subsequent evaluation ?Encephalopathy has resolved, MRI was unremarkable. 2. Acute Covid pneumonia ?Patient had apparently tested positive for COVID on 06/13/2021. Repeat Covid assay came back positive. Chest x-ray obtained demonstrated Right upper lobe and left lower lobe infiltrate. Admitted to monitored bed. Started on Decadron as well as azithromycin and Rocephin for suspected superimposed bacterial pneumonia in addition to supplemental oxygen. Patient progress being monitored with measurement of serial markers of inflammation -06/26/2021;Patient seen currently saturating 94% on 2 L. WBC count within normal limits. Patient to be assessed for home oxygen needs with ambulation prior to decision to be made about possible discharge ?06/27/2021: Require 7 L on ambulation therefore she is not ready for discharge today. Will attempt placement at SNF however if we cannot get her into the nursing homes that her family prefers they would like to take her home ?06/28/2021: She is requiring 4 L with ambulation to reach 90%. She has a possibility for discharge today family is deciding whether or not they want to take her home or attempted get her into a halfway. 3. Elevated troponin/Essential hypertension/ Paroxysmal A. fib/CAD status post PCI/HLD ?Suspected to be secondary to NSTEMI type II as a result of demand ischemia. Patient currently not experiencing any chest pain. Monitoring with serial cardiac enzymes ?Rate controlled on systemic anticoagulation with Coumadin held in view of elevated INR on admission, Coumadin held repeat INR ordered for a.m. ?With previous PCI ?We will continue her home blood pressure medications as her concern for CVA placed several days ago -Patient is on statin therapy, continued at home dose 4. Rheumatoid arthritis ?Patient is on methotrexate as well as folic acid at home did continue 5. GERD ?Patient is on PPI DVT: Supratherapeutic INR Charges/Coding Visit Charges Inpatient E&M: 55699 Subs Hosp L2
[2021-06-28] MEDS: Isosorbide Mononitrate 30 MG Tablet PO (11:08)
[2021-06-28] MEDS: Lisinopril 20 MG Tablet PO (11:08)
[2021-06-28] MEDS: Metoprolol(XL)Succ 25 MG Tablet 75 MG PO (11:09)
--- NOTE | 2021-06-28 14:09 | CASEMGMT ---
Addendum entered by Shi Hinds 06/28/21 16:06: Pt hiro had concerns regarding her grandmother's care that she has resolved at this point. She continued to express dissatisfaction with the care. Provided her with the Patient Advocate number. She denied further needs. Original Note: Pt hiro Nichole called this RN CM as pt was previously on MS3. She states she will be taking pt to her home at [place] and was questioning DME in the home. Made her aware that the DME she is requesting is not covered by [facility] and gave options for obtaining. Spoke with STACKER DRIVER CM to make aware of the above.
--- NOTE | 2021-06-28 16:14 | CASEMGMT ---
Therapy notes obtained and call to granddaughter, Nichole, to update on therapy notes, voices understanding. Per Nichole, [facility] SOC was never done by [facility] and she states she would now like [facility] for SN, PT/OT. Referral faxed to [facility] at this time. Plan is for pt to go home with granddaughter and her family(, 21yo great granddaughter), who will assist with pt care. Nichole states no further questions/concerns/needs and is aware that plan is for pt to discharge tomorrow. CM to follow for referral and contact Evan as well. Pt also to be tested for home oxygen again tomorrow and granddaughter states they would like [employer] and she would like them to set it up prior to pt discharge. CM to follow. Orion FANG CM
[2021-06-28] MEDS: Atorvastatin Calcium 10 MG Tablet PO (20:44)
[2021-06-29] VITALS (9 sets, daily range): BP systolic 144–187; BP diastolic 66–83; PULSE 49–74; RESP 16–18; TEMP 36–36.7; O2SAT 86–99
[2021-06-29] MEDS: Nystatin Powder 15gm Bottle 1 APPLIC TOPICAL ×2 (03:57→14:00)
[2021-06-29 06:22] LABS: Absolute Lymphocyte Count 0.49 X10^3/uL (0.83-4.51); Basophil# 0.01 X10^3/uL; Basophil% 0.1 % (0-1); Hematocrit 34.4 % (37-47); Hemoglobin 12.6 g/dL (12.0-15.0); Lymphocyte # 0.49 X10^3/ul (0.83-4.51); Lymphocyte % 7.1 % (19-41); Mean Corp Hgb Conc 36.6 g/dL (32-36); Mean Corpuscular Volume 95.6 fL (81-99); Mean Platelet Vol. 11.1 fl (6.2-12.0); Monocyte# 0.34 X10^3/uL; Monocyte% 4.9 % (0-10); NRBC Flagged by Analyzer 0 % (0-5); Neutrophil # 6.03 X10^3/uL (2.7-7.7); Neutrophil % 87.2 % (47-70); POSITIVE DIFFERENTIAL YES; Platelet Count 245 K/mm3 (150-450); RBC Distribution Width CV 13.3 % (11.6-14.6); RBC Distribution Width SD 46.5 fl (35.1-43.9); White Blood Count 6.9 K/mm3 (4.4-11.0)
[2021-06-29 06:24] LABS: Differential Indicated SCAN CRITERIA MET
[2021-06-29 06:31] LABS: International Normalized Ratio 3.5; Prothrombin Time (Protime)PT. 34.1 SECONDS (11.7-14.9)
[2021-06-29 06:46] LABS: Differential Comment SCANNED; Ovalocyte 1+
[2021-06-29 06:49] LABS: Anion Gap 7 (5-15); BUN 18 mg/dL (7-18); BUN/Creat Ratio 23.3 RATIO (10-20); Calcium,Total 9.2 mg/dL (8.5-10.1); Chloride 106 mmol/L (98-107); Creatinine, Serum 0.77 mg/dL (0.55-1.02); EST Glomerular Filtration Rate 76 mL/min (>60); Est Glom Filt Rate - Afr Amer 92 mL/min (>60); Estimated Creatinine Clearance 38.41 ml/min; Glucose 104 mg/dL (74-106); Potassium 3.7 mmol/L (3.5-5.1); Sodium Level 138 mmol/L (136-145)
[2021-06-29] MEDS: Aspirin 81 MG TAB.CHEW PO (09:48)
[2021-06-29] MEDS: Folic Acid 1 MG Tablet 2 MG PO (09:48)
[2021-06-29] MEDS: Ceftriaxone 1 GM/50 ML BAG IV (09:48)
[2021-06-29] MEDS: Metoprolol(XL)Succ 25 MG Tablet 75 MG PO (09:48)
[2021-06-29] MEDS: Lisinopril 20 MG Tablet PO (09:49)
[2021-06-29] MEDS: Isosorbide Mononitrate 30 MG Tablet PO (09:49)
[2021-06-29] MEDS: Pantoprazole Sodium 40 MG Tablet PO (09:49)
[2021-06-29] MEDS: Cholecalciferol (VIT D3) 25 MCG TABLET (1,000 UNITS) PO (09:49)
[2021-06-29] MEDS: dexAMETHasone 10 MG/ML Vial 6 MG IV (09:49)
[2021-06-29] MEDS: 0.9% Saline Lock 10 ML Syringe IV (09:50)
--- NOTE | 2021-06-29 11:20 | CASEMGMT ---
Addendum entered by Homa Champagne 06/29/21 14:14: D/C summ/instructions faxed to [facility] and they are notified of pt discharge today, voice understanding. Original Note: Call to [facility] and they state they did do SOC on 06/20/21 and then saw pt on 06/22/21 and 06/23/21. This RN CM did receive a call back from [facility] stating they can accept pt. Call to granddaughter Nichole, to update on all and she states there is obviously miscommunication between family members. Nichole states she would like [facility] instead of [facility] at this time and call to [facility] to advise them of same, Naomi voices understanding. Call to [facility] to advised of pt discharge today and to add great-granddamanjit Viramontes to [facility] contact list at the following number: [phone]. Pt also to be setn home with pulse ox at discharge from [facility]. Pt does qualify for 2L home oxygen with exertion at this time and script faxed to [facility]. Call to [facility] to notify of referral and that family would like home oxygen set up prior to pt discharge, Anca rasmussens understanding. Call back to granddaughterDoray, to update on all, voices understanding and now states wants pt's dexamethasone script to be filled at [facility] instead of [facility]. Script was already e-scribed to [facility] so this RN CM placed call to [facility] retail pharmacy to have them obtain script from Kallie Soler. Pt's granddaughter would like the RN to call and go over d/c instructions with her and she states she will get off work at 1630. Peggy FANG updated on all and provided with pulse ox for pt, voices understanding. Orion FANG CM
--- NOTE | 2021-06-29 11:57 | PCM.DC ---
Discharge Instructions Diet Discharge Diet: Low fat / Low cholesterol Activity Discharge Activity: Return to Normal Activity Dressing / Incision Call your doctor if you observe: Fever of 101 or Higher, Shortness of breath, Dizziness, Fainting spells, Swelling in the ankles, Chest pain and Increased palpitations (irregular heartbeat) Follow Up Care Test Results: Test results from this visit will be discussed in further detail at your follow-up appointment, if applicable. Discharge Plan Admission Admit Date/Time: 06/24/21 19:15 Attending Provider: Brent Hughes Primary Care Provider: Paul Mccullough Discharge Orders/Prescriptions Prescriptions: New dexamethasone 2 mg tablet 6 mg PO DAILY 4 Days Qty: 12 RF: 0 Continued folic acid 1 mg tablet 2 mg PO DAILY RF: 0 aspirin 81 MG tablet,chewable 81 mg PO DAILY@0800 RF: 0 cholecalciferol (vitamin D3) 1,000 UNIT tablet See Rx Instructions .ROUTE .COMPLEX RF: 0 methotrexate sodium 2.5 MG tablet 15 mg PO FR RF: 0 acetaminophen 500 MG tablet 1,000 mg PO Q6H PRN Qty: 100 RF: 0 metoprolol succinate 50 mg tablet extended release 24 hr 75 mg PO DAILY RF: 0 lisinopril 40 mg tablet 20 mg PO DAILY RF: 0 warfarin 3 mg tablet 3 mg PO .COMPLEX Qty: 30 RF: 12 warfarin 2 mg tablet 2 mg PO .COMPLEX Qty: 30 RF: 11 simvastatin 20 mg tablet 20 mg PO QHS Qty: 90 RF: 3 isosorbide mononitrate 30 mg tablet extended release 24 hr 30 mg PO QAM Qty: 30 RF: 11 pantoprazole 40 mg tablet,delayed release (DR/EC) 40 mg PO DAILY Qty: 30 RF: 11 Referrals / Follow Up: Paul Mccullough MD [Primary Care Provider] - Within 1 Week Disposition Disposition (needs filled in before D/C Order can be placed): Home, Self Care
--- NOTE | 2021-06-29 12:35 | DS.PCM_ITS ---
Providers Date of Admission: 06/24/21 Primary Care Physician: Dr. Paul Mccullough MD Reason For Visit: ? CVA, PNA/ENCEPHALOPATHY Diagnosis Discharge Diagnosis (1) CVA (cerebral vascular accident): Status: Acute Code(s): I63.9 - Cerebral infarction, unspecified Qualifiers: CVA mechanism: unspecified Qualified Code(s): I63.9 - Cerebral infarction, unspecified (2) Pneumonia: Status: Acute Code(s): J18.9 - Pneumonia, unspecified organism Qualifiers: Laterality: bilateral Lung location: unspecified part of lung Pneumonia type: due to unspecified organism Qualified Code(s): J18.9 - Pneumonia, unspecified organism Medications at Discharge Home Medications aspirin 81 mg PO DAILY@0800 02/24/14 cholecalciferol (vitamin D3) See Rx Instructions .ROUTE .COMPLEX 05/28/15 folic acid 1 mg tablet 2 mg PO DAILY 03/14/18 methotrexate sodium 15 mg PO FR 09/30/19 acetaminophen 1,000 mg PO Q6H PRN #100 tab 10/02/19 warfarin 3 mg tablet 3 mg PO .COMPLEX #30 tab 05/31/20 warfarin 2 mg tablet 2 mg PO .COMPLEX #30 tab 09/02/20 simvastatin 20 mg tablet 20 mg PO QHS #90 tab 09/13/20 isosorbide mononitrate 30 mg tablet,extended release 24 hr 30 mg PO QAM #30 tab 02/21/21 pantoprazole 40 mg tablet,delayed release 40 mg PO DAILY #30 tab 05/23/21 lisinopril 20 mg PO DAILY 06/14/21 metoprolol succinate 75 mg PO DAILY 06/14/21 dexamethasone 6 mg PO DAILY 4 Days #12 tab 06/29/21 Hospital Course Operations None Procedures None Summary of Care Provided Minutes Spent on Discharge: 40 Hospital Course: Per HPI: The patient is an 80 y/o F w/ PMHx: Rheumatoid arthritis on MTX, CAD, HTN, HLD, Tobacco use, PAF who presents to the [facility] ED on 06/24/21 with history of last known normal at approximately 4:56 PM the evening prior with onset approximately 9 PM significant for confusion, found attempting to eat napkins with focal deficits including difficulty moving her left foot with significant confusion as well as onset mild right facial droop on day of presentation with continued worsening encephalopathy prompting family to bring her to the ED for evaluation. Of note patient was recently admiteted 06/14/21-06/15/21 with suspected COVID and discharged not requiring oxygen at that time with onset of fatigue, weakness, malaise, dysnea, cough starting 06/13/21 with COVID exposure from the family with whom she lives. She has had a 2 dose pfizer vaccination series but no booster. Work-up in the ED included T 98.2, heart rate 73, BP 139/73, respiratory rate 18, initially 89% on room air with improvement to 95% on 2 L nasal cannula, CBC with WC 3.2, hemoglobin 12.2, platelet 144 with lymphopenia, coags with PT 32.2, INR 3.2, PTT 54.7, BMP with sodium 133, BUN/creatinine 20/1.02, troponin high-sensitivity initial 64, urinalysis with elevated specific graphity 1.020, protein 500, ketones 5, occult blood 50, negative nitrite, negative leukocyte esterase, CT brain with no acute intracranial abnormality with chronic microvascular changes, CTA head neck with evidence of right upper lobe pneumonia, mild atherosclerotic plaque formation at the origin of the right and left ICA with less than 50% cross-sectional diameter stenosis, calcified plaque formation right cavernous carotid artery with mild stenosis less than 50%, calcified plaque formation left cavernous carotid artery with mild stenosis less than 50%, chest x-ray with evidence of right upper lobe and left lower lobe pneumonia, EKG w/ rate controlled atrial fibrillation. NIHSS 5 for BL LE drift to bed, mild R sided facial droop and slurred speech. Hospital Course: 1. Acute COVID-19 pneumonia with infectious encephalopathy?80-year-old female presented to the hospital with confusion. On admission she was initially about 89% on room air and tested positive for Covid, she did have some outpatient exposure to Covid. She was vaccinated with 2 doses of Pfizer but did not have her booster. She was worked up for a stroke however stroke was ruled out with an MRI and as her Covid improved and her pneumonia improved started her confusion. She is currently requiring anywhere from 2 to 4 L with ambulation we will can go home on oxygen. I would recommend continuing 4 more days of Decadron, she did complete courses for azithromycin and Rocephin for the possibility of bacterial pneumonia though on review of her chest x-ray, this is more consistent with a viral pneumonia than a bacterial pneumonia. I do recommend that she follow-up with her PCP in 3 to 5 days. She was supratherapeutic on her INR on admission and it peaked to about 5.4, currently today she is 3.5. I do a recommend that she resume her Coumadin on discharge with outpatient follow-up for her INR. I discussed with her the plan for discharge today she expressed understanding of the risk benefits of going home and would like to go home today. Did have multiple discussions with the family about sending her to a SNF however they declined and want to take her home. 2. Hypertension, paroxysmal A. fib, CAD status post PCI, hyperlipidemia, elevated troponin, rheumatoid arthritis, GERD are all chronic medical conditions which complicate her care. Her home medications were continued were appropriate. Her elevated troponin was consistent with demand ischemia, she was denying any chest pain and her troponin peaked at 70, she can follow-up with her outpatient physician for this. Physical Exam Narrative Const alert, oriented x3 and no apparent distress General Appearance: cooperative HEENT normocephalic and moist oral mucous membranes Eyes PERRL, EOMs intact bilaterally and conjunctivae normal Neck supple and no JVD Resp normal respiratory effort, no retractions and no use of accessory muscles Auscultation: diminished lung sounds; Negative for crackles, rales, rhonchi or wheezes Cardio regular rate, regular rhythm, S1 normal heart sound, S2 normal heart sound and no murmurs GI soft to palpation, non-tender and non-distended; Negative for hepatosplenomegaly Extremity no clubbing, cyanosis or edema Skin no rashes or lesions noted Neuro no focal motor deficits and no sensory deficits noted Psych affect normal Appearance: appropriate Medical Records Data Medical Nutrition Assessment Dietitian: Malnutrition Criteria Met Start: 06/28/21 14:24 Freq: Status: Active Protocol: Document 06/28/21 14:24 RMA (Rec: 06/28/21 14:24 RMA [id number]) Nutrition Malnutrition Evidence of Malnutrition Exists Yes Malnutrition (severe): Acute Illness/Injury Evidenced By Suboptimal Energy Intake ( Severe),Weight Loss (Severe) Intake Problem Inadequate Oral Intake Etiology r/t decreased appetite Signs/Symptoms as evidenced by estimated PO intake meeting <75% of estimated energy needs this date Status Active Problem Clinical Problem Acute Disease or Injury Related Malnutrition Etiology Severe protein-calorie malnutrition in the context of acute illness related to inadequate oral intake and ongoing poor appetite Signs/Symptoms as evidenced by ~3% wt loss in less than 1 week and PO meeting less than 50% estimated nutrition needs since admit Status Active Problem Recommendation Dietitian Recommendations/Changes Continue regular diet as ordered- consistency per [employer], soft/bite-sized food and thin liquids currently. Continue ensure compact TID w/ meals as currently ordered. Will add magic cup BID w/ lunch and dinner. Weight / BMI Weight Weight: 123 lb 10.869 oz Body Mass Index (BMI) 27.8 ABG / Lab / Microbiology Data Result Diagrams: 06/29/21 06:15 06/29/21 06:15 Laboratory: Laboratory Results - last 24 hr 06/29/21 06:15: WBC 6.9, RBC 3.60 L, Hgb 12.6, Hct 34.4 L, MCV 95.6, MCH 35.0 H, MCHC 36.6 H, RDW Std Deviation 46.5 H, RDW Coeff of Doris 13.3, Plt Count 245, MPV 11.1, Immature Gran % (Auto) 0.700, Neut % (Auto) 87.2 H, Lymph % (Auto) 7.1 L, Ventura % (Auto) 4.9, Eos % (Auto) 0.0, Baso % (Auto) 0.1, Absolute Neuts (auto) 6.0, Absolute Lymphs (auto) 0.49 L, Nucleated RBC % 0, Differential Comment S CANNED, Ovalocytes 1+ 06/29/21 06:15: PT 34.1 H, INR 3.5 06/29/21 06:15: Sodium 138, Potassium 3.7, Chloride 106, Carbon Dioxide 25.0, Anion Gap 7, BUN 18, Creatinine 0.77, Estim Creat Clear Calc 38.41, Est GFR (MDRD) Af Amer 92, Est GFR (MDRD) Non-Af 76, BUN/Creatinine Ratio 23.3 H, Glucose 104, Calcium 9.2 Microbiology: Microbiology 06/24/21 17:12 Urine, Clean Catch Legionella Antigen - Final 06/24/21 17:12 Urine, Clean Catch Streptococcus pneumoniae Antigen (M - Final D/C Instructions Discharge Diet: Low fat / Low cholesterol Call your doctor if you observe: Fever of 101 or Higher, Shortness of breath, Dizziness, Fainting spells, Swelling in the ankles, Chest pain and Increased palpitations (irregular heartbeat) Meaningful Use Info Meaningful Use Diagnoses (Choose all that apply): None applicable Discharge Plan Admission Admit Date/Time: 06/24/21 19:15 Attending Provider: Brent Hughes Primary Care Provider: Paul Mccullough Discharge Orders/Prescriptions Prescriptions: New dexamethasone 2 mg tablet 6 mg PO DAILY 4 Days Qty: 12 RF: 0 Continued folic acid 1 mg tablet 2 mg PO DAILY RF: 0 aspirin 81 MG tablet,chewable 81 mg PO DAILY@0800 RF: 0 cholecalciferol (vitamin D3) 1,000 UNIT tablet See Rx Instructions .ROUTE .COMPLEX RF: 0 methotrexate sodium 2.5 MG tablet 15 mg PO FR RF: 0 acetaminophen 500 MG tablet 1,000 mg PO Q6H PRN Qty: 100 RF: 0 metoprolol succinate 50 mg tablet extended release 24 hr 75 mg PO DAILY RF: 0 lisinopril 40 mg tablet 20 mg PO DAILY RF: 0 warfarin 3 mg tablet 3 mg PO .COMPLEX Qty: 30 RF: 12 warfarin 2 mg tablet 2 mg PO .COMPLEX Qty: 30 RF: 11 simvastatin 20 mg tablet 20 mg PO QHS Qty: 90 RF: 3 isosorbide mononitrate 30 mg tablet extended release 24 hr 30 mg PO QAM Qty: 30 RF: 11 pantoprazole 40 mg tablet,delayed release (DR/EC) 40 mg PO DAILY Qty: 30 RF: 11 Referrals / Follow Up: Paul Mccullough MD [Primary Care Provider] - Within 1 Week Disposition Disposition (needs filled in before D/C Order can be placed): Home, Self Care Charges/Coding Visit Charges Inpatient E&M: 79884 Disch Hosp
== END 2021-06-29 16:58 | disposition home health service (06) | DRG 177 ==
LOC: ED 17:38 → PCU 19:34
PROVIDERS: Internal Medicine; Admitting Provider Family Medicine; Emergency Provider Student in an Organized Health Care Education/Training Program; PCP Family Medicine; Visit Provider Family Medicine
DX: U07.1 COVID-19 (principal); J12.82 Pneumonia due to coronavirus disease 2019; E43 Unspecified severe protein-calorie malnutrition; I21.A1 Myocardial infarction type 2; G93.49 Other encephalopathy; I48.0 Paroxysmal atrial fibrillation; M06.9 Rheumatoid arthritis, unspecified; I10 Essential (primary) hypertension; I25.10 Atherosclerotic heart disease of native coronary artery without angina pectoris; E78.5 Hyperlipidemia, unspecified; K21.9 Gastro-esophageal reflux disease without esophagitis; E55.9 Vitamin D deficiency, unspecified; F17.210 Nicotine dependence, cigarettes, uncomplicated; I65.23 Occlusion and stenosis of bilateral carotid arteries; Z79.01 Long term (current) use of anticoagulants; Z79.899 Other long term (current) drug therapy; Z79.82 Long term (current) use of aspirin; Z95.5 Presence of coronary angioplasty implant and graft; R09.02 Hypoxemia; R79.1 Abnormal coagulation profile; Z68.27 Body mass index [BMI] 27.0-27.9, adult
CPT/HCPCS: 36415; 70450; 70496; 70498; 70551; 71045; 80048; 80053; 80061; 80076; 81001; 82728; 83036; 83615; 83880; 84145; 84443; 84484; 85025; 85379; 85610; 85730; 86140; 87449; 87635; 92526; 92610; 93005; 94667; 94762; 97110; 97162; 97166; 97530; 97535; 97802; 99251; 99285; 99406; J7030; J7040; P9612; Q9967; A4216; G0463; J8610; U0003; U0005

== ENCOUNTER 2021-07-11 08:47 | Outpatient (CLI) | payer MEDICARE, OTHER, SELFPAY ==
[2021-07-11 12:49] LABS: International Normalized Ratio 2.2; Prothrombin Time (Protime)PT. 23.2 SECONDS (11.7-14.9)
== END 2021-07-11 23:59 | disposition home or self-care (01) ==
LOC: LAB 08:50
PROVIDERS: PCP Family Medicine; Visit Provider Internal Medicine Cardiovascular Disease
DX: I48.11 Longstanding persistent atrial fibrillation (principal); Z79.01 Long term (current) use of anticoagulants
CPT/HCPCS: 36415; 85610

== ENCOUNTER 2021-07-18 09:03 | Outpatient (CLI) | payer MEDICARE, OTHER, SELFPAY ==
[2021-07-18 10:26] LABS: INR Fingerstick 2.6; Prothrombin Time Fingerstick 29.9 SEC (11.7-14.9)
== END 2021-07-18 23:59 | disposition home or self-care (01) ==
LOC: LAB 09:05
PROVIDERS: PCP Family Medicine; Referring Provider Internal Medicine Cardiovascular Disease; Visit Provider Internal Medicine Cardiovascular Disease
DX: I48.11 Longstanding persistent atrial fibrillation (principal); Z79.01 Long term (current) use of anticoagulants
CPT/HCPCS: 36416; 85610

== ENCOUNTER 2021-08-02 09:29 | Outpatient (CLI) | payer MEDICARE, OTHER, SELFPAY ==
[2021-08-02 12:51] LABS: INR Fingerstick 3.2; Prothrombin Time Fingerstick 36.6 SEC (11.7-14.9)
== END 2021-08-02 23:59 | disposition home or self-care (01) ==
LOC: LAB 09:35
PROVIDERS: PCP Family Medicine; Visit Provider Internal Medicine Cardiovascular Disease
DX: I48.11 Longstanding persistent atrial fibrillation (principal); Z79.01 Long term (current) use of anticoagulants
CPT/HCPCS: 36416; 85610

== ENCOUNTER 2021-08-04 12:11 | Outpatient (CLI) | payer MEDICARE, OTHER, SELFPAY ==
--- NOTE | 2021-08-04 12:17 | RAD_ITS ---
STUDY: CHEST SERIES-CHEST PA AND LATERAL VIEWS OF 1238 HOURS ON 08/04/2021 REASON FOR EXAM: -year-old female with a cough. TECHNIQUE: A standard chest x-ray series was performed per protocol. COMPARISON: 06/24/2021. FINDINGS: Mild demineralization. Moderate to marked cardiomegaly with borderline heart failure. Small right pleural effusion and a mild left pleural effusion. Cannot exclude a mild left lower lobe infiltrate (pneumonia). Again, mild fibrotic changes are noted in the periphery of the right upper lobe and right lower lobe. RAD/Chest PA and Lateral IMPRESSION: 1. Moderate to marked cardiomegaly with borderline heart failure. 2. Cannot exclude a left lower lobe infiltrate--pneumonia. 3. Small right pleural effusion and mild left pleural effusion. 4. Mild fibrotic changes in the periphery of the right lung. 5. The left lower lobe infiltrate and pleural effusions were not present on the previous study of 06/24/2021. Electronically Signed: Devin Vidal MD at 19:30 EDT ,
[2021-08-04 13:57] LABS: Anion Gap 5 (5-15); BUN 12 mg/dL (7-18); BUN/Creat Ratio 12.9 RATIO (10-20); Calcium,Total 9.1 mg/dL (8.5-10.1); Chloride 107 mmol/L (98-107); Creatinine, Serum 0.93 mg/dL (0.55-1.02); EST Glomerular Filtration Rate 62 mL/min (>60); Est Glom Filt Rate - Afr Amer 74 mL/min (>60); Glucose 95 mg/dL (74-106); Potassium 3.7 mmol/L (3.5-5.1); Sodium Level 139 mmol/L (136-145)
== END 2021-08-04 23:59 | disposition home or self-care (01) ==
PROVIDERS: PCP Family Medicine; Referring Provider Nurse Practitioner Gerontology; Visit Provider Nurse Practitioner Gerontology
DX: R06.00 Dyspnea, unspecified (principal)
CPT/HCPCS: 36415; 71046; 80048; 83880

== ENCOUNTER 2021-08-16 08:07 | Outpatient (CLI) | payer MEDICARE, OTHER, SELFPAY ==
[2021-08-16 10:36] LABS: INR Fingerstick 2.4; Prothrombin Time Fingerstick 28.1 SEC (11.7-14.9)
== END 2021-08-16 23:59 | disposition home or self-care (01) ==
LOC: LAB 08:08
PROVIDERS: PCP Family Medicine; Visit Provider Internal Medicine Cardiovascular Disease
DX: I48.11 Longstanding persistent atrial fibrillation (principal); Z79.01 Long term (current) use of anticoagulants
CPT/HCPCS: 36416; 85610

== ENCOUNTER 2021-08-23 16:00 | Outpatient (CLI) | payer MEDICARE, OTHER, SELFPAY ==
[2021-08-23 17:22] LABS: Absolute Lymphocyte Count 1.37 X10^3/uL (0.83-4.51); Absolute Neutrophil Count 4.1 X10^3/uL (2.0-7.7); Basophil# 0.06 X10^3/uL; Eosinophils% 1.7 % (0-5); Hematocrit 29.8 % (37-47); Hemoglobin 9.9 g/dL (12.0-15.0); Lymphocyte # 1.37 X10^3/ul (0.83-4.51); Lymphocyte % 23.2 % (19-41); Mean Corp Hgb Conc 33.2 g/dL (32-36); Mean Corpuscular Hgb 35.7 pg (27.0-32.0); Mean Corpuscular Volume 107.6 fL (81-99); Monocyte# 0.32 X10^3/uL; Monocyte% 5.4 % (0-10); NRBC Flagged by Analyzer 0 % (0-5); Neutrophil # 4.05 X10^3/uL (2.7-7.7); Neutrophil % 68.5 % (47-70); POSITIVE MORPHOLOGY YES; Platelet Count 339 K/mm3 (150-450); RBC Distribution Width CV 14.3 % (11.6-14.6); RBC Distribution Width SD 56.1 fl (35.1-43.9); Red Blood Count 2.77 M/mm3 (4.2-5.4); White Blood Count 5.9 K/mm3 (4.4-11.0)
[2021-08-23 17:29] LABS: Differential Indicated SCAN CRITERIA MET
[2021-08-23 17:59] LABS: ALB/GLOB Ratio 0.9 RATIO (0.9-2.4); AST(SGOT) 20 U/L (15-37); Alanine Aminotransfer ALT/SGPT 20 U/L (13-56); Albumin, Serum 3.3 g/dL (3.2-5.0); Alkaline Phosphatase 59 U/L (45-117); Anion Gap 5 (5-15); BUN 16 mg/dL (7-18); BUN/Creat Ratio 18.4 RATIO (10-20); Calcium,Total 9.7 mg/dL (8.5-10.1); Chloride 107 mmol/L (98-107); Creatinine, Serum 0.87 mg/dL (0.55-1.02); EST Glomerular Filtration Rate 66 mL/min (>60); Est Glom Filt Rate - Afr Amer 80 mL/min (>60); Globulin 3.6 g/dL (2.2-4.2); Glucose 95 mg/dL (74-106); Protein, Total 6.9 g/dL (6.4-8.2); Sodium Level 136 mmol/L (136-145)
[2021-08-23 18:05] LABS: Differential Comment SCANNED
[2021-08-23 18:06] LABS: Crenated RBC RARE
== END 2021-08-23 23:59 | disposition home or self-care (01) ==
LOC: MTLAB 16:02
PROVIDERS: PCP Family Medicine; Referring Provider Internal Medicine Rheumatology; Visit Provider Internal Medicine Rheumatology
DX: M06.4 Inflammatory polyarthropathy (principal); I48.20 Chronic atrial fibrillation, unspecified; Z79.899 Other long term (current) drug therapy; M72.2 Plantar fascial fibromatosis; K21.9 Gastro-esophageal reflux disease without esophagitis; I10 Essential (primary) hypertension; I25.10 Atherosclerotic heart disease of native coronary artery without angina pectoris; K57.90 Diverticulosis of intestine, part unspecified, without perforation or abscess without bleeding; K21.00 Gastro-esophageal reflux disease with esophagitis, without bleeding; M47.897 Other spondylosis, lumbosacral region
CPT/HCPCS: 36415; 80053; 85025

== ENCOUNTER 2021-08-25 13:57 | Outpatient (CLI) | payer MEDICARE, OTHER, SELFPAY ==
--- NOTE | 2021-08-25 14:02 | ECHOD_ITS ---
Reason For Study: AORTIC VALVE INSUFFICIENCY Procedure This was a 2D Doppler, Color Flow transthoracic echocardiogram. Exam performed in department. Left Ventricle Normal LV size. Left ventricular systolic function is normal. The estimated ejection fraction is 60 %. No regional wall motion abnormalities noted. Right Ventricle Normal RV size. Normal systolic function. Atria The left atrium is moderately enlarged. The right atrium is mildly enlarged. Mitral Valve Normal mitral valve. Mild (1+) eccentric mitral valve insufficiency. Tricuspid Valve Normal tricuspid valve. Mild to moderate (1-2+) tricuspid valve insufficiency. Pulmonary artery systolic pressure is 58 mmHg. Aortic Valve Trisinus/trileaflet aortic valve. Mild (1+) eccentric aortic valve insufficiency. Pulmonic Valve Normal pulmonic valve. Mild (1+) pulmonic valve insufficiency. Pericardium/Pleural Small pericardial effusion. MMode/2D Measurements & Calculations LVIDd: 4.1 cm IVSd: 1.2 cm Ao root diam: 3.3 cm LVIDs: 2.9 cm LVPWd: 1.1 cm RVDd: 3.7 cm FS: 29.9 % LAV(MOD-bp): 104.9 ml LVAd ap4: 24.3 cm2 SV(MOD-sp4): 44.4 ml LAV(MOD-bp) Indexed: 69.6 ml/m2 LVLd ap4: 7.3 cm LAV(MOD-sp2): 102.3 ml EDV(MOD-sp4): 68.4 ml LAV(MOD-sp4): 96.3 ml EDV(sp4-el): 68.9 ml LVAs ap4: 12.4 cm2 LVLs ap4: 5.8 cm ESV(MOD-sp4): 24.0 ml ESV(sp4-el): 22.8 ml EF(MOD-sp4): 65.0 % EF(sp4-el): 66.9 % SV(sp4-el): 46.1 ml LA dimension(2D): 4.9 cm LA A4 area: 29.2 cm2 RA A4 area: 23.0 cm2 Doppler Measurements & Calculations MV E max arslan: 107.4 cm/sec Ao V2 max: 132.4 cm/sec AI max arslan: 433.4 cm/sec Ao max P.0 mmHg AI max P.2 mmHg AI dec slope: 215.2 cm/sec2 AI P1/2t: 590.0 msec LV V1 max: 96.2 cm/sec PA V2 max: 86.2 cm/sec TR max arslan: 355.3 cm/sec LV V1 max P.7 mmHg TR max P.5 mmHg ECHO/Echo Complete Interpretation Summary Normal LV size. Left ventricular systolic function is normal. The estimated ejection fraction is 60 %. Mild to moderate (1-2+) tricuspid valve insufficiency. Pulmonary artery systolic pressure is 58 mmHg. The left atrium is moderately enlarged. The right atrium is mildly enlarged. Small pericardial effusion. Compared to the previous the pulmonary pressures are higher. Ordering Physician: Sammy Bellamy/Connor Marinelli Referring Physician: JOSEPH YAÑEZ Performed By: Randi Chang RDCS
== END 2021-08-25 23:59 | disposition home or self-care (01) ==
LOC: CVS 13:59
PROVIDERS: PCP Family Medicine; Visit Provider Nurse Practitioner Gerontology
DX: I35.1 Nonrheumatic aortic (valve) insufficiency (principal)
CPT/HCPCS: 93306

== ENCOUNTER 2021-08-30 09:28 | Outpatient (CLI) | payer MEDICARE, OTHER, SELFPAY ==
[2021-08-30 11:26] LABS: INR Fingerstick 1.7; Prothrombin Time Fingerstick 20.3 SEC (11.7-14.9)
== END 2021-08-30 23:59 | disposition home or self-care (01) ==
LOC: LAB 09:30
PROVIDERS: PCP Family Medicine; Visit Provider Internal Medicine Cardiovascular Disease
DX: I48.11 Longstanding persistent atrial fibrillation (principal); Z79.01 Long term (current) use of anticoagulants
CPT/HCPCS: 36416; 85610

== ENCOUNTER → 2021-09-14 | Outpatient (CLI) | payer MEDICARE, OTHER, SELFPAY ==
[2021-09-14 12:40] LABS: INR Fingerstick 1.6; Prothrombin Time Fingerstick 18.8 SEC (11.7-14.9)
== END | disposition home or self-care (01) ==
LOC: LAB 10:22
PROVIDERS: PCP Family Medicine; Referring Provider Internal Medicine Cardiovascular Disease; Visit Provider Internal Medicine Cardiovascular Disease
DX: I48.11 Longstanding persistent atrial fibrillation (principal); Z79.01 Long term (current) use of anticoagulants
CPT/HCPCS: 36416; 85610

== ENCOUNTER → 2021-09-22 | Outpatient (CLI) | payer MEDICARE, OTHER, SELFPAY ==
[2021-09-22 11:31] LABS: INR Fingerstick 1.5; Prothrombin Time Fingerstick 18.3 SEC (11.7-14.9)
== END | disposition home or self-care (01) ==
LOC: LAB 08:12
PROVIDERS: PCP Family Medicine; Referring Provider Internal Medicine Cardiovascular Disease; Visit Provider Internal Medicine Cardiovascular Disease
DX: I48.11 Longstanding persistent atrial fibrillation (principal); Z79.01 Long term (current) use of anticoagulants
CPT/HCPCS: 36416; 85610

== ENCOUNTER → 2021-09-28 | Outpatient (CLI) | payer MEDICARE, OTHER, SELFPAY ==
[2021-09-28 14:00] LABS: INR Fingerstick 1.5
== END | disposition home or self-care (01) ==
LOC: LAB 08:22
PROVIDERS: PCP Family Medicine; Referring Provider Internal Medicine Cardiovascular Disease; Visit Provider Internal Medicine Cardiovascular Disease
DX: I48.11 Longstanding persistent atrial fibrillation (principal); Z79.01 Long term (current) use of anticoagulants
CPT/HCPCS: 36416; 85610

== ENCOUNTER → 2021-10-05 | Outpatient (CLI) | payer MEDICARE, SELFPAY ==
[2021-10-05 11:31] LABS: INR Fingerstick 1.4; Prothrombin Time Fingerstick 16.9 SEC (11.7-14.9)
== END | disposition home or self-care (01) ==
LOC: LAB 08:04
PROVIDERS: PCP Family Medicine; Visit Provider Internal Medicine Cardiovascular Disease
DX: I48.11 Longstanding persistent atrial fibrillation (principal); Z79.01 Long term (current) use of anticoagulants
CPT/HCPCS: 36416; 85610

== ENCOUNTER → 2021-10-12 | Outpatient (CLI) | payer MEDICARE, SELFPAY ==
[2021-10-12 10:41] LABS: INR Fingerstick 1.9; Prothrombin Time Fingerstick 22.4 SEC (11.7-14.9)
== END | disposition home or self-care (01) ==
LOC: LAB 08:42
PROVIDERS: PCP Family Medicine; Referring Provider Internal Medicine Cardiovascular Disease; Visit Provider Internal Medicine Cardiovascular Disease
DX: I48.11 Longstanding persistent atrial fibrillation (principal); Z79.01 Long term (current) use of anticoagulants
CPT/HCPCS: 36416; 85610

== ENCOUNTER → 2021-11-03 | Outpatient (CLI) | payer MEDICARE, SELFPAY ==
[2021-11-03 11:35] LABS: Absolute Lymphocyte Count 0.96 X10^3/uL (0.83-4.51); Absolute Neutrophil Count 3.1 X10^3/uL (2.0-7.7); Basophil# 0.05 X10^3/uL; Basophil% 1.1 % (0-1); Eosinophils% 2.2 % (0-5); Hematocrit 35.1 % (37-47); Hemoglobin 11.7 g/dL (12.0-15.0); Lymphocyte # 0.96 X10^3/ul (0.83-4.51); Lymphocyte % 21.4 % (19-41); Mean Corp Hgb Conc 33.3 g/dL (32-36); Mean Corpuscular Hgb 34.7 pg (27.0-32.0); Mean Corpuscular Volume 104.2 fL (81-99); Mean Platelet Vol. 11.1 fl (6.2-12.0); Monocyte# 0.25 X10^3/uL; Monocyte% 5.6 % (0-10); NRBC Flagged by Analyzer 0 % (0-5); Neutrophil # 3.11 X10^3/uL (2.7-7.7); Neutrophil % 69.5 % (47-70); Platelet Count 258 K/mm3 (150-450); RBC Distribution Width CV 13.4 % (11.6-14.6); RBC Distribution Width SD 50.1 fl (35.1-43.9); Red Blood Count 3.37 M/mm3 (4.2-5.4); White Blood Count 4.5 K/mm3 (4.4-11.0)
[2021-11-03 11:46] LABS: International Normalized Ratio 2.1; Prothrombin Time (Protime)PT. 23.6 SECONDS (11.7-14.9)
[2021-11-03 12:34] LABS: AST(SGOT) 19 U/L (15-37); Alanine Aminotransfer ALT/SGPT 23 U/L (13-56); Albumin, Serum 3.5 g/dL (3.2-5.0); Alkaline Phosphatase 58 U/L (45-117); Anion Gap 7 (5-15); BUN 17 mg/dL (7-18); BUN/Creat Ratio 17.8 RATIO (10-20); Chloride 108 mmol/L (98-107); Creatinine, Serum 0.96 mg/dL (0.55-1.02); EST Glomerular Filtration Rate 59 mL/min (>60); Est Glom Filt Rate - Afr Amer 72 mL/min (>60); Globulin 3.4 g/dL (2.2-4.2); Glucose 123 mg/dL (74-106); Iron 105 ug/dL (50-170); Iron Binding Capacity,Total 295 ug/dL (250-450); PERCENT IRON SATURATION 35.6 % (15.0-55.0); Potassium 3.7 mmol/L (3.5-5.1); Protein, Total 6.9 g/dL (6.4-8.2); Sodium Level 138 mmol/L (136-145)
== END | disposition home or self-care (01) ==
PROVIDERS: PCP Family Medicine; Referring Provider Internal Medicine Rheumatology; Visit Provider Internal Medicine Cardiovascular Disease
DX: M06.4 Inflammatory polyarthropathy (principal); I48.20 Chronic atrial fibrillation, unspecified; Z79.899 Other long term (current) drug therapy; K21.9 Gastro-esophageal reflux disease without esophagitis; I10 Essential (primary) hypertension; I25.10 Atherosclerotic heart disease of native coronary artery without angina pectoris; K57.90 Diverticulosis of intestine, part unspecified, without perforation or abscess without bleeding; K21.00 Gastro-esophageal reflux disease with esophagitis, without bleeding; M47.897 Other spondylosis, lumbosacral region; D64.9 Anemia, unspecified; E87.1 Hypo-osmolality and hyponatremia; Z79.01 Long term (current) use of anticoagulants
CPT/HCPCS: 36415; 80053; 83540; 83550; 85025; 85610

== ENCOUNTER → 2021-11-24 | Outpatient (CLI) | payer MEDICARE, SELFPAY ==
[2021-11-24 11:00] LABS: Anion Gap 5 (5-15); BUN 25 mg/dL (7-18); BUN/Creat Ratio 21.7 RATIO (10-20); Calcium,Total 9.9 mg/dL (8.5-10.1); Chloride 104 mmol/L (98-107); Creatinine, Serum 1.15 mg/dL (0.55-1.02); EST Glomerular Filtration Rate 48 mL/min (>60); Est Glom Filt Rate - Afr Amer 58 mL/min (>60); Glucose 123 mg/dL (74-106); Potassium 3.6 mmol/L (3.5-5.1); Sodium Level 136 mmol/L (136-145)
[2021-11-24 11:03] LABS: International Normalized Ratio 1.9
== END | disposition home or self-care (01) ==
LOC: LAB 09:05
PROVIDERS: PCP Family Medicine; Referring Provider Nurse Practitioner Family; Visit Provider Internal Medicine Cardiovascular Disease
DX: R06.00 Dyspnea, unspecified (principal); I48.11 Longstanding persistent atrial fibrillation; I10 Essential (primary) hypertension; Z79.899 Other long term (current) drug therapy; Z79.01 Long term (current) use of anticoagulants
CPT/HCPCS: 36415; 80048; 85610

== ENCOUNTER 2021-12-08 08:31 | Outpatient (CLI) | payer MEDICARE, SELFPAY ==
[2021-12-08 10:56] LABS: INR Fingerstick 1.8; Prothrombin Time Fingerstick 21.4 SEC (11.7-14.9)
== END 2021-12-08 23:59 | disposition home or self-care (01) ==
LOC: LAB 08:32
PROVIDERS: PCP Family Medicine; Referring Provider Internal Medicine Cardiovascular Disease; Visit Provider Internal Medicine Cardiovascular Disease
DX: I48.11 Longstanding persistent atrial fibrillation (principal); Z79.01 Long term (current) use of anticoagulants
CPT/HCPCS: 36416; 85610

== ENCOUNTER 2021-12-16 09:05 | Outpatient (CLI) | payer MEDICARE, SELFPAY ==
[2021-12-16 10:31] LABS: INR Fingerstick 2.3; Prothrombin Time Fingerstick 26.7 SEC (11.7-14.9)
== END 2021-12-16 23:59 | disposition home or self-care (01) ==
PROVIDERS: PCP Family Medicine; Visit Provider Family Medicine
DX: I48.11 Longstanding persistent atrial fibrillation (principal); Z79.01 Long term (current) use of anticoagulants
CPT/HCPCS: 36416; 85610

== ENCOUNTER → 2022-01-02 | Outpatient (CLI) | payer MEDICARE, SELFPAY ==
[2022-01-02 11:50] LABS: INR Fingerstick 3.7; Prothrombin Time Fingerstick 41.3 SEC (11.7-14.9)
== END | disposition home or self-care (01) ==
LOC: LAB 09:36
PROVIDERS: PCP Family Medicine; Referring Provider Internal Medicine Cardiovascular Disease; Visit Provider Internal Medicine Cardiovascular Disease
DX: I48.11 Longstanding persistent atrial fibrillation (principal); Z79.01 Long term (current) use of anticoagulants
CPT/HCPCS: 36416; 85610

== ENCOUNTER → 2022-01-10 | Outpatient (CLI) | payer MEDICARE, SELFPAY ==
[2022-01-10 12:30] LABS: INR Fingerstick 3.6; Prothrombin Time Fingerstick 40.1 SEC (11.7-14.9)
== END | disposition home or self-care (01) ==
PROVIDERS: PCP Family Medicine; Visit Provider Internal Medicine Cardiovascular Disease
DX: I48.11 Longstanding persistent atrial fibrillation (principal); Z79.01 Long term (current) use of anticoagulants
CPT/HCPCS: 36416; 85610

== ENCOUNTER → 2022-01-25 | Outpatient (CLI) | payer MEDICARE, SELFPAY ==
[2022-01-25 11:29] LABS: Absolute Lymphocyte Count 0.93 X10^3/uL (0.83-4.51); Absolute Neutrophil Count 3.7 X10^3/uL (2.0-7.7); Basophil# 0.06 X10^3/uL; Basophil% 1.2 % (0-1); Eosinophil# 0.12 X10^3/uL; Eosinophils% 2.4 % (0-5); Hematocrit 33.1 % (37-47); Hemoglobin 11.1 g/dL (12.0-15.0); Lymphocyte # 0.93 X10^3/ul (0.83-4.51); Lymphocyte % 18.3 % (19-41); Mean Corp Hgb Conc 33.5 g/dL (32-36); Mean Corpuscular Hgb 36.3 pg (27.0-32.0); Mean Corpuscular Volume 108.2 fL (81-99); Monocyte# 0.22 X10^3/uL; Monocyte% 4.3 % (0-10); NRBC Flagged by Analyzer 0 % (0-5); Neutrophil # 3.72 X10^3/uL (2.7-7.7); Neutrophil % 73.4 % (47-70); Platelet Count 318 K/mm3 (150-450); RBC Distribution Width CV 14.8 % (11.6-14.6); RBC Distribution Width SD 58.2 fl (35.1-43.9); Red Blood Count 3.06 M/mm3 (4.2-5.4); White Blood Count 5.1 K/mm3 (4.4-11.0)
[2022-01-25 11:38] LABS: ALB/GLOB Ratio 0.8 RATIO (0.9-2.4); AST(SGOT) 35 U/L (15-37); Alanine Aminotransfer ALT/SGPT 34 U/L (13-56); Albumin, Serum 3.4 g/dL (3.2-5.0); Alkaline Phosphatase 66 U/L (45-117); Anion Gap 6 (5-15); BUN 21 mg/dL (7-18); BUN/Creat Ratio 18.6 RATIO (10-20); Bilirubin, Direct 0.21 mg/dL (0.00-0.30); Calcium,Total 9.9 mg/dL (8.5-10.1); Chloride 105 mmol/L (98-107); Cholesterol 147 mg/dL (200); Creatinine, Serum 1.13 mg/dL (0.55-1.02); EST Glomerular Filtration Rate 49 mL/min (>60); Est Glom Filt Rate - Afr Amer 59 mL/min (>60); Glucose 103 mg/dL (74-106); High Density Lipoprotein 55 mg/dL; Potassium 3.4 mmol/L (3.5-5.1); Protein, Total 7.4 g/dL (6.4-8.2); Sodium Level 139 mmol/L (136-145); Triglycerides 76 mg/dL; Very Low Density Lipoprotein 15 mg/dL (5-40)
[2022-01-25 11:43] LABS: International Normalized Ratio 2.5; Prothrombin Time (Protime)PT. 26.9 SECONDS (11.7-14.9)
== END | disposition home or self-care (01) ==
PROVIDERS: PCP Family Medicine; Referring Provider Internal Medicine Rheumatology; Visit Provider Internal Medicine Cardiovascular Disease
DX: M06.4 Inflammatory polyarthropathy (principal); I48.11 Longstanding persistent atrial fibrillation; Z79.899 Other long term (current) drug therapy; K21.9 Gastro-esophageal reflux disease without esophagitis; I10 Essential (primary) hypertension; I25.10 Atherosclerotic heart disease of native coronary artery without angina pectoris; K57.90 Diverticulosis of intestine, part unspecified, without perforation or abscess without bleeding; K21.00 Gastro-esophageal reflux disease with esophagitis, without bleeding; M47.897 Other spondylosis, lumbosacral region; Z79.01 Long term (current) use of anticoagulants
CPT/HCPCS: 36415; 80053; 80061; 82248; 85025; 85610

== ENCOUNTER → 2022-02-15 | Outpatient (CLI) | payer MEDICARE, SELFPAY ==
[2022-02-15 12:14] LABS: ALB/GLOB Ratio 0.8 RATIO (0.9-2.4); AST(SGOT) 26 U/L (15-37); Alanine Aminotransfer ALT/SGPT 27 U/L (13-56); Albumin, Serum 3.1 g/dL (3.2-5.0); Alkaline Phosphatase 67 U/L (45-117); Anion Gap 5 (5-15); BUN 15 mg/dL (7-18); BUN/Creat Ratio 17.6 RATIO (10-20); Calcium,Total 9.5 mg/dL (8.5-10.1); Chloride 106 mmol/L (98-107); Creatinine, Serum 0.85 mg/dL (0.55-1.02); EST Glomerular Filtration Rate 68 mL/min (>60); Est Glom Filt Rate - Afr Amer 82 mL/min (>60); Globulin 4.1 g/dL (2.2-4.2); Glucose 119 mg/dL (74-106); Potassium 3.8 mmol/L (3.5-5.1); Protein, Total 7.2 g/dL (6.4-8.2); Sodium Level 139 mmol/L (136-145)
[2022-02-15 12:21] LABS: International Normalized Ratio 1.9; Prothrombin Time (Protime)PT. 21.5 SECONDS (11.7-14.9)
== END | disposition home or self-care (01) ==
LOC: LAB 09:21
PROVIDERS: PCP Family Medicine; Referring Provider Internal Medicine Cardiovascular Disease; Visit Provider Internal Medicine Cardiovascular Disease
DX: I48.11 Longstanding persistent atrial fibrillation (principal); Z79.01 Long term (current) use of anticoagulants
CPT/HCPCS: 36415; 80053; 85610

== ENCOUNTER → 2022-03-03 | Outpatient (CLI) | payer MEDICARE, SELFPAY ==
[2022-03-03 10:57] LABS: International Normalized Ratio 2.1; Prothrombin Time (Protime)PT. 23.5 SECONDS (11.7-14.9)
== END | disposition home or self-care (01) ==
LOC: LAB 09:06
PROVIDERS: PCP Family Medicine; Visit Provider Internal Medicine Cardiovascular Disease
DX: I48.11 Longstanding persistent atrial fibrillation (principal); Z79.01 Long term (current) use of anticoagulants
CPT/HCPCS: 36415; 85610

== ENCOUNTER 2022-03-27 09:12 | Outpatient (CLI) | payer MEDICARE, SELFPAY ==
[2022-03-27 11:01] LABS: INR Fingerstick 1.6; Prothrombin Time Fingerstick 19.3 SEC (11.7-14.9)
== END 2022-03-27 23:59 | disposition home or self-care (01) ==
LOC: LAB 09:13
PROVIDERS: PCP Family Medicine; Referring Provider Internal Medicine Cardiovascular Disease; Visit Provider Internal Medicine Cardiovascular Disease
DX: I48.11 Longstanding persistent atrial fibrillation (principal); Z79.01 Long term (current) use of anticoagulants
CPT/HCPCS: 36416; 85610

== ENCOUNTER 2022-04-03 08:27 | Outpatient (CLI) | payer MEDICARE, SELFPAY ==
[2022-04-03 11:06] LABS: INR Fingerstick 2.5; Prothrombin Time Fingerstick 29.3 SEC (11.7-14.9)
== END 2022-04-03 23:59 | disposition home or self-care (01) ==
PROVIDERS: PCP Family Medicine; Visit Provider Internal Medicine Cardiovascular Disease
DX: I48.11 Longstanding persistent atrial fibrillation (principal); Z79.01 Long term (current) use of anticoagulants
CPT/HCPCS: 36416; 85610

== ENCOUNTER 2022-04-17 09:36 | Outpatient (CLI) | payer MEDICARE, SELFPAY ==
[2022-04-17 12:00] LABS: Absolute Neutrophil Count 8.3 X10^3/uL (2.0-7.7); Basophil# 0.03 X10^3/uL; Basophil% 0.3 % (0-1); Eosinophil# 0.04 X10^3/uL; Eosinophils% 0.4 % (0-5); Hematocrit 39.5 % (37-47); Hemoglobin 13.3 g/dL (12.0-15.0); Lymphocyte % 8.5 % (19-41); Mean Corp Hgb Conc 33.7 g/dL (32-36); Mean Corpuscular Hgb 34.5 pg (27.0-32.0); Mean Corpuscular Volume 102.6 fL (81-99); Mean Platelet Vol. 11.1 fl (6.2-12.0); Monocyte# 0.17 X10^3/uL; Monocyte% 1.8 % (0-10); NRBC Flagged by Analyzer 0 % (0-5); Neutrophil # 8.26 X10^3/uL (2.7-7.7); Neutrophil % 87.5 % (47-70); Platelet Count 335 K/mm3 (150-450); RBC Distribution Width CV 14.3 % (11.6-14.6); RBC Distribution Width SD 53.1 fl (35.1-43.9); Red Blood Count 3.85 M/mm3 (4.2-5.4); White Blood Count 9.4 K/mm3 (4.4-11.0)
[2022-04-17 12:07] LABS: International Normalized Ratio 2.5; Prothrombin Time (Protime)PT. 26.7 SECONDS (11.7-14.9)
[2022-04-17 12:11] LABS: ALB/GLOB Ratio 0.8 RATIO (0.9-2.4); AST(SGOT) 20 U/L (15-37); Alanine Aminotransfer ALT/SGPT 18 U/L (13-56); Alkaline Phosphatase 76 U/L (45-117); Anion Gap 8 (5-15); BUN 22 mg/dL (7-18); BUN/Creat Ratio 20.6 RATIO (10-20); Calcium,Total 9.5 mg/dL (8.5-10.1); Chloride 101 mmol/L (98-107); Creatinine, Serum 1.07 mg/dL (0.55-1.02); EST Glomerular Filtration Rate 52 mL/min (>60); Est Glom Filt Rate - Afr Amer 63 mL/min (>60); Glucose 174 mg/dL (74-106); Potassium 3.5 mmol/L (3.5-5.1); Sodium Level 135 mmol/L (136-145)
== END 2022-04-17 23:59 | disposition home or self-care (01) ==
LOC: LAB 09:38
PROVIDERS: PCP Family Medicine; Visit Provider Internal Medicine Cardiovascular Disease
DX: M06.4 Inflammatory polyarthropathy (principal); I48.11 Longstanding persistent atrial fibrillation; Z79.899 Other long term (current) drug therapy; Z79.01 Long term (current) use of anticoagulants
CPT/HCPCS: 36415; 80053; 85025; 85610

== ENCOUNTER → 2022-05-16 | Outpatient (CLI) | payer MEDICARE, SELFPAY ==
[2022-05-16 11:40] LABS: Prothrombin Time (Protime)PT. 85.5 SECONDS (11.7-14.9)
[2022-05-16 11:43] LABS: International Normalized Ratio 10.8
== END | disposition home or self-care (01) ==
LOC: LAB 09:18
PROVIDERS: PCP Family Medicine; Referring Provider Internal Medicine Cardiovascular Disease; Visit Provider Internal Medicine Cardiovascular Disease
DX: Z79.01 Long term (current) use of anticoagulants (principal); I48.11 Longstanding persistent atrial fibrillation
CPT/HCPCS: 36415; 85610

== ENCOUNTER → 2022-05-18 | Outpatient (CLI) | payer MEDICARE, SELFPAY ==
[2022-05-18 11:56] LABS: Prothrombin Time (Protime)PT. 50.7 SECONDS (11.7-14.9)
[2022-05-18 12:27] LABS: International Normalized Ratio 5.6
== END | disposition home or self-care (01) ==
LOC: LAB 07:10
PROVIDERS: PCP Family Medicine; Referring Provider Internal Medicine Cardiovascular Disease; Visit Provider Internal Medicine Cardiovascular Disease
DX: I48.11 Longstanding persistent atrial fibrillation (principal); Z79.01 Long term (current) use of anticoagulants
CPT/HCPCS: 36415; 85610

== ENCOUNTER → 2022-05-22 | Outpatient (CLI) | payer MEDICARE, SELFPAY ==
[2022-05-22 11:06] LABS: Hemoglobin 9.2 g/dL (12.0-15.0); Mean Corp Hgb Conc 31.7 g/dL (32-36); Mean Corpuscular Hgb 32.1 pg (27.0-32.0); Mean Platelet Vol. 10.4 fl (6.2-12.0); Platelet Count 526 K/mm3 (150-450); RBC Distribution Width CV 15.4 % (11.6-14.6); Red Blood Count 2.87 M/mm3 (4.2-5.4)
[2022-05-22 11:18] LABS: International Normalized Ratio 2.6; Prothrombin Time (Protime)PT. 27.4 SECONDS (11.7-14.9)
[2022-05-22 11:23] LABS: ALB/GLOB Ratio 0.5 RATIO (0.9-2.4); AST(SGOT) 24 U/L (15-37); Alanine Aminotransfer ALT/SGPT 15 U/L (13-56); Albumin, Serum 2.4 g/dL (3.2-5.0); Alkaline Phosphatase 79 U/L (45-117); Anion Gap 12 (5-15); BUN 16 mg/dL (7-18); Calcium,Total 8.7 mg/dL (8.5-10.1); Chloride 101 mmol/L (98-107); Creatinine, Serum 1.07 mg/dL (0.55-1.02); EST Glomerular Filtration Rate 52 mL/min (>60); Est Glom Filt Rate - Afr Amer 63 mL/min (>60); Globulin 4.6 g/dL (2.2-4.2); Glucose 173 mg/dL (74-106); Potassium 3.1 mmol/L (3.5-5.1); Sodium Level 137 mmol/L (136-145)
== END | disposition home or self-care (01) ==
PROVIDERS: PCP Family Medicine; Visit Provider Physician Assistant Medical
DX: Z79.01 Long term (current) use of anticoagulants (principal); I48.11 Longstanding persistent atrial fibrillation; I25.10 Atherosclerotic heart disease of native coronary artery without angina pectoris
CPT/HCPCS: 36415; 80053; 85027; 85610

== ENCOUNTER 2022-05-23 12:40 | Inpatient (IN) | payer MEDICARE, SELFPAY ==
[2022-05-23] VITALS (9 sets, daily range): BP systolic 130–184; BP diastolic 70–93; PULSE 84–105; RESP 15–21; TEMP 36.8–37.1; O2SAT 92–99; BMI 29.5; BMI 27.8
--- NOTE | 2022-05-23 13:17 | EDS_ITS ---
HPI History of Present Illness Chief Complaint: Abn Labs Detail of Chief Complaint: Sent in from 's office for abnormal labs, possible pleural effusion,etc Informant: patient Onset/Context/Timing Onset: Days Context: Gradual Onset Timing: Continuous Current Severity: Mild Maximum Severity: Mild Narrative Narrative: 81-year-old female history of A. fib on Coumadin. Coumadin has been held for the last 7 days due to elevated INR. She was being treated for a urinary tract infection was on Keflex which is now finished. Yesterday was seen at the [facility] here in town at the doctor's office. She has had fever. They worked her up and found that she had a pleural effusion questionable mass on chest x-ray and was significantly anemic. In 1 month her hemoglobin went from 13.2-8.8. They sent her in today for further evaluation. 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 gland Essential (primary) hypertension Gross hematuria Hyperlipidemia Hypertension Longstanding persistent atrial fibrillation Nicotine dependence Vitamin D deficiency Home Medications aspirin 81 mg chewable tablet 81 mg PO DAILY@0800 heart health 02/24/14 [History Last Taken 06/24/21] folic acid 1 mg tablet 2 mg PO DAILY supplement 03/14/18 [History Last Taken 06/24/21] methotrexate sodium 2.5 mg tablet 15 mg PO FR RA 09/30/19 [History Last Taken 06/24/21] acetaminophen 500 mg tablet 1,000 mg PO Q6H PRN #100 tabs 10/02/19 [Rx Last Taken Unknown] pantoprazole 40 mg tablet,delayed release 40 mg PO DAILY #30 tabs 05/23/21 [Rx Last Taken 06/24/21] metoprolol succinate 50 mg tablet,extended release 24 hr 75 mg PO DAILY blood pressure/heart rate #135 tabs 06/30/21 [Rx Last Taken Unknown] cholecalciferol (vitamin D3) 25 mcg (1,000 unit) tablet 25 mcg PO DAILY 11/08/21 [History Last Taken Unknown] polyethylene glycol 3350 17 gram/dose oral powder (Miralax) 17 g PO DAILY PRN 11/08/21 [History Last Taken Unknown] simvastatin 20 mg tablet 20 mg PO QHS #90 tabs 11/21/21 [Rx Last Taken Unknown] furosemide 20 mg tablet (Lasix) 20 mg PO Q OTHER DAY #90 tabs 02/01/22 [Rx Last Taken Unknown] isosorbide mononitrate 30 mg tablet,extended release 24 hr 30 mg PO QAM #90 tabs 02/27/22 [Rx Last Taken Unknown] fluticasone propionate 50 mcg/actuation nasal spray,suspension 1 spray intranasal DAILY 04/10/22 [History Last Taken Unknown] prednisone 5 mg tablet 5 mg PO DAILY 04/10/22 [History Last Taken Unknown] warfarin 2 mg tablet 2 mg PO DAILY 04/10/22 [History Last Taken Unknown] lisinopril 20 mg tablet 20 mg PO BID #180 tabs 04/28/22 [Rx Last Taken Unknown] potassium chloride 20 mEq tablet,extended release 20 meq PO DAILY #30 tabs 05/22 [Rx Last Taken Unknown] Allergy/AdvReac Type Severity Reaction Status Date / Time latex Allergy Itching Verified 05/23/22 12:44 ursodiol Allergy Unknown Verified 05/23/22 12:44 belladonna alkaloids AdvReac Unknown Verified 05/23/22 12:44 [Belladonna Alkaloids] formaldehyde AdvReac Rash Verified 05/23/22 12:44 phenobarbital AdvReac Unknown Verified 05/23/22 12:44 ranitidine HCl [From Zantac] AdvReac Unknown Verified 05/23/22 12:44 Family History Father CAD (coronary artery disease) CVA (cerebral vascular accident) Mother CAD (coronary artery disease) Myocardial infarction Surgical History History of coronary artery stent placement (12/02/13) History of left heart catheterization (02/18/16) History of open reduction and internal fixation (ORIF) procedure (09/2019) Social History household members: spouse and family Smoking Status: Never smoker alcohol intake: never substance use type: does not use ROS ROS ED ROS Narrative Cough and mild shortness of breath. No vomiting or diarrhea. No dysuria. No melena. Review of Systems ROS Unobtainable: Denies due to encephalopathy Constitutional Constitutional ED: Denies chills or fever(s) ENT ENT ED: Denies ear pain Cardiovascular Cardiovascular: Denies chest pain or palpitations Respiratory/Chest Respiratory/Chest: Reports cough and dyspnea Gastrointestinal Gastrointestinal: Denies abdominal pain, constipation, diarrhea, melena, nausea or vomiting Genitourinary Genitourinary ED: Denies dysuria or hematuria Musculoskeletal Musculoskeletal: Denies arthralgias Integumentary Denies abscess Neurologic Neurologic: Denies headache(s) Endocrine Endocrinology: Denies cold intolerance Hematologic/Lymphatic Hematologic/Lymphatic: Reports anemia Allergic/Immunologic Allergic/Immunologic ED: Denies mouth swelling or tongue swelling EXAM Physical Exam Narrative Exam Narrative: 81-year-old female vital signs are stable afebrile. Temperature 90.2. Pulse ox 90% room air no hypoxia. H EENT exam unremarkable. Neck nontender no JVD. Lungs coarse breath sounds bilaterally. Few scattered wheezes. No rales or rhonchi. Heart A. fib with a rate about 90 no murmur. Abdomen soft nontender. No peritoneal signs. Moving all 4 extremities. Calves are nontender without edema or cords. Neurologically she is awake and alert with no focal motor deficits. Const Vital Signs: 05/23/22 12:42 05/23/22 12:52 05/23/22 12:53 Temperature 98.2 F Temperature Source Temporal Pulse Rate 105 H 91 Respiratory Rate 18 19 H Respiratory Effort Normal Non-Labored Respiratory Pattern Normal Blood Pressure 184/82 H 132/93 H Blood Pressure Mean 116 106 Pulse Ox 99 96 Oxygen Delivery Method Room Air Room Air 05/23/22 13:37 05/23/22 13:16 Temperature Temperature Source Pulse Rate 85 Respiratory Rate 21 H Respiratory Effort Respiratory Pattern Tachypnea Blood Pressure Blood Pressure Mean Pulse Ox 97 Oxygen Delivery Method Room Air Positive well nourished and well developed; Negative for obese, cachectic, contractures or unkempt General Appearance ED: well developed and NAD; Negative for unkempt, cachectic, contractures, cyanotic or diaphoretic Nutritional Appearance: Negative for cachectic or obese HEENT Reports moist mucous membranes; Denies dry mucous membranes Negative for trauma or tenderness Mouth ED: No dry mucous membranes Mouth: No dry mucous membranes Eyes PERRL and EOMs intact bilaterally General Eye ED: Negative for pale conjunctiva, scleral icterus or other Neck no lymphadenopathy, supple and no JVD General: Negative for tenderness Lymph Lymphatic: Negative for other Chest Wall inspection of chest normal and palpation of chest normal Chest: Negative for other Resp normal respiratory effort and No clear to auscultation bilaterally Resp Narrative: Scattered expiratory few wheezes. No rales or rhonchi. Effort and Inspection: Negative for retractions Auscultation: wheezes; Negative for rales or rhonchi Cardio regular rate, S1 normal heart sound, S2 normal heart sound and no murmurs; Negative for regular rhythm Rhythm: abnormal rhythm irregularly irregular (A. fib with a rate of 90.) GI normal to inspection, nondistended, normoactive bowel sounds, non-tender, non- distended and no masses Inspection: Negative for abdominal distention Auscultation: normoactive bowel sounds Palpation: soft; Negative for tender or guarding Back/Spine no CVA tenderness General Back: Negative for CVA tenderness Cervical Spine: Negative for cervical spine tenderness Thoracic Spine / Upper Back: Negative for thoracic spinal tenderness Lumbar Spine / Lower Back: Negative for lumbar spinal tenderness Extremity normal to inspection General Extremety ED: Negative for edema or tenderness General Extremity: Negative for edema Neuro oriented x3 and CN's II-XII intact bilaterally Sensorium / Orientation: alert; Negative for orientation impaired Motor Exam: strength 5/5 throughout; Negative for general weakness or strength abnormal Psych mental status grossly normal Appearance: Negative for unkempt Attitude: No agitated Mood & Affect: Negative for depressed, anxious or tearful Skin no rashes or lesions noted and no wounds General Skin Exam: Negative for elasticity normal Lesions: No lesion noted Rashes: No rashes noted Trauma: Negative for abrasion Wounds: Negative for wounds noted MDM MDM MDM Narrative Medical decision making narrative: 81-year-old female presents with some shortness of breath. Recently diagnosed anemia and has been on Coumadin for A. fib but the Coumadin is being held because its been elevated the INR. She has had a cough and some shortness of breath. Differential diagnosis would include pneumonia, viral syndrome, COVID, influenza, anemia, cardiac etiology, pleural effusion etc. Chest x-ray screening labs to be obtained. She will be given a DuoNeb aerosol. Typed and screened. Repeat exam at 3:18 PM patient doing well. We discussed all of her test results. I did review her old records to compare the labs and the x-ray. She has had a history of anemia this is a change in from a month ago. She typically runs between 9 and 13 and she is currently 9.2. A month ago she was 13.3. The left pleural effusion is new. Discussed with the patient and will speak to the hospitalist about admission and further evaluation of this left pleural effusion. I suspect it will need drained. Lab Data Attestation: I reviewed the patient's lab results. Lab results narrative: CBC shows a white count 9.3. H&H 9.2 and 27. INR is 2.0. She is on Coumadin but has been held the last 7 days. I did review her old records. Her hemoglobin on 04/17/2022 a month ago was 13.3. However in the past she is running between 9 and 13. Chest x-ray shows a large left pleural effusion. Labs: Laboratory Results - last 24 hr 05/23/22 05/23/22 05/23/22 13:44 13:44 13:44 WBC 11.3 H RBC 2.72 L Hgb 9.2 L Hct 27.0 L MCV 99.3 H MCH 33.8 H MCHC 34.1 D RDW Std Deviation 54.9 H RDW Coeff of Doris 15.4 H Plt Count 436 MPV 10.2 Immature Gran % (Auto) 0.900 Neut % (Auto) 84.2 H Lymph % (Auto) 10.0 L Foard % (Auto) 3.7 Eos % (Auto) 0.9 Baso % (Auto) 0.3 Absolute Neuts (auto) 9.5 H Absolute Lymphs (auto) 1.12 Nucleated RBC % 0 PT 22.2 H INR 2.0 Sodium 139 Potassium 3.1 L Chloride 104 Carbon Dioxide 27.0 Anion Gap 8 BUN 14 Creatinine 0.92 Estim Creat Clear Calc 42.13 Est GFR (MDRD) Af Amer 75 Est GFR (MDRD) Non-Af 62 BUN/Creatinine Ratio 15.2 Glucose 124 H Calcium 8.6 Radiography Chest X-Ray - ED: 1 View, Read by ED Physician, Heart, Mediastinum, Bony Structures, Chronic Changes and Left Effusion Diagnostic Testing: Clinical Impression(s) from Imaging Studies Chest X-Ray 05/23/22 13:47 IMPRESSION: Increasing left pleural effusion with left basilar atelectasis and/or infiltration. There has been progression as compared to prior study. Electronically Signed: William Jacobs MD at 14:14 EST , Chest x-ray: Portable, single view interpreted by myself and radiologist shows a large left pleural effusion. Much larger than on the last x-ray done here 9 months ago. Rhythm Strip Rhythm Strip: A-fib Rate: 91 Ectopy: None EKG Initial EKG: Attestation: I personally reviewed and interpreted this EKG as follows: Interpretation: Atrial Fibrillation Comments: Atrial fibrillation rate of 91. No acute signs of SD. Discharge Plan Dx/Rx/DC Orders Clinical Impression: Acute dyspnea, Chronic anticoagulation, Pleural effusion on left, Chronic a- fib, Acute on chronic anemia Disposition Disposition: Acute Care [facility]
[2022-05-23] MEDS: Ipratropium/Albuterol Sulfate 3 ML AMPUL.NEB INHALATION (13:34)
--- NOTE | 2022-05-23 13:47 | RAD_ITS ---
STUDY: X-RAY CHEST REASON FOR EXAM: Female, 81 years old. Chest pain TECHNIQUE: Single AP portable view of the chest. COMPARISON: Comparison is made with prior study 08/04/2021. FINDINGS: EKG electrodes are seen. Moderate degree of left pleural effusion with left basilar infiltration and/or compressive atelectasis. There has been progression as compared to prior study. The right lung is clear. There is mild cardiac enlargement. Normal mediastinum and jonn. Normal visualized pulmonary arteries. There is atherosclerotic calcification of the aortic arch with tortuosity. Normal visualized thoracic spine. Normal visualized ribs, clavicles, and shoulders. There is no demonstrated abnormality of the visualized soft tissue structures of the upper abdomen. RAD/Chest 1 View (Portable) IMPRESSION: Increasing left pleural effusion with left basilar atelectasis and/or infiltration. There has been progression as compared to prior study. Electronically Signed: William Jacobs MD at 14:14 EST ,
[2022-05-23 13:59] LABS: Absolute Lymphocyte Count 1.12 X10^3/uL (0.83-4.51); Absolute Neutrophil Count 9.5 X10^3/uL (2.0-7.7); Basophil# 0.03 X10^3/uL; Basophil% 0.3 % (0-1); Eosinophils% 0.9 % (0-5); Hemoglobin 9.2 g/dL (12.0-15.0); Lymphocyte # 1.12 X10^3/ul (0.83-4.51); Mean Corp Hgb Conc 34.1 g/dL (32-36); Mean Corpuscular Hgb 33.8 pg (27.0-32.0); Mean Corpuscular Volume 99.3 fL (81-99); Mean Platelet Vol. 10.2 fl (6.2-12.0); Monocyte# 0.42 X10^3/uL; Monocyte% 3.7 % (0-10); NRBC Flagged by Analyzer 0 % (0-5); Neutrophil # 9.48 X10^3/uL (2.7-7.7); Neutrophil % 84.2 % (47-70); Platelet Count 436 K/mm3 (150-450); RBC Distribution Width CV 15.4 % (11.6-14.6); RBC Distribution Width SD 54.9 fl (35.1-43.9); Red Blood Count 2.72 M/mm3 (4.2-5.4); White Blood Count 11.3 K/mm3 (4.4-11.0)
[2022-05-23 14:13] LABS: Anion Gap 8 (5-15); BUN 14 mg/dL (7-18); BUN/Creat Ratio 15.2 RATIO (10-20); Calcium,Total 8.6 mg/dL (8.5-10.1); Chloride 104 mmol/L (98-107); Creatinine, Serum 0.92 mg/dL (0.55-1.02); EST Glomerular Filtration Rate 62 mL/min (>60); Est Glom Filt Rate - Afr Amer 75 mL/min (>60); Estimated Creatinine Clearance 42.13 ml/min; Glucose 124 mg/dL (74-106); Potassium 3.1 mmol/L (3.5-5.1); Sodium Level 139 mmol/L (136-145)
--- NOTE | 2022-05-23 14:13 | CM.ED ---
SW Note Referral Source: Registration staff Referral Reason: Medicaid application SW was informed by registration staff that the patient was interested in getting information about applying for Medicaid. SW met with patient and patient's guest and introduced herself and role as [facility] Meat Team Member. SW requested permission to speak to patient with guest present, patient agreed. SW explained she was informed the patient was interested in discussing applying for Medicaid. SW provided patient with the Medicaid application and reviewed applying via phone, internet or in person. Patient was receptive towards information. No other needs voiced at this time. SW remains available if needs arise. Tosha Maldonado COMPUTER INFORMATION SYSTEMS INSTRUCTOR, [employer]
[2022-05-23 14:31] LABS: Prothrombin Time (Protime)PT. 22.2 SECONDS (11.7-14.9)
--- NOTE | 2022-05-23 15:35 | PCM.HP.STD ---
HPI - General General Date of Admission: 05/23/22 Date of Service: 05/23/22 Chief Complaint: Dyspnea, outpatient L sided pleural effusion, new onset anemia. HPI Narrative The patient is an 81 y/o F w/ PMHx: HTN, HLD, Chronic atrial fibrillation, CAD s/p PCI, Tobacco use, GERD, Rheumatoid arthritis who presents to the [facility] ED on 05/23/22 referred specifically from primary care office secondary to abnormal labs with history of supratherapeutic INR over the last week with Coumadin hold (started on 05/16/22) secondary to this as well as recent urinary tract infection treated with Keflex which she completed with follow-up evaluation at her PCP office at the [facility] with fever at that time with outpatient evaluation with checks x-ray notable for a pleural effusion with questionable mass and significant new onset anemia with a hemoglobin over the last 4 weeks decreased from 13.2-8.8 with self admission of recent mild cough as well as dyspnea. She did report that when she had her urinary tract infection she did have some hematuria but this was short-lived and following therapy completely resolved. She denies any further urinary symptoms. She denies having any significantly altered bowel movement appearances including dark black, tarry or bright red blood mixed in her stools. She does report having mild ongoing dry cough and does have increased shortness of breath when she exerts herself as well as when she attempts to lay flat. She denies any recent marked weight gain or edema. Work-up in the ED included T98.2, heart rate initially 105 with most recent repeat 85, BP initially 184/82 with most recent repeat 130/70, respiratory rate 18, 96 to 99% on room air with most recent assessment 92% on room air, CBC with WC 11.3, hemoglobin 9.2, MCV 99.3, platelet 436 with left shift, coags with PT 22.2, INR 2.0, BMP with potassium 3.1, glucose 124, chest x-ray with increasing left pleural effusion and left basilar atelectasis and/or infiltrate progressed since prior study, rapid SARS COVID and influenza antigens negative, EKG with rate controlled atrial fibrillation with nonspecific changes with no acute evidence of ischemia. In the ED patient administered DuoNeb therapy. [facility] Medical History Arthritis Atherosclerotic heart disease [place] coronary artery w/angina pectoris Atherosclerotic heart disease of [place] coronary artery without angina pectoris Benign neoplasm of parotid gland Essential (primary) hypertension Gross hematuria Hyperlipidemia Hypertension Longstanding persistent atrial fibrillation Nicotine dependence Vitamin D deficiency Home Medications folic acid 1 mg tablet 2 mg PO DAILY supplement 03/14/18 [History Last Taken 05/22/22] methotrexate sodium 2.5 mg tablet 15 mg PO FR RHEUMATOID ARTHRITIS 09/30/19 [History Last Taken 05/19/22] metoprolol succinate 50 mg tablet,extended release 24 hr 75 mg PO DAILY blood pressure/heart rate #135 tabs 06/30/21 [Rx Last Taken 05/22/22] cholecalciferol (vitamin D3) 25 mcg (1,000 unit) tablet 25 mcg PO DAILY SUPPLEMENT 11/08/21 [History Last Taken 05/22/22] polyethylene glycol 3350 17 gram/dose oral powder (Miralax) 17 g PO DAILY PRN Constipation 11/08/21 [History Last Taken Unknown] acetaminophen 500 mg tablet 1,000 mg PO Q6H PRN Pain 05/23/22 [History Last Taken 05/21/22] aspirin 81 mg tablet,delayed release 81 mg PO DAILY HEART HEALTH 05/23/22 [History Last Taken 05/22/22] furosemide 20 mg tablet (Lasix) 20 mg PO QODAY FLUID 05/23/22 [History Last Taken 05/22/22] gabapentin 100 mg capsule 100 mg PO BID NERVE PAIN 05/23/22 [History Last Taken 05/22/22] isosorbide mononitrate 30 mg tablet,extended release 24 hr 30 mg PO DAILY HEART 05/23/22 [History Last Taken 05/22/22] lisinopril 20 mg tablet 20 mg PO BID BLOOD PRESSURE 05/23/22 [History Last Taken 05/22/22] pantoprazole 40 mg tablet,delayed release 40 mg PO DAILY ACID REFLUX 05/23/22 [History Last Taken 05/22/22] simvastatin 20 mg tablet 20 mg PO QHS CHOLSTEROL 05/23/22 [History Last Taken 05/22/22] Allergy/AdvReac Type Severity Reaction Status Date / Time latex Allergy Itching Verified 05/23/22 12:44 ursodiol Allergy Unknown Verified 05/23/22 12:44 belladonna alkaloids AdvReac Unknown Verified 05/23/22 12:44 [Belladonna Alkaloids] formaldehyde AdvReac Rash Verified 05/23/22 12:44 phenobarbital AdvReac Unknown Verified 05/23/22 12:44 ranitidine HCl [From Zantac] AdvReac Unknown Verified 05/23/22 12:44 Family History Father CAD (coronary artery disease) CVA (cerebral vascular accident) Mother CAD (coronary artery disease) Myocardial infarction Surgical History History of coronary artery stent placement (12/02/13) History of left heart catheterization (02/18/16) History of open reduction and internal fixation (ORIF) procedure (09/2019) Social History household members: spouse and family Smoking Status: Never smoker alcohol intake: never substance use type: does not use ROS ROS Narrative Admission Review of Systems: CONSTITUTIONAL: No weight loss, fever, chills, + weakness or fatigue. HEENT: + Cough, mild congestion. Eyes: No visual loss, blurred vision, double vision or yellow sclerae. Ears, Nose, Throat: No hearing loss, sore throat. SKIN: No rash or itching, lesions, wounds. CARDIOVASCULAR: + Orthopnea. No chest pain, chest pressure or chest discomfort, palpitations, edema, orthopnea, syncopal events. RESPIRATORY: + shortness of breath, cough without marked sputum, No wheezing, hemoptysis. GASTROINTESTINAL: + anorexia, No nausea, vomiting or diarrhea, abdominal pain, melena, BRBPR. GENITOURINARY: + Did report recent UTI with symptoms completely resolved currently, had also associated hematuria that is also completely resolved. No current dysuria, frequency, urgency or retention. NEUROLOGICAL: + headache, No dizziness, syncope, paralysis, ataxia, numbness or tingling in the extremities, focal weakness, change in bowel or bladder control, seizure. MUSCULOSKELETAL:+ muscle, back pain, joint pain or stiffness. HEMATOLOGIC: + anemia, bleeding or bruising. LYMPHATICS: No enlarged nodes. No history of splenectomy. PSYCHIATRIC: No history of depression or anxiety. ENDOCRINOLOGIC: No reports of sweating, cold or heat intolerance. No polyuria or polydipsia. ALLERGIES: No history of asthma, hives, eczema or rhinitis. Vital Signs Vital Signs Vital Signs: 05/23/22 12:42 05/23/22 12:52 05/23/22 12:53 Temperature 98.2 F Temperature Source Temporal Pulse Rate 105 H 91 Respiratory Rate 18 19 H Respiratory Effort Normal Non-Labored Respiratory Pattern Normal Blood Pressure 184/82 H 132/93 H Blood Pressure Mean 116 106 Pulse Ox 99 96 Oxygen Delivery Method Room Air Room Air 05/23/22 13:37 05/23/22 13:16 05/23/22 15:12 Temperature Temperature Source Pulse Rate 85 84 Respiratory Rate 21 H 15 Respiratory Effort Respiratory Pattern Tachypnea Blood Pressure 130/70 H Blood Pressure Mean 90 Pulse Ox 97 92 Oxygen Delivery Method Room Air Room Air Weight Weight: 127 lb Body Mass Index (BMI) 29.5 Physical Exam Narrative Physical Examination: General: Awake, alert, oriented x 3 and cooperative, seated upright in ED bed, fatigued appearing, occasional cough/dry during evaluation. Skin: Normal color, normal turgor, no icterus, no cyanosis except occasional staged ecchymoses. HEENT: AT/NC, EOMI, PERRLA, mildly dry MM, no carotid bruits or JVD noted. Lungs: Significantly diminished, greater bases, left greater than right, rhonchorous, mild rales, No wheezing. Heart: Irregular rhythm, rate controlled; no gallop, rub audible. Abdomen: Soft, NTTP, ND, distant normal BS, no HSM. Extremities: No cyanosis, no clubbing, very mild ankle not markedly pitting edema. Neurological: Patient awake, alert, oriented as noted, cognitive function intact; pupils equally reactive to light and accommodation, cranial nerves II-XII grossly normal, moving all 4 extremities, no focal deficits, strength moderately to severely global decrease secondary to acute presentation complaints Psychiatric: Affect appears fatigued, no acute evidence of depressive or anxiety feelings. Results Lab / Micro Data Result Diagrams: 05/23/22 17:34 05/23/22 13:44 Labs: Laboratory Results - last 24 hr 05/23/22 13:44: WBC 11.3 H, RBC 2.72 L, Hgb 9.2 L, Hct 27.0 L, MCV 99.3 H, MCH 33.8 H, MCHC 34.1 D, RDW Std Deviation 54.9 H, RDW Coeff of Doris 15.4 H, Plt Count 436, MPV 10.2, Immature Gran % (Auto) 0.900, Neut % (Auto) 84.2 H, Lymph % (Auto) 10.0 L, [place] % (Auto) 3.7, Eos % (Auto) 0.9, Baso % (Auto) 0.3, Absolute Neuts (auto) 9.5 H, Absolute Lymphs (auto) 1.12, Nucleated RBC % 0 05/23/22 13:44: PT 22.2 H, INR 2.0 05/23/22 13:44: Sodium 139, Potassium 3.1 L, Chloride 104, Carbon Dioxide 27.0, Anion Gap 8, BUN 14, Creatinine 0.92, Estim Creat Clear Calc 42.13, Est GFR (MDRD) Af Amer 75, Est GFR (MDRD) Non-Af 62, BUN/Creatinine Ratio 15.2, Glucose 124 H, Calcium 8.6 05/23/22 13:44: Blood Type A POSITIVE, Antibody Screen NEGATIVE Micro: Microbiology 05/23/22 13:25 Nasal Secretion SARS-CoV-2 & FLU Antigen (Rapid) - Final Rhythm Strip Rhythm Strip: A-fib Rate: 91 Ectopy: None Radiology Impression Chest X-Ray 05/23/22 13:47 IMPRESSION: Increasing left pleural effusion with left basilar atelectasis and/or infiltration. There has been progression as compared to prior study. Electronically Signed: William Jacobs MD at 14:14 EST , Assessment & Plan Assessment/Plan (1) Pleural effusion on left: PLAN: Plan The patient is an 81 y/o F w/ PMHx: HTN, HLD, Chronic atrial fibrillation, CAD s/p PCI, Tobacco use, GERD, Rheumatoid arthritis who presents to the [facility] ED on 05/23/22 referred specifically from primary care office secondary to abnormal labs with history of supratherapeutic INR over the last week with Coumadin hold (started on 05/16/22) secondary to this as well as recent urinary tract infection treated with Keflex which she completed with follow-up evaluation at her PCP office at the [facility] with fever at that time with outpatient evaluation with checks x-ray notable for a pleural effusion with questionable mass and significant new onset anemia with a hemoglobin over the last 4 weeks decreased from 13.2-8.8 with self admission of recent mild cough as well as dyspnea. #1. Dyspnea secondary to acute worsening left-sided pleural effusion with concern for possible left basilar infiltrate versus atelectasis versus possible mass: Will admit to medical surgical floor, will request CT chest to further assess, will maintain on oxygen with wean as tolerated to room air, continue ATC duonebs, PRN albuterol, maintained on IV Rocephin and Azithromycin pending further assessment with abx de-escalation if infectious etiology evaluation unremarkable, procalcitonin requested, MRSA screen requested, HOB, IS parameters w/ pending sputum cultures, full respiratory viral panel and urine antigens. ECHO requested. We will trend INR and once appropriate may require thoracentesis to assess fluid and for therapeutic nature. #2. Acute new onset macrocytic anemia: Admission hemoglobin 9.2, MCV 99.3, occurred over the last month, guaiac requested, iron panel, ferritin, folic acid and vitamin B12 also requested, will hold Coumadin and trend INR, will hold off on immediate reversal unless hemoglobin drops further, will maintain on clear liquids only until assure no GI component, maintain in the interim on IV PPI, GI contacted and discussed case and they will evaluate also. #3. Hypokalemia: Admission K+ 3.1, magnesium level request, supplementation given, repeat level in AM. #4. CAD: Status post PCI, holding Coumadin with INR trending as noted above, continue statin, metoprolol, lisinopril home regimen. Temporarily hold aspirin given new anemia with resumption once assured hemoglobin not trending downward. #5. Chronic atrial fibrillation: Currently rate controlled, continue metoprolol, holding Coumadin with INR trending as noted. #6. Hypertension: Continue home regimen including metoprolol, lisinopril, isosorbide, Lasix with hold parameters as needed, PRN hydralazine. #7. Hyperlipidemia: We will continue patient on statin therapy. #8. Rheumatoid arthritis: Given presentation will hold methotrexate, continue folic acid supplementation. #9. Tobacco Abuse: Encouraged cessation, inpatient consultation per RT, NR if desired. #10. GERD: We will maintain on IV PPI pending further assessment of new onset anemia. If no overt etiology or concern for GI bleed will resume oral. #11. DVT prophylaxis: SCDs, holding Coumadin as noted with INR trending with planned a.m. thoracentesis if radiology minimal pending INR level. #12. CODE status: Patient HANSA is her son Flex and living will is currently in place. Discussed CODE status at length including difference between FULL code, DNR-CCA and DNR-CC status. Following discussions about the differences in these status, requested Full Code status. Advanced Care Planning Face to Face Time: 17 minutes. Admission Evaluation Time spent evaluating chart, patient history, patient evaluation, care planning and discussion with specialists: 75 minutes. Charges/Coding Visit Charges Inpatient E&M: 97865 Init Hosp L3 Procedures Hospitalists Procedures: 93150 Advncd Care Plan 30 Min
--- NOTE | 2022-05-23 16:01 | NURSING ---
MED SURG WHITE LEFT PLEURAL EFFUSION, DYSPNEA, ANEMIA, ANTICOAGULATED
[2022-05-23 16:55] LABS: ALB/GLOB Ratio 0.5 RATIO (0.9-2.4); Globulin 4.3 g/dL (2.2-4.2); LDH 272 U/L (84-246); Magnesium 1.2 mg/dL (1.6-2.6); Protein, Total 6.5 g/dL (6.4-8.2)
[2022-05-23 17:12] LABS: Procalcitonin 0.19 ng/mL (0.00-0.09)
--- NOTE | 2022-05-23 17:23 | ECHOD_ITS ---
Reason For Study: A. fib Procedure This was a 2D Doppler, Color Flow transthoracic echocardiogram. Exam performed portable in patient room. Left Ventricle Normal LV size. Mild concentric left ventricular hypertrophy. Apical hypertrophy. Left ventricular systolic function is normal. The estimated ejection fraction is 60 %. No regional wall motion abnormalities noted. Right Ventricle Normal RV size. Normal systolic function. Atria The left atrium is moderately enlarged. The right atrium is mildly enlarged. Mitral Valve Normal mitral valve. Mild-Moderate (1-2+) eccentric mitral valve insufficiency. Tricuspid Valve Normal tricuspid valve. Mild to moderate (1-2+) tricuspid valve insufficiency. Pulmonary artery systolic pressure is 38 mmHg. Aortic Valve Trisinus/trileaflet aortic valve. Trivial aortic valve insufficiency. Pulmonic Valve Normal pulmonic valve. Mild (1+) pulmonic valve insufficiency. Great Vessels Normal aortic root. The pulmonary artery is normal size. Normal inferior vena cava. Pericardium/Pleural No pericardial effusion. Moderate size left pleural effusion. MMode/2D Measurements & Calculations LVIDd: 4.2 cm IVSd: 1.2 cm Ao root diam: 3.6 cm LVIDs: 2.6 cm LVPWd: 1.2 cm RVDd: 3.3 cm FS: 37.1 % LAV(MOD-bp): 105.6 ml LVAd ap4: 14.5 cm2 LVAd ap2: 18.1 cm2 LAV(MOD-bp) Indexed: 72.8 ml/m2 LVLd ap4: 6.2 cm LVLd ap2: 6.8 cm LAV(MOD-sp2): 85.1 ml EDV(MOD-sp4): 29.7 ml EDV(MOD-sp2): 43.3 ml LAV(MOD-sp4): 103.7 ml EDV(sp4-el): 28.6 ml EDV(sp2-el): 41.1 ml LVAs ap4: 8.3 cm2 LVAs ap2: 10.6 cm2 LVLs ap4: 5.2 cm LVLs ap2: 6.1 cm ESV(MOD-sp4): 12.2 ml ESV(MOD-sp2): 17.5 ml ESV(sp4-el): 11.2 ml ESV(sp2-el): 15.6 ml EF(MOD-sp4): 59.0 % EF(MOD-sp2): 59.7 % EF(sp4-el): 60.9 % SV(MOD-sp4): 17.5 ml SV(MOD-sp2): 25.8 ml SV(sp4-el): 17.4 ml LA dimension(2D): 4.6 cm LA A4 area: 30.9 cm2 RA A4 area: 23.5 cm2 Doppler Measurements & Calculations MV E max arslan: 96.3 cm/sec Ao V2 max: 143.9 cm/sec AI max arslan: 380.6 cm/sec Ao max P.3 mmHg AI max P.0 mmHg AI dec slope: 287.9 cm/sec2 AI P1/2t: 387.3 msec LV V1 max: 110.3 cm/sec PA V2 max: 111.1 cm/sec TR max arslan: 290.4 cm/sec LV V1 max P.9 mmHg PA V2 mean: 68.5 cm/sec TR max P.0 mmHg ECHO/Echo Complete Interpretation Summary Normal LV size. Mild concentric left ventricular hypertrophy. Left ventricular systolic function is normal. The estimated ejection fraction is 60 %. Apical hypertrophy The left atrium is moderately enlarged. Pulmonary artery systolic pressure is 38 mmHg. Ordering Physician: La Parish Referring Physician: Paul Mccullough Performed By: Vaishali Bartholomew RDCS
--- NOTE | 2022-05-23 17:23 | CT_ITS ---
INDICATION: Pleural effusion and mass. EXAMINATION: CT CHEST WITH CONTRAST - CT Chest W/ Contrast Injection TECHNIQUE: Helically acquired images were obtained of the chest following IV contrast. A radiation dose optimization technique was used for this scan. IV Contrast dosage and agent: 100 mL of Isovue-300 COMPARISON: CT of the chest, May 10, 2018. Chest, May 23, 2022. FINDINGS: LUNGS, PLEURA AND LARGE AIRWAYS: There is a left pleural effusion which invaginates into the upper oblique fissure. There is partial collapse of the lingula and inferior left lower lobe. The right lung is well aerated and free of infiltrate or mass. There is a tiny right pleural effusion. No mass is seen in the aerated left upper lobe or superior segment left lower lobe. No pneumothorax. THYROID: No thyroid lesions. HEART AND PERICARDIUM: The heart is enlarged. Minimal pericardial effusion versus pericardial thickening. [id number] coronary artery calcifications. VESSELS: Mild atherosclerotic tortuosity of the thoracic aorta without aneurysm. No aortic dissection. No obvious central pulmonary embolism although this study was not performed with the pulmonary embolism protocol. MEDIASTINUM AND MIKE: No mediastinal or hilar adenopathy. Esophagus is unremarkable. No hiatal hernia. UPPER ABDOMEN: There is a low-attenuation mass in segment 5 of the liver. The upper abdomen is otherwise grossly normal. BONES: Degenerative changes of the thoracic spine. No fracture or subluxation. There are degenerative changes of the shoulders. CT/Chest WITH Contrast IMPRESSION: 1. Left pleural effusion with consolidation in lingula and left lower lobe. 2. Small right pleural effusion. 3. No evidence of pulmonary mass or infiltrate. 4. Cardiomegaly. Electronically Signed: Armando Roach DO at 18:39 EST ,
[2022-05-23 18:08] LABS: Hematocrit 27.6 % (37-47); Hemoglobin 8.8 g/dL (12.0-15.0)
[2022-05-23] MEDS: Potassium Chloride Oral Tablet 20 MEQ 40 MEQ PO (19:25)
[2022-05-23] MEDS: Ceftriaxone 1 GM/50 ML BAG IV (20:13)
[2022-05-23] MEDS: Atorvastatin Calcium 10 MG Tablet PO (20:16)
[2022-05-23] MEDS: Lisinopril 20 MG Tablet PO ×2 (20:16)
[2022-05-23 21:14] LABS: Hematocrit 24.2 % (37-47); Hemoglobin 8.4 g/dL (12.0-15.0)
[2022-05-23 21:36] LABS: M R Staph aureus DNA By PCR Negative (Negative); Probe Check PASS; Specimen Processing Control PASS
--- NOTE | 2022-05-24 | FLU_PTH ---
PATIENT: ANGELINA SONI LOC: MS2 U#:[id number] AGE/SX: 81/F [place] [facility] [place]05/23/[address]: Dr. Srinivasa Dennis MD : 1940 BED: 1 DIS: 05/26/2022 SPEC #: [id number] RECD: 05/24/22 14:15 STATUS: KARSTEN REQ #: [id number] KRYSTEN: 05/24/22 00:[address]: Srinivasa Dennis DEPT: CYTOLOGY RECD BY: Giselle Luna ENTERED: 05/25/22 09:55 SP TYPE: Fluid OTHR DR: MD Dr. Shiva Hernandez MD Dr. Derek Brown, DO Dr. Jeffrey Burkey, MD Dr. Lee Ann Baggott, MD Dr. Tanmay Panchabhai, MD Christina Muller, EYE CLINIC MANAGER-C Tissues: Pleural fluid, NOS Procedures: Special Stain Group II Surgery Specimen Level IV Cytospin Fluid HEADER OPERATION: Thoracentesis PRE-OP DIAGNOSIS: Left pleural effusion TISSUE SUBMITTED: Thoracentesis fluid for cytology DIAGNOSIS CYTOLOGY Thoracentesis fluid for cytology (cytospin and cell block): Negative for malignant cells. Blood specimen. See comment. CHARLIE:kellie 05/26/2022 COMMENT Correlation with clinical, radiologic findings and appropriate follow up are necessary. CYTOLOGY STUDY Slides are reviewed. CYTOLOGY GROSS Received is 50 ml of red cloudy fluid labeled with the patient's name and and designated per the requisition as thoracentesis. Submitted for cytology preparation including cell block. / kellie 05/25/2022 TC:5 CPT: 82823, 32739
[2022-05-24] MEDS: Magnesium Sulfate 4gm/100mL 4 GM/100 ML IV.SOLN. IV (00:05)
--- NOTE | 2022-05-24 00:11 | NURSING ---
[facility] DELAYED D/T PT ACUITY AND SINGULAR IV SITE.
[2022-05-24] MEDS: 0.9% Normal Saline 1,000 ML 75 ML IV ×2 (01:20→21:00)
[2022-05-24 01:24] LABS: Hematocrit 24.8 % (37-47); Hemoglobin 8.1 g/dL (12.0-15.0)
[2022-05-24 02:30] VITALS: BP 141/77; PULSE 90; RESP 18; RESP 20; TEMP 36.6; O2SAT 95; O2SAT 97
[2022-05-24 03:44] LABS: Absolute Lymphocyte Count 1.23 X10^3/uL (0.83-4.51); Absolute Neutrophil Count 8.2 X10^3/uL (2.0-7.7); Basophil# 0.03 X10^3/uL; Basophil% 0.3 % (0-1); Eosinophil# 0.14 X10^3/uL; Eosinophils% 1.4 % (0-5); Hematocrit 24.9 % (37-47); Hemoglobin 8.4 g/dL (12.0-15.0); Lymphocyte # 1.23 X10^3/ul (0.83-4.51); Mean Corp Hgb Conc 33.7 g/dL (32-36); Mean Corpuscular Hgb 33.7 pg (27.0-32.0); Mean Platelet Vol. 9.9 fl (6.2-12.0); Monocyte# 0.63 X10^3/uL; Monocyte% 6.1 % (0-10); NRBC Flagged by Analyzer 0 % (0-5); Neutrophil # 8.19 X10^3/uL (2.7-7.7); Neutrophil % 79.6 % (47-70); Platelet Count 416 K/mm3 (150-450); RBC Distribution Width CV 15.1 % (11.6-14.6); RBC Distribution Width SD 54.1 fl (35.1-43.9); Red Blood Count 2.49 M/mm3 (4.2-5.4); White Blood Count 10.3 K/mm3 (4.4-11.0)
[2022-05-24 03:56] LABS: International Normalized Ratio 1.8; Prothrombin Time (Protime)PT. 20.5 SECONDS (11.7-14.9)
[2022-05-24 04:03] LABS: ALB/GLOB Ratio 0.5 RATIO (0.9-2.4); AST(SGOT) 15 U/L (15-37); Alanine Aminotransfer ALT/SGPT 12 U/L (13-56); Alkaline Phosphatase 67 U/L (45-117); Anion Gap 7 (5-15); BUN 12 mg/dL (7-18); BUN/Creat Ratio 15.6 RATIO (10-20); Calcium,Total 8.5 mg/dL (8.5-10.1); Chloride 104 mmol/L (98-107); Creatinine, Serum 0.77 mg/dL (0.55-1.02); EST Glomerular Filtration Rate 76 mL/min (>60); Est Glom Filt Rate - Afr Amer 92 mL/min (>60); Globulin 3.9 g/dL (2.2-4.2); Glucose 107 mg/dL (74-106); Magnesium 2.6 mg/dL (1.6-2.6); Potassium 3.6 mmol/L (3.5-5.1); Protein, Total 5.9 g/dL (6.4-8.2); Sodium Level 138 mmol/L (136-145)
--- NOTE | 2022-05-24 07:50 | PN.HOSP_ITS ---
Subjective Subjective Follow-up for large left pleural effusion with generalized weakness, anemia. Objective Data Objective Data Vital Signs: Vital Signs Temp Pulse Resp BP Pulse Ox O2 Del Method 98 F 90 20 H 141/77 H 97 Room Air 05/24/22 02:30 05/24/22 02:30 05/24/22 02:30 05/24/22 02:30 05/24/22 02:30 05/24/22 02:30 Oxygen Delivery Method Room Air Weight: 128 lb 1.417 oz Body Mass Index (BMI) 27.8 Intake & Output: Intake and Output for Last 24 Hours 05/22/22 05/23/22 05/24/22 23:59 23:59 23:59 Intake Total 110 / 110 645 / 645 Output Total 200 / 200 Balance 110 / 110 445 / 445 Lab / Micro Data Result Diagrams: 05/24/22 03:32 05/24/22 03:32 Labs: Laboratory Results - last 24 hr 05/23/22 13:44: WBC 11.3 H, RBC 2.72 L, Hgb 9.2 L, Hct 27.0 L, MCV 99.3 H, MCH 33.8 H, MCHC 34.1 D, RDW Std Deviation 54.9 H, RDW Coeff of Doris 15.4 H, Plt Count 436, MPV 10.2, Immature Gran % (Auto) 0.900, Neut % (Auto) 84.2 H, Lymph % (Auto) 10.0 L, [place] % (Auto) 3.7, Eos % (Auto) 0.9, Baso % (Auto) 0.3, Absolute Neuts (auto) 9.5 H, Absolute Lymphs (auto) 1.12, Nucleated RBC % 0 05/23/22 13:44: PT 22.2 H, INR 2.0 05/23/22 13:44: Sodium 139, Potassium 3.1 L, Chloride 104, Carbon Dioxide 27.0, Anion Gap 8, BUN 14, Creatinine 0.92, Estim Creat Clear Calc 42.13, Est GFR (MDRD) Af Amer 75, Est GFR (MDRD) Non-Af 62, BUN/Creatinine Ratio 15.2, Glucose 124 H, Calcium 8.6 05/23/22 13:44: Blood Type A POSITIVE, Antibody Screen NEGATIVE 05/23/22 13:44: Magnesium 1.2 L, Lactate Dehydrogenase 272 H, Total Protein 6.5, Globulin 4.3 H, Albumin/Globulin Ratio 0.5 L 05/23/22 16:30: Procalcitonin 0.19 H 05/23/22 17:34: Hgb 8.8 L, Hct 27.6 L 05/23/22 19:30: MRSA (PCR) Negative 05/23/22 21:05: Hgb 8.4 L, Hct 24.2 L 05/24/22 01:15: Hgb 8.1 L, Hct 24.8 L 05/24/22 03:32: WBC 10.3, RBC 2.49 L, Hgb 8.4 L, Hct 24.9 L, MCV 100.0 H, MCH 33.7 H, MCHC 33.7, RDW Std Deviation 54.1 H, RDW Coeff of Doris 15.1 H, Plt Count 416, MPV 9.9, Immature Gran % (Auto) 0.600, Neut % (Auto) 79.6 H, Lymph % (Auto) 12.0 L, [place] % (Auto) 6.1, Eos % (Auto) 1.4, Baso % (Auto) 0.3, Absolute Neuts (auto) 8.2 H, Absolute Lymphs (auto) 1.23, Nucleated RBC % 0 05/24/22 03:32: PT 20.5 H, INR 1.8 05/24/22 03:32: Sodium 138, Potassium 3.6, Chloride 104, Carbon Dioxide 27.0, Anion Gap 7, BUN 12, Creatinine 0.77, Estim Creat Clear Calc 39.10, Est GFR (MDRD) Af Amer 92, Est GFR (MDRD) Non-Af 76, BUN/Creatinine Ratio 15.6, Glucose 107 H, Calcium 8.5, Magnesium 2.6, Total Bilirubin 0.70, AST 15, ALT 12 L, Karin line Phosphatase 67, Total Protein 5.9 L, Albumin 2.0 L, Globulin 3.9, Albumin/Globulin Ratio 0.5 L Micro: Microbiology 05/24/22 05:48 Stool Stool Occult Blood (LILO) - Final 05/23/22 20:20 Mucosa - Nasopharyngeal Respiratory Panel (PCR) - Final 05/23/22 19:20 Urine, Clean Catch Legionella Antigen - Final 05/23/22 19:20 Urine, Clean Catch Streptococcus pneumoniae Antigen (M - Final 05/23/22 13:25 Nasal Secretion SARS-CoV-2 & FLU Antigen (Rapid) - Final Radiography Diagnostic Testing: Radiology Impression Chest X-Ray 05/23/22 13:47 IMPRESSION: Increasing left pleural effusion with left basilar atelectasis and/or infiltration. There has been progression as compared to prior study. Electronically Signed: William Jacobs MD at 14:14 EST , Chest CT 05/23/22 17:23 IMPRESSION: 1. Left pleural effusion with consolidation in lingula and left lower lobe. 2. Small right pleural effusion. 3. No evidence of pulmonary mass or infiltrate. 4. Cardiomegaly. Electronically Signed: Armando Roach DO at 18:39 EST , Rhythm Strip Rhythm Strip: A-fib Rate: 91 Ectopy: None Physical Exam Narrative Patient has history of smoking since teenage, 1 pack per day and recently cut down to less than half pack per day. Denies any chronic lung disease including COPD asthma or interstitial lung disease. For last 1 year patient has been getting progressively short of breath on exertion which is increased recently in the last few days. Patient has chronic cough. No fever. Denies urinary tract symptoms. Recently had UTI with hematuria. Generalized weakness Physical Examination: General: Alert, Oriented x3, Cooperative HEENT: Atraumatic, PERRLA, EOMI, Normocephalic Oral:. No Gingival or Mucosal Lesions/ Ulcerations Neck: Supple, No JVD, Negative Carotid Bruits Lungs: Air entry severely diminished in left side. Large left pleural effusion stony dullness.. No crepitation/rhonchi Cardiovascular: Regular rate, Regular Rhythm, Normal S1, Normal S2, systolic murmur over LLSB and cardiac apex. Abdomen: Bowel Sounds Present, Soft, Non Tender, Non-Distended : No renal angle tenderness. No suprapubic tenderness. Extremities: Mild 1+ ankle edema, Capillary Refill Less than 3 Seconds Skin: No rashes, No breakdown Musculoskeletal: ROM restricted. Joints. No Tenderness to Palpation of Joints or Extremities Neurological: Cranial nerves II-XII grossly intact, DTR 2+/4 and Symmetrical Psych/Mental Status: Flat affect. Assessment & Plan Assessment/Plan (1) Pleural effusion on left: PLAN: Plan The patient is an 81 y/o F is being admitted through ER for fever, left-sided pleural effusion with questionable mass on chest x-ray. Patient was also found significantly anemic #1. Large left pleural effusion including in minor fissure with collapse of the lingula and left lower lobe. Patient is being admitted Medr floor. She had chest x-ray and CT chest individually reviewed.On IV Rocephin and Zithromax, bronchodilator. SARS-CoV-2 antigen and flu antigen are negative. Leukocytosis with left shift but has improved. Patient had CT chest with individually reviewed which shows left pleural effusion with partial collapse of lingula and inferior left lower lobe. No mass seen in individualized aerated left and right lung. Collapse of left upper lobe and superior segment of left lower lobe. No pneumothorax. Patient is scheduled for thoracocentesis. Pulmonary was consulted and discussed the finding of CT chest. #2. Acute new onset macrocytic anemia: Admission hemoglobin 9.2, MCV 99.3, occurred over the last month. Guaiac test negative. LDH 272. Hemoglobin is 8.4., Folic and B12 ordered. Warfarin on hold. GI consulted. On IV PPI #3. Hypokalemia and hypomagnesemia: Admission K+ 3.1, magnesium 1.2. Serum phosphorus ordered. Magnesium replaced. Repeat potassium 3.6. #4. CAD: Status post PCI continue statin, metoprolol, lisinopril home regimen. Aspirin is temporarily held. Coumadin held. #5. Chronic atrial fibrillation: Currently rate controlled, continue metoprolol #6. Hypertension: Continue home regimen including metoprolol, lisinopril, isosorbide, Lasix with hold parameters as needed, PRN hydralazine. #7. Hyperlipidemia: continue patient on statin therapy. #8. Rheumatoid arthritis: Given presentation will hold methotrexate, continue folic acid supplementation. #9. Tobacco Abuse: Encouraged cessation, inpatient consultation per RT, NR if desired. #10. GERD: #11. DVT prophylaxis: SCDs #12. CODE status: Patient HANSA is her son Flex and living will is currently in place. Discussed CODE status at length including difference between FULL code, DNR-CCA and DNR-CC status. Total time of the visit including total time spent in counseling or coordination of care, (more than 50% of the total time, spent in obtaining medical information from nurses and other ancillary care providers,explaining to the patient about labs, imaging, diagnosis and management of active complex medical conditions), clinical update given to patient and patient's daughter regarding CT chest, review of labs and imaging is 55 minutes. 05/23/22 13:44: WBC 11.3 H, RBC 2.72 L, Hgb 9.2 L, Hct 27.0 L, MCV 99.3 H, MCH 33.8 H, MCHC 34.1 D, RDW Std Deviation 54.9 H, RDW Coeff of Doris 15.4 H, Plt Count 436, MPV 10.2, Immature Gran % (Auto) 0.900, Neut % (Auto) 84.2 H, Lymph % (Auto) 10.0 L, [place]lee % (Auto) 3.7, Eos % (Auto) 0.9, Baso % (Auto) 0.3, Absolute Neuts (auto) 9.5 H, Absolute Lymphs (auto) 1.12, Nucleated RBC % 0 05/23/22 13:44: PT 22.2 H, INR 2.0 05/23/22 13:44: Sodium 139, Potassium 3.1 L, Chloride 104, Carbon Dioxide 27.0, Anion Gap 8, BUN 14, Creatinine 0.92, Estim Creat Clear Calc 42.13, Est GFR (MDRD) Af Amer 75, Est GFR (MDRD) Non-Af 62, BUN/Creatinine Ratio 15.2, Glucose 124 H, Calcium 8.6 05/23/22 13:44: Blood Type A POSITIVE, Antibody Screen NEGATIVE 05/23/22 13:44: Magnesium 1.2 L, Lactate Dehydrogenase 272 H, Total Protein 6.5, Globulin 4.3 H, Albumin/Globulin Ratio 0.5 L 05/23/22 16:30: Procalcitonin 0.19 H 05/23/22 17:34: Hgb 8.8 L, Hct 27.6 L 05/23/22 19:30: MRSA (PCR) Negative 05/23/22 21:05: Hgb 8.4 L, Hct 24.2 L 05/24/22 01:15: Hgb 8.1 L, Hct 24.8 L 05/24/22 03:32: WBC 10.3, RBC 2.49 L, Hgb 8.4 L, Hct 24.9 L, MCV 100.0 H, MCH 33.7 H, MCHC 33.7, RDW Std Deviation 54.1 H, RDW Coeff of Doris 15.1 H, Plt Count 416, MPV 9.9, Immature Gran % (Auto) 0.600, Neut % (Auto) 79.6 H, Lymph % (Auto) 12.0 L, [place] % (Auto) 6.1, Eos % (Auto) 1.4, Baso % (Auto) 0.3, Absolute Neuts (auto) 8.2 H, Absolute Lymphs (auto) 1.23, Nucleated RBC % 0 05/24/22 03:32: PT 20.5 H, INR 1.8 05/24/22 03:32: Sodium 138, Potassium 3.6, Chloride 104, Carbon Dioxide 27.0, Anion Gap 7, BUN 12, Creatinine 0.77, Estim Creat Clear Calc 39.10, Est GFR (MDRD) Af Amer 92, Est GFR (MDRD) Non-Af 76, BUN/Creatinine Ratio 15.6, Glucose 107 H, Calcium 8.5, Magnesium 2.6, Total Bilirubin 0.70, AST 15, ALT 12 L, Alkaline Phosphatase 67, Total Protein 5.9 L, Albumin 2.0 L, Globulin 3.9, Albumin/Globulin Ratio 0.5 L Charges/Coding Visit Charges Inpatient E&M: 27079 Subs Hosp L3
[2022-05-24 08:34] VITALS: BP 184/84; PULSE 76; RESP 18; TEMP 36.9; O2SAT 96
[2022-05-24] MEDS: Potassium Chloride Oral Tablet 20 MEQ 40 MEQ PO (08:37)
[2022-05-24 08:38] VITALS: PULSE 76
[2022-05-24] MEDS: Metoprolol(XL)Succ 25 MG Tablet 75 MG PO (08:38)
[2022-05-24] MEDS: Isosorbide Mononitrate 30 MG Tablet PO (08:38)
[2022-05-24] MEDS: Lisinopril 20 MG Tablet PO ×2 (08:39→20:50)
[2022-05-24] MEDS: Folic Acid 1 MG Tablet 2 MG PO (08:39)
[2022-05-24] MEDS: Furosemide 20 MG Tablet PO (08:39)
[2022-05-24 08:51] LABS: Phosphorus 2.1 mg/dL (2.5-4.9)
[2022-05-24 08:54] LABS: Ferritin 1094 ng/mL (8-252); Iron 37 ug/dL (50-170); Iron Binding Capacity,Total 180 ug/dL (250-450); Magnesium 2.7 mg/dL (1.6-2.6); PERCENT IRON SATURATION 20.6 % (15.0-55.0)
--- NOTE | 2022-05-24 10:28 | EX.PCM.CONCC ---
Assessment & Plan Assessment/Plan (1) Pleural effusion: PLAN: Plan RECOMMENDATIONS: 1. Proceed with thoracentesis. 2. Send pleural fluid for LDH, total protein, cell count, culture and cytology. 3. Obtain postprocedure chest x-ray. 4. Encourage incentive spirometer use and mobilize patient as tolerated. 5. Continue empiric antimicrobials. IMPRESSIONS: 1. Pleural effusion The patient presented to the hospital with mild shortness of breath with radiographic evidence of a left-sided pleural effusion of unclear etiology. However, underlying infection is certainly a possibility. The patient remains on appropriate antimicrobials for now, with tentative plans for ultrasound-guided thoracentesis today. Recommend sending fluid for LDH, total protein, cell count, culture and cytology. Additional recommendations will be forthcoming, pending the outcome of the thoracentesis. On my review of the chest imaging, I do not see an underlying discernible lung mass. 2. Anemia The patient does have baseline anemia, which may have worsened in the setting of a recent coagulopathy. This has since resolved. Plan to continue PPI therapy and monitor H&H. Transfuse if hemoglobin drops below 7 g/dL. 3. History of coronary artery disease/chronic atrial fibrillation/rheumatoid arthritis Complicates care, management, recovery and prognosis. Continue home medications as indicated. This note was generated with [employer] dictation software. It may contain incorrect words, spelling, and punctuation that were not noted in checking the note before signing. HPI Consult Data Date of Consult: 05/25/22 HPI Narrative Reason for Consultation: Pleural effusion HPI Narrative: The patient is an 81-year-old female, with a history as outlined below, who presented to the emergency department on May 23 with anemia and radiographic evidence of a pleural effusion. The patient has a known history of chronic atrial fibrillation on systemic anticoagulation along with coronary artery disease, GERD, rheumatoid arthritis and hypertension. On presentation to the emergency department, the patient was noted to be afebrile. She was hypertensive with a presenting blood pressure of 184/82 mmHg. initial laboratory evaluation revealed a white blood cell count of 11,000. The patient was anemic with a hemoglobin of 9.2 g/dL. INR was noted to be 2.0. Chemistry profile was notable for a potassium of 3.1. Magnesium was low at 1.2. Initial chest x-ray demonstrated an enlarging left-sided pleural effusion with associated compressive atelectasis. A follow-up CT chest was obtained, which demonstrated a large left-sided pleural effusion with concern for lower lobe consolidation. The patient was placed on antimicrobials and gentle IV fluid hydration. She was admitted to the medical surgical floor for further management. Surface echocardiogram from August 2021 demonstrated normal LV size and function with an ejection fraction of 60% and a pulmonary artery systolic pressure of 58 mmHg. [facility] Medical History Arthritis Atherosclerotic heart disease [place] coronary artery w/angina pectoris Atherosclerotic heart disease of [place] coronary artery without angina pectoris Benign neoplasm of parotid gland Essential (primary) hypertension Gross hematuria Hyperlipidemia Hypertension Longstanding persistent atrial fibrillation Nicotine dependence Vitamin D deficiency Home Medications folic acid 1 mg tablet 2 mg PO DAILY supplement 03/14/18 [History Last Taken 05/22/22] methotrexate sodium 2.5 mg tablet 15 mg PO FR RHEUMATOID ARTHRITIS 09/30/19 [History Last Taken 05/19/22] metoprolol succinate 50 mg tablet,extended release 24 hr 75 mg PO DAILY blood pressure/heart rate #135 tabs 06/30/21 [Rx Last Taken 05/22/22] cholecalciferol (vitamin D3) 25 mcg (1,000 unit) tablet 25 mcg PO DAILY SUPPLEMENT 11/08/21 [History Last Taken 05/22/22] polyethylene glycol 3350 17 gram/dose oral powder (Miralax) 17 g PO DAILY PRN Constipation 11/08/21 [History Last Taken Unknown] acetaminophen 500 mg tablet 1,000 mg PO Q6H PRN Pain 05/23/22 [History Last Taken 05/21/22] aspirin 81 mg tablet,delayed release 81 mg PO DAILY HEART HEALTH 05/23/22 [History Last Taken 05/22/22] furosemide 20 mg tablet (Lasix) 20 mg PO QODAY FLUID 05/23/22 [History Last Taken 05/22/22] gabapentin 100 mg capsule 100 mg PO BID NERVE PAIN 05/23/22 [History Last Taken 05/22/22] isosorbide mononitrate 30 mg tablet,extended release 24 hr 30 mg PO DAILY HEART 05/23/22 [History Last Taken 05/22/22] lisinopril 20 mg tablet 20 mg PO BID BLOOD PRESSURE 05/23/22 [History Last Taken 05/22/22] pantoprazole 40 mg tablet,delayed release 40 mg PO DAILY ACID REFLUX 05/23/22 [History Last Taken 05/22/22] simvastatin 20 mg tablet 20 mg PO QHS CHOLSTEROL 05/23/22 [History Last Taken 05/22/22] Allergy/AdvReac Type Severity Reaction Status Date / Time latex Allergy Itching Verified 05/23/22 12:44 ursodiol Allergy Unknown Verified 05/23/22 12:44 belladonna alkaloids AdvReac Unknown Verified 05/23/22 12:44 [Belladonna Alkaloids] formaldehyde AdvReac Rash Verified 05/23/22 12:44 phenobarbital AdvReac Unknown Verified 05/23/22 12:44 ranitidine HCl [From Zantac] AdvReac Unknown Verified 05/23/22 12:44 Family History Father CAD (coronary artery disease) CVA (cerebral vascular accident) Mother CAD (coronary artery disease) Myocardial infarction Surgical History History of coronary artery stent placement (12/02/13) History of left heart catheterization (02/18/16) History of open reduction and internal fixation (ORIF) procedure (09/2019) Social History (Updated 05/23/22 @ 19:[address] La Parish MD) household members: spouse and family Smoking Status: Current every day smoker tobacco type: cigarettes Smoking packs per day: 0.5 Smoking cigarettes per day: 10.0 alcohol intake: never substance use type: does not use ROS ROS Narrative 10 systems reviewed with pertinent positives as noted in the HPI above. Physical Exam Const alert and no apparent distress Constitutional Narrative: Family is present at the bedside. General Appearance: cooperative HEENT normocephalic, head/scalp atraumatic and moist oral mucous membranes General Ear: hearing grossly impaired Eyes PERRL, EOMs intact bilaterally and conjunctivae normal Neck supple General: trachea midline Chest inspection of chest normal Resp normal respiratory effort Auscultation: rales Cardio regular rate and regular rhythm GI normal to inspection, nondistended, normoactive bowel sounds Extremity no clubbing, cyanosis or edema Skin no rashes or lesions noted Neuro CN's II-XII intact bilaterally and no focal motor deficits Psych cooperative and affect normal Lab / Micro Data Result Diagrams: 05/24/22 03:32 05/24/22 03:32 Labs: Laboratory Results - last 24 hr 05/23/22 13:44: WBC 11.3 H, RBC 2.72 L, Hgb 9.2 L, Hct 27.0 L, MCV 99.3 H, MCH 33.8 H, MCHC 34.1 D, RDW Std Deviation 54.9 H, RDW Coeff of Doris 15.4 H, Plt Count 436, MPV 10.2, Immature Gran % (Auto) 0.900, Neut % (Auto) 84.2 H, Lymph % (Auto) 10.0 L, [place] % (Auto) 3.7, Eos % (Auto) 0.9, Baso % (Auto) 0.3, Absolute Neuts (auto) 9.5 H, Absolute Lymphs (auto) 1.12, Nucleated RBC % 0 05/23/22 13:44: PT 22.2 H, INR 2.0 05/23/22 13:44: Sodium 139, Potassium 3.1 L, Chloride 104, Carbon Dioxide 27.0, Anion Gap 8, BUN 14, Creatinine 0.92, Estim Creat Clear Calc 42.13, Est GFR (MDRD) Af Amer 75, Est GFR (MDRD) Non-Af 62, BUN/Creatinine Ratio 15.2, Glucose 124 H, Calcium 8.6 05/23/22 13:44: Blood Type A POSITIVE, Antibody Screen NEGATIVE 05/23/22 13:44: Magnesium 1.2 L, Lactate Dehydrogenase 272 H, Total Protein 6.5, Globulin 4.3 H, Albumin/Globulin Ratio 0.5 L 05/23/22 16:30: Procalcitonin 0.19 H 05/23/22 17:34: Hgb 8.8 L, Hct 27.6 L 05/23/22 19:30: MRSA (PCR) Negative 05/23/22 21:05: Hgb 8.4 L, Hct 24.2 L 05/24/22 01:15: Hgb 8.1 L, Hct 24.8 L 05/24/22 03:32: WBC 10.3, RBC 2.49 L, Hgb 8.4 L, Hct 24.9 L, MCV 100.0 H, MCH 33.7 H, MCHC 33.7, RDW Std Deviation 54.1 H, RDW Coeff of Doris 15.1 H, Plt Count 416, MPV 9.9, Immature Gran % (Auto) 0.600, Neut % (Auto) 79.6 H, Lymph % (Auto) 12.0 L, [place] % (Auto) 6.1, Eos % (Auto) 1.4, Baso % (Auto) 0.3, Absolute Neuts (auto) 8.2 H, Absolute Lymphs (auto) 1.23, Nucleated RBC % 0 05/24/22 03:32: PT 20.5 H, INR 1.8 05/24/22 03:32: Sodium 138, Potassium 3.6, Chloride 104, Carbon Dioxide 27.0, Anion Gap 7, BUN 12, Creatinine 0.77, Estim Creat Clear Calc 39.10, Est GFR (MDRD) Af Amer 92, Est GFR (MDRD) Non-Af 76, BUN/Creatinine Ratio 15.6, Glucose 107 H, Calcium 8.5, Magnesium 2.6, Total Bilirubin 0.70, AST 15, ALT 12 L, Alkaline Phosphatase 67, Total Protein 5.9 L, Albumin 2.0 L, Globulin 3.9, Albumin/Globulin Ratio 0.5 L 05/24/22 03:32: Magnesium 2.7 H, Iron 37 L, TIBC 180 L, Iron Saturation 20.6, Ferritin 1094 H, Folate 11.30 05/24/22 03:32: Phosphorus 2.1 L Micro: Microbiology 05/24/22 05:48 Stool Stool Occult Blood (LILO) - Final 05/23/22 20:20 Mucosa - Nasopharyngeal Respiratory Panel (PCR) - Final 05/23/22 19:20 Urine, Clean Catch Legionella Antigen - Final 05/23/22 19:20 Urine, Clean Catch Streptococcus pneumoniae Antigen (M - Final 05/23/22 13:25 Nasal Secretion SARS-CoV-2 & FLU Antigen (Rapid) - Final Rhythm Strip Rhythm Strip: A-fib Rate: 91 Ectopy: None Radiology Impression Chest X-Ray 05/23/22 13:47 IMPRESSION: Increasing left pleural effusion with left basilar atelectasis and/or infiltration. There has been progression as compared to prior study. Electronically Signed: William Jacobs MD at 14:14 EST , Chest CT 05/23/22 17:23 IMPRESSION: 1. Left pleural effusion with consolidation in lingula and left lower lobe. 2. Small right pleural effusion. 3. No evidence of pulmonary mass or infiltrate. 4. Cardiomegaly. Electronically Signed: Armando Roach DO at 18:39 EST Reading Location ID and State: [facility] / [place] Tel [phone], Service support , Charges/Coding Visit Charges Inpatient E&M: 57488 Init Hosp L3
[2022-05-24] MEDS: Ceftriaxone 1 GM/50 ML BAG IV (10:32)
[2022-05-24 13:27] LABS: Vitamin B12 369 pg/mL (211-911)
--- NOTE | 2022-05-24 13:29 | NURSING ---
Patient off unit for thoracentesis.
[2022-05-24] MEDS: Lidocaine 1% (20 ml mdv) 20 ML Vial INFILT (14:03)
--- NOTE | 2022-05-24 14:10 | RAD_ITS ---
STUDY: X-RAY CHEST REASON FOR EXAM: Female, 81 years old. Post thoracentesis TECHNIQUE: AP inspiration and expiration views. COMPARISON: Comparison is made with prior study dated 05/23/2022. FINDINGS: The patient is status post left thoracentesis. No evidence of pneumothorax. Persistent opacification of the mid and lower left hemithorax suggestive of a consolidation/atelectasis. RAD/Chest Insp/Exp 2 View IMPRESSION: Status post left thoracentesis. No evidence of pneumothorax. Electronically Signed: William Jacobs MD at 14:27 EST ,
[2022-05-24 14:20] LABS: Cytology, Body Fluid / CSF SEE PATHOLOGY REPORT
[2022-05-24 14:25] VITALS: BP 137/76; BP 161/88; BP 180/86; BP 181/102; BP 184/99; PULSE 101; PULSE 103; PULSE 106; PULSE 95; PULSE 99; RESP 18; RESP 20; TEMP 37.2; O2SAT 96; O2SAT 97; O2SAT 98; O2SAT 99
[2022-05-24 14:37] VITALS: BP 147/91; PULSE 98; RESP 18; TEMP 37.2; O2SAT 95
--- NOTE | 2022-05-24 14:40 | CASEMGMT ---
LEONCIO COOPER Assessment: Face to Face with pt for initial transition planning/care coordination assessment. RN ALLISON introduced self and role at [facility], pt voices understanding and consents to assessment. Pt is A/O x4 and answers all questions appropriately at this time. Pt lying in bed with dtr and nurse at bedside on RA in no distress. Care providers, pharmacy, and demographics verified/updated. Admitting Dx: ? pna, L sided effusion, new anemia PCP:Sadia Specialists:Terra, pod; Rosangela, rheum; Isis, cardio Preferred [facility]acy: [facility] Insurance: [employer] Prescription Benefit: yes LNOK: Nichole Steen, granddtr Living Arrangements: Pt lives with son and dtr in a two story house with 2 steps to enter without a rail. Pt reports she is mostly I in ADL's but her dtr does assist at times with bathing. Pt denies concerns at home. Transportation: Pt dtr provides pt with transportation. DME/HHC/SNF: Pt has a cane, FWW, rollator and transport w/c at home. Pt has had [facility] in the past and denies SNF stays. Pt states no concerns with going home at time of dc. Pt states no further concerns/needs. Pt denies any need for HHC post hospitalization. OT eval'd pt today with no therapy recommendation. PT has not eval'd yet. CM to follow. Advised pt to ask CM if any further question/concerns/needs arise, voices understanding. Pt Goal: Home Plan: Home, follow for PT eval.
[2022-05-24 14:54] LABS: Appearance/Body Fluid SL CLDY; Auto B Fluid Analyzer BKGD Ct COUNTS W/IN LIMITS (W/IN LIMITS); Body Fluid Mononuclear WBC # 0.453 10^3/uL; Body Fluid Mononuclear WBC % 93.6 %; Body Fluid Polynuclear WBC # 0.031 10^3/uL; Body Fluid Polynuclear WBC % 6.4 %; Body Fluid Total Cells Counted 0.488 10^3/ul; Color/Body Fluid RED; Red Cell Count/Body Fluid 0.114 10^6/ul; Source- Body Fluid THORACENTESIS; White Blood Count/Body Fluid 0.484 10^3/uL
--- NOTE | 2022-05-24 14:54 | CHAPLAIN ---
Type of Pastoral Visit _x__ Initial Visit ___ Follow-up Visit ___ On-call Visit ___ General Patient Visit ___ Spiritual Assessment ___ Family Conference ___ Bereavement ___ Rapid Response ___ Code Blue ___ Other (describe below) Pastoral Care Referral From _x__ Patient ___ Family ___ Nurse ___ Physician ___ Scout Leaser ___ Change Management Manager ___ Other (describe below) Sacrament/Intervention _x__ Active listening ___ Anointing ___ Oriental Orthodox ___ Bereavement ___ Communion ___ Faviola exploration ___ ___ Life review _x__ Prayer ___ Reconciliation ___ Sacrament of Sick ___ Supportive presence ___ Wedding ___ Other (describe below) Pastoral Comments patient was out of the room but two family members were there waiting for her; offer of support to family; they requested prayers for pt and added that she is last member of her seven child family; pt used to be active in a caodaism but is not currently; prayer is given; upon leaving the room the patient was returned to her room in a bed; came back to introduce self and role; pt needed to get settled back into room; offer of a return visit was accepted
[2022-05-24 15:17] LABS: Protein, Body Fluid 3.5 g/dL (Not Establ.)
[2022-05-24 15:37] LABS: Lymphocytes 80 %; Macrophages 8 %; Monocytes 1 %; Neutrophil (Segs) 11 %
[2022-05-24 15:39] LABS: Body Fluid QC Type(s) BF1Q
[2022-05-24 15:47] LABS: Glucose, Body Fluid 103 mg/dL (40-70); LDH,Body Fluid 249 Units/l (Not Establ.)
--- NOTE | 2022-05-24 17:23 | US_ITS ---
PROCEDURE: ULTRASOUND GUIDED THORACENTESIS. DATE: 05/24/2022. INDICATION: Female, 81 years old. Left pleural effusion. PHYSICIAN: William Jacobs M.D. PROCEDURE: The risks, benefits, and alternatives to the procedure were explained to the patient. The specific risks of bleeding, infection, and pneumothorax requiring chest tube insertion were discussed and accepted. Written informed consent was obtained. Ultrasonographic evaluation of the left lower pleural space was carried out. There is evidence of a consolidation in loculation in the left lower lobe. An adequate pocket was identified. The patient was placed in the sitting, upright position. The overlying skin was prepped and draped in sterile fashion. 1% lidocaine was administered subcutaneously for local anesthesia. Under ultrasound guidance, a 5 Nepalese thoracentesis needle/catheter system was advanced into the left posterior lower pleural fluid collection. Approximately 70 mL of bloody fluid was drained. The catheter was removed, and a sterile dressing was applied. A specimen was collected and sent to the laboratory for analysis, as requested by the referring clinician. The patient tolerated the procedure well. A chest x-ray was ordered. US/Thoracentesis W US IMPRESSION: Ultrasound-guided left thoracentesis. Electronically Signed: William Jacobs MD at 14:33 EST ,
[2022-05-24 20:40] VITALS: BP 180/88; PULSE 100; RESP 17; TEMP 36.8; O2SAT 98
[2022-05-24] MEDS: Atorvastatin Calcium 10 MG Tablet PO (20:50)
[2022-05-24] MEDS: Acetaminophen 325 MG Tablet 650 MG PO (23:51)
[2022-05-25] VITALS (8 sets, daily range): BP systolic 149–184; BP diastolic 73–90; PULSE 90–99; RESP 15–18; TEMP 36.6–36.8; O2SAT 94–97
[2022-05-25] MEDS: hydrALAZINE 20 MG/ML Vial 10 MG IV ×2 (02:43→09:26)
--- NOTE | 2022-05-25 03:33 | NURSING ---
Pt c/o legs jumping, heart racing. Pt appears very anxious at this time. hrt 91 po 98% on ra. Pt has audible crackles. Encourage pt to cough
[2022-05-25] MEDS: Acetaminophen 325 MG Tablet 650 MG PO ×2 (08:30→14:28)
--- NOTE | 2022-05-25 08:39 | PN.CC_ITS ---
Assessment & Plan Assessment/Plan (1) Pleural effusion: PLAN: Plan RECOMMENDATIONS: 1. Await pleural fluid cytology and culture results. 2. Encourage incentive spirometer use while in bed and mobilize patient as tolerated. 3. Continue empiric antimicrobials. IMPRESSIONS: 1. Pleural effusion The patient presented to the hospital with mild shortness of breath with radiographic evidence of a left-sided pleural effusion of unclear etiology. However, underlying infection is certainly a possibility. The patient underwent an ultrasound-guided thoracentesis on May 24, which revealed a lymphocyte predominant exudate. The patient remains on appropriate antimicrobials for now. Pleural fluid cultures and cytology are pending. Per traditional Light's criteria, if at least one of the following three is fulfilled, the fluid would be considered an exudate: 1. Pleural fluid protein/serum protein ratio greater than 0.5 2. Pleural fluid LDH/serum LDH ratio greater than 0.6 3. Pleural fluid LDH greater than two thirds the upper limits of the laboratories normal serum LDH Based upon my review of the patient's pleural fluid analysis, along with serum LDH and total protein levels, the pleural fluid would be considered exudative in nature. The differential for a lymphocyte predominant exudate would include malignancy, pleural manifestations of her rheumatoid arthritis and infection. In addition, given that the pleural fluid was bloody in nature, the effusion could also have developed as a consequence of her coagulopathy in the setting of a supratherapeutic INR. 2. Anemia The patient does have baseline anemia, which may have worsened in the setting of a recent coagulopathy. This has since resolved. Plan to continue PPI therapy and monitor H&H. Transfuse if hemoglobin drops below 7 g/dL. 3. History of coronary artery disease/chronic atrial fibrillation/rheumatoid arthritis Complicates care, management, recovery and prognosis. Continue home medications as indicated. This note was generated with [employer] dictation software. It may contain incorrect words, spelling, and punctuation that were not noted in checking the note before signing. Subjective Subjective The patient was seen and examined at the bedside this morning. Events from the last 24 hours have been reviewed. The patient is currently afebrile, hemodynamically stable and maintaining appropriate oxygen saturations on room air. The patient did undergo an ultrasound-guided thoracentesis yesterday with only 70 mL of bloody fluid removed from the left hemithorax. The patient reported the presence of a mild degree of shortness of breath with exertion. Objective Data Objective Data The patient's most recent lab work, culture data and imaging studies have all been personally reviewed. Surface echocardiogram demonstrated mild concentric LVH with an ejection fraction of 60% and a pulmonary artery systolic pressure of 38 mmHg. Vital Signs: Vital Signs Temp Pulse Resp BP Pulse Ox O2 Del Method 97.8 F 90 18 173/90 H 94 Room Air 05/25/22 02:43 05/25/22 02:43 05/25/22 02:43 05/25/22 02:43 05/25/22 07:05 05/25/22 07:05 Oxygen Delivery Method [5] Room Air Oxygen Delivery Method [4] Room Air Oxygen Delivery Method [3] Room Air Oxygen Delivery Method [2] Room Air Oxygen Delivery Method [1 ( Room Air Initial Baseline)] Oxygen Delivery Method Room Air Weight: 129 lb 6.581 oz Body Mass Index (BMI) 27.8 Intake & Output: Intake and Output for Last 24 Hours 05/23/22 05/24/22 05/25/22 23:59 23:59 23:59 Intake Total 110 / 110 2620.00 / 2620.00 460 / 460 Output Total 470 / 470 Balance 110 / 110 2150.00 / 2150.00 460 / 460 Lab / Micro Data Attestation: I reviewed the patient's lab results. Result Diagrams: 05/24/22 03:32 05/24/22 03:32 Labs: Laboratory Results - last 24 hr 05/24/22 03:32: Vitamin B12 369 05/24/22 03:32: Magnesium 2.7 H, Iron 37 L, TIBC 180 L, Iron Saturation 20.6, Ferritin 1094 H, Folate 11.30 05/24/22 03:32: Phosphorus 2.1 L 05/24/22 08:00: Fluid Glucose 103 H, Fluid LDH 249 05/24/22 14:18: Fluid Source THORACENTESIS, Fluid Color RED, Fluid Appearance SL CLDY, Fluid WBC 0.484, Fluid RBC 0.114, Fluid Tot Cell Count 0.488 H, Fld Polynuclear WBCs # 0.031, Fld Polynuclear WBCs % 6.4, Fluid Mononuclear WBCs 0.4 53, Fld Mononuclear WBCs % 93.6, Fluid Neutrophils 11, Fluid Lymphocytes 80, Fluid Monocytes 1, Fluid Macrophages 8, Fl Pathologist Comment May follow, Fluid Comment 2 SEE COMMENT 05/24/22 : Fluid Total Protein 3.5 Micro: Microbiology 05/24/22 10:45 Sputum, Expectorated/Coughed Gram Stain - Final 05/24/22 05:48 Stool Stool Occult Blood (LILO) - Final 05/23/22 20:20 Mucosa - Nasopharyngeal Respiratory Panel (PCR) - Final 05/23/22 19:20 Urine, Clean Catch Legionella Antigen - Final 05/23/22 19:20 Urine, Clean Catch Streptococcus pneumoniae Antigen (M - Final 05/23/22 13:25 Nasal Secretion SARS-CoV-2 & FLU Antigen (Rapid) - Final Radiography Diagnostic Testing: Radiology Impression Echocardiogram 05/23/22 17:23 Interpretation Summary Normal LV size. Mild concentric left ventricular hypertrophy. Left ventricular systolic function is normal. The estimated ejection fraction is 60 %. Apical hypertrophy The left atrium is moderately enlarged. Pulmonary artery systolic pressure is 38 mmHg. Ordering Physician: La Parish Referring Physician: Paul Mccullough Performed By: Vaishali Bartholomew RDCS Chest X-Ray 05/24/22 14:10 IMPRESSION: Status post left thoracentesis. No evidence of pneumothorax. Electronically Signed: William Jacobs MD at 14:27 EST , Thoracentesis Ultrasound 05/24/22 17:23 IMPRESSION: Ultrasound-guided left thoracentesis. Electronically Signed: William Jacobs MD at 14:33 EST , Rhythm Strip Rhythm Strip: A-fib Rate: 91 Ectopy: None Physical Exam Const alert and no apparent distress Constitutional Narrative: Sitting in bedside recliner. General Appearance: cooperative HEENT normocephalic, head/scalp atraumatic and moist oral mucous membranes General Ear: hearing grossly impaired Eyes PERRL, EOMs intact bilaterally and conjunctivae normal Neck supple General: trachea midline Chest inspection of chest normal Resp normal respiratory effort Auscultation: rales Cardio regular rate and regular rhythm GI normal to inspection, nondistended, normoactive bowel sounds Extremity no clubbing, cyanosis or edema Skin no rashes or lesions noted Neuro CN's II-XII intact bilaterally and no focal motor deficits Psych cooperative and affect normal Charges/Coding Visit Charges Inpatient E&M: 23206 Subs Hosp L2
--- NOTE | 2022-05-25 08:53 | PN.HOSP_ITS ---
Subjective Subjective Follow-up for left large pleural effusion with generalized weakness and anemia BP is elevated 173/90. Objective Data Objective Data Vital Signs: Vital Signs Temp Pulse Resp BP Pulse Ox O2 Del Method 97.8 F 90 18 173/90 H 94 Room Air 05/25/22 02:43 05/25/22 02:43 05/25/22 02:43 05/25/22 02:43 05/25/22 07:05 05/25/22 07:05 Oxygen Delivery Method [5] Room Air Oxygen Delivery Method [4] Room Air Oxygen Delivery Method [3] Room Air Oxygen Delivery Method [2] Room Air Oxygen Delivery Method [1 ( Room Air Initial Baseline)] Oxygen Delivery Method Room Air Weight: 129 lb 6.581 oz Body Mass Index (BMI) 27.8 Intake & Output: Intake and Output for Last 24 Hours 05/23/22 05/24/22 05/25/22 23:59 23:59 23:59 Intake Total 110 / 110 2620.00 / 2620.00 460 / 460 Output Total 470 / 470 Balance 110 / 110 2150.00 / 2150.00 460 / 460 Lab / Micro Data Result Diagrams: 05/24/22 03:32 05/24/22 03:32 Labs: Laboratory Results - last 24 hr 05/24/22 03:32: Vitamin B12 369 05/24/22 03:32: Magnesium 2.7 H, Iron 37 L, TIBC 180 L, Iron Saturation 20.6, Ferritin 1094 H, Folate 11.30 05/24/22 08:00: Fluid Glucose 103 H, Fluid LDH 249 05/24/22 14:18: Fluid Source THORACENTESIS, Fluid Color RED, Fluid Appearance SL CLDY, Fluid WBC 0.484, Fluid RBC 0.114, Fluid Tot Cell Count 0.488 H, Fld Polynuclear WBCs # 0.031, Fld Polynuclear WBCs % 6.4, Fluid Mononuclear WBCs 0.453, Fld Mononuclear WBCs % 93.6, Fluid Neutrophils 11, Fluid Lymphocytes 80, Fluid Monocytes 1, Fluid Macrophages 8, Fl Pathologist Comment May follow, Fluid Comment 2 SEE COMMENT 05/24/22 : Fluid Total Protein 3.5 Micro: Microbiology 05/24/22 10:45 Sputum, Expectorated/Coughed Gram Stain - Final 05/24/22 05:48 Stool Stool Occult Blood (LILO) - Final 05/23/22 20:20 Mucosa - Nasopharyngeal Respiratory Panel (PCR) - Final 05/23/22 19:20 Urine, Clean Catch Legionella Antigen - Final 05/23/22 19:20 Urine, Clean Catch Streptococcus pneumoniae Antigen (M - Final 05/23/22 13:25 Nasal Secretion SARS-CoV-2 & FLU Antigen (Rapid) - Final Radiography Diagnostic Testing: Radiology Impression Echocardiogram 05/23/22 17:23 Interpretation Summary Normal LV size. Mild concentric left ventricular hypertrophy. Left ventricular systolic function is normal. The estimated ejection fraction is 60 %. Apical hypertrophy The left atrium is moderately enlarged. Pulmonary artery systolic pressure is 38 mmHg. Ordering Physician: aL Parish Referring Physician: Paul Mccullough Performed By: Vaishali Bartholomew RDCS Chest X-Ray 05/24/22 14:10 IMPRESSION: Status post left thoracentesis. No evidence of pneumothorax. Electronically Signed: William Jacobs MD at 14:27 EST , Thoracentesis Ultrasound 05/24/22 17:23 IMPRESSION: Ultrasound-guided left thoracentesis. Electronically Signed: William Jacobs MD at 14:33 EST , Rhythm Strip Rhythm Strip: A-fib Rate: 91 Ectopy: None Physical Exam Narrative Patient has improvement in shortness of breath. Had left-sided thoracocentesis yesterday Physical Examination: General: Alert, Oriented x3, Cooperative HEENT: Atraumatic, PERRLA, EOMI, Normocephalic Oral:. No Gingival or Mucosal Lesions/ Ulcerations Neck: Supple, No JVD, Negative Carotid Bruits Lungs: Air entry severely diminished in left side. Large left pleural effusion stony dullness.. No crepitation/rhonchi Cardiovascular: Regular rate, Regular Rhythm, Normal S1, Normal S2, systolic murmur over LLSB and cardiac apex. Abdomen: Bowel Sounds Present, Soft, Non Tender, Non-Distended : No renal angle tenderness. No suprapubic tenderness. Extremities: Mild 1+ ankle edema, Capillary Refill Less than 3 Seconds Skin: No rashes, No breakdown Musculoskeletal: ROM restricted. Joints. No Tenderness to Palpation of Joints or Extremities Neurological: Cranial nerves II-XII grossly intact, DTR 2+/4 and Symmetrical Psych/Mental Status: Flat affect. Assessment & Plan Assessment/Plan (1) Pleural effusion on left: PLAN: Plan The patient is an 81 y/o F is being admitted through ER for fever, left-sided pleural effusion with questionable mass on chest x-ray. Patient was also found significantly anemic. Patient has history of smoking since teenage, 1 pack per day and recently cut down to less than half pack per day. Denies any chronic lung disease including COPD asthma or interstitial lung disease. For last 1 year patient has been getting progressively short of breath on exertion which is increased recently in the last few days. Patient has chronic cough. No fever. Denies urinary tract symptoms. Recently had UTI with hematuria. Generalized weakness #1. Large left pleural effusion including in minor fissure with collapse of the lingula and left lower lobe. Patient is being admitted Medr floor. She had chest x-ray and CT chest individually reviewed.On IV Rocephin and Zithromax, bronchodilator. SARS-CoV-2 antigen and flu antigen are negative. Leukocytosis with left shift but has improved. Patient had CT chest with individually reviewed which shows left pleural effusion with partial collapse of lingula and inferior left lower lobe. No mass seen in individualized aerated left and right lung. Collapse of left upper lobe and superior segment of left lower lobe. No pneumothorax. Patient is scheduled for thoracocentesis. Pulmonary was consulted and discussed the finding of CT chest. 05/25: Patient had thoracocentesis, 70 mL bloody fluid drained. As per lights criteria, pleural fluid analysis consistent with exudate. 80% lymphocyte, 11% neutrophil monocyte 1%. Pleural fluid culture pending. Pathologist comment pending.Gram stain shows rare gram-positive cocci, gram-positive rods and 2+ WBC. Echo reported EF 60%, mild concentric LVH. Apical hypertrophy. LA modera tely enlarged. PASP 38 mmHg. #2. Acute new onset macrocytic anemia: Admission hemoglobin 9.2, MCV 99.3, occurred over the last month. Guaiac test negative. LDH 272. Hemoglobin is 8.4., Folic and B12 ordered. Warfarin on hold. GI consulted. On IV PPI 05/25: Hemoglobin on baseline 8.4 similar to yesterday. Phosphorus 2.1. Magnesium 2.7. B12 369, folate 11 normal. B12 getting replaced. #3. Hypokalemia and hypomagnesemia: Admission K+ 3.1, magnesium 1.2. Serum phosphorus ordered. Magnesium replaced. Repeat potassium 3.6. #4. CAD: Status post PCI continue statin, metoprolol, lisinopril home regimen. Aspirin is temporarily held. Coumadin held. #5. Chronic atrial fibrillation: Currently rate controlled, continue metoprolol #6. Hypertension: Continue home regimen including metoprolol, lisinopril, isosorbide, Lasix with hold parameters as needed, PRN hydralazine. #7. Hyperlipidemia: continue patient on statin therapy. #8. Rheumatoid arthritis: Given presentation will hold methotrexate, continue folic acid supplementation. #9. Tobacco Abuse: Encouraged cessation, inpatient consultation per RT, NR if desired. #10. GERD: #11. DVT prophylaxis: SCDs #12. CODE status: Patient HANSA is her son Flex and living will is mell clements in place. Discussed CODE status at length including difference between FULL code, DNR-CCA and DNR-CC status. Total time of the visit including total time spent in counseling or coordination of care, (more than 50% of the total time, spent in obtaining medical information from nurses and other ancillary care providers,explaining to the patient about labs, imaging, diagnosis and management of active complex medical conditions), clinical update given to patient and patient's daughter regarding CT chest, review of labs and imaging is 55 minutes. Microbiology Past 72 Hours 05/24/22 10:45 Sputum, Expectorated/Coughed Gram Stain - Final 05/24/22 10:45 Sputum, Expectorated/Coughed Respiratory Culture - Preliminary 05/24/22 05:48 Stool Stool Occult Blood (LILO) - Final 05/23/22 20:20 Mucosa - Nasopharyngeal Respiratory Panel (PCR) - Final 05/23/22 19:20 Urine, Clean Catch Legionella Antigen - Final 05/23/22 19:20 Urine, Clean Catch Streptococcus pneumoniae Antigen (M - Final 05/23/22 13:25 Nasal Secretion SARS-CoV-2 & FLU Antigen (Rapid) - Final Charges/Coding Visit Charges Inpatient E&M: 82153 Subs Hosp L2
[2022-05-25] MEDS: Lisinopril 20 MG Tablet PO ×2 (09:10→19:57)
[2022-05-25] MEDS: Metoprolol(XL)Succ 25 MG Tablet 75 MG PO (09:10)
[2022-05-25] MEDS: Folic Acid 1 MG Tablet 2 MG PO (09:10)
[2022-05-25] MEDS: Isosorbide Mononitrate 30 MG Tablet PO (09:10)
[2022-05-25] MEDS: Potassium Chloride Oral Tablet 20 MEQ 40 MEQ PO (09:10)
[2022-05-25] MEDS: 0.9% Saline Lock 10 ML Syringe IV ×2 (09:27→13:02)
[2022-05-25] MEDS: Ceftriaxone 1 GM/50 ML BAG IV (09:28)
[2022-05-25] MEDS: Cyanocobalamin 500 MCG Tablet 1000 MCG PO (10:20)
--- NOTE | 2022-05-25 13:24 | CHAPLAIN ---
Type of Pastoral Visit _x__ Initial Visit ___ Follow-up Visit ___ On-call Visit ___ General Patient Visit ___ Spiritual Assessment ___ Family Conference ___ Bereavement ___ Rapid Response ___ Code Blue ___ Other (describe below) Pastoral Care Referral From _x__ Patient ___ Family ___ Nurse ___ Physician ___ Mold Stacker ___ Project Specialist ___ Other (describe below) Sacrament/Intervention _x__ Active listening ___ Anointing ___ Latter-Day ___ Bereavement ___ Communion ___ Faviola exploration ___ _x__ Life review _x__ Prayer ___ Reconciliation ___ Sacrament of Sick _x__ Supportive presence ___ Wedding ___ Other (describe below) Pastoral Comments patient is working on a word search puzzle; pt states that she wishes to go home soon; pt has family living with her and receives good care; pt speaks of being the last living member of her biological family and the sadness of that; pt welcomes presence and prayer
[2022-05-25] MEDS: 0.9% Normal Saline 1,000 ML 75 ML IV (14:28)
[2022-05-25] MEDS: hydrALAZINE 25 MG Tablet PO ×2 (14:37→19:57)
--- NOTE | 2022-05-25 14:38 | NURSING ---
id bracelet wont scan, verified w/genoveva infante rn
--- NOTE | 2022-05-25 14:45 | CASEMGMT ---
Addendum entered by Shi Hinds 05/25/22 15:47: Notified by Akiko at [facility] that they are unable to accept pt. States they do not take pt insurance. LEONCIO COOPER in to pt room, pt next choice is [facility] followed by [facility]. Referral [facility] to [facility] Original Note: LEONCIO COOPER in to pt room to discuss dc planning. Pt is agreeable to having HHC come back. Patient was provided a list of HHC providers including quality and resource use data and consistent with the patient?s preferred geographic region, medical needs, and insurance network were provided from the [facility] Guide. Pt chose [facility] which is who she had in the past. Referral sent at this time via [facility].
[2022-05-25] MEDS: Atorvastatin Calcium 10 MG Tablet PO (19:57)
[2022-05-25] MEDS: Pantoprazole Sodium 40 MG Tablet PO (19:57)
[2022-05-26] VITALS (9 sets, daily range): BP systolic 150–181; BP diastolic 81–117; PULSE 97–111; RESP 18; TEMP 36.6–36.9; O2SAT 94–97
[2022-05-26] MEDS: 0.9% Normal Saline 1,000 ML 75 ML IV (04:00)
[2022-05-26] MEDS: hydrALAZINE 20 MG/ML Vial 10 MG IV (04:00)
[2022-05-26] MEDS: hydrALAZINE 25 MG Tablet PO (05:12)
[2022-05-26 05:57] LABS: Absolute Lymphocyte Count 0.74 X10^3/uL (0.83-4.51); Absolute Neutrophil Count 11.8 X10^3/uL (2.0-7.7); Basophil# 0.03 X10^3/uL; Basophil% 0.2 % (0-1); Eosinophil# 0.04 X10^3/uL; Eosinophils% 0.3 % (0-5); Hemoglobin 8.8 g/dL (12.0-15.0); Lymphocyte # 0.74 X10^3/ul (0.83-4.51); Lymphocyte % 5.5 % (19-41); Mean Corp Hgb Conc 32.6 g/dL (32-36); Mean Corpuscular Hgb 33.1 pg (27.0-32.0); Mean Corpuscular Volume 101.5 fL (81-99); Monocyte# 0.84 X10^3/uL; Monocyte% 6.2 % (0-10); NRBC Flagged by Analyzer 0 % (0-5); Neutrophil % 86.9 % (47-70); Platelet Count 440 K/mm3 (150-450); RBC Distribution Width CV 16.1 % (11.6-14.6); RBC Distribution Width SD 57.4 fl (35.1-43.9); Red Blood Count 2.66 M/mm3 (4.2-5.4); White Blood Count 13.6 K/mm3 (4.4-11.0)
[2022-05-26 06:21] LABS: Anion Gap 7 (5-15); BUN 13 mg/dL (7-18); BUN/Creat Ratio 14.7 RATIO (10-20); Calcium,Total 9.2 mg/dL (8.5-10.1); Chloride 108 mmol/L (98-107); Creatinine, Serum 0.88 mg/dL (0.55-1.02); EST Glomerular Filtration Rate 65 mL/min (>60); Est Glom Filt Rate - Afr Amer 78 mL/min (>60); Estimated Creatinine Clearance 46.34 ml/min; Glucose 130 mg/dL (74-106); Potassium 4.5 mmol/L (3.5-5.1); Sodium Level 136 mmol/L (136-145)
[2022-05-26] MEDS: Folic Acid 1 MG Tablet 2 MG PO (08:26)
[2022-05-26] MEDS: Aspirin E.C. 81 MG Tablet PO (08:27)
[2022-05-26] MEDS: Isosorbide Mononitrate 30 MG Tablet PO (08:27)
[2022-05-26] MEDS: Furosemide 20 MG Tablet PO (08:27)
[2022-05-26] MEDS: Cyanocobalamin 500 MCG Tablet 1000 MCG PO (08:27)
[2022-05-26] MEDS: Metoprolol(XL)Succ 25 MG Tablet 75 MG PO (08:27)
[2022-05-26] MEDS: Potassium Chloride Oral Tablet 20 MEQ 40 MEQ PO (08:27)
[2022-05-26] MEDS: Pantoprazole Sodium 40 MG Tablet PO (08:28)
[2022-05-26] MEDS: Lisinopril 20 MG Tablet PO (08:28)
--- NOTE | 2022-05-26 08:32 | PCM.PN.INT ---
Assessment & Plan Assessment/Plan (1) Pleural effusion: PLAN: Plan RECOMMENDATIONS: 1. Await pleural fluid cytology and culture results. 2. Encourage incentive spirometer use while in bed and mobilize patient as tolerated. 3. Continue empiric antimicrobials. 4. Outpatient pulmonary follow-up within 2 weeks of discharge is recommended. IMPRESSIONS: 1. Pleural effusion The patient presented to the hospital with mild shortness of breath with radiographic evidence of a left-sided pleural effusion of unclear etiology. However, underlying infection is certainly a possibility. The patient underwent an ultrasound-guided thoracentesis on May 24, which revealed a lymphocyte predominant exudate. The patient remains on appropriate antimicrobials for now. Pleural fluid cultures and cytology are pending. Per traditional Light's criteria, if at least one of the following three is fulfilled, the fluid would be considered an exudate: 1. Pleural fluid protein/serum protein ratio greater than 0.5 2. Pleural fluid LDH/serum LDH ratio greater than 0.6 3. Pleural fluid LDH greater than two thirds the upper limits of the laboratories normal serum LDH Based upon my review of the patient's pleural fluid analysis, along with serum LDH and total protein levels, the pleural fluid would be considered exudative in nature. The differential for a lymphocyte predominant exudate would include malignancy, pleural manifestations of her rheumatoid arthritis and infection. In addition, given that the pleural fluid was bloody in nature, the effusion could also have developed as a consequence of her coagulopathy in the setting of a supratherapeutic INR. The patient is stable from a respiratory perspective on room air. She can follow-up in the pulmonary medicine clinic within 2 weeks of discharge, at which time, we will review the finalized results of her pleural fluid analysis, including cytology. 2. Anemia The patient does have baseline anemia, which may have worsened in the setting of a recent coagulopathy. This has since resolved. Plan to continue PPI therapy and monitor H&H. Transfuse if hemoglobin drops below 7 g/dL. 3. History of coronary artery disease/chronic atrial fibrillation/rheumatoid arthritis Complicates care, management, recovery and prognosis. Continue home medications as indicated. This note was generated with [employer]iga[employer] software. It may contain incorrect words, spelling, and punctuation that were not noted in checking the note before signing. Subjective Subjective The patient was seen and examined at the bedside this morning. Events from the last 24 hours have been reviewed. The patient is currently afebrile, hemodynamically stable and maintaining appropriate oxygen saturations on room air. The patient is without any specific complaints this morning. Objective Data Objective Data The patient's most recent lab work, culture data and imaging studies have all been personally reviewed. Surface echocardiogram demonstrated mild concentric LVH with an ejection fraction of 60% and a pulmonary artery systolic pressure of 38 mmHg. Vital Signs: Vital Signs Temp Pulse Resp BP Pulse Ox O2 Del Method 97.8 F 100 18 166/100 H 96 Room Air 05/26/22 08:25 05/26/22 08:27 05/26/22 08:25 05/26/22 08:25 05/26/22 08:25 05/26/22 08:25 Oxygen Delivery Method [5] Room Air Oxygen Delivery Method [4] Room Air Oxygen Delivery Method [3] Room Air Oxygen Delivery Method [2] Room Air Oxygen Delivery Method [1 ( Room Air Initial Baseline)] Oxygen Delivery Method Room Air Weight: 133 lb 9.602 oz Body Mass Index (BMI) 27.8 Intake & Output: Intake and Output for Last 24 Hours 05/24/22 05/25/22 05/26/22 23:59 23:59 23:59 Intake Total 2620.00 / 2620.00 2195.00 / 2195.00 1120 / 1120 Output Total 470 / 470 Balance 2150.00 / 2150.00 2195.00 / 2195.00 1120 / 1120 Lab / Micro Data Attestation: I reviewed the patient's lab results. Result Diagrams: 05/26/22 05:45 05/26/22 05:45 Labs: Laboratory Results - last 24 hr 05/26/22 05:45: WBC 13.6 H, RBC 2.66 L, Hgb 8.8 L, Hct 27.0 L, MCV 101.5 H, MCH 33.1 H, MCHC 32.6, RDW Std Deviation 57.4 H, RDW Coeff of Doris 16.1 H, Plt Count 440, MPV 10.0, Immature Gran % (Auto) 0.900, Neut % (Auto) 86.9 H, Lymph % (Auto) 5.5 L, Lyon % (Auto) 6.2, Eos % (Auto) 0.3, Baso % (Auto) 0.2, Absolute Neuts (auto) 11.8 H, Absolute Lymphs (auto) 0.74 L, Nucleated RBC % 0 05/26/22 05:45: Sodium 136, Potassium 4.5, Chloride 108 H, Carbon Dioxide 21.0, Anion Gap 7, BUN 13, Creatinine 0.88, Estim Creat Clear Calc 46.34, Est GFR (MDRD) Af Amer 78, Est GFR (MDRD) Non-Af 65, BUN/Creatinine Ratio 14.7, Glucose 130 H, Calcium 9.2 Micro: Microbiology 05/24/22 10:45 Sputum, Expectorated/Coughed Gram Stain - Final 05/24/22 10:45 Sputum, Expectorated/Coughed Respiratory Culture - Final Mixed normal respiratory christiane. No Streptococcus pneumoniae, beta-hemolytic Streptococcus or Staphylococcus aureus isolated. 05/24/22 14:18 Fluid - Thoracentesis Fluid Gram Stain - Final 05/24/22 05:48 Stool Stool Occult Blood (LILO) - Final 05/23/22 20:20 Mucosa - Nasopharyngeal Respiratory Panel (PCR) - Final 05/23/22 19:20 Urine, Clean Catch Legionella Antigen - Final 05/23/22 19:20 Urine, Clean Catch Streptococcus pneumoniae Antigen (M - Final 05/23/22 13:25 Nasal Secretion SARS-CoV-2 & FLU Antigen (Rapid) - Final Radiography Diagnostic Testing: Radiology Impression Echocardiogram 05/23/22 17:23 Interpretation Summary Normal LV size. Mild concentric left ventricular hypertrophy. Left ventricular systolic function is normal. The estimated ejection fraction is 60 %. Apical hypertrophy The left atrium is moderately enlarged. Pulmonary artery systolic pressure is 38 mmHg. Ordering Physician: La Parish Referring Physician: Paul Mccullough Performed By: Vaishali Bartholomew, RAFAELA Chest X-Ray 05/24/22 14:10 IMPRESSION: Status post left thoracentesis. No evidence of pneumothorax. Electronically Signed: William Jacobs MD at 14:27 EST , Thoracentesis Ultrasound 05/24/22 17:23 IMPRESSION: Ultrasound-guided left thoracentesis. Electronically Signed: William Jacobs MD at 14:33 EST , Rhythm Strip Rhythm Strip: A-fib Rate: 91 Ectopy: None Physical Exam Const alert and no apparent distress Constitutional Narrative: Sitting in bedside recliner. General Appearance: cooperative HEENT normocephalic, head/scalp atraumatic and moist oral mucous membranes General Ear: hearing grossly impaired Eyes PERRL, EOMs intact bilaterally and conjunctivae normal Neck supple General: trachea midline Chest inspection of chest normal Resp normal respiratory effort Auscultation: rales Cardio regular rate and regular rhythm GI normal to inspection, nondistended, normoactive bowel sounds Extremity no clubbing, cyanosis or edema Skin no rashes or lesions noted Neuro CN's II-XII intact bilaterally and no focal motor deficits Psych cooperative and affect normal Charges/Coding Visit Charges Inpatient E&M: 65285 Subs Hosp L2
[2022-05-26] MEDS: Ceftriaxone 1 GM/50 ML BAG IV (08:35)
[2022-05-26] MEDS: Acetaminophen 325 MG Tablet 650 MG PO (08:35)
--- NOTE | 2022-05-26 08:56 | PCM.DC ---
Discharge Instructions Diet Discharge Diet: 2000 mg Sodium Diet Activity Discharge Activity: Return to Normal Activity and May Not Drive Weight Bearing Status: Weight bearing as tolerated Dressing / Incision Call your doctor if you observe: Fever of 101 or Higher, Coldness, Increased Pain, Numbness or Tingling, Change in Color, Inability to urinate, Inability to have a bowel movement, Shortness of breath, Dizziness, Fainting spells, Swelling in the ankles, Chest pain, Prolonged hiccupping, Increased palpitations (irregular heartbeat), Calf discomfort and Uncontrolled pain Follow Up Care Test Results: Test results from this visit will be discussed in further detail at your follow-up appointment, if applicable. Discharge Plan Admission Admit Date/Time: 05/23/22 15:43 Primary Reason for Your Visit: Large left pleural effusion Attending Provider: Srinivasa Dennis Primary Care Provider: Paul Mccullough Consulting Providers: La Parish ; Shiva Winter ; Ra George ; Shane Jones ; Reji Paniagua ; Maile Mcbride RESERVE OPERATOR Instructions Patient Instructions: TIFFANIE RN Thoracentesis Dc Discharge Orders/Prescriptions Prescriptions: New cyanocobalamin (vitamin B-12) 500 mcg Tablet 1,000 mcg PO BREAKFAST Qty: 30 0RF cefdinir 300 mg capsule 300 mg PO BID Qty: 8 0RF hydrochlorothiazide 12.5 mg tablet 12.5 mg PO DAILY Qty: 30 1RF Rx Instructions: Hold for SBP less than 130 mmHg Mucinex DM 30-600 mg tablet extended release 12 hr 1 tab PO Q12H 7 Days Qty: 14 0RF Continued folic acid 1 mg tablet 2 mg PO DAILY cholecalciferol (vitamin D3) 25 mcg (1,000 unit) tablet 25 mcg PO DAILY polyethylene glycol 3350 [Miralax] 17 gram/dose powder 17 g PO DAILY PRN (Reason: Constipation) methotrexate sodium 2.5 MG tablet 15 mg PO FR aspirin 81 mg Tablet,Delayed Release (Dr/Ec) 81 mg PO DAILY gabapentin 100 mg capsule 100 mg PO BID lisinopril 20 mg tablet 20 mg PO BID isosorbide mononitrate 30 mg tablet extended release 24 hr 30 mg PO DAILY acetaminophen 500 MG tablet 1,000 mg PO Q6H PRN (Reason: Pain) pantoprazole 40 mg tablet,delayed release (DR/EC) 40 mg PO DAILY simvastatin 20 mg tablet 20 mg PO QHS furosemide [Lasix] 20 mg tablet 20 mg PO QODAY metoprolol succinate 50 mg tablet extended release 24 hr 75 mg PO DAILY Qty: 135 3RF Referrals / Follow Up: Ra George DO [Med Staff - Active Staff] - Within 1 Week (Next week, and week of 05/29/2022 with Maile Diane) Paul Mccullough MD [Primary Care Provider] - Within 2 Weeks (r) Disposition Disposition (needs filled in before D/C Order can be placed): Home, Self Care
--- NOTE | 2022-05-26 10:10 | PCM.DC.SUM ---
Providers Date of Admission: 05/23/22 Date of Discharge: 05/26/22 Primary Care Physician: Dr. Paul Mccullough MD Consultations 05/23/22 17:23 Consult: Gastroenterology Routine Consulting Provider: [facility] Reason for Consult: Acute anemia, 13->9 over 4 weeks, possible GI component EMERGENT Consult: No Notified: Yes Date Notified: 05/23/22 Time Notified: 15:48 Method of Notification: Text 05/24/22 09:07 Consult: Java Security Engineer / Pulmonary Medicine Routine Consulting Provider: [facility] Reason for Consult: Large left pleural effusion, smoker, mass? EMERGENT Consult: No Notified: Yes Date Notified: 05/24/22 Time Notified: 09:08 Method of Notification: Verbal Reason For Visit: ? PNA, L SIDED EFFUSION, NEW ANEMIA Diagnosis Discharge Diagnosis (1) Pleural effusion on left: Status: Acute Code(s): J90 - Pleural effusion, not elsewhere classified Plan The patient is an 81 y/o F is being admitted through ER for fever, left-sided pleural effusion with questionable mass on chest x-ray. Patient was also found significantly anemic. Patient has history of smoking since teenage, 1 pack per day and recently cut down to less than half pack per day. Denies any chronic lung disease including COPD asthma or interstitial lung disease. For last 1 year patient has been getting progressively short of breath on exertion which is increased recently in the last few days. Patient has chronic cough. No fever. Denies urinary tract symptoms. Recently had UTI with hematuria. Generalized weakness #1. Large left pleural effusion including in minor fissure with collapse of the lingula and left lower lobe. Patient is being admitted MedSurg floor. She had chest x-ray and CT chest individually reviewed.On IV Rocephin and Zithromax, bronchodilator. SARS-CoV-2 antigen and flu antigen are negative. Leukocytosis with left shift but has improved. Patient had CT chest with individually reviewed which shows left pleural effusion with partial collapse of lingula and inferior left lower lobe. No mass seen in individualized aerated left and right lung. Collapse of left upper lobe and superior segment of left lower lobe. No pneumothorax. Patient is scheduled for thoracocentesis. Pulmonary was consulted and discussed the finding of CT chest. 05/25: Patient had thoracocentesis, 70 mL bloody fluid drained. As per lights criteria, pleural fluid analysis consistent with exudate. 80% lymphocyte, 11% neutrophil monocyte 1%. Pleural fluid culture pending. Pathologist comment pending.Gram stain shows rare gram-positive cocci, gram-positive rods and 2+ WBC. Echo reported EF 60%, mild concentric LVH. Apical hypertrophy. LA moderately enlarged. PASP 38 mmHg. 05/26: Gram stain of pleural fluid does not show any organism. Final in 3 to 5 days. Cytology pending.Discussed with plastic die maker apprentice. I agreed with the discharge on antibiotic cefdinir for 4 more days along with Mucinex DM. Follow-up next week in pulmonary clinic with Maile Diane/Dr. George to discuss about thoracocentesis cytology and culture. #2. Acute new onset macrocytic anemia: Admission hemoglobin 9.2, MCV 99.3, occurred over the last month. Guaiac test negative. LDH 272. Hemoglobin is 8.4., Folic and B12 ordered. GI consulted. On IV PPI. 05/25: Hemoglobin on baseline 8.4 similar to yesterday. Phosphorus 2.1. Magnesium 2.7. B12 369, folate 11 normal. B12 getting replaced. 05/26: Prescription for B12 given. Correction: Patient not on warfarin at home. #3. Hypokalemia and hypomagnesemia: Admission K+ 3.1, magnesium 1.2. Serum phosphorus ordered. Magnesium replaced. Repeat potassium 3.6. 05/26: Electrolytes corrected. Hypokalemia and hypomagnesemia corrected. #4. CAD: Status post PCI continue statin, metoprolol, lisinopril home regimen. Aspirin is temporarily held. Coumadin held. #5. Chronic atrial fibrillation: Currently rate controlled, continue metoprolol #6. Hypertension: Continue home regimen including metoprolol, lisinopril, isosorbide, Lasix with hold parameters as needed, PRN hydralazine. 05/20 goal blood pressure is high. A prescription for HCTZ 12.5 mg daily for 30 days given. Follow with PCP #7. Hyperlipidemia: continue patient on statin therapy. #8. Rheumatoid arthritis: Resume methotrexate, continue folic acid supplementation. #9. Tobacco Abuse: Encouraged cessation, inpatient consultation per RT, NR if desired. #10. GERD: #11. DVT prophylaxis: SCDs #12. CODE status: Patient HANSA is her son Flex and living will is currently in place. Discussed CODE status at length including difference between FULL code, DNR-CCA and DNR-CC status. Discharge medication reconciliation done. Discharge follow-up instructions completed. Discharge process discussed with the patient and all questions were answered to patient's satisfaction. Total time spent, exact 35 minutes on discharge meds reconciliation, examination, coordination of care with nurses and ancillary staff, review of imaging and blood test and discussion with the patient on follow-up instructions. Microbiology Past 72 Hours 05/24/22 10:45 Sputum, Expectorated/Coughed Gram Stain - Final 05/24/22 10:45 Sputum, Expectorated/Coughed Respiratory Culture - Final Mixed normal respiratory christiane. No Streptococcus pneumoniae, beta-hemolytic Streptococcus or Staphylococcus aureus isolated. 05/24/22 14:18 Fluid - Thoracentesis Fluid Gram Stain - Final 05/24/22 05:48 Stool Stool Occult Blood (LILO) - Final 05/23/22 20:20 Mucosa - Nasopharyngeal Respiratory Panel (PCR) - Final 05/23/22 19:20 Urine, Clean Catch Legionella Antigen - Final 05/23/22 19:20 Urine, Clean Catch Streptococcus pneumoniae Antigen (M - Final 05/23/22 13:25 Nasal Secretion SARS-CoV-2 & FLU Antigen (Rapid) - Final Laboratory Results 05/26/22 05:45: WBC 13.6 H, RBC 2.66 L, Hgb 8.8 L, Hct 27.0 L, MCV 101.5 H, MCH 33.1 H, MCHC 32.6, RDW Std Deviation 57.4 H, RDW Coeff of Doris 16.1 H, Plt Count 440, MPV 10.0, Immature Gran % (Auto) 0.900, Neut % (Auto) 86.9 H, Lymph % (Auto) 5.5 L, Dorado % (Auto) 6.2, Eos % (Auto) 0.3, Baso % (Auto) 0.2, Absolute Neuts (auto) 11.8 H, Absolute Lymphs (auto) 0.74 L, Nucleated RBC % 0 05/26/22 05:45: Sodium 136, Potassium 4.5, Chloride 108 H, Carbon Dioxide 21.0, Anion Gap 7, BUN 13, Creatinine 0.88, Estim Creat Clear Calc 46.34, Est GFR (MDRD) Af Amer 78, Est GFR (MDRD) Non-Af 65, BUN/Creatinine Ratio 14.7, Glucose 130 H, Calcium 9.2 Medications at Discharge Home Medications folic acid 1 mg tablet 2 mg PO DAILY supplement 03/14/18 methotrexate sodium 2.5 mg tablet 15 mg PO FR RHEUMATOID ARTHRITIS 09/30/19 metoprolol succinate 50 mg tablet,extended release 24 hr 75 mg PO DAILY blood pressure/heart rate #135 tabs 06/30/21 cholecalciferol (vitamin D3) 25 mcg (1,000 unit) tablet 25 mcg PO DAILY SUPPLEMENT 11/08/21 polyethylene glycol 3350 17 gram/dose oral powder (Miralax) 17 g PO DAILY PRN Constipation 11/08/21 acetaminophen 500 mg tablet 1,000 mg PO Q6H PRN Pain 05/23/22 aspirin 81 mg tablet,delayed release 81 mg PO DAILY HEART HEALTH 05/23/22 furosemide 20 mg tablet (Lasix) 20 mg PO QODAY FLUID 05/23/22 gabapentin 100 mg capsule 100 mg PO BID NERVE PAIN 05/23/22 isosorbide mononitrate 30 mg tablet,extended release 24 hr 30 mg PO DAILY HEART 05/23/22 lisinopril 20 mg tablet 20 mg PO BID BLOOD PRESSURE 05/23/22 pantoprazole 40 mg tablet,delayed release 40 mg PO DAILY ACID REFLUX 05/23/22 simvastatin 20 mg tablet 20 mg PO QHS CHOLSTEROL 05/23/22 cefdinir 300 mg capsule 300 mg PO BID #8 caps 05/26/22 cyanocobalamin (vitamin B-12) 500 mcg tablet 1,000 mcg PO BREAKFAST #30 tabs 05/26/22 dextromethorphan-guaifenesin 30 mg-600 mg tablet extended [id number] hr (Mucinex DM) 1 tab PO Q12H 7 days #14 tabs 05/26/22 hydrochlorothiazide 12.5 mg tablet 12.5 mg PO DAILY #30 tabs 05/26/22 Physical Exam Narrative Patient has improvement in shortness of breath. Had left-sided thoracocentesis yesterday Physical Examination: General: Alert, Oriented x3, Cooperative HEENT: Atraumatic, PERRLA, EOMI, Normocephalic Oral:. No Gingival or Mucosal Lesions/ Ulcerations Neck: Supple, No JVD, Negative Carotid Bruits Lungs: Air entry severely diminished in left side. Large left pleural effusion stony dullness.. No crepitation/rhonchi Cardiovascular: Regular rate, Regular Rhythm, Normal S1, Normal S2, systolic murmur over LLSB and cardiac apex. Abdomen: Bowel Sounds Present, Soft, Non Tender, Non-Distended : No renal angle tenderness. No suprapubic tenderness. Extremities: Mild 1+ ankle edema, Capillary Refill Less than 3 Seconds Skin: No rashes, No breakdown Musculoskeletal: ROM restricted. Joints. No Tenderness to Palpation of Joints or Extremities Neurological: Cranial nerves II-XII grossly intact, DTR 2+/4 and Symmetrical Psych/Mental Status: Flat affect. Weight / BMI Weight Weight: 133 lb 9.602 oz Body Mass Index (BMI) 27.8 ABG / Lab / Microbiology Data Result Diagrams: 05/26/22 05:45 05/26/22 05:45 Laboratory: Laboratory Results - last 24 hr 05/26/22 05:45: WBC 13.6 H, RBC 2.66 L, Hgb 8.8 L, Hct 27.0 L, MCV 101.5 H, MCH 33.1 H, MCHC 32.6, RDW Std Deviation 57.4 H, RDW Coeff of Doris 16.1 H, Plt Count 440, MPV 10.0, Immature Gran % (Auto) 0.900, Neut % (Auto) 86.9 H, Lymph % (Auto) 5.5 L, Dorado % (Auto) 6.2, Eos % (Auto) 0.3, Baso % (Auto) 0.2, Absolute Neuts (auto) 11.8 H, Absolute Lymphs (auto) 0.74 L, Nucleated RBC % 0 05/26/22 05:45: Sodium 136, Potassium 4.5, Chloride 108 H, Carbon Dioxide 21.0, Anion Gap 7, BUN 13, Creatinine 0.88, Estim Creat Clear Calc 46.34, Est GFR (MDRD) Af Amer 78, Est GFR (MDRD) Non-Af 65, BUN/Creatinine Ratio 14.7, Glucose 130 H, Calcium 9.2 Microbiology: Microbiology 05/24/22 10:45 Sputum, Expectorated/Coughed Gram Stain - Final 05/24/22 10:45 Sputum, Expectorated/Coughed Respiratory Culture - Final Mixed normal respiratory christiane. No Streptococcus pneumoniae, beta-hemolytic Streptococcus or Staphylococcus aureus isolated. 05/24/22 14:18 Fluid - Thoracentesis Fluid Gram Stain - Final 05/24/22 05:48 Stool Stool Occult Blood (LILO) - Final 05/23/22 20:20 Mucosa - Nasopharyngeal Respiratory Panel (PCR) - Final 05/23/22 19:20 Urine, Clean Catch Legionella Antigen - Final 05/23/22 19:20 Urine, Clean Catch Streptococcus pneumoniae Antigen (M - Final 05/23/22 13:25 Nasal Secretion SARS-CoV-2 & FLU Antigen (Rapid) - Final D/C Instructions Discharge Diet: 2000 mg Sodium Diet Weight Bearing Status: Weight bearing as tolerated Call your doctor if you observe: Fever of 101 or Higher, Coldness, Increased Pain, Numbness or Tingling, Change in Color, Inability to urinate, Inability to have a bowel movement, Shortness of breath, Dizziness, Fainting spells, Swelling in the ankles, Chest pain, Prolonged hiccupping, Increased palpitations (irregular heartbeat), Calf discomfort and Uncontrolled pain Meaningful Use Info Meaningful Use Diagnoses (Choose all that apply): None applicable Discharge Plan Admission Admit Date/Time: 05/23/22 15:43 Primary Reason for Your Visit: Large left pleural effusion Attending Provider: Srinivasa Dennis Primary Care Provider: Paul Mccullough Consulting Providers: La Parish ; Shiva Winter ; Ra George ; Shane Jones ; Reji Paniagua ; Maile Mcbride PRECISION DEVICES INSPECTOR/TESTER Instructions Patient Instructions: RAD RN Thoracentesis Dc Discharge Orders/Prescriptions Prescriptions: New cyanocobalamin (vitamin B-12) 500 mcg Tablet 1,000 mcg PO BREAKFAST Qty: 30 0RF cefdinir 300 mg capsule 300 mg PO BID Qty: 8 0RF hydrochlorothiazide 12.5 mg tablet 12.5 mg PO DAILY Qty: 30 1RF Rx Instructions: Hold for SBP less than 130 mmHg Mucinex DM 30-600 mg tablet extended release 12 hr 1 tab PO Q12H 7 Days Qty: 14 0RF Continued folic acid 1 mg tablet 2 mg PO DAILY cholecalciferol (vitamin D3) 25 mcg (1,000 unit) tablet 25 mcg PO DAILY polyethylene glycol 3350 [Miralax] 17 gram/dose powder 17 g PO DAILY PRN (Reason: Constipation) methotrexate sodium 2.5 MG tablet 15 mg PO FR aspirin 81 mg Tablet,Delayed Release (Dr/Ec) 81 mg PO DAILY gabapentin 100 mg capsule 100 mg PO BID lisinopril 20 mg tablet 20 mg PO BID isosorbide mononitrate 30 mg tablet extended release 24 hr 30 mg PO DAILY acetaminophen 500 MG tablet 1,000 mg PO Q6H PRN (Reason: Pain) pantoprazole 40 mg tablet,delayed release (DR/EC) 40 mg PO DAILY simvastatin 20 mg tablet 20 mg PO QHS furosemide [Lasix] 20 mg tablet 20 mg PO QODAY metoprolol succinate 50 mg tablet extended release 24 hr 75 mg PO DAILY Qty: 135 3RF Referrals / Follow Up: Ra George DO [Med Staff - Active Staff] - Within 1 Week (Next week, and week of 05/29/2022 with Maile Diane) Paul Mccullough MD [Primary Care Provider] - Within 2 Weeks (r) Disposition Disposition (needs filled in before D/C Order can be placed): Home, Self Care Charges/Coding Visit Charges Inpatient E&M: 43163 Disch Hosp >30min
--- NOTE | 2022-05-26 10:12 | CASEMGMT ---
Addendum entered by Shi Hinds 05/26/22 10:41: Received tc back from [facility], [facility] will see pt on Sunday. Pt aware. Original Note: LEONCIO COOPER notified that [facility] and [facility] are unable to accept pt. LEONCIO COOPER in to pt room, pt chooses [facility]. TC to Fiorella, referral made. She will call back with acceptance.
[2022-05-26 11:38] LABS: Pathologist Comment/Body Fluid Reviewed
[2022-05-29 21:33] LABS: Amylase Body Fluid 39 U/L (.); pH, Body Fluid 11254 7.4 (Not Estab.)
== END 2022-05-26 12:39 | disposition home health service (06) | DRG 187 ==
LOC: ED 16:01 → MS2 16:27
PROVIDERS: Admitting Provider Family Medicine; Emergency Provider Emergency Medicine; PCP Family Medicine; Visit Provider Internal Medicine
DX: J90 Pleural effusion, not elsewhere classified (principal); I48.11 Longstanding persistent atrial fibrillation; I48.20 Chronic atrial fibrillation, unspecified; J98.19 Other pulmonary collapse; M06.9 Rheumatoid arthritis, unspecified; I10 Essential (primary) hypertension; E87.6 Hypokalemia; E78.5 Hyperlipidemia, unspecified; K21.9 Gastro-esophageal reflux disease without esophagitis; I25.10 Atherosclerotic heart disease of native coronary artery without angina pectoris; D53.9 Nutritional anemia, unspecified; F17.210 Nicotine dependence, cigarettes, uncomplicated; B95.62 Methicillin resistant Staphylococcus aureus infection as the cause of diseases classified elsewhere; R79.1 Abnormal coagulation profile; Z79.01 Long term (current) use of anticoagulants; Z79.82 Long term (current) use of aspirin; Z95.5 Presence of coronary angioplasty implant and graft; B96.89 Other specified bacterial agents as the cause of diseases classified elsewhere; R05.3 Chronic cough
CPT/HCPCS: 32555; 36415; 71045; 71046; 71260; 80048; 80053; 82150; 82274; 82607; 82728; 82746; 82945; 83540; 83550; 83615; 83735; 83986; 84100; 84145; 84156; 84157; 85014; 85018; 85025; 85027; 85610; 86850; 86900; 86901; 87070; 87075; 87205; 87428; 87449; 87633; 87641; 88108; 88305; 88313; 89050; 93005; 93306; 94640; 94668; 97162; 97166; 97535; 99252; 99285; J7030; Q9967; A4216; G0463

== ENCOUNTER 2022-06-06 18:44 | Emergency (ER) | payer MEDICARE, SELFPAY ==
[2022-06-06] VITALS (14 sets, daily range): BP systolic 132–177; BP diastolic 72–87; PULSE 99–120; RESP 22–28; TEMP 36.5–36.6; O2SAT 92–97; BMI 25.2
--- NOTE | 2022-06-06 18:46 | EKG12_ITS ---
Test Reason : DYSRHYTHMIA Blood Pressure : / mmHG Vent. Rate : 098 BPM Atrial Rate : 394 BPM P-R Int : 000 ms QRS Dur : 076 ms QT Int : 320 ms P-R-T Axes : 000 018 197 degrees QTc Int : 408 ms Atrial fibrillation with premature ventricular or aberrantly conducted complexes ST & T wave abnormality, consider inferolateral ischemia Abnormal ECG Confirmed by MYRNA WORTHINGTON, HUBER ([id number]), editorial clerk JOHN BURKETT ([id number]) on 06/07/2022 9:18:05 AM Referred By: Confirmed By:HUBER NORRIS MD
--- NOTE | 2022-06-06 18:46 | CT_ITS ---
We are attempting to reach an attending provider to discuss findings. An addendum with communication details will be sent when the communication is complete. STUDY: CTA HEAD AND NECK WITH CONTRAST REASON FOR EXAM: Female, 81 years old. Neuro deficit, acute, stroke suspected RADIATION DOSAGE (If Supplied By Facility): CTDIvol = ( 23.05 ) mGy, DLP = ( 561.40 ) mGycm TECHNIQUE: CT angiography was performed with a multi-detector CT scanner. Data acquisition was obtained from the skull base through the vertex following intravenous administration of IV 100mL Isovue-370. MIP images were reconstructed from the axial data set. Post-processing of the angiographic images was performed, with multiplanar reformation and 3D reconstruction. Individualized dose optimization techniques were used for this CT. COMPARISON: No relevant priors. FINDINGS: Normal bilateral petrous carotid arteries. Mild calcific plaquing of the right cavernous carotid artery with a normal supraclinoid bifurcation. Mild calcific plaquing of the left cavernous carotid artery with a normal supraclinoid bifurcation. Normal right A1 segments of the anterior cerebral artery. Normal left A1 segments of the anterior cerebral artery. Anterior communicating artery not visualized consistent with normal variant). Normal bilateral A2 segments of the anterior cerebral arteries. Normal right M1 and M2 segments of the middle cerebral arteries, with a normal M1 bifurcation. Normal left M1 segments of the middle cerebral arteries, with a normal M1 bifurcation. There is a major branch occlusion of the distal M2 segment with nonvisualization of multiple sylvian branches. Posterior communicating arteries are not visualized consistent with normal variant. Normal bilateral vertebral arteries. Normal basilar artery with a normal basilar bifurcation. The visualized bilateral superior cerebellar (SCA) arteries are normal. Normal bilateral P1, P2 and visualized P3 segments of the posterior cerebral arteries. There is no demonstrated aneurysm of the [place]. There is no demonstrated abnormality of the visualized brain. AORTIC ARCH: Normal visualized aortic arch. Normal origins of the brachiocephalic, left common carotid, and left subclavian arteries. RIGHT CAROTID ARTERIES: Normal right common carotid artery (CCA). Minor calcific plaquing of the right common carotid bulb. Normal origin of the right internal carotid (ICA) artery without a hemodynamically significant stenosis. Normal visualized cervical portion of the right internal carotid artery. Normal origin of the right external carotid artery (ECA). LEFT CAROTID ARTERIES: Minor multifocal calcific plaquing of the left common carotid artery (CCA). Minor calcific plaquing of the left common carotid bulb. Normal origin of the left internal carotid (ICA) artery without a hemodynamically significant stenosis. Normal visualized cervical portion of the left internal carotid artery. Normal origin of the left external carotid artery (ECA). VERTEBRAL ARTERIES: The left vertebral is dominant and there is diffuse narrowing of the right vertebral terminating in a PICA CT/STROKE CTA Head AND Neck W/Con IMPRESSION: Mild atherosclerotic disease of the neck without evidence for hemodynamically significant stenosis. Atherosclerotic disease in the brain with focal occlusion of a branch of the distal M2 segment of the left middle cerebral with nonfilling of the main sylvian branch and many distal sylvian branches Electronically Signed: Paul Reddy MD at 19:32 EST ,
--- NOTE | 2022-06-06 18:46 | CT_ITS ---
We are attempting to reach an attending provider to discuss findings. An addendum with communication details will be sent when the communication is complete. INDICATION: Neuro deficit, acute, stroke suspected EXAMINATION: CT BRAIN - CT Head Stroke Protocol W/O Contrast Injection TECHNIQUE: Multiple axial images were obtained of the head without intravenous contrast. A radiation dose optimization technique was used for this scan. IV Contrast dosage and agent: None. COMPARISON: June 24, 2021 FINDINGS: BRAIN PARENCHYMA: No intra- or extra-axial hemorrhage. Advanced periventricular white matter ischemic changes No evidence of acute infarct. No intracranial mass or mass effect. There is preservation of the price/white matter interface. Posterior fossa structures are unremarkable. Calcific plaquing of the cavernous carotids CSF SPACES: Moderate atrophy. No hydrocephalus. Basal cisterns are patent. CALVARIUM, SKULL BASE, PARANASAL SINUSES AND MASTOID AIR CELLS: Clear. No discrete lytic or blastic abnormalities. ORBITS: Postsurgical changes of the orbits. CT/STROKE Brain/Head without Cont IMPRESSION: Atrophy and advanced periventricular white matter ischemic change. No acute bleed. If concern for acute infarct MRI recommended Electronically Signed: Paul Reddy MD at 19:16 EST Reading Location ID and State: [facility] / [place] , Service support ,
[2022-06-06] MEDS: Tenecteplase 14.4 MG in Syringe 1 EACH 2073.6 MG IV (19:05)
--- NOTE | 2022-06-06 19:06 | EDS_ITS ---
HPI History of Present Illness Chief Complaint: Stroke Alert Detail of Chief Complaint: stroke Informant: family and EMS Onset/Context/Timing Onset: Hours (1814) Context: Sudden Onset Timing: Continuous Quality and Location: Positive for Right Facial Droop, Right Arm Weakness, Right Leg Weakness, Expressive Aphasia and Difficulty with Ambulation Onset: 1814 Current Severity: Severe Maximum Severity: Severe Worsened by: Nothing Relieved by: Nothing Narrative Narrative: Patient was recently admitted for pneumonia according to daughter. Review of outpatient records indicates that patient had an pleural effusion that was Present exudate on the left. She was started on antibiotics. She also had acute new onset macrocytic anemia. Guaiac test were negative. Hemoglobin has improved from admission. She also had electrolyte abdomen with hypokalemia and hypomagnesemia at time of admission. She is on metoprolol for chronic A. fib. She is presently on no anticoagulant. According to the neurologist there is history of hematuria. I have not found any evidence reviewing the discharge summary and notes for her last admission. Patient is nonverbal. Eyes are forced to the left. She has a flaccid right upper and right lower extremity. 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 Chronic a-fib Chronic anticoagulation Essential (primary) hypertension Gross hematuria Hyperlipidemia Hypertension Longstanding persistent atrial fibrillation Nicotine dependence Vitamin D deficiency Home Medications folic acid 1 mg tablet 2 mg PO DAILY supplement 03/14/18 [History Last Taken 05/22/22] methotrexate sodium 2.5 mg tablet 15 mg PO FR RHEUMATOID ARTHRITIS 09/30/19 [History Last Taken 05/19/22] metoprolol succinate 50 mg tablet,extended release 24 hr 75 mg PO DAILY blood pressure/heart rate #135 tabs 06/30/21 [Rx Last Taken 05/22/22] cholecalciferol (vitamin D3) 25 mcg (1,000 unit) tablet 25 mcg PO DAILY SUPPLEMENT 11/08/21 [History Last Taken 05/22/22] polyethylene glycol 3350 17 gram/dose oral powder (Miralax) 17 g PO DAILY PRN Constipation 11/08/21 [History Last Taken Unknown] acetaminophen 500 mg tablet 1,000 mg PO Q6H PRN Pain 05/23/22 [History Last Taken 05/21/22] aspirin 81 mg tablet,delayed release 81 mg PO DAILY HEART HEALTH 05/23/22 [History Last Taken 05/22/22] furosemide 20 mg tablet (Lasix) 20 mg PO QODAY FLUID 05/23/22 [History Last Taken 05/22/22] gabapentin 100 mg capsule 100 mg PO BID NERVE PAIN 05/23/22 [History Last Taken 05/22/22] isosorbide mononitrate 30 mg tablet,extended release 24 hr 30 mg PO DAILY HEART 05/23/22 [History Last Taken 05/22/22] lisinopril 20 mg tablet 20 mg PO BID BLOOD PRESSURE 05/23/22 [History Last Taken 05/22/22] pantoprazole 40 mg tablet,delayed release 40 mg PO DAILY ACID REFLUX 05/23/22 [History Last Taken 05/22/22] simvastatin 20 mg tablet 20 mg PO QHS CHOLSTEROL 05/23/22 [History Last Taken 05/22/22] cefdinir 300 mg capsule 300 mg PO BID #8 caps 05/26/22 [Rx Last Taken Unknown] cyanocobalamin (vitamin B-12) 500 mcg tablet 1,000 mcg PO BREAKFAST #30 tabs 05/26/22 [Rx Last Taken Unknown] dextromethorphan-guaifenesin 30 mg-600 mg tablet extended cluxeyk12 hr (Mucinex DM) 1 tab PO Q12H 7 days #14 tabs 05/26/22 [Rx Last Taken Unknown] hydrochlorothiazide 12.5 mg tablet 12.5 mg PO DAILY #30 tabs 05/26/22 [Rx Last Taken Unknown] Allergy/AdvReac Type Severity Reaction Status Date / Time latex Allergy Itching Verified 05/23/22 12:44 ursodiol Allergy Unknown Verified 05/23/22 12:44 belladonna alkaloids AdvReac Unknown Verified 05/23/22 12:44 [Belladonna Alkaloids] formaldehyde AdvReac Rash Verified 05/23/22 12:44 phenobarbital AdvReac Unknown Verified 05/23/22 12:44 ranitidine HCl [From Zantac] AdvReac Unknown Verified 05/23/22 12:44 Family History Father CAD (coronary artery disease) CVA (cerebral vascular accident) Mother CAD (coronary artery disease) Myocardial infarction Surgical History History of coronary artery stent placement (12/02/13) History of left heart catheterization (02/18/16) History of open reduction and internal fixation (ORIF) procedure (09/2019) Social History household members: spouse and family Smoking Status: Current every day smoker tobacco type: cigarettes alcohol intake: never substance use type: does not use ROS ROS ED Review of Systems ROS Unobtainable: due to mental status EXAM Physical Exam Const Vital Signs: 06/06/22 18:55 06/06/22 19:03 06/06/22 19:05 Temperature 98 F 97.7 F L Temperature Source Temporal Temporal Pulse Rate 104 H Respiratory Rate 24 H Blood Pressure 170/81 H 170/81 H Blood Pressure Mean 110 Blood Pressure Source Pulse Ox 97 Oxygen Delivery Method Room Air Oxygen Flow Rate (L/min) 06/06/22 19:10 06/06/22 19:20 06/06/22 19:26 Temperature Temperature Source Pulse Rate 103 H 101 H Respiratory Rate 26 H 28 H Blood Pressure 162/86 H 144/77 H Blood Pressure Mean 111 99 Blood Pressure Source Monitor Pulse Ox 95 96 96 Oxygen Delivery Method Room Air Room Air Room Air Oxygen Flow Rate (L/min) 06/06/22 19:35 06/06/22 19:50 06/06/22 20:20 Temperature Temperature Source Pulse Rate 103 H 104 H 112 H Respiratory Rate 26 H 22 H 26 H Blood Pressure 144/77 H 151/74 H 176/86 H Blood Pressure Mean 99 99 116 Blood Pressure Source Monitor Pulse Ox 96 95 93 Oxygen Delivery Method Room Air Room Air Room Air Oxygen Flow Rate (L/min) 06/06/22 20:35 06/06/22 20:50 06/06/22 21:20 Temperature Temperature Source Pulse Rate 120 H 101 H 106 H Respiratory Rate 26 H 23 H 26 H Blood Pressure 177/87 H 149/81 H 152/84 H Blood Pressure Mean 117 103 106 Blood Pressure Source Pulse Ox 95 97 92 Oxygen Delivery Method Room Air Nasal Cannula Room Air Oxygen Flow Rate (L/min) 2 06/06/22 21:50 06/06/22 22:20 Temperature Temperature Source Pulse Rate 113 H 99 Respiratory Rate 24 H 22 H Blood Pressure 156/77 H 132/72 H Blood Pressure Mean 103 92 Blood Pressure Source Pulse Ox 95 94 Oxygen Delivery Method Room Air Room Air Oxygen Flow Rate (L/min) Positive well nourished and well developed General Appearance ED: well developed and NAD HEENT Reports moist mucous membranes atraumatic Nose: other Other Details: Nose exam is normal. Posterior pharynx out erythema or exudate. Eyes Eyes Narrative: Forced deviation of the eyes to the left. Sclera is anicteric. Conjunctive is pale. General Eye ED: Yes pale conjunctiva; Negative for scleral icterus Neck no lymphadenopathy, supple and no JVD Chest Wall inspection of chest normal Resp normal respiratory effort and No clear to auscultation bilaterally Resp Narrative: Check patient's rhonchi's upper respiratory because of difficulty clearing her secretions. Auscultation: rhonchi Cardio Cardio Narrative: Rate is normal. There is no obvious murmur noted. Rhythm: abnormal rhythm irregularly irregular GI soft to palpation, non-tender, non-distended and no masses Auscultation: hypoactive bowel sounds Extremity General Extremety ED: Negative for deformity, edema or tenderness General Extremity: Negative for deformity or edema Neuro No oriented x3, No CN's II-XII intact bilaterally and No no sensory deficits noted Sensorium / Orientation: Negative for alert Speech: Negative for speech normal Gait (Neuro): Negative for normal gait Motor Exam: Negative for strength 5/5 throughout Psych Psych Narrative: Unable to assess Skin no wounds Skin Narrative: Patient appears pale. General Skin Exam: Negative for jaundice NIHSS NIHSS Initial: 1a Level of Consciousness: 1 1b LOC Questions (Score 2 if aphasic/stupor): 2 1c LOC Commands (Only score 1st attempt): 2 2 Best Gaze (If aphasic, use reflexive mvmts.): 2 4 Facial Palsy: 2 5 Motor Arm Right (UN = amputation/fusion): 4 5 Motor Arm Left: 1 6 Motor Leg Right: 4 6 Motor Leg Left: 3 7 Limb ataxia (Only + if out of proportion): UN 8 Sensory (Aphasia/stupor=0 or 1, coma=2): 1 9 Best Language: 3 10 Dysarthria (mute, coma=2, intubated=UN): 2 11 Extinction and Inattention (only scored if +): 1 Total Score: 28 MDM MDM MDM Narrative Medical decision making narrative: Stroke team was called. Per review of CAT scan there is no obvious bleed per my review. With known onset risk benefits were explained to the daughter. Confirm ed that she is not on anticoagulant. Reviewed prior records to assure she is not on anticoagulant. After explaining risk benefits tenecteplase was administered. Neurologist was concerned because of anemia. Informed him that there is been no drop in her hemoglobin from past blood counts and hemoglobin is slightly higher than at the time of discharge. He did not see an obvious LVO. Was received call from radiologist and agrees there is no evidence of bleed or abnormality on the CAT scan. Arrangement was made for critical ground transport because of the weather condition unable to fly. Critical ground unit for [facility] will take over 2 hours. The litigation legal secretary made arrangements for positions to transport patient emergently. Lab Data Attestation: I reviewed the patient's lab results. Labs: Laboratory Results - last 24 hr 06/06/22 06/06/22 06/06/22 19:00 19:00 19:00 WBC 12.2 H RBC 2.68 L Hgb 8.7 L Hct 27.8 L MCV 103.7 H MCH 32.5 H MCHC 31.3 L RDW Std Deviation 61.6 H RDW Coeff of Doris 16.6 H Plt Count 442 MPV 9.5 Immature Gran % (Auto) 1.200 H Neut % (Auto) 82.5 H Lymph % (Auto) 8.5 L [place] % (Auto) 5.8 Eos % (Auto) 1.5 Baso % (Auto) 0.5 Absolute Neuts (auto) 10.0 H Absolute Lymphs (auto) 1.04 Nucleated RBC % 0 PT 17.1 H INR 1.4 APTT 33.8 Sodium 135 L Potassium 4.6 Chloride 104 Carbon Dioxide 24.0 Anion Gap 7 BUN 25 H Creatinine 1.06 H Estim Creat Clear Calc 34.85 Est GFR (MDRD) Af Amer 64 Est GFR (MDRD) Non-Af 53 L BUN/Creatinine Ratio 23.6 H Glucose 120 H Calcium 9.1 Troponin I High Sens 20 Radiography Diagnostic Testing: Clinical Impression(s) from Imaging Studies Brain CT 06/06/22 18:46 IMPRESSION: Atrophy and advanced periventricular white matter ischemic change. No acute bleed. If concern for acute infarct MRI recommended Electronically Signed: Paul Reddy MD at 19:16 EST , ADDENDUM: 06/06/22 1927 IMPRESSION: Atrophy and advanced periventricular white matter ischemic change. No acute bleed. If concern for acute infarct MRI recommended N.B. : The above Results were Read Back by Paul Reddy MD to Trey Fabian MD, and understanding confirmed on 06/06/2022 19:20:31 (ET). Electronically Signed: Paul Reddy MD at 19:16 EST , Head/Neck CTA 06/06/22 18:46 IMPRESSION: Mild atherosclerotic disease of the neck without evidence for hemodynamically significant stenosis. Atherosclerotic disease in the brain with focal occlusion of a branch of the distal M2 segment of the left middle cerebral with nonfilling of the main [place]lv[place] branch and many distal sylvian branches Electronically Signed: Paul Reddy MD at 19:32 EST , ADDENDUM: 06/06/22 1940 IMPRESSION: Mild atherosclerotic disease of the neck without evidence for hemodynamically significant stenosis. Atherosclerotic disease in the brain with focal occlusion of a branch of the distal M2 segment of the left middle cerebral with nonfilling of the main sylvian branch and many distal sylvian branches N.B. : The above Results were Read Back by Paul Reddy MD to Trey Fabian MD, MD, and understanding confirmed on 06/06/2022 19:33:42 (ET). Electronically Signed: Paul Reddy MD at 19:32 EST , Chest X-Ray 06/06/22 20:05 IMPRESSION: Persistent left pleural effusion and left lower lobe consolidation Electronically Signed: Paul Reddy MD at 20:30 EST Reading Location ID and State: [address] [place] [address] , Service support , Rhythm Strip Rhythm Strip: A-fib Rate: 87 EKG Initial EKG: Interpretation: Atrial Fibrillation (Atrial fibrillation with either premature beats or aberrant beats. Rate is 98. Cures duration 76 ms. QT duration 10 and 20 ms. [place] is normal. This is an abnormal EKG.) Prior: Unchanged Stroke Documentation Questions Stroke Team Activated: Yes Reviewed Inclusion/Exclusion criteria: Yes IV Thrombolytic Administered: Yes No contraindications from thrombolytic administration: Yes Risks, Benefits, Alternatives Discussed: Yes Critical Care Time Critical Care Time: Yes Critical care time (excluding procedures): 30-74 minutes (37), Including time spent: (History, physical, documentation, review of prior admission and laboratory results, discussion with family, administration of tenecteplase), Discussing w/Patient &/or Family/Supervisor [employer] (Spoke with family regarding quality of life, onset and confirmed that she is not on anticoagulant), Discussing w/Consultants (Neurologist at [facility], radiologist who read the unenhanced and enhanced study), Arranging Admission or Transfer (Jennifer the accepting nurse/transfer line at [facility]), Performing Direct Patient Care at Bedside and - (Patient with pharmacy regarding the administration of tenecteplase) Discharge Plan Triage Chief Complaint: Stroke Alert ED Provider: Trey Fabian Dx/Rx/DC Orders Clinical Impression: Acute stroke due to ischemia, History of coronary artery stent placement, Hyperlipidemia, Essential (primary) hypertension, Atrial fibrillation, chronic, Atherosclerotic heart disease of [place] coronary artery without angina pectoris, Nonrheumatic aortic valve insufficiency, Anemia Prescriptions: No Action folic acid 1 mg tablet 2 mg PO DAILY cholecalciferol (vitamin D3) 25 mcg (1,000 unit) tablet 25 mcg PO DAILY polyethylene glycol 3350 [Miralax] 17 gram/dose powder 17 g PO DAILY PRN (Reason: Constipation) methotrexate sodium 2.5 MG tablet 15 mg PO FR aspirin 81 mg Tablet,Delayed Release (Dr/Ec) 81 mg PO DAILY gabapentin 100 mg capsule 100 mg PO BID lisinopril 20 mg tablet 20 mg PO BID isosorbide mononitrate 30 mg tablet extended release 24 hr 30 mg PO DAILY acetaminophen 500 MG tablet 1,000 mg PO Q6H PRN (Reason: Pain) pantoprazole 40 mg tablet,delayed release (DR/EC) 40 mg PO DAILY simvastatin 20 mg tablet 20 mg PO QHS furosemide [Lasix] 20 mg tablet 20 mg PO QODAY cyanocobalamin (vitamin B-12) 500 mcg Tablet 1,000 mcg PO BREAKFAST Qty: 30 0RF cefdinir 300 mg capsule 300 mg PO BID Qty: 8 0RF hydrochlorothiazide 12.5 mg tablet 12.5 mg PO DAILY Qty: 30 1RF Rx Instructions: Hold for SBP less than 130 mmHg Mucinex DM 30-600 mg tablet extended release 12 hr 1 tab PO Q12H 7 Days Qty: 14 0RF metoprolol succinate 50 mg tablet extended release 24 hr 75 mg PO DAILY Qty: 135 3RF Primary Care Provider: Paul Mccullough Referrals: Paul Mccullough MD [Primary Care Provider] - Disposition Disposition: Acute Care Hospital Discharge Location: [facility] Discharge Date/Time: 06/06/22 22:36
[2022-06-06 19:08] LABS: Absolute Lymphocyte Count 1.04 X10^3/uL (0.83-4.51); Basophil# 0.06 X10^3/uL; Basophil% 0.5 % (0-1); Eosinophil# 0.18 X10^3/uL; Eosinophils% 1.5 % (0-5); Hematocrit 27.8 % (37-47); Hemoglobin 8.7 g/dL (12.0-15.0); Lymphocyte # 1.04 X10^3/ul (0.83-4.51); Lymphocyte % 8.5 % (19-41); Mean Corp Hgb Conc 31.3 g/dL (32-36); Mean Corpuscular Hgb 32.5 pg (27.0-32.0); Mean Corpuscular Volume 103.7 fL (81-99); Mean Platelet Vol. 9.5 fl (6.2-12.0); Monocyte# 0.71 X10^3/uL; Monocyte% 5.8 % (0-10); NRBC Flagged by Analyzer 0 % (0-5); Neutrophil # 10.04 X10^3/uL (2.7-7.7); Neutrophil % 82.5 % (47-70); Platelet Count 442 K/mm3 (150-450); RBC Distribution Width CV 16.6 % (11.6-14.6); RBC Distribution Width SD 61.6 fl (35.1-43.9); Red Blood Count 2.68 M/mm3 (4.2-5.4); White Blood Count 12.2 K/mm3 (4.4-11.0)
[2022-06-06 19:19] LABS: International Normalized Ratio 1.4; Partial Thromboplast Time 33.8 Seconds (24.1-36.2); Prothrombin Time (Protime)PT. 17.1 SECONDS (11.7-14.9)
[2022-06-06 19:24] LABS: Anion Gap 7 (5-15); BUN 25 mg/dL (7-18); BUN/Creat Ratio 23.6 RATIO (10-20); Calcium,Total 9.1 mg/dL (8.5-10.1); Chloride 104 mmol/L (98-107); Creatinine, Serum 1.06 mg/dL (0.55-1.02); EST Glomerular Filtration Rate 53 mL/min (>60); Est Glom Filt Rate - Afr Amer 64 mL/min (>60); Estimated Creatinine Clearance 34.85 ml/min; Glucose 120 mg/dL (74-106); Potassium 4.6 mmol/L (3.5-5.1); Sodium Level 135 mmol/L (136-145); Troponin-I HS 20 pg/mL (3.0-54.0)
[2022-06-06] MEDS: 0.9% Normal Saline 1,000 ML 100 ML IV (19:40)
--- NOTE | 2022-06-06 20:05 | RAD_ITS ---
STUDY: X-RAY CHEST REASON FOR EXAM: Female, 81 years old. Neuro deficit, acute, stroke suspected TECHNIQUE: AP portable COMPARISON: May 24, 2022 FINDINGS: There is a persistent left pleural effusion with associated left lower lobe consolidation. . Normal size heart. Normal mediastinum and jonn. Normal visualized pulmonary arteries. Normal visualized aortic arch and descending thoracic aorta. Normal visualized thoracic spine. Normal visualized ribs, clavicles, and shoulders. There is no demonstrated abnormality of the visualized soft tissue structures of the upper abdomen. RAD/Chest 1 View IMPRESSION: Persistent left pleural effusion and left lower lobe consolidation Electronically Signed: Paul Reddy MD at 20:30 EST ,
--- NOTE | 2022-06-06 21:18 | NURSING ---
CALLED PHYSICIANS FOR AN ETA SINCE THEY WERE 15 MINUTES PAST ORIGINAL STATED ETA. WAS UPDATED WITH AN ADDITIONAL 45 MIN- 1 HR LONGER.
== END 2022-06-06 22:36 | disposition short-term general hospital (02) ==
PROVIDERS: Emergency Provider Emergency Medicine; PCP Family Medicine; Visit Provider Emergency Medicine
DX: I63.9 Cerebral infarction, unspecified (principal); G81.03 Flaccid hemiplegia affecting right nondominant side; I48.20 Chronic atrial fibrillation, unspecified; I25.10 Atherosclerotic heart disease of native coronary artery without angina pectoris; Z95.5 Presence of coronary angioplasty implant and graft; D53.9 Nutritional anemia, unspecified; I10 Essential (primary) hypertension; R47.01 Aphasia; I35.1 Nonrheumatic aortic (valve) insufficiency; E78.5 Hyperlipidemia, unspecified; R29.810 Facial weakness; R26.0 Ataxic gait; M19.90 Unspecified osteoarthritis, unspecified site; E55.9 Vitamin D deficiency, unspecified; F17.210 Nicotine dependence, cigarettes, uncomplicated; Z79.899 Other long term (current) drug therapy
CPT/HCPCS: 70450; 70496; 70498; 71045; 80048; 84484; 85025; 85610; 85730; 93005; 99284; J3101; J7030; Q9967; A4216

== ENCOUNTER 2022-06-26 05:02 | Emergency (ER) | payer MEDICARE, SELFPAY ==
[2022-06-26 05:04] VITALS: BP 218/132; PULSE 122; RESP 35; TEMP 37.6; O2SAT 93; BMI 58.3
--- NOTE | 2022-06-26 05:23 | ED.RN ---
tyronept's poa and son notified that the emergency,dr leary would like to talk to him about plan of care.son willing to do that.
[2022-06-26 05:29] VITALS: BP 157/92; PULSE 108; RESP 28; O2SAT 97
[2022-06-26 07:02] VITALS: BP 171/86; PULSE 70; RESP 23; O2SAT 92
--- NOTE | 2022-06-26 07:34 | ED.RN ---
THIS RN AT BEDSIDE TO OBTAIN ARIEL POA/SON PHONE NUMBER FROM CHENG. ARIEL PHONE NUMBER IS [phone]. PER CHENG, ARIEL IS ON HIS WAY TO THE HOSPITAL, AND SHOULD ARRIVE IN [address] TREE MOLINA[address]
[2022-06-26] MEDS: Morphine 2 MG/ML Syringe IV (08:14)
[2022-06-26] MEDS: Ondansetron 4 MG/2 ML Vial IV (08:14)
--- NOTE | 2022-06-26 08:26 | EX.ED.DYSGE1 ---
HPI History of Present Illness Chief Complaint: General Illness Narrative Narrative: Patient is a 81-year-old female with history of chronic atrial fibrillation who is no longer anticoagulated and recently had a massive stroke which led to paralysis of the right side the inability to swallow and making patient nonverbal. She takes all her medication through PEG tube. alf reports that she arrived to the facility in the last 24 hours and that this morning they found her gasping. They report family has a DNR signed but it has not been filled out by the physician and therefore they are sending her to the hospital for evaluation. The patient cannot offer any further history as she is nonverbal. [facility] Medical History (Updated 06/27/22 @ 22:[address] 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 Chronic a-fib Chronic anticoagulation Essential (primary) hypertension Gross hematuria Hyperlipidemia Hypertension Longstanding persistent atrial fibrillation Nicotine dependence Stroke/cerebrovascular accident Vitamin D deficiency Home Medications folic acid 1 mg tablet 2 mg PO DAILY supplement 03/14/18 [History Last Taken 05/22/22] methotrexate sodium 2.5 mg tablet 15 mg PO FR RHEUMATOID ARTHRITIS 09/30/19 [History Last Taken 05/19/22] metoprolol succinate 50 mg tablet,extended release 24 hr 75 mg PO DAILY blood pressure/heart rate #135 tabs 06/30/21 [Rx Last Taken 05/22/22] cholecalciferol (vitamin D3) 25 mcg (1,000 unit) tablet 25 mcg PO DAILY SUPPLEMENT 11/08/21 [History Last Taken 05/22/22] polyethylene glycol 3350 17 gram/dose oral powder (Miralax) 17 g PO DAILY PRN Constipation 11/08/21 [History Last Taken Unknown] acetaminophen 500 mg tablet 1,000 mg PO Q6H PRN Pain 05/23/22 [History Last Taken 05/21/22] aspirin 81 mg tablet,delayed release 81 mg PO DAILY HEART HEALTH 05/23/22 [History Last Taken 05/22/22] furosemide 20 mg tablet (Lasix) 20 mg PO QODAY FLUID 05/23/22 [History Last Taken 05/22/22] gabapentin 100 mg capsule 100 mg PO BID NERVE PAIN 05/23/22 [History Last Taken 05/22/22] isosorbide mononitrate 30 mg tablet,extended release 24 hr 30 mg PO DAILY HEART 05/23/22 [History Last Taken 05/22/22] lisinopril 20 mg tablet 20 mg PO BID BLOOD PRESSURE 05/23/22 [History Last Taken 05/22/22] pantoprazole 40 mg tablet,delayed release 40 mg PO DAILY ACID REFLUX 05/23/22 [History Last Taken 05/22/22] simvastatin 20 mg tablet 20 mg PO QHS CHOLSTEROL 05/23/22 [History Last Taken 05/22/22] cefdinir 300 mg capsule 300 mg PO BID #8 caps 05/26/22 [Rx Last Taken Unknown] cyanocobalamin (vitamin B-12) 500 mcg tablet 1,000 mcg PO BREAKFAST #30 tabs 05/26/22 [Rx Last Taken Unknown] dextromethorphan-guaifenesin 30 mg-600 mg tablet extended hr (Mucinex DM) 1 tab PO Q12H 7 days #14 tabs 05/26/22 [Rx Last Taken Unknown] hydrochlorothiazide 12.5 mg tablet 12.5 mg PO DAILY #30 tabs 05/26/22 [Rx Last Taken Unknown] clindamycin palmitate HCl 75 mg/5 mL oral solution 300 mg (20 mL) PO 4X/DAY 10 days #800 mL 06/26/22 [Rx Last Taken Unknown] levofloxacin 250 mg/10 mL oral solution 500 mg (20 mL) PO DAILY 10 days #200 mL 06/26/22 [Rx Last Taken Unknown] Allergy/AdvReac Type Severity Reaction Status Date / Time latex Allergy Itching Verified 06/26/22 05:19 ursodiol Allergy Unknown Verified 06/26/22 05:19 belladonna alkaloids AdvReac Unknown Verified 06/26/22 05:19 [Belladonna Alkaloids] formaldehyde AdvReac Rash Verified 06/26/22 05:19 phenobarbital AdvReac Unknown Verified 06/26/22 05:19 ranitidine HCl [From Zantac] AdvReac Unknown Verified 06/26/22 05:19 Family History Father CAD (coronary artery disease) CVA (cerebral vascular accident) Mother CAD (coronary artery disease) Myocardial infarction Surgical History (Updated 06/06/22 @ 19:[address] Trey Fabian MD) History of coronary artery stent placement (12/02/13) History of left heart catheterization (02/18/16) History of open reduction and internal fixation (ORIF) procedure (09/2019) Social History household members: spouse and family Smoking Status: Current every day smoker tobacco type: cigarettes alcohol intake: never substance use type: does not use ROS ROS ED ROS Narrative Review of systems is unable to be obtained secondary to patient's history of massive stroke leading to patient being nonverbal Review of Systems ROS Unobtainable: due to mental status EXAM Physical Exam Const Vital Signs: 06/26/22 05:04 06/26/22 05:29 06/26/22 07:06 Temperature 99.6 F H Temperature Source Temporal Pulse Rate 122 H 108 H Respiratory Rate 35 H 28 H Respiratory Effort Short of Breath Respiratory Depth Normal Respiratory Pattern Tachypnea Blood Pressure 218/132 H 157/92 H Blood Pressure Mean 160 113 Pulse Ox 93 97 Oxygen Delivery Method Nasal Cannula Nasal Cannula Nasal Cannula Oxygen Flow Rate (L/min) 5 5 06/26/22 07:02 Temperature Temperature Source Pulse Rate 70 Respiratory Rate 23 H Respiratory Effort Respiratory Depth Respiratory Pattern Blood Pressure 171/86 H Blood Pressure Mean 114 Pulse Ox 92 Oxygen Delivery Method Nasal Cannula Oxygen Flow Rate (L/min) 5 Positive well nourished and well developed Constitutional Narrative: Patient is in respiratory distress with tachypnea and accessory muscle use General Appearance ED: well developed HEENT Reports moist mucous membranes HEENT Narrative: Patient has a large amount of saliva/secretions in the posterior pharynx and oral cavity concerning for aspiration Eyes PERRL and EOMs intact bilaterally Neck supple and no JVD Chest Wall palpation of chest normal Resp Resp Narrative: Patient is in respiratory distress with tachypnea and accessory muscle use she has diminished breath sounds throughout with rhonchi in the bilateral bases slightly greater on the right concerning for aspiration pneumonia Cardio regular rate Rate: other Other Details: Irregularly irregular rhythm with a regular rate consistent with history of atrial fibrillation GI non-tender and non-distended GI Narrative: PEG tube in place without surrounding secondary soft tissue changes to suggest infection there is no apparent pain with palpation and no distention or pulsatile mass Auscultation: normoactive bowel sounds Palpation: soft Extremity normal to inspection Extremity Narrative: No asymmetric edema no bony deformity or joint effusion noted Neuro Neuro Narrative: Patient is at her baseline mental status per family after her recent stroke without acute or new findings Skin no rashes or lesions noted MDM MDM MDM Narrative Medical decision making narrative: Patient presented to the ER in respiratory distress requiring oxygenation and I felt this was from the large amount of secretions in the posterior pharynx and aspiration pneumonia. The patient underwent suctioning and after this her work of breathing diminished and her oxygen level improved to 88 to 92% without supplemental oxygen. As nursing reported family had already felt a DNR but had not been signed by the physician I did not start any type of work-up and instead elected to contact family to discuss how they wanted to proceed with her care. Family presented to the ER and they agree that the patient's breathing difficulties and aspiration are secondary to her ability to not control her secretions which cannot be fully corrected unless she is intubated and her airway protected which they do not want to have done. Family wishes to have the patient undergo hospice consult and [facility] to the [facility]. At this time as her history and exam indicates she also developed aspiration pneumonia I will place her on a round of antibiotics through her PEG tube. The patient had a DNR comfort care only filled out in the ER. Nursing and was notified that patient will be returning and that family is well aware of her long-term prognosis and the care plan is for hospice consult. Discharge Plan Triage Chief Complaint: General Illness ED Provider: Luis Minaya Dx/Rx/DC Orders Clinical Impression: Aspiration pneumonia, Essential (primary) hypertension, Longstanding persistent atrial fibrillation, CVA, old, cognitive deficits Instructions: When You Have Pneumonia Prescriptions: New clindamycin palmitate HCl 75 mg/5 mL recon soln 300 mg PO 4X/DAY 10 Days Qty: 800 0RF levofloxacin 250 mg/10 mL solution 500 mg PO DAILY 10 Days Qty: 200 0RF No Action folic acid 1 mg tablet 2 mg PO DAILY cholecalciferol (vitamin D3) 25 mcg (1,000 unit) tablet 25 mcg PO DAILY polyethylene glycol 3350 [Miralax] 17 gram/dose powder 17 g PO DAILY PRN (Reason: Constipation) methotrexate sodium 2.5 MG tablet 15 mg PO FR aspirin 81 mg Tablet,Delayed Release (Dr/Ec) 81 mg PO DAILY gabapentin 100 mg capsule 100 mg PO BID lisinopril 20 mg tablet 20 mg PO BID isosorbide mononitrate 30 mg tablet extended release 24 hr 30 mg PO DAILY acetaminophen 500 MG tablet 1,000 mg PO Q6H PRN (Reason: Pain) pantoprazole 40 mg tablet,delayed release (DR/EC) 40 mg PO DAILY simvastatin 20 mg tablet 20 mg PO QHS furosemide [Lasix] 20 mg tablet 20 mg PO QODAY cyanocobalamin (vitamin B-12) 500 mcg Tablet 1,000 mcg PO BREAKFAST Qty: 30 0RF cefdinir 300 mg capsule 300 mg PO BID Qty: 8 0RF hydrochlorothiazide 12.5 mg tablet 12.5 mg PO DAILY Qty: 30 1RF Rx Instructions: Hold for SBP less than 130 mmHg Mucinex DM 30-600 mg tablet extended release 12 hr 1 tab PO Q12H 7 Days Qty: 14 0RF metoprolol succinate 50 mg tablet extended release 24 hr 75 mg PO DAILY Qty: 135 3RF Primary Care Provider: Rogerio De La Torre Referrals: Paul Mccullough MD [Non-Staff] - Activity Restrictions/Additional Instructions: The patient's plan of care has been discussed with family. They have elected to make her DNR comfort care only. Secondary to this please consult hospice to make her comfortable. Because her aspiration pneumonia secondary to her secretions please suction the patient's oral cavity every hour to prevent worsening of her respirations. Also provide the antibiotics as directed to treat the aspiration pneumonia. Disposition Disposition: Home, Self Care Discharge Date/Time: 06/26/22 10:40
--- NOTE | 2022-06-26 08:46 | NURSING ---
CALLED [facility], ETA IS 60 TO 90 MIN
[2022-06-26 08:53] VITALS: BP 123/74; PULSE 84; RESP 24; O2SAT 92
--- NOTE | 2022-06-26 09:54 | ED.RN ---
REPORT CALLED TO GARTH CLEMENTE, REFRENCING PATIENT DISCHARGE.
[2022-06-26 10:08] VITALS: BP 160/71; PULSE 78; RESP 21; TEMP 36.6; O2SAT 93
== END 2022-06-26 10:40 | disposition skilled nursing facility (03) ==
PROVIDERS: Emergency Provider Emergency Medicine; PCP Family Medicine; Visit Provider Emergency Medicine
DX: J69.0 Pneumonitis due to inhalation of food and vomit (principal); Z93.1 Gastrostomy status; I69.351 Hemiplegia and hemiparesis following cerebral infarction affecting right dominant side; I48.11 Longstanding persistent atrial fibrillation; I69.319 Unspecified symptoms and signs involving cognitive functions following cerebral infarction; E78.5 Hyperlipidemia, unspecified; I10 Essential (primary) hypertension; F17.210 Nicotine dependence, cigarettes, uncomplicated; Z95.5 Presence of coronary angioplasty implant and graft; Z79.82 Long term (current) use of aspirin; Z79.899 Other long term (current) drug therapy
CPT/HCPCS: 96374; 96375; 99285; J2405

== ENCOUNTER 2022-06-28 17:40 | Emergency (ER) | payer MEDICARE, SELFPAY ==
[2022-06-28 17:48] VITALS: BP 176/78; PULSE 85; RESP 18; TEMP 36.3; O2SAT 98; BMI 28.3
--- NOTE | 2022-06-28 18:50 | RAD_ITS ---
EXAM: XR ABDOMEN, 1 VIEW CLINICAL INDICATION: PEG tube replacement -- Gastrografin study TECHNIQUE: Frontal supine view of the abdomen/pelvis. This report was created using [employer] report Errplane technology. COMPARISON: None. FINDINGS: LOWER THORAX: No acute pathology. GASTROINTESTINAL TRACT: Unremarkable. Non-obstructive. No bowel or stomach distention. ORGANS: Unremarkable as visualized. No organomegaly. No abnormal calcifications. BONES/JOINTS: No acute pathology. SOFT TISSUES: No acute pathology. TUBES, LINES AND DEVICES: Percutaneous gastrostomy tube is present. There is contrast injected via the PEG tube which is seen within the gastric lumen with contrast extending into the proximal small bowel. There is no extravasation outside bowel lumen. RAD/Abdomen Single View IMPRESSION: PEG tube with the bulb within the proximal to mid stomach. Contrast is seen within the stomach and small bowel with no extravasation outside bowel lumen. Electronically Signed: Everette Valdez MD at 19:17 EST ,
--- NOTE | 2022-06-28 19:40 | EX.ED.DYSGE1 ---
HPI History of Present Illness Chief Complaint: Wound Informant: SNF Limited: other (Patient is nonverbal) Onset/Context/Timing Onset: Today Context: Sudden Onset Timing: Continuous Location: Left upper quadrant Narrative Narrative: Patient presents after pulling out her PEG tube tonight. This occurred approximately 30 minutes prior to arrival. History was obtained from [facility] facility. Patient is nonverbal due to prior stroke. Patient requires PEG tube for feedings because of her prior stroke and inability to swallow. Patient also has a history of aspiration pneumonia after her stroke. [facility] staff states the patient has a [address] tube in place normally. 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 Chronic a-fib Chronic anticoagulation Essential (primary) hypertension Gross hematuria Hyperlipidemia Hypertension Longstanding persistent atrial fibrillation Nicotine dependence Stroke/cerebrovascular accident Vitamin D deficiency Home Medications folic acid 1 mg tablet 2 mg PO DAILY supplement 03/14/18 [History Last Taken 05/22/22] methotrexate sodium 2.5 mg tablet 15 mg PO FR RHEUMATOID ARTHRITIS 09/30/19 [History Last Taken 05/19/22] metoprolol succinate 50 mg tablet,extended release 24 hr 75 mg PO DAILY blood pressure/heart rate #135 tabs 06/30/21 [Rx Last Taken 05/22/22] cholecalciferol (vitamin D3) 25 mcg (1,000 unit) tablet 25 mcg PO DAILY SUPPLEMENT 11/08/21 [History Last Taken 05/22/22] polyethylene glycol 3350 17 gram/dose oral powder (Miralax) 17 g PO DAILY PRN Constipation 11/08/21 [History Last Taken Unknown] acetaminophen 500 mg tablet 1,000 mg PO Q6H PRN Pain 05/23/22 [History Last Taken 05/21/22] aspirin 81 mg tablet,delayed release 81 mg PO DAILY HEART HEALTH 05/23/22 [History Last Taken 05/22/22] furosemide 20 mg tablet (Lasix) 20 mg PO QODAY FLUID 05/23/22 [History Last Taken 05/22/22] gabapentin 100 mg capsule 100 mg PO BID NERVE PAIN 05/23/22 [History Last Taken 05/22/22] isosorbide mononitrate 30 mg tablet,extended release 24 hr 30 mg PO DAILY HEART 05/23/22 [History Last Taken 05/22/22] lisinopril 20 mg tablet 20 mg PO BID BLOOD PRESSURE 05/23/22 [History Last Taken 05/22/22] pantoprazole 40 mg tablet,delayed release 40 mg PO DAILY ACID REFLUX 05/23/22 [History Last Taken 05/22/22] simvastatin 20 mg tablet 20 mg PO QHS CHOLSTEROL 05/23/22 [History Last Taken 05/22/22] cefdinir 300 mg capsule 300 mg PO BID #8 caps 05/26/22 [Rx Last Taken Unknown] cyanocobalamin (vitamin B-12) 500 mcg tablet 1,000 mcg PO BREAKFAST #30 tabs 05/26/22 [Rx Last Taken Unknown] dextromethorphan-guaifenesin 30 mg-600 mg tablet extended [id number] hr (Mucinex DM) 1 tab PO Q12H 7 days #14 tabs 05/26/22 [Rx Last Taken Unknown] hydrochlorothiazide 12.5 mg tablet 12.5 mg PO DAILY #30 tabs 05/26/22 [Rx Last Taken Unknown] clindamycin palmitate HCl 75 mg/5 mL oral solution 300 mg (20 mL) PO 4X/DAY 10 days #800 mL 06/26/22 [Rx Last Taken Unknown] levofloxacin 250 mg/10 mL oral solution 500 mg (20 mL) PO DAILY 10 days #200 mL 06/26/22 [Rx Last Taken Unknown] Allergy/AdvReac Type Severity Reaction Status Date / Time latex Allergy Itching Verified 06/28/22 17:43 ursodiol Allergy Unknown Verified 06/28/22 17:43 belladonna alkaloids AdvReac Unknown Verified 06/28/22 17:43 [Belladonna Alkaloids] formaldehyde AdvReac Rash Verified 06/28/22 17:43 phenobarbital AdvReac Unknown Verified 06/28/22 17:43 ranitidine HCl [From Zantac] AdvReac Unknown Verified 06/28/22 17:43 Family History Father CAD (coronary artery disease) CVA (cerebral vascular accident) Mother CAD (coronary artery disease) Myocardial infarction Surgical History History of coronary artery stent placement (12/02/13) History of left heart catheterization (02/18/16) History of open reduction and internal fixation (ORIF) procedure (09/2019) Social History household members: spouse and family Smoking Status: Former smoker alcohol intake: never substance use type: does not use ROS ROS ED Review of Systems ROS Unobtainable: due to mental condition and due to mental status EXAM Physical Exam Const Vital Signs: 06/28/22 17:48 Temperature 97.3 F L Temperature Source Temporal Pulse Rate 85 Respiratory Rate 18 Blood Pressure 176/78 H Blood Pressure Mean 110 Pulse Ox 98 Oxygen Delivery Method Room Air Positive well nourished and well developed General Appearance ED: well developed and NAD HEENT Reports moist mucous membranes Resp normal respiratory effort and clear to auscultation bilaterally Cardio regular rate and regular rhythm GI non-tender and non-distended GI Narrative: There is a PEG tube opening in the left upper quadrant. There is no surrounding erythema or discharge. There is no drainage. There is no induration. Auscultation: normoactive bowel sounds Palpation: soft Neuro Neuro Narrative: Patient is awake and alert. Patient is nonverbal. MDM MDM MDM Narrative Medical decision making narrative: There does not appear to be any sign of infection around the PEG tube site. There is no active discharge or drainage. A 20 Italian PEG tube was replaced into the tube site. The balloon was inflated. KUB was obtained and Gastrografin was passed through the PEG tube. There is 1 view. On my independent interpretation, there is no free air. The contrast is seen within the stomach and small bowel. There is no extravasation outside the bowel wall. Radiologist also interpreted the x-ray and agrees. Patient will be discharged back to the extended care facility with the PEG tube in place. The abdominal binder was in place. [facility] staff was advised that the patient will be coming back to their facility. They are agreeable with this. All questions were answered. Radiography Diagnostic Testing: Clinical Impression(s) from Imaging Studies KUB X-Ray 06/28/22 18:50 IMPRESSION: PEG tube with the bulb within the proximal to mid stomach. Contrast is seen within the stomach and small bowel with no extravasation outside bowel lumen. Electronically Signed: Everette Valdez MD at 19:17 EST , KUB x-ray was obtained. There is 1 view. On my independent interpretation, there is no free air. The Gastrografin was noted to be in the lumen of the stomach and small bowel. There is no extravasation of the contrast outside of the bowel lumen. Radiologist also interpreted the x-ray and agrees. Discharge Plan Triage Chief Complaint: Wound ED Provider: Pato Tanner Dx/Rx/DC Orders Clinical Impression: Dislodged gastrostomy tube, Debility Instructions: Gastrostomy Feeding Tube Care ..., ED Feeding Tube Replacement Prescriptions: No Action folic acid 1 mg tablet 2 mg PO DAILY cholecalciferol (vitamin D3) 25 mcg (1,000 unit) tablet 25 mcg PO DAILY polyethylene glycol 3350 [Miralax] 17 gram/dose powder 17 g PO DAILY PRN (Reason: Constipation) methotrexate sodium 2.5 MG tablet 15 mg PO FR aspirin 81 mg Tablet,Delayed Release (Dr/Ec) 81 mg PO DAILY gabapentin 100 mg capsule 100 mg PO BID lisinopril 20 mg tablet 20 mg PO BID isosorbide mononitrate 30 mg tablet extended release 24 hr 30 mg PO DAILY acetaminophen 500 MG tablet 1,000 mg PO Q6H PRN (Reason: Pain) pantoprazole 40 mg tablet,delayed release (DR/EC) 40 mg PO DAILY simvastatin 20 mg tablet 20 mg PO QHS furosemide [Lasix] 20 mg tablet 20 mg PO QODAY cyanocobalamin (vitamin B-12) 500 mcg Tablet 1,000 mcg PO BREAKFAST Qty: 30 0RF cefdinir 300 mg capsule 300 mg PO BID Qty: 8 0RF hydrochlorothiazide 12.5 mg tablet 12.5 mg PO DAILY Qty: 30 1RF Rx Instructions: Hold for SBP less than 130 mmHg Mucinex DM 30-600 mg tablet extended release 12 hr 1 tab PO Q12H 7 Days Qty: 14 0RF clindamycin palmitate HCl 75 mg/5 mL recon soln 300 mg PO 4X/DAY 10 Days Qty: 800 0RF levofloxacin 250 mg/10 mL solution 500 mg PO DAILY 10 Days Qty: 200 0RF metoprolol succinate 50 mg tablet extended release 24 hr 75 mg PO DAILY Qty: 135 3RF Primary Care Provider: Rogerio De La Torre Referrals: Rogerio De La Torre MD [Primary Care Provider] - 3-5 Days Disposition Disposition: Halfway Facility Discharge Location: Other SNF not listed
--- NOTE | 2022-06-29 01:10 | NURSING ---
CALLED PHYSICIANS FOR AN UPDATED ETA IT IS NOW 0200A
[2022-06-29 02:33] VITALS: BP 139/86; PULSE 71; RESP 16; O2SAT 96
[2022-06-29 02:36] VITALS: BP 139/86; PULSE 73; RESP 16; O2SAT 97
--- NOTE | 2022-06-29 02:56 | RAD_ITS ---
INDICATION: peg tube placement EXAMINATION/TECHNIQUE: X-RAY - XR Abdomen 1 View COMPARISON: FINDINGS: BOWEL GAS PATTERN: PEG tube in good position. There is contrast noted within the stomach. There is contrast residue in the colon. There is no evidence of contrast leak. FREE AIR: Not assessed on a single supine view. ORGANOMEGALY: Not seen. CALCIFICATIONS: No abnormal calcifications observed. LOWER CHEST: No acute pathology. BONES AND SOFT TISSUES: No acute pathology. RAD/Abdomen Single View (Portable) IMPRESSION: PEG tube in good position. Electronically Signed: Carola Hanson MD at 3:34 EST ,
[2022-06-29 03:13] VITALS: BP 144/64; PULSE 79; RESP 15; O2SAT 94
== END 2022-06-29 04:05 | disposition skilled nursing facility (03) ==
PROVIDERS: Emergency Provider Emergency Medicine; PCP Family Medicine; Visit Provider Emergency Medicine
DX: Z43.1 Encounter for attention to gastrostomy (principal); I48.11 Longstanding persistent atrial fibrillation; I25.119 Atherosclerotic heart disease of native coronary artery with unspecified angina pectoris; Z87.891 Personal history of nicotine dependence; I10 Essential (primary) hypertension; I69.328 Other speech and language deficits following cerebral infarction; I69.398 Other sequelae of cerebral infarction; Z87.01 Personal history of pneumonia (recurrent); M19.90 Unspecified osteoarthritis, unspecified site; Z79.899 Other long term (current) drug therapy; E55.9 Vitamin D deficiency, unspecified; Z79.01 Long term (current) use of anticoagulants
CPT/HCPCS: 43762; 74018; 99284; A4216